=== PATIENT | female | born 1945 | race Caucasian/White ===

== ENCOUNTER 2018-05-09 23:41 | Inpatient (IN) | payer OTHER, MEDICARE ==
[~2018-05-09] VITALS: Ht 165.1 cm; Wt 98.0 kg
[2018-05-09 23:59] VITALS: BP 172/75; PULSE 100; RESP 18; TEMP 98.8; O2SAT 100
[2018-05-10] VITALS (8 sets, daily range): BP systolic 122–181; BP diastolic 68–84; PULSE 64–87; RESP 16–18; TEMP 97.3–100; O2SAT 94–99
[2018-05-10] MEDS ORDERED: SODIUM CHLOR 0.9% 1000 ML INJ 1,000 ML IV ONE (00:15)
[2018-05-10] MEDS ORDERED: VANCOMYCIN INJ 1,000 MG in SODIUM CHLOR 0.9% 250 ML INJ 250 ML IV ONE (00:15)
[2018-05-10] MEDS ORDERED: PIPERACIL-TAZO 4.5 GM PREMIX 100 ML IV ONE (00:15)
[2018-05-10] MEDS ORDERED: IOHEXOL 350 MG/ML 10 ML VIAL (for RAD DIAG) IVCONTRAST ONE (00:21)
--- NOTE | 2018-05-10 00:29 | RADRPT ---
EXAM DATE: 05/10/2018 12:25 AM EDT AGE/SEX: 72 years / Female INDICATIONS: Fever. CLINICAL DATA: This is the patient's initial encounter. Patient reports that signs and symptoms have been present for 1 day and indicates a pain score of 0/10. MEDICAL/SURGICAL HISTORY: None. Appendectomy. COMPARISON: No prior exams available for comparison. FINDINGS: A single AP view of the chest demonstrates the lungs to be symmetrically aerated without evidence of mass, infiltrate or effusion. The cardiomediastinal contours are unremarkable. Osseous structures a re intact. CONCLUSION: Negative examination. The right hemidiaphragm is moderately elevated. Electronically signed by: Berhane Alston MD 05/10/2018 12:28 AM EDT
[2018-05-10 00:45] LABS: AUTOMATED NEUTROPHIL # 13.5 TH/MM3 (1.8-7.7); BASOPHIL # 0.1 TH/MM3 (0-0.2); BASOPHIL % 0.4 % (0.0-2.0); EOSINOPHIL # 0.1 TH/MM3 (0-0.4); EOSINOPHIL % 0.6 % (0.0-4.0); HEMATOCRIT 38.5 % (35.0-46.0); HEMOGLOBIN 12.6 GM/DL (11.6-15.3); LYMPHOCYTE # 0.6 TH/MM3 (1.0-4.8); MEAN CELL VOLUME 85.1 FL (80.0-100.0); MEAN CORPUSCULAR HEMOGLOBIN 27.8 PG (27.0-34.0); MEAN CORPUSCULAR HGB CONC 32.6 % (32.0-36.0); MONO % 6.1 % (0.0-8.0); MONOCYTE # 0.9 TH/MM3 (0-0.9); NEUT % 88.9 % (16.0-70.0); PLATELET COUNT 348 TH/MM3 (150-450); RED BLOOD COUNT 4.53 MIL/MM3 (4.00-5.30); RED CELL DISTRIBUTION WIDTH 14.6 % (11.6-17.2); WHITE BLOOD COUNT 15.1 TH/MM3 (4.0-11.0)
[2018-05-10 00:53] LABS: INTERNATIONAL NORMALIZED RATIO 1.1 RATIO; PROTHROMBIN TIME - PATIENT 11.1 SEC (9.8-11.6)
[2018-05-10 01:00] LABS: ALBUMIN 2.7 GM/DL (3.4-5.0); ALT (GPT) 16 U/L (10-53); AST (GOT) 23 U/L (15-37); BICARBONATE 21.9 MEQ/L (21.0-32.0); BLOOD UREA NITROGEN 9 MG/DL (7-18); CALCIUM 8.8 MG/DL (8.5-10.1); CHLORIDE 102 MEQ/L (98-107); GLOMERULAR FILTRATION RATE 44 ML/MIN (>89); GLUCOSE,RANDOM 283 MG/DL (74-106); MAGNESIUM 2.2 MG/DL (1.5-2.5); SODIUM (NA) 138 MEQ/L (136-145)
[2018-05-10] MEDS ORDERED: TETANUS/DIPHTHERIA TOXOID ADULT 0.5 ML VIAL IM ONE (01:00)
--- NOTE | 2018-05-10 01:01 | PD ---
HPI Chief Complaint: General Weakness Time Seen by Provider: 00:06 Travel History International Travel<30 days: No Contact w/Intl Traveler<30days: No Traveled to known affect area: No History of Present Illness HPI Patient is a 72-year-old female who presents to the emergency room for evaluation. As per EMS, reports that patient's left knee buckled and she fell forward landing onto her right breast. Patient reports that she has been feeling progressively weak over the past month. Reports that she does not have any medical problems and does not take any medications.. Patient reports that about 1 month ago, she had noticed something to her right breast, reports that now it turns into a large necrotic lesion. Patient reports that she has not follow-up with the primary care doctor for this, reports that her right breast infection is just getting worse. Patient denies any fevers or chills, reports overall generalized weakness. PFSH Past Medical History Medical History: Denies Significant Hx ?: Not Past Surgical History Appendectomy: Yes Social History Alcohol Use: No Tobacco Use: No Substance Use: No Allergies-Medications (Allergen,Severity, Reaction): Coded Allergies: No Known Allergies (Unverified , 05/09/18) Reported Meds & Prescriptions Reported Meds & Active Scripts Active No Active Prescriptions or Reported Medications Review of Systems General / Constitutional: No: Fever Eyes: No: Visual changes HENT: No: Headaches Cardiovascular: No: Chest Pain or Discomfort Respiratory: No: Shortness of Breath Gastrointestinal: No: Abdominal Pain Genitourinary: No: Dysuria Musculoskeletal: No: Pain Skin: No Rash Neurologic: Positive: Weakness Psychiatric: No: Depression Endocrine: No: Polydipsia Hematologic/Lymphatic: No: Easy Bruising Physical Exam Narrative GENERAL: moderate distress SKIN: Focused skin assessment warm/dry. HEAD: Atraumatic. Normocephalic. EYES: Pupils equal and round. No scleral icterus. No injection or drainage. ENT: No nasal bleeding or discharge. Mucous membranes pink and moist. NECK: Trachea midline. No JVD. CARDIOVASCULAR: Regular rate and rhythm. No murmur appreciated. Patient with a large necrotic foul-smelling lesion to the right breast which is 10 x 10 cm in diameter, patient with also a smaller circumferential lesion to the left breast 4 x 4 centimeters in diameter RESPIRATORY: No accessory muscle use. Clear to auscultation. Breath sounds equal bilaterally. GASTROINTESTINAL: Abdomen soft, non-tender, nondistended. Hepatic and splenic margins not palpable. MUSCULOSKELETAL: No obvious deformities. No clubbing. No cyanosis. No edema. NEUROLOGICAL: Awake and alert. No obvious cranial nerve deficits. Motor grossly within normal limits. Normal speech. PSYCHIATRIC: Appropriate mood and affect; insight and judgment normal. Data Data Last Documented VS Vital Signs Date Time Temp Pulse Resp B/P (MAP) Pulse Ox O2 Delivery O2 Flow Rate FiO2 05/10/18 02:30 77 17 181/82 (115) 98 Room Air 05/09/18 23:59 98.8 Orders Orders Electrocardiogram (05/09/18 ) Sepsis Workup Initiated (05/10/18 ) Electrocardiogram (05/10/18 00:06) Complete Blood Count With Diff (05/10/18 00:06) Comprehensive Metabolic Panel (05/10/18 00:06) Prothrombin Time / Inr (Pt) (05/10/18 00:06) Act Partial Throm Time (Ptt) (05/10/18 00:06) Lactic Acid Sepsis Protocol (05/10/18 00:06) Magnesium (Mg) (05/10/18 00:06) Lipase (05/10/18 00:06) Urinalysis - C+S If Indicated (05/10/18 00:06) Blood Culture (05/10/18 00:06) Chest, Single Ap (05/10/18 00:06) Blood Glucose (05/10/18 00:06) Ecg Monitoring (05/10/18 00:06) Iv Access Insert/Monitor (05/10/18 00:06) Oximetry (05/10/18 00:06) Oxygen Administration (05/10/18 00:06) Piperacil-Tazo 4.5 Gm Premix (Zosyn 4.5 (05/10/18 00:15) Vancomycin Inj (Vancomycin Inj) (05/10/18 00:15) Ct Thorax/ Chest W Iv Contrast (05/10/18 ) Sodium Chlor 0.9% 1000 Ml Inj (Ns 1000 M (05/10/18 00:15) Wound Culture And Gram Stain (05/10/18 00:30) Tetanus/Diphtheria Tox Adult (Tetanus/Di (05/10/18 01:00) Knee, Complete (4vws) (05/10/18 ) Urine Culture (05/10/18 01:20) (Hub Use Only)Inp Phy Cons/Ref (05/10/18 ) Hemoglobin (Hgb) A1c (05/11/18 06:00) Bedside Glucose BECCA.CSUGAR (05/10/18 03:24) Blood Glucose Goal (Criteria) (05/10/18 03:24) Hypoglycemia 70 Mg/Dl Or < (05/10/18 03:24) Notify Dr: Other (05/10/18 03:24) Dextrose 50% In Rubia (Vial) Inj (D50w (Vi (05/10/18 03:30) Glucagon Inj (Glucagon Inj) (05/10/18 03:30) Low Novolog Scale (05/10/18 08:00) Consult Medical Oncology (05/10/18 ) Consult General Surgery (05/10/18 ) Vancomycin Consult Pharmacy (Vancomycin (05/10/18 03:30) Cefepime Inj (Maxipime Inj) (05/10/18 09:00) Admit To Inpatient (05/10/18 ) Vital Signs (Adult) Q4H (05/10/18 03:24) Activity Oob With Assistance (05/10/18 03:24) Snack Bar Cook / Telemetry .CONTINUOUS (05/10/18 03:24) Intake + Output BECCA.QSHIFT (05/10/18 03:24) Diet 1800 Ada Cons Carb (05/10/18 Breakfast) Sodium Chlor 0.9% 1000 Ml Inj (Ns 1000 M (05/10/18 03:24) Sodium Chloride 0.9% Flush (Ns Flush) (05/10/18 03:30) Sodium Chloride 0.9% Flush (Ns Flush) (05/10/18 09:00) Metoclopramide Inj (Reglan Inj) (05/10/18 03:30) Comprehensive Metabolic Panel (05/11/18 06:00) Complete Blood Count With Diff (05/11/18 06:00) Pt Request For Service (05/10/18 03:24) Case Management Consult (05/10/18 03:24) Scd Bilateral/Knee High BECCA.BID (05/10/18 03:24) Yogesh Bilateral/Knee High BECCA.QSHIFT (05/10/18 03:26) Acetaminophen (Tylenol) (05/10/18 03:30) Acetamin-Hydrocod 325-5 Mg (Amenia 5-325 (05/10/18 03:30) Morphine Inj (Morphine Inj) (05/10/18 03:30) Docusate Sodium-Senna (Sammie-Colace) (05/10/18 09:00) Magnesium Hydroxide Liq (Milk Of Magnesi (05/10/18 03:30) Sennosides (Senokot) (05/10/18 03:30) Bisacodyl Supp (Dulcolax Supp) (05/10/18 03:30) Lactulose Liq (Lactulose Liq) (05/10/18 03:30) Inpatient Certification (05/10/18 ) Admit Order (Ed Use Only) (05/10/18 03:26) Labs Laboratory Tests Test 05/10/18 00:21 05/10/18 01:20 05/10/18 03:11 White Blood Count 15.1 TH/MM3 Red Blood Count 4.53 MIL/MM3 Hemoglobin 12.6 GM/DL Hematocrit 38.5 % Mean Corpuscular Volume 85.1 FL Mean Corpuscular Hemoglobin 27.8 PG Mean Corpuscular Hemoglobin Concent 32.6 % Red Cell Distribution Width 14.6 % Platelet Count 348 TH/MM3 Mean Platelet Volume 6.0 FL Neutrophils (%) (Auto) 88.9 % Lymphocytes (%) (Auto) 4.0 % Monocytes (%) (Auto) 6.1 % Eosinophils (%) (Auto) 0.6 % Basophils (%) (Auto) 0.4 % Neutrophils # (Auto) 13.5 TH/MM3 Lymphocytes # (Auto) 0.6 TH/MM3 Monocytes # (Auto) 0.9 TH/MM3 Eosinophils # (Auto) 0.1 TH/MM3 Basophils # (Auto) 0.1 TH/MM3 CBC Comment DIFF FINAL Differential Comment Prothrombin Time 11.1 SEC Prothromb Time International Ratio 1.1 RATIO Activated Partial Thromboplast Time 22.2 SEC Blood Urea Nitrogen 9 MG/DL Creatinine 1.20 MG/DL Random Glucose 283 MG/DL Total Protein 7.3 GM/DL Albumin 2.7 GM/DL Calcium Level 8.8 MG/DL Magnesium Level 2.2 MG/DL Alkaline Phosphatase 111 U/L Aspartate Amino Transf (AST/SGOT) 23 U/L Alanine Aminotransferase (ALT/SGPT) 16 U/L Total Bilirubin 1.3 MG/DL Sodium Level 138 MEQ/L Potassium Level 3.8 MEQ/L Chloride Level 102 MEQ/L Carbon Dioxide Level 21.9 MEQ/L Anion Gap 14 MEQ/L Estimat Glomerular Filtration Rate 44 ML/MIN Lactic Acid Level 3.2 mmol/L Lipase 182 U/L Urine Color YELLOW Urine Turbidity HAZY Urine pH 6.5 Urine Specific [place] 1.016 Urine Protein 30 mg/dL Urine Glucose (UA) TRACE mg/dL Urine Ketones NEG mg/dL Urine Occult Blood TRACE Urine Nitrite NEG Urine Bilirubin NEG Urine Urobilinogen 4.0 MG/DL Urine Leukocyte Esterase NEG Urine RBC 4 /hpf Urine WBC 4 /hpf Urine Squamous Epithelial Cells 30 /hpf Urine Amorphous Sediment OCC Urine Bacteria MOD /hpf Urine Hyaline Casts 8 /lpf Urine Mucus FEW /lpf Microscopic Urinalysis Comment CATH-CULTURE IND MDM Medical Decision Making Medical Screen Exam Complete: Yes Emergency Medical Condition: Yes Medical Record Reviewed: Yes Interpretation(s) EKG at 2314: Normal sinus rhythm at 98 bpm, QT/QTc 338/3 and 3, no acute ST or T -wave changes Vital Signs Date Time Temp Pulse Resp B/P (MAP) Pulse Ox O2 Delivery O2 Flow Rate FiO2 05/09/18 23:59 98.8 100 18 172/75 (107) 100 Differential Diagnosis Breast cancer, necrotic lesions to breast, sepsis, electrolyte abnormality Narrative Course During the course of the patients emergency department visit, the patients history, examination, and differential diagnosis were reviewed with the patient. The patient was placed on a gambling monitor with oximetry and frequent blood pressure monitoring. The patient had an IV access obtained and blood work sent for analysis. The patient was initially provided IV vancomycin as well as IV Zosyn as she does have necrotic lesions to bilateral breasts. The patients laboratory studies were reviewed and remarkable for Laboratory Tests Test 05/10/18 00:21 05/10/18 01:20 White Blood Count 15.1 TH/MM3 (4.0-11.0) Red Blood Count 4.53 MIL/MM3 (4.00-5.30) Hemoglobin 12.6 GM/DL (11.6-15.3) Hematocrit 38.5 % (35.0-46.0) Mean Corpuscular Volume 85.1 FL (80.0-100.0) Mean Corpuscular Hemoglobin 27.8 PG (27.0-34.0) Mean Corpuscular Hemoglobin Concent 32.6 % (32.0-36.0) Red Cell Distribution Width 14.6 % (11.6-17.2) Platelet Count 348 TH/MM3 (150-450) Mean Platelet Volume 6.0 FL (7.0-11.0) Neutrophils (%) (Auto) 88.9 % (16.0-70.0) Lymphocytes (%) (Auto) 4.0 % (9.0-44.0) Monocytes (%) (Auto) 6.1 % (0.0-8.0) Eosinophils (%) (Auto) 0.6 % (0.0-4.0) Basophils (%) (Auto) 0.4 % (0.0-2.0) Neutrophils # (Auto) 13.5 TH/MM3 (1.8-7.7) Lymphocytes # (Auto) 0.6 TH/MM3 (1.0-4.8) Monocytes # (Auto) 0.9 TH/MM3 (0-0.9) Eosinophils # (Auto) 0.1 TH/MM3 (0-0.4) Basophils # (Auto) 0.1 TH/MM3 (0-0.2) CBC Comment DIFF FINAL Differential Comment Prothrombin Time 11.1 SEC (9.8-11.6) Prothromb Time International Ratio 1.1 RATIO Activated Partial Thromboplast Time 22.2 SEC (24.3-30.1) Blood Urea Nitrogen 9 MG/DL (7-18) Creatinine 1.20 MG/DL (0.50-1.00) Random Glucose 283 MG/DL (74-106) Total Protein 7.3 GM/DL (6.4-8.2) Albumin 2.7 GM/DL (3.4-5.0) Calcium Level 8.8 MG/DL (8.5-10.1) Magnesium Level 2.2 MG/DL (1.5-2.5) Alkaline Phosphatase 111 U/L (45-117) Aspartate Amino Transf (AST/SGOT) 23 U/L (15-37) Alanine Aminotransferase (ALT/SGPT) 16 U/L (10-53) Total Bilirubin 1.3 MG/DL (0.2-1.0) Sodium Level 138 MEQ/L (136-145) Potassium Level 3.8 MEQ/L (3.5-5.1) Chloride Level 102 MEQ/L (98-107) Carbon Dioxide Level 21.9 MEQ/L (21.0-32.0) Anion Gap 14 MEQ/L (5-15) Estimat Glomerular Filtration Rate 44 ML/MIN (>89) Lactic Acid Level 3.2 mmol/L (0.4-2.0) Lipase 182 U/L (73-393) Urine Color YELLOW (YELLW/STRAW) Urine Turbidity HAZY (CLEAR) Urine pH 6.5 (5.0-8.5) Urine Specific [place] 1.016 (1.002-1.035) Urine Protein 30 mg/dL (NEG-TRACE) Urine Glucose (UA) TRACE mg/dL (NEG) Urine Ketones NEG mg/dL (NEG) Urine Occult Blood TRACE (NEG) Urine Nitrite NEG (NEG) Urine Bilirubin NEG (NEG) Urine Urobilinogen 4.0 MG/DL (LESS THAN Urine Leukocyte Esterase NEG (NEG) Urine RBC 4 /hpf (0-3) Urine WBC 4 /hpf (0-5) Urine Squamous Epithelial Cells 30 /hpf (0-5) Urine Amorphous Sediment OCC Urine Bacteria MOD /hpf (NONE) Urine Hyaline Casts 8 /lpf (RARE) Urine Mucus FEW /lpf (OCC) Microscopic Urinalysis Comment CATH-CULTURE IND Radiology studies were reviewed and remarkable for Last Impressions Chest X-Ray 05/10/186 Signed Impressions: CONCLUSION: Negative examination. The right hemidiaphragm is moderately elevated. Knee X-Ray 05/10/18 Signed Impressions: CONCLUSION: Large tricompartmental osteophytes. No acute fracture Chest CT 05/10/18 Signed Impressions: CONCLUSION: 1. Bilateral breast masses with skin thickening and ulceration. Bilateral axil amanda adenopathy. WBC 15.1, lactic acid 3.2, patient has been pancultured, she does have bilateral breast masses with thickening and ulceration and infection. Patient has been given a dose of Zosyn as well as vancomycin, she will require admission to the hospital this time. I did discuss with patient concerning findings from the CT scan as she appears to have large breast masses. She has adnexal axillary mass likely metastatic. Patient's daughter at bedside, patient did give me permission to speak to her daughter and review the results. Discussed all concerning findings from the CT including likely metastatic disease and breast cancer with necrotic breast lesions. Patient is agreeable to admission to the hospital Case reviewed with Dr. Lind who accepts patient to service. Critical Care Narrative Aggregate critical care time was 30 minutes. Time to perform other separately billable procedures was not included in the critical care time. My time did not include minutes spent treating any other patients simultaneously or on activities that did not directly contribute to the patient's treatment. The services I provided to this patient were to treat and/or prevent clinically significant deterioration that could result in: , decompensation, deterioration I provided critical care services requiring my management, as noted below: Chart data review, documentation time, medication orders and management, vital sign assessments/reviewing monitor data, ordering and reviewing lab tests, ordering and interpreting/reviewing x-rays and diagnostic studies, care of the patient and discussion of the patient with the admitting physicians. Sepsis Criteria SIRS Criteria (2 or more): Heart rate over 90, WBC > 42809, < 4000 or > 10% bands Severe Sepsis (+one): Lactate >2 Criteria Outcome: Meets sepsis criteria Diagnosis Primary Impression: Breast mass in female Additional Impression: Sepsis affecting skin Admitting Information Admitting Physician Requests: Admit Scripts No Active Prescriptions or Reported Meds Lucie Andrews DO May 10, 2018 01:01
[2018-05-10 01:02] LABS: LACTIC ACID SEPSIS PROTOCOL 3.2 mmol/L (0.4-2.0)
[2018-05-10 01:03] LABS: ALKALINE PHOSPHATASE 111 U/L (45-117); TOTAL BILIRUBIN ADULT 1.3 MG/DL (0.2-1.0); TOTAL PROTEIN 7.3 GM/DL (6.4-8.2)
--- NOTE | 2018-05-10 01:25 | RADRPT ---
EXAM DATE: 05/10/2018 1:21 AM EDT AGE/SEX: 72 years / Female INDICATIONS: Fracture. Patient states her knee gives out. CLINICAL DATA: This is the patient's initial encounter. Patient reports that signs and symptoms have been present for 1 month and indicates a pain score of 0/10. MEDICAL/SURGICAL HISTORY: None. Appendectomy. COMPARISON: No prior exams available for comparison. FINDINGS: There is marked osteoarthritis involving the medial compartment. Large osteophytes. No acute fracture . No significant joint effusion. Severe osteoarthritis of the patellofemoral joint. CONCLUSION: Large tricompartmental osteophytes. No acute fracture Electronically signed by: Berhane Alston MD 05/10/2018 1:24 AM EDT
[2018-05-10 01:52] LABS: AMORPHOUS SEDIMENT, URINE OCC; BACTERIA, URINE MOD /hpf; BILIRUBIN, URINE NEG (NEG); BLOOD, URINE TRACE (NEG); GLUCOSE,URINE TRACE mg/dL (NEG); HYALINE CAST, URINE 8 /lpf (RARE); KETONE, URINE NEG (NEG); MUCUS URINE FEW /lpf (OCC); NITRITE,URINE NEG (NEG); PH, URINE 6.5 (5.0-8.5); SQUAMOUS EPITHELIAL CELL URINE 30 /hpf (0-5); URINE COLOR YELLOW (YELLW/STRAW); URINE LEUKOCYTE ESTERASE NEG (NEG)
--- NOTE | 2018-05-10 03:02 | RADRPT ---
EXAM DATE: 05/10/2018 2:16 AM EDT AGE/SEX: 72 years / Female INDICATIONS: Trauma; fall. Patient's breast bleeding. CLINICAL DATA: This is the patient's initial encounter. Patient reports that signs and symptoms have been present for 1 day and indicates a pain score of 7/10. MEDICAL/SURGICAL HISTORY: None. Appendectomy. RADIATION DOSE: 14.55 CTDI (mGy) COMPARISON: No prior exams available for comparison. TECHNIQUE: Multiple contiguous axial images were obtained through the chest during bolus infusion of 71 ml Omnipaque 350 (iohexol) nonionic water-soluble contrast as a single exam dose. Images were obtained in suspended respiration using multiple row detector helical technique. Using automated exp osure control and adjustment of the mA and/or kV according to patient size, radiation dose was kept a s low as reasonably achievable to obtain optimal diagnostic quality images. FINDINGS: The patient has a large left breast mass 5.5 cm across. It extends to the skin surface whic h is thickened and ulcerated. There is a mass in the right breast also with a large area of ulceratio n and skin thickening. Lungs: The lungs are symmetrically aerated. No infiltrates or nodular densities are seen. Mediastinum: There is good visualization of the great vessels of the middle mediastinum. No evidenc e of mediastinal or hilar adenopathy/mass. Pleurae: No evidence of focal thickening or pleural effusion. Axillae: 4.6 cm right adnexal axillary mass likely metastatic adenopathy. 2.4 cm lymph node left axi lla Bony Structures: Unremarkable. Miscellaneous: The examination was extended to include the upper abdomen, and both adrenal glands ar e normal in size and configuration. CONCLUSION: 1. Bilateral breast masses with skin thickening and ulceration. Bilateral axillary adenopathy. Electronically signed by: Berhane Alston MD 05/10/2018 3:01 AM EDT
[2018-05-10] MEDS ORDERED: DEXTROSE 50% IN WATER 50 ML VIAL(D50) IV PUSH PRN (03:30)
[2018-05-10] MEDS ORDERED: ACETAMINOPHEN 325 MG TAB PO PRN (03:30)
[2018-05-10] MEDS ORDERED: GLUCAGON 1 MG/ML VIAL OTHER PRN (03:30)
[2018-05-10] MEDS ORDERED: METOCLOPRAMIDE HCL 10 MG/2 ML VIAL IV PUSH PRN (03:30)
[2018-05-10] MEDS ORDERED: Vancomycin Consult Pharmacy 1 EA OTHER SCH (03:30)
[2018-05-10] MEDS ORDERED: LACTULOSE SYRUP 20 GM/30 ML CUP PO PRN (03:30)
[2018-05-10] MEDS ORDERED: BISACODYL 10 MG SUPP RECTAL PRN (03:30)
[2018-05-10] MEDS ORDERED: SENNOSIDES 8.6 MG TAB PO PRN (03:30)
[2018-05-10] MEDS ORDERED: MAGNESIUM HYDROXIDE SUSP 30 ML CUP PO PRN (03:30)
--- NOTE | 2018-05-10 03:55 | HHI.HP ---
HPI Service [facility] Primary Care Physician No Primary Care Physician Admission Diagnosis Sepsis, necrotic breast mass Diagnoses: (1) Fall Diagnosis: Principal (2) Masses of both breasts Diagnosis: Principal (3) SIRS (systemic inflammatory response syndrome) Diagnosis: Principal (4) UTI (urinary tract infection) Diagnosis: Principal (5) Renal insufficiency Diagnosis: Principal (6) DM (diabetes mellitus) Diagnosis: Principal Travel History International Travel<30 Days: No Contact w/Intl Traveler <30 Da: No Traveled to Known Affected Are: No History of Present Illness This is a 72-year-old female with no significant PMH and she is not seen a doctor in 40 years who was brought to the ER by EMS with complaints of left knee and right breast pain after a fall. Patient states her leg "buckled" and she fell forward onto her walker hitting her right breast. On exam, pt noted to have large, necrotic right breast lesion.. upon further questioning, pt states she noticed it 2 months ago but never sought medical attention because " I was stupid". Also notes similar, but smaller lesion to left breast which appeared approx 1wk ago. Denies fever, chills. No h/o Breast CA that she is aware of. On arrival, BP 172/75, HR 100, O2 sat 100% on RA, Afebrile. WBC 15.1. Creatinine 1.2 no previous labs for comparison. BS 283. Lactic Acid 3.2. INR 1.1. UA positive for UTI. Knee X-ray with no acute fracture. CXR negative. CT Chest bilateral breast masses with skin thickening and ulceration , bilateral axillary adenopathy. S/p Blood Cultures, Vanc/Zosyn in ER. Review of Systems Except as stated in HPI: all other systems reviewed are Neg ROS: 14 point review of systems otherwise negative. Past Family Social History Past Medical History PMH: None reported Past Surgical History PAST SURGICAL HISTORY: Appendectomy Allergies: Coded Allergies: No Known Allergies (Unverified , 05/09/18) Family History PAST FAMILY HISTORY: Reviewed. No h/o DM or CAD Social History PAST SOCIAL HISTORY: Negative for alcohol, tobacco or drugs. Physical Exam Vital Signs Vital Signs Date Time Temp Pulse Resp B/P (MAP) Pulse Ox O2 Delivery O2 Flow Rate FiO2 05/10/18 02:30 77 17 181/82 (115) 98 Room Air 05/09/18 23:59 98.8 100 18 172/75 (107) 100 Physical Exam PE: GENERAL: Middle-aged white female in no acute distress. Daughter at bedside. HEENT: PERRLA, EOMI. No scleral icterus or conjunctival pallor. No lid lag or facial droop. CARDIOVASCULAR: Regular rate and rhythm. No obvious murmurs to auscultation. No chest tenderness to palpation. Very large necrotic right breast mass w/ foul- smelling drainage approx [id number], similar appearing lesion to left breast approx 5x5cm. RESPIRATORY: No obvious rhonchi or wheezing. Clear to auscultation. Breath sounds equal bilaterally. GASTROINTESTINAL: Abdomen soft, non-tender, nondistended. BS normal. MUSCULOSKELETAL: Extremities without clubbing, cyanosis, or edema. No obvious deformities. NEUROLOGICAL: Awake, alert and oriented x4. Flat affect. No focal neurologic deficits. Moving both upper and lower extremities spontaneously. Laboratory Laboratory Tests Test 05/10/18 00:21 05/10/18 01:20 05/10/18 03:11 White Blood Count 15.1 Red Blood Count 4.53 Hemoglobin 12.6 Hematocrit 38.5 Mean Corpuscular Volume 85.1 Mean Corpuscular Hemoglobin 27.8 Mean Corpuscular Hemoglobin Concent 32.6 Red Cell Distribution Width 14.6 Platelet Count 348 Mean Platelet Volume 6.0 Neutrophils (%) (Auto) 88.9 Lymphocytes (%) (Auto) 4.0 Monocytes (%) (Auto) 6.1 Eosinophils (%) (Auto) 0.6 Basophils (%) (Auto) 0.4 Neutrophils # (Auto) 13.5 Lymphocytes # (Auto) 0.6 Monocytes # (Auto) 0.9 Eosinophils # (Auto) 0.1 Basophils # (Auto) 0.1 CBC Comment DIFF FINAL Differential Comment Prothrombin Time 11.1 Prothromb Time International Ratio 1.1 Activated Partial Thromboplast Time 22.2 Blood Urea Nitrogen 9 Creatinine 1.20 Random Glucose 283 Total Protein 7.3 Albumin 2.7 Calcium Level 8.8 Magnesium Level 2.2 Alkaline Phosphatase 111 Aspartate Amino Transf (AST/SGOT) 23 Alanine Aminotransferase (ALT/SGPT) 16 Total Bilirubin 1.3 Sodium Level 138 Potassium Level 3.8 Chloride Level 102 Carbon Dioxide Level 21.9 Anion Gap 14 Estimat Glomerular Filtration Rate 44 Lactic Acid Level 3.2 Lipase 182 Urine Color YELLOW Urine Turbidity HAZY Urine pH 6.5 Urine Specific [place] 1.016 Urine Protein 30 Urine Glucose (UA) TRACE Urine Ketones NEG Urine Occult Blood TRACE Urine Nitrite NEG Urine Bilirubin NEG Urine Urobilinogen 4.0 Urine Leukocyte Esterase NEG Urine RBC 4 Urine WBC 4 Urine Squamous Epithelial Cells 30 Urine Amorphous Sediment OCC Urine Bacteria MOD Urine Hyaline Casts 8 Urine Mucus FEW Microscopic Urinalysis Comment CATH-CULTURE IND Date/Time Source Procedure Growth Status 05/10/18 00:21 Blood Peripheral Aerobic Blood Culture Pending Received 05/10/18 00:21 Blood Peripheral Anaerobic Blood Culture Pending Received 05/10/18 01:20 Urine Catheterized Urine Urine Culture Pending Received 05/10/18 00:32 Wound Breast Gram Stain Pending Received 05/10/18 00:32 Wound Breast Wound Culture Pending Received Result Diagram: 05/10/18 0021 05/10/18 0021 Caprini VTE Risk Assessment Caprini VTE Risk Assessment: No/Low Risk (score <= 1) Caprini Risk Assessment Model Point Value = 1 Point Value = 2 Point Value = 3 Point Value = 5 Age 41-60 Minor surgery BMI > 25 kg/m2 Swollen legs Varicose veins or History of unexplained or recurrent spontaneous Oral contraceptives or hormone replacement Sepsis (< 1 month) Serious lung disease, including pneumonia (< 1 month) Abnormal pulmonary function Acute myocardial infarction Congestive heart failure (< 1 month) History of inflammatory bowel disease Medical patient at bed rest Age 61-74 Arthroscopic surgery Major open surgery (> 45 min) Laparoscopic surgery (> 45 min) Malignancy Confined to bed (> 72 hours) Immobilizing plaster cast Central venous access Age >= 75 History of VTE Family history of VTE Factor V Leiden Prothrombin [id number] Lupus anticoagulant Anticardiolipin antibodies Elevated serum homocysteine Heparin-induced thrombocytopenia Other congenital or acquired thrombophilia Stroke (< 1 month) Elective arthroplasty Hip, pelvis, or leg fracture Acute spinal cord injury (< 1 month) Prophylaxis Regimen Total Risk Factor Score Risk Level Prophylaxis Regimen 0-1 Low Early ambulation 2 Moderate Order ONE of the following: *Sequential Compression Device (SCD) *Heparin 5000 units SQ BID 3-4 Higher Order ONE of the following medications: *Heparin 5000 units SQ TID *Enoxaparin/Lovenox 40 mg SQ daily (WT < 150 kg, CrCl > 30 mL/min) *Enoxaparin/Lovenox 30 mg SQ daily (WT < 150 kg, CrCl > 10-29 mL/min) *Enoxaparin/Lovenox 30 mg SQ BID (WT < 150 kg, CrCl > 30 mL/min) AND/OR *Sequential Compression Device (SCD) 5 or more Highest Order ONE of the following medications: *Heparin 5000 units SQ TID (Preferred with Epidurals) *Enoxaparin/Lovenox 40 mg SQ daily (WT < 150 kg, CrCl > 30 mL/min) *Enoxaparin/Lovenox 30 mg SQ daily (WT < 150 kg, CrCl > 10-29 mL/min) *Enoxaparin/Lovenox 30 mg SQ BID (WT < 150 kg, CrCl > 30 mL/min) AND *Sequential Compression Device (SCD) Assessment and Plan Problem List: (1) Fall ICD Code: W19.XXXA - Unspecified fall, initial encounter (2) Masses of both breasts ICD Code: N63.10 - Unspecified lump in the right breast, unspecified quadrant; N63.20 - Unspecified lump in the left breast, unspecified quadrant (3) UTI (urinary tract infection) ICD Code: N39.0 - Urinary tract infection, site not specified (4) Renal insufficiency ICD Code: N28.9 - Disorder of kidney and ureter, unspecified (5) SIRS (systemic inflammatory response syndrome) ICD Code: R65.10 - Systemic inflammatory response syndrome (SIRS) of non- infectious origin without acute organ dysfunction (6) DM (diabetes mellitus) ICD Code: E11.9 - Type 2 diabetes mellitus without complications Assessment and Plan A/P: 1. Fall: s/p mechanical fall with walker, c/o knee pain, Knee X-ray w/ no acute fracture, images reviewed by me. PT for eval/tx. Analgesics/antiemetics as needed. 2. Bilateral Breast Masses: Necrotic bilateral breast masses, highly suspicious for underlying malignancy. CT Chest w/ bilateral breast masses, skin thickening and ulceration in addition to bilateral axillary adenopathy, images reviewed by me. Right lesion present x2 months, left breast lesion present for approx 1wk, did not seek medical attention until now. Consult Gen Sx for eval/intervention, Consult Oncology for further eval/recommendations. Continue w/ IV Abx. 3. SIRS: WBC 15, HR 100, Source-Necrotic Breast Masses/UTI. IVF for hydration , Lactic Acid 3.2, repeat Lactic Acid, continue w/ IV Abx. 4. DM: No previous diagnosis as hasn't seen doctor in 40yrs, BS 283. Check Hgb A1c, start sliding scale w/ Accu-Cheks. 5. UTI: U/a w/ UTI, continue w/ IV Abx, follow up cultures, IVF for hydration. 6. Renal Insufficiency: Creatinine 1.20, no previous labs for comparison, presumably new, secondary to above. IVF, monitor I/O, repeat labs in am. 7. DVT Prophylaxis: SCD/Teds 8. Social work for d/c planning as needed. 9. Case discussed w/ ER physician at length, labs/records/imaging reviewed by wv Physician Certification 2 Midnight Certification Type: Admission for Inpatient Services Order for Inpatient Services The services are ordered in accordance with Medicare regulations or non- Medicare payer requirements, as applicable. In the case of services not specified as inpatient-only, they are appropriately provided as inpatient services in accordance with the 2-midnight benchmark. Estimated LOS (days): 2 days is the estimated time the patient will need to remain in the hospital, assuming treatment plan goals are met and no additional complications. Post-Hospital Plan: Not yet determined Renee Lind MD May 10, 2018 03:55
[2018-05-10] MEDS ORDERED: VANCOMYCIN INJ 800 MG in SODIUM CHLOR 0.9% 250 ML INJ 250 ML IV SCH (04:00)
[2018-05-10] MEDS: SODIUM CHLOR 0.9% 1000 ML INJ 1,000 ML IV SCH ×3 (04:08→23:24)
[2018-05-10] MEDS: ACETAMINOPHEN/HYDROcodone 325 MG/5 MG TAB PO PRN ×3 (05:04→20:50)
[2018-05-10] MEDS: INSULIN ASPART SUPPLEMENTAL SCALE SQ SCH ×4 (08:00→20:50)
[2018-05-10] MEDS: SODIUM CHLORIDE 0.9% FLUSH 10 ML FLUSH IV FLUSH SCH ×2 (09:00→20:51)
[2018-05-10] MEDS: DOCUSATE SODIUM 50 MG/SENNA 8.6 MG TAB PO SCH ×2 (09:14→20:51)
[2018-05-10] MEDS: CEFEPIME INJ 1,000 MG in SODIUM CHLORIDE 0.9% INJ 100 ML IV SCH ×2 (09:14→22:27)
[2018-05-10] MEDS: MORPHINE SULFATE 4 MG/ML INJ IV PUSH PRN (11:38)
[2018-05-10] MEDS ORDERED: MORPHINE SULFATE 4 MG/ML INJ IV PUSH ONE (12:15)
[2018-05-10] MEDS ORDERED: LIDOCAINE HCL 1% PF 10 ML VIAL INFIL ONE (12:15)
[2018-05-10] MEDS ORDERED: LORazepam 2 MG/ML VIAL IVP ONE (12:15)
[2018-05-10] MEDS ORDERED: SILVER NITR/POTASSIUM NITRATE APPLICATORS TOPICAL PRN (13:00)
[2018-05-10] MEDS ORDERED: LIDOCAINE HCL 1% OTHER ONE (13:00)
--- NOTE | 2018-05-10 13:00 | MB ---
cc: Britany Johnson MD, Camille MD DATE: 05/10/2018 REFERRING PHYSICIAN: Renee Lind MD CHIEF COMPLAINT: Dr. Lind requests a consultation for Ms. Matias regarding suspected bilateral breast cancer. HISTORY OF PRESENT ILLNESS: Ms. Matias is a 72-year-old woman with no significant past history. She apparently has not seen a doctor for 40 years. She found mammograms too pain. She has a noted right breast mass for about 2 months. She had progressive weakness of the lower extremity for about 2 weeks when she fell and hit her right breast. She was witnessed by a friend to have bled through her clothing. She then revealed the fact that she has had a necrotic large mass in the breast. She was brought in by EMS because of the left knee buckling. On further questioning, she has had weakness of her legs for the last 3 years, using a walker. However, over the last 2 months, she has been able to do less and last until the above fall. She reports some pain in the upper thigh. She has some low back issues. She is still able to urinate and move her bowels without event. She has been reluctant to seek medical attention. She is accompanied by her daughter and her best friend who knew nothing about the events. They were not aware of her breast cancer and she is reluctant to let them see her lesions. She denies any fevers, chills or night sweats. She denies any changes in bowel habits. She has had weakness of the lower extremity, which has worsened. She had imaging study during her evaluation here that shows bilateral breast masses with skin thickening and ulceration. There is bilateral axillary adenopathy with the right more prominent than the left. There is noted no evidence of adenopathy in the chest or lung masses. There is a 4.6 cm palpable right supraclavicular lymph node present. Bones appear to be clear. X-ray of the right knee shows osteophytes, but no fracture. Laboratory evaluation shows a leukocytosis. Creatinine increased to 1.2, glucose was 283, albumin is decreased and bilirubin is 1.3. Hematology/Oncology was consulted to evaluate the breast masses suspicious for metastatic versus locally advanced breast cancer. PAST MEDICAL HISTORY: Bilateral breast mass. PAST SURGICAL HISTORY: Appendectomy. FAMILY HISTORY: Significant for mother who of metastatic breast cancer in her 90s. SOCIAL HISTORY: She lives alone. Denies any tobacco, alcohol or illicit drug use. She has 1 daughter who lives in [place]. ALLERGIES: NO KNOWN DRUG ALLERGIES. CURRENT MEDICATIONS: Vancomycin, cefepime, [place], morphine. PHYSICAL EXAMINATION: VITAL SIGNS: Temperature 97.8, heart rate 71, respiratory rate 16, blood pressure 142/84, saturation 97%. GENERAL: Ms. Matias is a well-developed, heavyset, elderly woman with some pale complexion. HEENT: Her pupils are round, reactive to light and accommodation. Conjunctivae is pink. Oropharynx is clear. NECK: Supple. LYMPHATICS: Right supraclavicular adenopathy noted. Bilateral axillary adenopathy palpable, right side larger than the left. BREASTS: There is an odorous, large, ulcerative, fungating mass in the right breast. There is evidence of peau d'orange and superficial skin nodules. Left breast mass also noted, smaller in size with induration. There are no skin changes on the left. There is maceration of the skin under both breasts. There is maceration of the skin on the right lower quadrant. ABDOMEN: There is erythema and some skin breakdown over her appendectomy scar. Abdomen is large. EXTREMITIES: Lower extremity, no edema. Good pulses. She has got pain in the right knee. RADIOGRAPHIC EVALUATION: Described above. ASSESSMENT AND PLAN: Ms. Matias is a 72-year-old woman with no significant past history. She has not seen a doctor. She has evidence of hypertension, hyperglycemia and diabetes. She presents after a fall and trauma to the right breast leading to bleeding and discovery of a right breast mass. From history, she reports that the breast mass has been present for 2 months. Suspect that this is probably longer and underestimation. She has evidence of bilateral ulcerative masses in the breasts, the right side larger with intermittent bleeding. Lengthy discussion with Ms. Matias, her daughter and her best friend regarding the above findings. 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 There is right axillary and supraclavicular adenopathy. Prognosis will be carried by the worst breast cancer. The left side is unclear to be a metastatic lesion versus a second primary. The case was discussed with Dr. Brito. Biopsy of both breasts will be performed at bedside. We may be able to get diagnostic information from a skin biopsy as the right breast has a superficial skin lesion and the left is superficial. We discussed staging evaluation. She has elevated bilirubin. CT scan of the abdomen to include the liver will be performed. Liver metastatic disease is considered. A bone scan will be needed to rule out bony metastatic disease. If performed on outpatient, a CT PET scan can be performed. We discussed lower extremity weakness. She had some back pain and pain in the right upper thigh. A lumbar lesion will be excluded. MRI of the lumbar spine will be coordinated as well as neurology consultation to help discern and localize lesion causing the weakness of her lower extremity. Her questions were answered to her satisfaction. MD DANUTA Celestin/ALEX , 12:19 PM , 12:59 PM
--- NOTE | 2018-05-10 14:11 | MB ---
cc: Federico Franco MD, PhD DATE: 05/10/2018 REASON FOR CONSULTATION: Right lower extremity weakness. HISTORY OF PRESENT ILLNESS: Ms. Matias is a 72-year-old female with no significant past medical history, who is being evaluated for a breast mass present for about 2 months. She now complains of increasing weakness of the right leg. She has been using a walker for about 2 years, but for the past month has had more weakness of the right leg. This has been progressive. She denies back pain. PAST MEDICAL HISTORY: Otherwise unremarkable. MEDICATIONS AT HOME: None. ALLERGIES: NONE. PHYSICAL EXAMINATION. VITAL SIGNS: Blood pressure of 126/68, pulse 74, respirations 18, temperature 97.3 degrees. NEUROLOGIC: Higher cortical function: She is alert and oriented. Speech is normal. Cranial nerves intact. Motor exam: She has normal strength and tone of all groups in both upper extremities, as well as the left leg. She is weak in the right leg. The right iliopsoas is 4-/5, right quad 4/5, right hamstring 4/5, right tibia anterior 5/5, right gastrocnemius 5/5. She has normal strength in the left leg. Sensory exam is diminished in both lower extremities distally. Reflexes are 1+ and symmetric, except for ankle reflexes, which are absent. IMPRESSION: Right lower extremity weakness. This may be a lumbosacral plexopathy. Rule out myelopathy, rule out stroke. RECOMMENDATION: Recommend an MRI of the brain, as well as the entire spine to be sure there is no evidence of any metastases or stroke. Also, check labs including a fasting glucose, rule out diabetes, rule out diabetic amyotrophy. Federico Franco MD, PhD KACEY/TL , 01:59 PM , 02:10 PM
--- NOTE | 2018-05-10 14:34 | EKG ---
Date Performed: 05/09/2018 Time Performed: 23:14:51 PTAGE: 72 years EKG: Sinus rhythm NORMAL ECG NO PREVIOUS TRACING DOCTOR: Oneil Pretty Interpretating Date/Time 05/10/2018 14:32:18
--- NOTE | 2018-05-10 15:01 | RADRPT ---
EXAM DATE: 05/10/2018 2:52 PM EDT AGE/SEX: 72 years / Female INDICATIONS: . Lower extremity weakness. Evaluate for metastatic disease. CLINICAL DATA: This is the patient's initial encounter. Patient reports that signs and symptoms have been present for 2 days and indicates a pain score of 3/10. MEDICAL/SURGICAL HISTORY: . Right necrotic breast mass. Appendectomy. Tubal ligation. COMPARISON: No prior exams available for comparison. TECHNIQUE: Multiplanar, multisequence examination of the brain was performed without contrast. FINDINGS: No intracranial mass or midline shift. No hydrocephalus. No abnormal extra-axial fluid collections. N o recent infarct identified. Minimal white matter ischemic changes commonly seen at this age. No sell ar mass. No evidence for hemorrhage. CONCLUSION: 1. No acute findings. No recent infarct. Minimal white matter ischemic changes. Electronically signed by: Matthew Dunlap MD 05/10/2018 3:00 PM EDT
[2018-05-10] MEDS ORDERED: GADODIAMIDE PF 287 MG/ML 20 ML VIAL (for RAD MRI) IVCONTRAST ONE (15:21)
--- NOTE | 2018-05-10 15:28 | MB ---
cc: Bulmaro Brito MD DATE: 05/10/2018 REASON FOR CONSULTATION: Bilateral fungating breast masses with necrosis. HISTORY OF PRESENT ILLNESS: The patient is a 72-year-old female with no previous medical care, who was brought to the ER by EMS after falling. The patient reports being weak in the lower extremities. The patient had a large necrotic right breast lesion and also has a smaller lesion in the left breast. She reports this occurred only a few weeks ago. CT of the chest demonstrates bilateral breast masses with skin thickening and ulceration and bilateral axillary adenopathy, right greater than left. REVIEW OF SYSTEMS: A 14-point review of systems is otherwise negative, although she has significant right knee pain. PAST MEDICAL HISTORY: None reported. PAST SURGICAL HISTORY: Include appendectomy. ALLERGIES: SHE HAS NO KNOWN ALLERGIES. MEDICATIONS: She is taking no medications. SOCIAL HISTORY: Negative for alcohol, tobacco, or drugs. PHYSICAL EXAMINATION: GENERAL: Reveals a morbidly obese female in no acute distress. VITAL SIGNS: BP 142/84, pulse 71, respirations 16, temperature 97.8, 97% saturation on room air. HEENT: Sclerae are anicteric. Pupils are reactive. NECK: Supple. Throat is clear. CHEST: Clear to auscultation. CARDIOVASCULAR: Reveals regular rate and rhythm. There is bilateral adenopathy with fixed nodes in the right axilla. There is a large, approximately 8 x 15 cm fungating mass on the right lateral breast in approximately the 9-10 o'clock position. There is a smaller lesion on the left at approximately the 2 o'clock position laterally. ABDOMEN: Soft. Pulses are nonpalpable, although legs are warm. NEUROLOGIC: Nonfocal, although the patient has some weakness in the lower extremities. LABORATORY DATA: Demonstrate WBCs of 15.1, hemoglobin 12.6, platelets 348,000. Chemistries demonstrate a random glucose of 283. Lactate level is 2.7 from early this morning. Liver function tests demonstrate total bilirubin elevated at 1.3. AST, ALT and alkaline phosphatase are all within normal limits. GFR is low at 44. CT is as indicated above. ASSESSMENT AND PLAN: 1. Bilateral breast masses likely advanced breast cancer with metastatic disease to the lymph nodes. I have spoken with Dr. Johnson, as well as the patient and her daughter. There is some concern due to her weakness for potential for metastatic disease to the spine. Dr. Franco is seeing the patient at the time of this dictation. The patient may need further imaging based on her lower extremity weakness. Further testing would be based on findings. We will obtain punch biopsies of these lesions tomorrow. Gathering equipment and supplies this afternoon, so that this may be performed first thing in the morning. Performing this today would not add anything to the patient's care, and thus we will accumulate all supplies needed for successful biopsy. I have discussed risks of the procedure with the patient and her daughter, including, but not limited to, bleeding and infection. The patient will likely require palliative care first and some sort of oral or IV chemotherapy. Following this, possible toilet mastectomies could be performed. This would not be a small feat, given the patient's size. Medical workup should be accomplished while the patient is in the hospital; I have discussed with Dr. Johnson that an Infusaport could be placed if she is going to require IV chemotherapy. I thank you for asking us to see this individual. MD CINDY Fontaine/TL , 02:36 PM , 03:27 PM
[2018-05-10] MEDS ORDERED: DIATRIZOATE MEGLUM/DIATRIZOATE SOD 9 ML CUP PO ONE (15:30)
--- NOTE | 2018-05-10 15:43 | RADRPT ---
EXAM DATE: 05/10/2018 3:30 PM EDT AGE/SEX: 72 years / Female INDICATIONS: . Lower extremity weakness. Evaluate for metastatic disease. CLINICAL DATA: This is the patient's initial encounter. Patient reports that signs and symptoms have been present for 2 days and indicates a pain score of 3/10. MEDICAL/SURGICAL HISTORY: . Right necrotic breast mass. Appendectomy. Tubal ligation. COMPARISON: No prior exams available for comparison. TECHNIQUE: Multiplanar, multisequence MRI examination of the cervical spine was performed without an d with 18cc ml Omniscan (gadodiamide) contrast as a single exam dose. FINDINGS: Moderate degenerative disc disease is present. At C2-3 there is no significant abnormality. At C3-4-5-6-7 there is a posterior disc osteophyte complex without significant canal or foraminal cat nosis. No cord signal abnormalities. No abnormal enhancing lesions post contrast. CONCLUSION: 1. Negative for metastatic disease. Moderate degenerative disc disease as above. No cord impingement . Electronically signed by: Matthew Dunlap MD 05/10/2018 3:42 PM EDT
--- NOTE | 2018-05-10 15:51 | RADRPT ---
EXAM DATE: 05/10/2018 3:32 PM EDT AGE/SEX: 72 years / Female INDICATIONS: . Lower extremity weakness. Evaluate for metastatic disease. CLINICAL DATA: This is the patient's initial encounter. Patient reports that signs and symptoms have been present for 2 days and indicates a pain score of 3/10. MEDICAL/SURGICAL HISTORY: . Right necrotic breast mass. Appendectomy. Tubal ligation. COMPARISON: No prior exams available for comparison. TECHNIQUE: Multiplanar, multisequence MRI of the thoracic spine was performed without and with 18cc ml Omniscan (gadodiamide) contrast as a single exam dose. FINDINGS: Postcontrast images reveal enhancing lesions at T9 and T12 measuring about 1.4 cm in diameter suspici ous for metastatic disease. There is also questionable early enhancing lesion at T8 and T10. There is no significant canal stenosis. No cord impingement or cord signal abnormality. Moderate degenerative disc disease noted. CONCLUSION: 1. 1.4 cm enhancing lesions at T9 and T12 suspicious for metastatic disease. No pathologic fracture. No significant canal stenosis. Electronically signed by: Matthew Dunlap MD 05/10/2018 3:49 PM EDT
--- NOTE | 2018-05-10 16:02 | RADRPT ---
EXAM DATE: 05/10/2018 3:49 PM EDT AGE/SEX: 72 years / Female INDICATIONS: . Lower extremity weakness. Evaluate for metastatic disease. CLINICAL DATA: This is the patient's initial encounter. Patient reports that signs and symptoms have been present for 2 days and indicates a pain score of 3/10. MEDICAL/SURGICAL HISTORY: . Right necrotic breast mass. Appendectomy. Tubal ligation. COMPARISON: No prior exams available for comparison. TECHNIQUE: Multiplanar, multisequence MRI examination of the lumbar spine was performed without and with 18cc ml Omniscan (gadodiamide) contrast as a single exam dose. FINDINGS: There are enhancing lesions at T12 and also subtle enhancing lesion in anterior aspect of L1 and in t he S3 segment most characteristic of early bony metastatic disease. There is moderate degenerative disc disease. No significant canal stenosis at [id number]. At L3-4 there is a mild disc bulge without stenosis. At L4-5 there is a minimal retrolisthesis and right paracentral disc protrusion with right lateral re cess and foraminal encroachment. At L5-S1 there is a posterior disc osteophyte complex with mild right-sided foraminal stenosis. Conus intact. No acute fracture. CONCLUSION: 1. Enhancing lesions at T12, L1 and S3 most characteristic of metastatic disease. 2. At L4-5 there is a small right paracentral disc protrusion with mild stenosis of the right latera l recess. 3. Conus medullaris intact. Electronically signed by: Matthew Dunlap MD 05/10/2018 4:01 PM EDT
--- NOTE | 2018-05-10 16:03 | HHI.PR ---
Addendum to Inpatient Note Addendum Reason: Additional Documentation Additional Information Patient was seen with nurse, breast wounds were evaluated. Saline soaked gauze recommended for removal of central pus and scabs on edge of wound. Spoke with patient's family and answered questions about care plan. Maverick Russ MD May 10, 2018 16:03
--- NOTE | 2018-05-10 19:02 | RADRPT ---
EXAM DATE: 05/10/2018 6:48 PM EDT AGE/SEX: 72 years / Female INDICATIONS: Abnormal prior CT. Evaluate for metastasis. CLINICAL DATA: This is the patient's subsequent encounter. Patient reports that signs and symptoms h ave been present for 1 day and indicates a pain score of 3/10. MEDICAL/SURGICAL HISTORY: Gastroesophageal reflux disease. Hypertension. Appendectomy. RADIATION DOSE: 21.54 CTDI (mGy) ; Patient body habitus COMPARISON: No prior exams available for comparison. TECHNIQUE: Multiple contiguous axial images were obtained through the abdomen. Images were obtained using multiple row detector helical technique. Using dose reduction techniques, radiation dose was ke pt as low as reasonably achievable to obtain optimal diagnostic quality images. FINDINGS: On the initial images through the lower chest there is an obvious mass in the left breast better seen on recent thoracic spine CT. No acute findings identified in the liver, spleen, adrenals, kidneys or pancreas. There is a large ga llstone in the gallbladder measuring up to 3.9 cm in diameter. No free fluid. No bowel obstruction. No adenopathy. Calcifications in the uterus may represent small fibroids. There is lytic bone destruction of the right iliac bone extending into the anterior acetabulum measur ing up to 5 cm in diameter most characteristic of metastatic bone disease. There is also lytic bone d estruction of anterior left iliac bone measuring about 2 cm in diameter also characteristic of metast atic disease. There is some faint sclerosis noted at L1 near the enhancing lesion seen on recent MRI. No lytic bone destruction seen in the lumbar spine or sacral spine. CONCLUSION: 1. Left breast mass with lytic bone destruction noted in the right hemipelvis around the acetabulum measuring around 5 cm in diameter and also in the left anterior iliac bone measuring around 2 cm in d iameter characteristic of metastatic bone disease. 2. Large gallstone measuring up to 3.9 cm. 3. Small hiatal hernia. No pathologically enlarged lymph nodes identified within the abdomen and pel vis. 4. Colonic diverticula. Probable small calcified fibroids. Electronically signed by: Matthew Dunlap MD 05/10/2018 7:01 PM EDT
[2018-05-10] MEDS: NYSTATIN 100,000 UNIT/GM CREAM 15 GM TOPICAL SCH (20:50)
[2018-05-10] MEDS: VANCOMYCIN INJ 2,000 MG in SODIUM CHLORID 0.9% 500 ML INJ 500 ML IV SCH (22:00)
[2018-05-11] VITALS (9 sets, daily range): BP systolic 121–154; BP diastolic 52–68; PULSE 59–85; RESP 16–18; TEMP 97.8–101.5; O2SAT 93–97
[2018-05-11] MEDS: ACETAMINOPHEN/HYDROcodone 325 MG/5 MG TAB PO PRN ×2 (03:31→10:19)
[2018-05-11 05:51] LABS: BASOPHIL # 0.1 TH/MM3 (0-0.2); BASOPHIL % 0.7 % (0.0-2.0); EOSINOPHIL # 0.4 TH/MM3 (0-0.4); EOSINOPHIL % 3.4 % (0.0-4.0); HEMOGLOBIN 11.2 GM/DL (11.6-15.3); LYMPH % 12.8 % (9.0-44.0); LYMPHOCYTE # 1.3 TH/MM3 (1.0-4.8); MEAN CELL VOLUME 83.9 FL (80.0-100.0); MEAN CORPUSCULAR HEMOGLOBIN 27.7 PG (27.0-34.0); MEAN PLATELET VOLUME 6.1 FL (7.0-11.0); MONO % 6.9 % (0.0-8.0); MONOCYTE # 0.7 TH/MM3 (0-0.9); NEUT % 76.2 % (16.0-70.0); PLATELET COUNT 303 TH/MM3 (150-450); RED BLOOD COUNT 4.06 MIL/MM3 (4.00-5.30); RED CELL DISTRIBUTION WIDTH 14.5 % (11.6-17.2); WHITE BLOOD COUNT 10.5 TH/MM3 (4.0-11.0)
[2018-05-11 06:18] LABS: ALKALINE PHOSPHATASE 89 U/L (45-117); ALT (GPT) 13 U/L (10-53); AST (GOT) 19 U/L (15-37); BICARBONATE 23.2 MEQ/L (21.0-32.0); BLOOD UREA NITROGEN 5 MG/DL (7-18); CALCIUM 7.8 MG/DL (8.5-10.1); CHLORIDE 111 MEQ/L (98-107); CREATININE 0.77 MG/DL (0.50-1.00); GLOMERULAR FILTRATION RATE 74 ML/MIN (>89); GLUCOSE,RANDOM 94 MG/DL (74-106); SODIUM (NA) 143 MEQ/L (136-145); TOTAL BILIRUBIN ADULT 0.4 MG/DL (0.2-1.0)
[2018-05-11] MEDS: INSULIN ASPART SUPPLEMENTAL SCALE SQ SCH ×4 (08:00→20:38)
[2018-05-11] MEDS: DOCUSATE SODIUM 50 MG/SENNA 8.6 MG TAB PO SCH ×2 (09:00→20:31)
[2018-05-11] MEDS: NYSTATIN 100,000 UNIT/GM CREAM 15 GM TOPICAL SCH ×2 (09:00→21:00)
[2018-05-11] MEDS ORDERED: LIDOCAINE 1%/EPINEPHrine 1:100,000 SOLN 30 ML VIAL INFIL ONE (09:30)
[2018-05-11] MEDS: CEFEPIME INJ 1,000 MG in SODIUM CHLORIDE 0.9% INJ 100 ML IV SCH ×2 (10:10→20:30)
[2018-05-11] MEDS: SODIUM CHLORIDE 0.9% FLUSH 10 ML FLUSH IV FLUSH SCH ×2 (10:11→20:31)
[2018-05-11] MEDS: SODIUM CHLOR 0.9% 1000 ML INJ 1,000 ML IV SCH ×2 (12:30→20:31)
--- NOTE | 2018-05-11 12:49 | PD.ONC.PN ---
Subjective Subjective Remarks Dr. Russ told me. Noted MRI spine and brain. Objective Data Date Time Temp Pulse Resp B/P (MAP) Pulse Ox O2 Delivery O2 Flow Rate FiO2 05/11/18 08:00 97.8 66 16 154/67 (96) 96 05/11/18 04:33 18 05/11/18 04:00 97.8 67 16 121/52 (75) 97 05/11/18 04:00 Room Air 05/11/18 04:00 59 05/11/18 00:08 75 05/11/18 00:00 98.1 77 16 144/63 (90) 93 05/11/18 00:00 Room Air 05/10/18 20:57 72 05/10/18 20:30 Room Air 05/10/18 20:00 98.2 76 18 149/68 (95) 94 05/10/18 16:00 87 05/10/18 16:00 98.1 74 18 122/68 (86) 98 05/11/18 05/11/18 05/11/18 07:00 15:00 23:00 Intake Total 620 ml Output Total 700 ml Balance -80 ml Result Diagram: 05/11/18 0420 05/11/18 0420 Laboratory Results Laboratory Tests Test 05/11/18 04:20 White Blood Count 10.5 TH/MM3 Red Blood Count 4.06 MIL/MM3 Hemoglobin 11.2 GM/DL Hematocrit 34.0 % Mean Corpuscular Volume 83.9 FL Mean Corpuscular Hemoglobin 27.7 PG Mean Corpuscular Hemoglobin Concent 33.0 % Red Cell Distribution Width 14.5 % Platelet Count 303 TH/MM3 Mean Platelet Volume 6.1 FL Neutrophils (%) (Auto) 76.2 % Lymphocytes (%) (Auto) 12.8 % Monocytes (%) (Auto) 6.9 % Eosinophils (%) (Auto) 3.4 % Basophils (%) (Auto) 0.7 % Neutrophils # (Auto) 8.0 TH/MM3 Lymphocytes # (Auto) 1.3 TH/MM3 Monocytes # (Auto) 0.7 TH/MM3 Eosinophils # (Auto) 0.4 TH/MM3 Basophils # (Auto) 0.1 TH/MM3 CBC Comment DIFF FINAL Differential Comment Blood Urea Nitrogen 5 MG/DL Creatinine 0.77 MG/DL Random Glucose 94 MG/DL Total Protein 6.0 GM/DL Albumin 2.0 GM/DL Calcium Level 7.8 MG/DL Alkaline Phosphatase 89 U/L Aspartate Amino Transf (AST/SGOT) 19 U/L Alanine Aminotransferase (ALT/SGPT) 13 U/L Total Bilirubin 0.4 MG/DL Sodium Level 143 MEQ/L Potassium Level 3.4 MEQ/L Chloride Level 111 MEQ/L Carbon Dioxide Level 23.2 MEQ/L Anion Gap 9 MEQ/L Estimat Glomerular Filtration Rate 74 ML/MIN Culture Results Microbiology Date/Time Source Procedure Growth Status 05/10/18 00:21 Blood Peripheral Aerobic Blood Culture - Preliminary NO GROWTH IN 1 DAY Resulted 05/10/18 00:21 Blood Peripheral Anaerobic Blood Culture - Preliminary NO GROWTH IN 1 DAY Resulted 05/10/18 00:10 Blood Peripheral Aerobic Blood Culture - Preliminary NO GROWTH IN 1 DAY Resulted 05/10/18 00:10 Blood Peripheral Anaerobic Blood Culture - Preliminary NO GROWTH IN 1 DAY Resulted 05/10/18 01:20 Urine Catheterized Urine Urine Culture - Preliminary IMMATURE GROWTH - REINCUBATE Resulted 05/10/18 00:32 Wound Breast Gram Stain - Final Resulted 05/10/18 00:32 Wound Breast Wound Culture Pending Resulted Administered Medications Medications (Trade) Dose Ordered Sig/Soo Route PRN Reason Start Time Stop Time Status Last Admin Dose Admin Cefepime HCl 1000 mg/Sodium Chloride 100 ml @ 200 mls/hr Q12H IV 05/10/18 09:00 05/11/18 10:10 Sodium Chloride 1,000 ml @ 100 mls/hr Q10H IV 05/10/18 03:24 05/11/18 12:30 Sodium Chloride (NS Flush) 2 ml BID IV FLUSH 05/10/18 09:00 05/11/18 10:11 Acetaminophen/ Hydrocodone Bitart ([place] 5-325 Mg) 1 tab Q4H PRN PO PAIN SCALE 3 TO 5 05/10/18 03:30 05/11/18 10:19 Morphine Sulfate (Morphine Inj) 2 mg Q3H PRN IV PUSH Pain 05-1005/10/18 03:30 05/10/18 11:38 Senna/Docusate Sodium (Sammie-Colace) 1 tab BID PO 05/10/18 09:00 05/10/18 09:14 Vancomycin HCl 2000 mg/Sodium Chloride 520 ml @ 250 mls/hr Q24H IV 05/10/18 22:00 05/10/18 22:00 Nystatin (Mycostatin Cream) 1 applic Q12HR TOPICAL 05/10/18 21:00 05/11/18 09:00 Objective Remarks GENERAL: Obese, Well-nourished, well-developed patient. SKIN: Warm and dry. HEAD: Normocephalic. EYES: No scleral icterus. No injection or drainage. NECK: Supple, trachea midline. No JVD or lymphadenopathy. LYMPHATIC: BL axillary adenopathy and R supraclavicular BREAST exam deferred. Dressing in place. CARDIOVASCULAR: Regular rate and rhythm without murmurs. RESPIRATORY: Breath sounds equal bilaterally. No accessory muscle use. GASTROINTESTINAL: Abdomen soft, non-tender, nondistended. EXTREMITIES: No cyanosis, or edema. Pain and weakness R knee. MUSCULOSKELETAL: Adequate muscle tone. NEUROLOGICAL: No obvious focal deficit. Awake, alert, and oriented x3. PSYCHIATRIC: Appropriate mood and affect; insight and judgment normal. Assessment/Plan Problem List: (1) Metastatic breast cancer ICD Codes: C50.919 - Malignant neoplasm of unspecified site of unspecified female breast Plan: Presentation with large ulcerative mass R breast larger than L breast mass. BL axillary adenopathy and R supraclavicular adenopathy. Staging evaluation confirm bony metastatic disease to T9, T12, S1, S3, R acetabulum, L anterior iliac crest. Pending biopsy to confirm dx and ER/AL/Her 2 status. Anticipate pt will need BL mastectomy for palliation of large ulcerative masses. (2) Radicular leg pain ICD Codes: M54.10 - Radiculopathy, site unspecified Plan: Pain R leg. NOted L4-5 disc protrusion. R knee christina. Ambulate w/ walker. Assessment 72 y/o woman with HTN, DM, dx with neglected breast cancer, evidence for metastatic disease on imaging. Plan 1. Breast biopsy pending ER/AL/Her 2 2. Palliation of symptoms. Britany Johnson MD May 11, 2018 12:49
[2018-05-11] MEDS ORDERED: LORazepam 2 MG/ML VIAL IVP ONE (14:15)
--- NOTE | 2018-05-11 14:52 | PD.OP ---
cc: Bulmaro Brito MD Operative Report Date of Surgery: May 11, 2018 Preoperative Diagnosis: (1) Breast mass in female Postoperative Diagnosis: (1) Breast mass in female Procedure: Bilateral breast punch biopsy Anesthesia: Local Surgeon: Bernadette SCOTT supervised by Dr. Brito Chief Passenger Ship Steward/Stewardess(s): None Operation and Findings: After proper consent and time out procedure were completed Betadine was used to cleanse the area of interest and local anesthesia was injected in wheals. A 5 mm punch was used to obtain tissue samples; first in the RIGHT breast and then the LEFT breast. Silver nitrate applicator sticks were used for hemostasis. The samples were labeled appropriately. A blue pathology form was completed. All supplies were obtained and disposed of including sharps. The area was dressing with dry dressing and secure with paper tape. I also spoke with the daughter on the phone about the procedure. The patient's bed was lowered and her bedside table was placed to her RIGHT at her request. EBL < 5cc. Wounds examined at end of procedure; hemostasis achieved. Bernadette Wong/[employer] SCOTT May 11, 2018 14:52 Bulmaro Brito MD May 11, 2018 18:49
[2018-05-11] MEDS: MORPHINE SULFATE 4 MG/ML INJ IV PUSH PRN ×2 (14:54→23:46)
--- NOTE | 2018-05-11 15:02 | HHI.PR ---
Subjective Remarks Patient appears to be in good spirits today, she is eating her breakfast and expecting that her biopsy will be done this afternoon. I informed her about the findings on the MRI scan that shows evidence of metastasis to her thoracic and lumbar spine, sparing the brain and cervical spine. Objective Vitals Vital Signs Date Time Temp Pulse Resp B/P (MAP) Pulse Ox O2 Delivery O2 Flow Rate FiO2 05/11/18 12:00 72 05/11/18 12:00 98.5 68 18 152/68 (96) 95 05/11/18 08:00 68 05/11/18 08:00 97.8 66 16 154/67 (96) 96 05/11/18 04:33 18 05/11/18 04:00 97.8 67 16 121/52 (75) 97 05/11/18 04:00 Room Air 05/11/18 04:00 59 05/11/18 00:08 75 05/11/18 00:00 98.1 77 16 144/63 (90) 93 05/11/18 00:00 Room Air 05/10/18 20:57 72 05/10/18 20:30 Room Air 05/10/18 20:00 98.2 76 18 149/68 (95) 94 05/10/18 16:00 87 05/10/18 16:00 98.1 74 18 122/68 (86) 98 I/O 05/10/18 05/10/18 05/10/18 05/11/18 05/11/18 05/11/18 07:00 15:00 23:00 07:00 15:00 23:00 Intake Total 1350 ml 500 ml 620 ml Output Total 400 ml 700 ml Balance 1350 ml 100 ml -80 ml Intake Oral 500 ml IV Total 1350 ml 620 ml Output Urine Total 400 ml 700 ml # Voids 3 # Bowel Movements 0 2 Result Diagram: 05/11/18 04205/11/18 042 Objective Remarks GENERAL: Obese, generally weak SKIN: Warm and dry. 20 x 16 cm necrotic tumor in right lateral breast, 5 cm circular necrotic lesion on left lateral breast HEAD: Normocephalic. EYES: No scleral icterus. No injection or drainage. NECK: Supple, trachea midline. No JVD or lymphadenopathy. CARDIOVASCULAR: Regular rate and rhythm without murmurs, gallops, or rubs. RESPIRATORY: Breath sounds equal bilaterally. No accessory muscle use. GASTROINTESTINAL: Abdomen soft, non-tender, nondistended. EXTREMITIES: No cyanosis, or edema. NEUROLOGICAL: Awake, alert, and oriented x 3. Non-focal. A/P Problem List: (1) Fall ICD Code: W19.XXXA - Unspecified fall, initial encounter (2) Masses of both breasts ICD Code: N63.10 - Unspecified lump in the right breast, unspecified quadrant; N63.20 - Unspecified lump in the left breast, unspecified quadrant (3) UTI (urinary tract infection) ICD Code: N39.0 - Urinary tract infection, site not specified (4) Renal insufficiency ICD Code: N28.9 - Disorder of kidney and ureter, unspecified (5) SIRS (systemic inflammatory response syndrome) ICD Code: R65.10 - Systemic inflammatory response syndrome (SIRS) of non- infectious origin without acute organ dysfunction (6) DM (diabetes mellitus) ICD Code: E11.9 - Type 2 diabetes mellitus without complications Assessment and Plan Metastatic breast cancer Punch biopsy planned of both masses later today Pathology results will assist with determining this treatment plan Patient was informed that she has evidence of metastasis to her thoracic and lumbar spine Case was also discussed with daughter at patient's request Appreciate general surgery Urinary tract infection SIRS risk on admission, normalized at this time Continue cefepime and vancomycin Follow urine and blood culture Fall at home Patient has decompensated, severe arthritis in right knee Possibly worsened weakness due to metastatic lesions in her spine aggravating her spinal arthritis and causing worsened radicular effects No steroids at this time due to risk of healing after possible surgery Type 2 diabetes Hemoglobin A1c is pending, blood glucose is normalized with a.m. labs Continue diabetic diet until clear DVT prophylaxis Lovenox added Maverick Russ MD May 11, 2018 15:02
[2018-05-11 16:52] LABS: HEMOGLOBIN A1C 6.9 % (4.3-6.0)
[2018-05-11] MEDS: VANCOMYCIN INJ 2,000 MG in SODIUM CHLORID 0.9% 500 ML INJ 500 ML IV SCH (22:25)
[2018-05-12] VITALS (10 sets, daily range): BP systolic 135–163; BP diastolic 62–79; PULSE 63–80; RESP 18; TEMP 98.4–99; O2SAT 94–96
[2018-05-12] MEDS: SODIUM CHLOR 0.9% 1000 ML INJ 1,000 ML IV SCH ×2 (05:24→13:15)
[2018-05-12 07:21] LABS: CREATININE 0.65 MG/DL (0.50-1.00)
[2018-05-12] MEDS: INSULIN ASPART SUPPLEMENTAL SCALE SQ SCH ×4 (08:00→23:57)
--- NOTE | 2018-05-12 08:10 | HHI.PR ---
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 Carcinomatous meningitis is a possibility, but less likely since there is no meningeal enhancement on MRI brain and the weakness involves one limb. Plan LP to r/o carcinomatous meningitis Diagnosis/Plan: Subjective Subjective Comments No acute events reported She feels right leg strength is better Active Medications Current Medications Medications (Trade) Dose Ordered Sig/Soo Route Start Time Stop Time Status Last Admin (D50w (Vial) Inj) 50 ml UNSCH PRN IV PUSH 05/10/18 03:30 (Glucagon Inj) 1 mg UNSCH PRN OTHER 05/10/18 03:30 (NovoLOG SUPPLEMENTAL SCALE) 1 ACHS SLIDING SCALE SQ 05/10/18 08:00 Pharmacy Profile Note 0 ml @ 0 mls/hr UNSCH OTHER 05/10/18 03:30 Cefepime HCl 1000 mg/Sodium Chloride 100 ml @ 200 mls/hr Q12H IV 05/10/18 09:00 05/11/18 20:30 Sodium Chloride 1,000 ml @ 100 mls/hr Q10H IV 05/10/18 03:24 05/11/18 20:31 (NS Flush) 2 ml UNSCH PRN IV FLUSH 05/10/18 03:30 (NS Flush) 2 ml BID IV FLUSH 05/10/18 09:00 05/11/18 10:11 (Reglan Inj) 5 mg Q6H PRN IV PUSH 05/10/18 03:30 (Tylenol) 650 mg Q6H PRN PO 05/10/18 03:30 ([place] 5-325 Mg) 1 tab Q4H PRN PO 05/10/18 03:30 05/11/18 10:19 (Morphine Inj) 2 mg Q3H PRN IV PUSH 05/10/18 03:30 05/11/18 23:46 (Sammie-Colace) 1 tab BID PO 05/10/18 09:00 05/10/18 09:14 (Milk Of Magnesia Liq) 30 ml Q12H PRN PO 05/10/18 03:30 (Senokot) 17.2 mg Q12H PRN PO 05/10/18 03:30 (Dulcolax Supp) 10 mg DAILY PRN RECTAL 05/10/18 03:30 (Lactulose Liq) 30 ml DAILY PRN PO 05/10/18 03:30 Vancomycin HCl 2000 mg/Sodium Chloride 520 ml @ 250 mls/hr Q24H IV 05/10/18 22:00 05/11/18 22:25 ([facility] Ordered Lab Info) SPECIFIC LAB TO BE DRAWN:VANCOMYCIN TROUGH DATE TO... ONCE ONCE .XX 05/12/18 21:45 05/12/18 21:46 (Mycostatin Cream) 1 applic Q12HR TOPICAL 05/10/18 21:00 05/11/18 21:00 Allergies Allergies Coded Allergies No Known Allergies (Unverified05/09/18) Exam I&O / VS Vital Signs Date Time Temp Pulse Resp B/P (MAP) Pulse Ox O2 Delivery O2 Flow Rate FiO2 05/12/18 04:00 98.4 63 18 135/62 (86) 94 05/12/18 04:00 Room Air 05/12/18 03:42 71 05/12/18 00:00 Room Air 05/12/18 00:00 98.6 72 18 152/69 (96) 96 05/11/18 23:41 72 05/11/18 20:00 Room Air 05/11/18 20:00 101.5 85 16 137/66 (89) 97 05/11/18 19:48 72 05/11/18 16:00 98.5 69 18 145/67 (93) 95 05/11/18 16:00 72 05/11/18 12:00 72 05/11/18 12:00 98.5 68 18 152/68 (96) 95 Exam Comments alert, oriented, speech normal CN intact MOTOR 5/5 BUE and LLE 4/5 right iliopsoas, quads, hamstring, tibialis anterior Objective Radiology Results MRI brain is normal MRI cervical spine shows mild spondylosis with no cord compression MRI thoracic spine shows metastatic dz at T9 and T12 without stenosis or cord involvement MRI lumbar spine shows metastatic dz at T12, L1 and L3 without significant stenosis Micro and Labs Laboratory Tests Test 05/12/18 05:00 Creatinine 0.65 Estimat Glomerular Filtration Rate 90 Date/Time Source Procedure Growth Status 05/10/18 00:21 Blood Peripheral Aerobic Blood Culture - Preliminary NO GROWTH IN 1 DAY Resulted 05/10/18 00:21 Blood Peripheral Anaerobic Blood Culture - Preliminary NO GROWTH IN 1 DAY Resulted 05/10/18 01:20 Urine Catheterized Urine Urine Culture - Preliminary IMMATURE GROWTH - REINCUBATE Resulted 05/10/18 00:32 Wound Breast Gram Stain - Final Resulted 05/10/18 00:32 Wound Breast Wound Culture - Preliminary Resulted Federico Franco MD PhD May 12, 2018 08:10
[2018-05-12] MEDS: DOCUSATE SODIUM 50 MG/SENNA 8.6 MG TAB PO SCH ×2 (08:23→21:00)
[2018-05-12] MEDS: MORPHINE SULFATE 4 MG/ML INJ IV PUSH PRN ×4 (08:25→23:58)
[2018-05-12] MEDS: CEFEPIME INJ 1,000 MG in SODIUM CHLORIDE 0.9% INJ 100 ML IV SCH ×2 (08:31→21:28)
[2018-05-12] MEDS: SODIUM CHLORIDE 0.9% FLUSH 10 ML FLUSH IV FLUSH SCH ×2 (08:35→21:00)
[2018-05-12] MEDS: NYSTATIN 100,000 UNIT/GM CREAM 15 GM TOPICAL SCH ×2 (08:36→21:00)
[2018-05-12] MEDS ORDERED: SODIUM BICARBONATE 8.4% INJ 50 ML ONE (11:44)
--- NOTE | 2018-05-12 12:12 | PD.RAD ---
Post Procedure Progress Note Pre Procedure Diagnosis: (1) Breast mass in female (2) Radicular leg pain (3) Metastatic breast cancer Post Procedure Diagnosis: (1) Metastatic breast cancer (2) Radicular leg pain (3) Breast mass in female Procedure Date: May 12, 2018 Supervising Radiologist: Yimi Keating Estimated blood loss: none Anesthesia: Local Plan of Activity Patient to Unit: Nursing Unit Patient Condition: Fair Additional Comments: LP completed without difficulty Single puncture at L3 17cc of clear CSF removed. Full dictated report to follow See PACS Report for procedural detail/treatment Yimi Keating MD May 12, 2018 12:12
[2018-05-12 13:24] LABS: TOTAL PROTEIN,CSF 34.2 MG/DL (15.0-45.0)
[2018-05-12 13:39] LABS: SUPERNATE COLOR TUBE #1 CLEAR (CLEAR); VOLUME TUBE # 1 4.1 ML
[2018-05-12 13:40] LABS: CSF LYMPHOCYTES 83 %; CSF MONOCYTES 17 %; CSF NEUTROPHILS 0 %; RBC TUBE #4 0 /MM3; WBC TUBE #4 5 /MM3 (0-10)
--- NOTE | 2018-05-12 14:38 | HHI.PR ---
cc: Bulmaro Brito MD Subjective Subjective Notes Resting in bed No issues No pain at biopsy sites Objective Vitals/I&O Vital Signs Date Time Temp Pulse Resp B/P (MAP) Pulse Ox O2 Delivery O2 Flow Rate FiO2 05/12/18 12:07 99.0 70 18 155/79 (104) 96 05/12/18 07:00 Room Air Labs Laboratory Tests Test 05/12/18 05:00 05/12/18 12:02 Creatinine 0.65 Estimat Glomerular Filtration Rate 90 CSF Volume (Tube 1) 4.1 CSF Supernatant Color (tube 1) CLEAR CSF Gross Blood (Tube 1) 0 CSF Volume (Tube 2) 5.0 CSF Supernatant Color (tube 2) CLEAR CSF Gross Blood (Tube 2) 0 CSF Volume (Tube 3) 5.4 CSF Supernatant Color (tube 3) CLEAR CSF Gross Blood (Tube 3) 0 CSF Volume (Tube 4) 3.1 CSF Supernatant Color (tube 4) CLEAR CSF Gross Blood (Tube 4) 0 CSF WBC (Tube 4) 5 CSF RBC (Tube 4) 0 CSF Neutrophils 0 CSF Lymphocytes 83 CSF Monocytes 17 CSF Glucose 43 CSF Total Protein 34.2 Date/Time Source Procedure Growth Status 05/10/18 00:21 Blood Peripheral Aerobic Blood Culture - Preliminary NO GROWTH IN 2 DAYS Resulted 05/10/18 00:21 Blood Peripheral Anaerobic Blood Culture - Preliminary NO GROWTH IN 2 DAYS Resulted 05/12/18 12:02 Cerebral Spinal Fluid Lumbar Puncture Fungal Smear Pending Received 05/12/18 12:02 Cerebral Spinal Fluid Lumbar Puncture Fungal Culture Pending Received 05/10/18 01:20 Urine Catheterized Urine Urine Culture - Final 10-50,000 CFU/ML MIXED GRAM POSITIVE ... Complete 05/10/18 00:32 Wound Breast Gram Stain - Final Complete 05/10/18 00:32 Wound Breast Wound Culture - Final Complete Cardiovascular: Regular Lungs: Clear Abdomen: Non-distended Narrative Exam bilateral fungating breast tumors; s/p punch biopsy; no bleeding A/P Assessment and Plan 72 year old female with bilateral fungating breast mass; BLE weakness -Await biopsy results -Oncology following -Plan for lumbar puncture today -Spoke with Damion PT--- patient with pain in RIGHT femur-- concerned to bear weight---will XR to eval for pathological fracture -Continue dressing changes Attending Note - Dr. Brito As above; workup in progress; await pathology reports. The exam, history, and the medical decision-making described in the above note were completed with the assistance of the mid-level provider. I reviewed and agree with the findings presented. I attest that I had a [id number] encounter with the patient on the same day, and personally performed and documented my assessment and findings in the medical record. Bernadette Terrell/[employer] [place] SCOTT May 12, 2018 14:38 Bulmaro Brito MD May 20, 2018 20:53
[2018-05-12 15:27] LABS: AUTOMATED NEUTROPHIL # 8.3 TH/MM3 (1.8-7.7); BASOPHIL # 0.1 TH/MM3 (0-0.2); BASOPHIL % 0.9 % (0.0-2.0); EOSINOPHIL # 0.3 TH/MM3 (0-0.4); HEMATOCRIT 36.8 % (35.0-46.0); LYMPH % 7.5 % (9.0-44.0); LYMPHOCYTE # 0.7 TH/MM3 (1.0-4.8); MEAN CELL VOLUME 83.8 FL (80.0-100.0); MEAN CORPUSCULAR HEMOGLOBIN 27.4 PG (27.0-34.0); MEAN CORPUSCULAR HGB CONC 32.7 % (32.0-36.0); MEAN PLATELET VOLUME 5.9 FL (7.0-11.0); MONO % 5.4 % (0.0-8.0); MONOCYTE # 0.5 TH/MM3 (0-0.9); NEUT % 83.2 % (16.0-70.0); PLATELET COUNT 313 TH/MM3 (150-450); RED BLOOD COUNT 4.39 MIL/MM3 (4.00-5.30); RED CELL DISTRIBUTION WIDTH 14.6 % (11.6-17.2)
--- NOTE | 2018-05-12 15:48 | HHI.PR ---
Subjective Remarks 9-year-old female admitted for necrotic breast tumors bilaterally. She underwent biopsy, pathology is pending. She underwent lumbar puncture today, CSF pending Objective Vitals Vital Signs Date Time Temp Pulse Resp B/P (MAP) Pulse Ox O2 Delivery O2 Flow Rate FiO2 05/12/18 12:07 99.0 70 18 155/79 (104) 96 05/12/18 08:07 99.0 76 18 143/67 (92) 95 05/12/18 08:00 65 05/12/18 07:00 Room Air 05/12/18 04:00 98.4 63 18 135/62 (86) 94 05/12/18 04:00 Room Air 05/12/18 03:42 71 05/12/18 00:00 Room Air 05/12/18 00:00 98.6 72 18 152/69 (96) 96 05/11/18 23:41 72 05/11/18 20:00 Room Air 05/11/18 20:00 101.5 85 16 137/66 (89) 97 05/11/18 19:48 72 05/11/18 16:00 98.5 69 18 145/67 (93) 95 05/11/18 16:00 72 I/O 05/11/18 05/11/18 05/11/18 05/12/18 05/12/18 05/12/18 06:59 14:59 22:59 06:59 14:59 22:59 Intake Total 620 ml 340 ml 1828 ml Output Total 700 ml Balance -80 ml 340 ml 1828 ml Intake Oral 240 ml 410 ml IV Total 620 ml 100 ml 1418 ml Output Urine Total 700 ml # Voids 5 3 # Bowel Movements 2 0 Result Diagram: 05/12/18 1455 05/12/18 0500 Objective Remarks GENERAL: Obese, generally weak SKIN: Warm and dry. 20 x 16 cm necrotic tumor in right lateral breast, 5 cm circular necrotic lesion on left lateral breast HEAD: Normocephalic. EYES: No scleral icterus. No injection or drainage. NECK: Supple, trachea midline. No JVD or lymphadenopathy. CARDIOVASCULAR: Regular rate and rhythm without murmurs, gallops, or rubs. RESPIRATORY: Breath sounds equal bilaterally. No accessory muscle use. GASTROINTESTINAL: Abdomen soft, non-tender, nondistended. EXTREMITIES: No cyanosis, or edema. NEUROLOGICAL: Awake, alert, and oriented x 3. Non-focal. A/P Problem List: (1) Fall ICD Code: W19.XXXA - Unspecified fall, initial encounter (2) Masses of both breasts ICD Code: N63.10 - Unspecified lump in the right breast, unspecified quadrant; N63.20 - Unspecified lump in the left breast, unspecified quadrant (3) UTI (urinary tract infection) ICD Code: N39.0 - Urinary tract infection, site not specified (4) Renal insufficiency ICD Code: N28.9 - Disorder of kidney and ureter, unspecified (5) SIRS (systemic inflammatory response syndrome) ICD Code: R65.10 - Systemic inflammatory response syndrome (SIRS) of non- infectious origin without acute organ dysfunction (6) DM (diabetes mellitus) ICD Code: E11.9 - Type 2 diabetes mellitus without complications Assessment and Plan Metastatic breast cancer Tissue sample sent for pathology from punch biopsy yesterday Pathology results will assist with determining this treatment plan 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 Lumbar puncture performed today, CSF cytology is pending Appreciate general surgery Appreciate neurology consult Urinary tract infection SIRS risk on admission, normalized at this time Continue cefepime and vancomycin Follow urine and blood culture Fall at home Patient has decompensated, severe arthritis in right knee Possibly worsened weakness due to metastatic lesions in her spine aggravating her spinal arthritis and causing worsened radicular effects No steroids at this time due to risk of healing after possible surgery Type 2 diabetes Hemoglobin A1c is pending, blood glucose is normalized with a.m. labs Continue diabetic diet until clear DVT prophylaxis Lovenox added Maverick Russ MD May 12, 2018 15:48
--- NOTE | 2018-05-12 16:06 | RADRPT ---
EXAM DATE: 05/12/2018 12:24 PM EDT AGE/SEX: 72 years / Female INDICATIONS: Patient in need of lumbar puncture to rule out carcinomatous meningitis. CLINICAL DATA: This is the patient's initial encounter. Patient reports that signs and symptoms have been present for 2 days and indicates a pain score of 4/10. MEDICAL/SURGICAL HISTORY: None. Appendectomy. COMPARISON: No prior exams available for comparison. FLUORO TIME (min): 4.27 IMAGE SERIES: 1 ACCESS SITE: L2-3 LUMBAR PUNCTURE TIME: 1202 hours FLUID: Total volume of 17 cc of clear csf fluid was removed. Fluid was sent to lab for ordered studie s. PROCEDURE: 1. Fluoroscopic guided lumbar puncture. The risks, benefits and alternatives to the procedure were explained and verbal and written consent w as obtained. The site was prepped in sterile fashion. Full sterile technique was used, including ca p, mask, sterile gloves and gown and a large sterile sheet. Hand hygiene and 2% chlorhexidine and/or betadine/alcohol prep was utilized per protocol for cutaneous antisepsis. The skin and subcutaneous tissues were infiltrated with local anesthetic solution. With fluoroscopic guidance the lumbar thecal sac was punctured at the level above. The fluid describ ed above was removed without difficulty. The patient tolerated the procedure well and there were no complications. CONCLUSION: 1. Uncomplicated fluoroscopically guided lumbar puncture. Electronically signed by: Yimi Keating MD 05/12/2018 4:05 PM EDT
[2018-05-12 16:44] LABS: BANDS 4 % (0-6); BASOPHILS 1 % (0-2); LYMPHOCYTES 7 % (9-44); METAMYELOCYTES 1 % (0-1); MONOCYTES 4 % (0-8); NEUTROPHIL # MANUAL DIFF 8.7 TH/MM3 (1.8-7.7); POLYS (SEG NEUTROPHILS) 82 % (16-70)
[2018-05-12 16:45] LABS: TOXIC GRANULATION 2+ (NORMAL)
--- NOTE | 2018-05-12 17:06 | RADRPT ---
EXAM DATE: 05/12/2018 3:50 PM EDT AGE/SEX: 72 years / Female INDICATIONS: Fell 3 days ago. CLINICAL DATA: This is the patient's initial encounter. Patient reports that signs and symptoms have been present for 3 days and indicates a pain score of 10/10. MEDICAL/SURGICAL HISTORY: . necrotic breast mass . none known COMPARISON: No prior exams available for comparison. FINDINGS: The right femur is intact without evidence of acute fracture. The right hip joint is unremarkable. Mo derate to severe arthropathy is identified of the right knee joint. CONCLUSION: Intact right femur. Electronically signed by: Aren Tapia MD 05/12/2018 5:05 PM EDT
[2018-05-12] MEDS ORDERED: PHARMACY ORDERED LAB ONE (21:45)
[2018-05-12] MEDS: VANCOMYCIN INJ 2,000 MG in SODIUM CHLORID 0.9% 500 ML INJ 500 ML IV SCH (23:25)
[2018-05-13] VITALS (12 sets, daily range): BP systolic 139–169; BP diastolic 63–85; PULSE 53–80; RESP 18; TEMP 98–98.7; O2SAT 95–98
[2018-05-13 00:03] LABS: ALBUMIN 1.9 GM/DL (3.4-5.0); ALKALINE PHOSPHATASE 112 U/L (45-117); ALT (GPT) 11 U/L (10-53); AST (GOT) 18 U/L (15-37); BLOOD UREA NITROGEN 7 MG/DL (7-18); CALCIUM 7.7 MG/DL (8.5-10.1); CHLORIDE 107 MEQ/L (98-107); CREATININE 0.77 MG/DL (0.50-1.00); GLOMERULAR FILTRATION RATE 74 ML/MIN (>89); GLUCOSE,RANDOM 197 MG/DL (74-106); SODIUM (NA) 138 MEQ/L (136-145); TOTAL BILIRUBIN ADULT 0.3 MG/DL (0.2-1.0); TOTAL PROTEIN 6.1 GM/DL (6.4-8.2); VANCOMYCIN TROUGH 12.5 MCG/ML (5.0-10.0)
[2018-05-13] MEDS: SODIUM CHLOR 0.9% 1000 ML INJ 1,000 ML IV SCH ×3 (01:24→22:34)
[2018-05-13] MEDS: INSULIN ASPART SUPPLEMENTAL SCALE SQ SCH ×4 (08:00→20:34)
[2018-05-13] MEDS: CEFEPIME INJ 1,000 MG in SODIUM CHLORIDE 0.9% INJ 100 ML IV SCH ×2 (08:55→22:31)
[2018-05-13] MEDS: NYSTATIN 100,000 UNIT/GM CREAM 15 GM TOPICAL SCH ×2 (08:55→22:35)
[2018-05-13] MEDS: DOCUSATE SODIUM 50 MG/SENNA 8.6 MG TAB PO SCH ×2 (08:55→22:34)
[2018-05-13] MEDS: SODIUM CHLORIDE 0.9% FLUSH 10 ML FLUSH IV FLUSH SCH ×2 (08:55→21:00)
[2018-05-13] MEDS: MORPHINE SULFATE 4 MG/ML INJ IV PUSH PRN ×2 (12:50→23:35)
--- NOTE | 2018-05-13 16:59 | HHI.PR ---
Subjective Remarks 73-year-old female with highly suspect breast cancer who presented with necrotic breast tumors bilaterally. Biopsy results are still pending. She is scheduled for tumor board review tomorrow. Objective Vitals Vital Signs Date Time Temp Pulse Resp B/P (MAP) Pulse Ox O2 Delivery O2 Flow Rate FiO2 05/13/18 12:06 98.7 78 18 148/70 (96) 95 05/13/18 12:00 62 05/13/18 08:06 98.2 73 18 147/65 (92) 98 05/13/18 08:00 Room Air 05/13/18 04:08 53 05/13/18 04:00 Room Air 05/13/18 04:00 98.2 68 18 139/63 (88) 97 05/13/18 00:00 Room Air 05/13/18 00:00 98.6 80 18 145/68 (93) 97 05/12/18 23:39 71 05/12/18 21:16 64 05/12/18 20:00 Room Air 05/12/18 20:00 98.7 69 18 156/71 (99) 95 I/O 05/12/18 05/12/18 05/12/18 05/13/18 05/13/18 05/13/18 07:00 15:00 23:00 07:00 15:00 23:00 Intake Total 1828 ml 700 ml 1817 ml Output Total 400 ml 800 ml Balance 1828 ml 300 ml 1017 ml Intake Oral 410 ml 600 ml 600 ml IV Total 1418 ml 100 ml 1217 ml Output Urine Total 400 ml 800 ml # Voids 3 2 # Bowel Movements 0 0 0 Result Diagram: 05/12/18 1455 05/12/18 2315 Objective Remarks GENERAL: Obese, generally weak SKIN: Warm and dry. 20 x 16 cm necrotic tumor in right lateral breast, 5 cm circular necrotic lesion on left lateral breast HEAD: Normocephalic. EYES: No scleral icterus. No injection or drainage. NECK: Supple, trachea midline. No JVD or lymphadenopathy. CARDIOVASCULAR: Regular rate and rhythm without murmurs, gallops, or rubs. RESPIRATORY: Breath sounds equal bilaterally. No accessory muscle use. GASTROINTESTINAL: Abdomen soft, non-tender, nondistended. EXTREMITIES: No cyanosis, or edema. NEUROLOGICAL: Awake, alert, and oriented x 3. Non-focal. A/P Problem List: (1) Fall ICD Code: W19.XXXA - Unspecified fall, initial encounter (2) Masses of both breasts ICD Code: N63.10 - Unspecified lump in the right breast, unspecified quadrant; N63.20 - Unspecified lump in the left breast, unspecified quadrant (3) UTI (urinary tract infection) ICD Code: N39.0 - Urinary tract infection, site not specified (4) Renal insufficiency ICD Code: N28.9 - Disorder of kidney and ureter, unspecified (5) SIRS (systemic inflammatory response syndrome) ICD Code: R65.10 - Systemic inflammatory response syndrome (SIRS) of non- infectious origin without acute organ dysfunction (6) DM (diabetes mellitus) ICD Code: E11.9 - Type 2 diabetes mellitus without complications Assessment and Plan Metastatic breast cancer Punch biopsy tissue sample is pending pathology report Pathology results will assist with determining this treatment plan 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 Appreciate general surgery Appreciate neurology consult Urinary tract infection SIRS risk on admission, normalized at this time Continue cefepime and vancomycin Follow urine and blood culture Fall at home Patient has decompensated, severe arthritis in right knee Possibly worsened weakness due to metastatic lesions in her spine aggravating her spinal arthritis and causing worsened radicular effects No steroids at this time due to risk of healing after possible surgery If patient is not going to have surgery consider steroid treatment to assist with leg strength and reduce inflammation of lumbar and right knee arthritis Type 2 diabetes Hemoglobin A1c is pending, blood glucose is normalized with a.m. labs Continue diabetic diet until clear DVT prophylaxis Lovenox added Discharge planning Case will be presented at tumor board tomorrow afternoon, treatment plans to follow Maverick Russ MD May 13, 2018 16:59
[2018-05-13] MEDS: VANCOMYCIN INJ 2,000 MG in SODIUM CHLORID 0.9% 500 ML INJ 500 ML IV SCH (22:30)
[2018-05-13] MEDS: SODIUM CHLORIDE 0.9% FLUSH 10 ML FLUSH IV FLUSH PRN (23:36)
[2018-05-14] VITALS (9 sets, daily range): BP systolic 149–162; BP diastolic 65–77; PULSE 62–79; RESP 16–18; TEMP 98–98.6; O2SAT 94–96
[2018-05-14] MEDS: MORPHINE SULFATE 4 MG/ML INJ IV PUSH PRN ×4 (04:10→21:26)
[2018-05-14] MEDS: SODIUM CHLORIDE 0.9% FLUSH 10 ML FLUSH IV FLUSH PRN (04:12)
[2018-05-14] MEDS: SODIUM CHLOR 0.9% 1000 ML INJ 1,000 ML IV SCH ×2 (07:24→21:49)
[2018-05-14] MEDS: INSULIN ASPART SUPPLEMENTAL SCALE SQ SCH ×4 (08:00→21:21)
[2018-05-14] MEDS: DOCUSATE SODIUM 50 MG/SENNA 8.6 MG TAB PO SCH ×2 (08:20→21:20)
[2018-05-14] MEDS: NYSTATIN 100,000 UNIT/GM CREAM 15 GM TOPICAL SCH ×2 (08:20→21:00)
[2018-05-14] MEDS: SODIUM CHLORIDE 0.9% FLUSH 10 ML FLUSH IV FLUSH SCH ×2 (08:21→21:20)
[2018-05-14] MEDS: CEFEPIME INJ 1,000 MG in SODIUM CHLORIDE 0.9% INJ 100 ML IV SCH ×2 (08:21→21:20)
--- NOTE | 2018-05-14 09:49 | HHI.PR ---
Subjective Remarks awake and alert, very interactive good po no pain complains Objective Vitals Vital Signs Date Time Temp Pulse Resp B/P (MAP) Pulse Ox O2 Delivery O2 Flow Rate FiO2 05/14/18 08:07 98.0 70 18 153/71 (98) 96 05/14/18 04:13 98.0 67 18 149/65 (93) 94 05/14/18 03:54 62 05/13/18 23:56 68 05/13/18 23:28 98.0 71 18 165/74 (104) 95 05/13/18 20:30 98.1 74 18 169/85 (113) 95 05/13/18 20:15 Room Air 05/13/18 19:58 74 05/13/18 16:06 98.3 76 18 146/68 (94) 97 05/13/18 16:00 77 05/13/18 12:06 98.7 78 18 148/70 (96) 95 05/13/18 12:00 62 I/O 05/13/18 05/13/18 05/13/18 05/14/18 05/14/18 05/14/18 07:00 15:00 23:00 07:00 15:00 23:00 Intake Total 1817 ml 420 ml 1080 ml Output Total 800 ml 2200 ml 600 ml Balance 1017 ml -1780 ml 480 ml Intake Oral 600 ml 420 ml 480 ml IV Total 1217 ml 600 ml Output Urine Total 800 ml 2200 ml 600 ml # Bowel Movements 0 0 0 Result Diagram: 05/12/18 1455 05/12/18 2315 Imaging Last Impressions Lumbar Puncture Fluoroscopy 05/12/18 0000 Signed Impressions: CONCLUSION: 1. Uncomplicated fluoroscopically guided lumbar puncture. Femur X-Ray 05/12/18 0000 Signed Impressions: CONCLUSION: Intact right femur. Chest X-Ray 05/10/18 0006 Signed Impressions: CONCLUSION: Negative examination. The right hemidiaphragm is moderately elevated. Thoracic Spine MRI 05/10/18 0000 Signed Impressions: CONCLUSION: 1. 1.4 cm enhancing lesions at T9 and T12 suspicious for metastatic disease. N o pathologic fracture. No significant canal stenosis. Lumbar Spine MRI 05/10/18 0000 Signed Impressions: CONCLUSION: 1. Enhancing lesions at T12, L1 and S3 most characteristic of metastatic disea se. 2. At L4-5 there is a small right paracentral disc protrusion with mild stenos is of the right lateral recess. 3. Conus medullaris intact. Knee X-Ray 05/10/18 Signed Impressions: CONCLUSION: Large tricompartmental osteophytes. No acute fracture Chest CT 05/10/18 Signed Impressions: CONCLUSION: 1. Bilateral breast masses with skin thickening and ulceration. Bilateral axil amanda adenopathy. Cervical Spine MRI 05/10/18 Signed Impressions: CONCLUSION: 1. Negative for metastatic disease. Moderate degenerative disc disease as abov e. No cord impingement. Brain MRI 05/10/18 Signed Impressions: CONCLUSION: 1. No acute findings. No recent infarct. Minimal white matter ischemic changes . Abdomen/Pelvis CT 05/10/18 Signed Impressions: CONCLUSION: 1. Left breast mass with lytic bone destruction noted in the right hemipelvis around the acetabulum measuring around 5 cm in diameter and also in the left an terior iliac bone measuring around 2 cm in diameter characteristic of metastati c bone disease. 2. Large gallstone measuring up to 3.9 cm. 3. Small hiatal hernia. No pathologically enlarged lymph nodes identified with in the abdomen and pelvis. 4. Colonic diverticula. Probable small calcified fibroids. Objective Remarks awake andalert, interactive and feisty anciteric lungs- no rales regular rhyhtm breast - wide open ulcerating breast mass some minimal bleeding on gauze site abdomen soft, good bowel sounds extremities noedema, no calf tenderness, equal strength A/P Problem List: (1) Fall ICD Code: W19.XXXA - Unspecified fall, initial encounter (2) Masses of both breasts ICD Code: N63.10 - Unspecified lump in the right breast, unspecified quadrant; N63.20 - Unspecified lump in the left breast, unspecified quadrant (3) UTI (urinary tract infection) ICD Code: N39.0 - Urinary tract infection, site not specified (4) Renal insufficiency ICD Code: N28.9 - Disorder of kidney and ureter, unspecified (5) SIRS (systemic inflammatory response syndrome) ICD Code: R65.10 - Systemic inflammatory response syndrome (SIRS) of non- infectious origin without acute organ dysfunction (6) DM (diabetes mellitus) ICD Code: E11.9 - Type 2 diabetes mellitus without complications Assessment and Plan 72 years old female Metastatic breast cancer Punch biopsy tissue sample/cytoology- negative for malignant cells 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 Appreciate general surgery Appreciate neurology consult Urinary tract infection SIRS risk on admission, normalized at this time Continue cefepime and vancomycin Follow urine and blood culture if final blood and urine culture negative- DC antibiotics Fall at home Patient has decompensated, severe arthritis in right knee Possibly worsened weakness due to metastatic lesions in her spine aggravating her spinal arthritis and causing worsened radicular effects No steroids at this time due to risk of healing after possible surgery PT daily Type 2 diabetes- newly diagnosed Hemoglobin A1c 6.9 blood glucose is normalized with a.m. labs Continue diabetic diet diabetes teaching Hypokalemia- recheck BMP in am DVT prophylaxis - Teds Discharge planning Case will be presented at tumor board tomorrow afternoon, treatment plans to follow Melina Tee MD May 14, 2018 09:49
--- NOTE | 2018-05-14 11:07 | PD.ONC.PN ---
Subjective Subjective Remarks Afebrile overnight. Patient resting in room in nad. No complaints. states she needed a shot of morphine for some pain in her right breast wound yesterday. she is eager to know her biopsy results, but wants her daughter to be here before reviewing them. Objective Data Date Time Temp Pulse Resp B/P (MAP) Pulse Ox O2 Delivery O2 Flow Rate FiO2 05/14/18 08:07 98.0 70 18 153/71 (98) 96 05/14/18 08:00 Room Air 05/14/18 04:13 98.0 67 18 149/65 (93) 94 05/14/18 03:54 62 05/13/18 23:56 68 05/13/18 23:28 98.0 71 18 165/74 (104) 95 05/13/18 20:30 98.1 74 18 169/85 (113) 95 05/13/18 20:15 Room Air 05/13/18 19:58 74 05/13/18 16:06 98.3 76 18 146/68 (94) 97 05/13/18 16:00 77 05/13/18 12:06 98.7 78 18 148/70 (96) 95 05/13/18 12:00 62 05/14/18 05/14/18 05/14/18 07:00 15:00 23:00 Intake Total 1080 ml Output Total 600 ml Balance 480 ml Result Diagram: 05/12/18 1455 05/12/18 2675 Laboratory Results Laboratory Tests Test 05/13/18 20:24 CA 15-3 Antigen 11.8 U/ML Culture Results Microbiology Date/Time Source Procedure Growth Status 05/12/18 12:02 Cerebral Spinal Fluid Lumbar Puncture Fungal Smear - Final NO FUNGAL ELEMENTS SEEN. Resulted 05/12/18 12:02 Cerebral Spinal Fluid Lumbar Puncture Fungal Culture Pending Resulted 05/12/18 12:02 Cerebral Spinal Fluid Lumbar Puncture Gram Stain - Final Resulted 05/12/18 12:02 Cerebral Spinal Fluid Lumbar Puncture CSF Culture - Preliminary NO GROWTH IN 48 HOURS. Resulted Administered Medications Medications (Trade) Dose Ordered Sig/Soo Route PRN Reason Start Time Stop Time Status Last Admin Dose Admin Insulin Aspart (NovoLOG SUPPLEMENTAL SCALE) 1 ACHS SLIDING SCALE SQ 05/10/18 08:00 05/12/18 23:57 Cefepime HCl 1000 mg/Sodium Chloride 100 ml @ 200 mls/hr Q12H IV 05/10/18 09:00 05/14/18 08:21 Sodium Chloride 1,000 ml @ 100 mls/hr Q10H IV 05/10/18 03:24 05/14/18 07:24 Sodium Chloride (NS Flush) 2 ml UNSCH PRN IV FLUSH FLUSH AFTER USING IV ACCESS 05/10/18 03:30 05/14/18 04:12 Sodium Chloride (NS Flush) 2 ml BID IV FLUSH 05/10/18 09:00 05/13/18 08:55 Acetaminophen/ Hydrocodone Bitart ([place] 5-325 Mg) 1 tab Q4H PRN PO PAIN SCALE 3 TO 5 05/10/18 03:30 05/11/18 10:19 Morphine Sulfate (Morphine Inj) 2 mg Q3H PRN IV PUSH Pain 05-1005/10/18 03:30 05/14/18 04:10 Senna/Docusate Sodium ([place]-Colace) 1 tab BID PO 05/10/18 09:00 05/14/18 08:20 Vancomycin HCl 2000 mg/Sodium Chloride 520 ml @ 250 mls/hr Q24H IV 05/10/18 22:00 05/13/18 22:30 Nystatin (Mycostatin Cream) 1 applic Q12HR TOPICAL 05/10/18 21:00 05/14/18 08:20 Objective Remarks GENERAL: Pleasant elderly female, sitting up in bed in nad. SKIN: Warm and dry. HEAD: Normocephalic. EYES: No injection or drainage. NECK: Supple, trachea midline. LYMPH: + supraclavicular LN palpated on right, bilateral axillary LN palpable. CARDIOVASCULAR: Regular rate and rhythm RESPIRATORY: Breath sounds equal bilaterally. No accessory muscle use. Breasts: bilateral breasts with necrotic wounds, covered with clean bandages. GASTROINTESTINAL: Abdomen soft, non-tender, nondistended. EXTREMITIES: No cyanosis NEUROLOGICAL: awake and alert. normal speech. moving all extremities. Assessment/Plan Problem List: (1) Metastatic breast cancer ICD Codes: C50.919 - Malignant neoplasm of unspecified site of unspecified female breast Plan: 05/14: hormone status pending from biopsy; --biopsy results shows infiltrating ductal carcinoma, poorly differentiated. --LP cytology is negative for malignant cells --s/p punch biopsies of fungating breast masses. --we anticipate the patient will require bilateral mastectomies for palliation. will need to dw surgery once we determine hormone status can discuss plan of care. --BL axillary adenopathy and R supraclavicular adenopathy. ++bony metastatic disease to T9, T12, S1, S3, R acetabulum, L anterior iliac crest. --CT chest--no mets --Anticipate pt will need BL mastectomy for palliation of large ulcerative masses. (2) Radicular leg pain ICD Codes: M54.10 - Radiculopathy, site unspecified Plan: Pain R leg. --has extensive metastatic disease to spine and pelvis xr shows no fx of femur Assessment 72 y/o woman with HTN, DM, dx with neglected breast cancer, evidence for metastatic disease on imaging. Plan 1. discussed with patient that biopsy results have returned. she wants to wait until her daughter is here this afternoon to review the results. 2. hormone status is still pending though pathology 3. continue symptomatic management Attending Statement The exam, history, and the medical decision-making described in the above note were completed with the assistance of the mid-level provider. I reviewed and agree with the findings presented. I attest that I had a [id number] encounter with the patient on the same day, and personally performed and documented my assessment and findings in the medical record. Lengthy discussion with daughter and patient regarding breast biopsy results consistent with breast primary. Pt w/ known metastatic disease to bone, at multiple sites. Discussed waiting for ER/NC/Her 2 studies. Recommendations depend on above. If her2 positive, plan would be port placement for neoadjuvant chemotherapy. If ER positive, need antiestrogen therapy, ultimately will require mastectomy for R breast. Pt was preferring mastectomy for R breast mass/ulceration. Sejal Penn May 14, 2018 11:07 Britany Johnson MD May 14, 2018 17:17
--- NOTE | 2018-05-14 21:01 | HHI.PR ---
cc: Bulmaro Brito MD Subjective Subjective Notes Resting in bed No complaints Objective Vitals/I&O Vital Signs Date Time Temp Pulse Resp B/P (MAP) Pulse Ox O2 Delivery O2 Flow Rate FiO2 05/14/18 16:07 98.3 79 17 162/77 (105) 96 05/14/18 08:00 Room Air Labs Date/Time Source Procedure Growth Status 05/10/18 00:21 Blood Peripheral Aerobic Blood Culture - Preliminary NO GROWTH IN 4 DAYS Resulted 05/10/18 00:21 Blood Peripheral Anaerobic Blood Culture - Preliminary NO GROWTH IN 4 DAYS Resulted 05/12/18 12:02 Cerebral Spinal Fluid Lumbar Puncture Fungal Smear - Final NO FUNGAL ELEMENTS SEEN. Resulted 05/12/18 12:02 Cerebral Spinal Fluid Lumbar Puncture Fungal Culture Pending Resulted 05/10/18 01:20 Urine Catheterized Urine Urine Culture - Final 10-50,000 CFU/ML MIXED GRAM POSITIVE ... Complete 05/10/18 00:32 Wound Breast Gram Stain - Final Complete 05/10/18 00:32 Wound Breast Wound Culture - Final Complete Cardiovascular: Regular Lungs: Clear Abdomen: Non-distended, Non-tender Narrative Exam bilateral fungating breast tumors; s/p punch biopsy; no bleeding A/P Assessment and Plan 72 year old female with bilateral fungating breast mass; BLE weakness -Await biopsy results -Oncology following -s/p lumbar puncture today -Continue dressing changes Bernadette Terrell/Pbx Operator [employer] OPERATOR May 14, 2018 21:01 Bulmaro Brito MD May 20, 2018 20:45
[2018-05-14] MEDS: VANCOMYCIN INJ 2,000 MG in SODIUM CHLORID 0.9% 500 ML INJ 500 ML IV SCH (22:46)
[2018-05-15] VITALS (10 sets, daily range): BP systolic 140–185; BP diastolic 64–86; PULSE 60–90; RESP 16–20; TEMP 97.5–98.7; O2SAT 93–96
[2018-05-15] MEDS: MORPHINE SULFATE 4 MG/ML INJ IV PUSH PRN ×5 (04:30→21:37)
[2018-05-15 06:54] LABS: AUTOMATED NEUTROPHIL # 6.8 TH/MM3 (1.8-7.7); BASOPHIL # 0.1 TH/MM3 (0-0.2); BASOPHIL % 0.8 % (0.0-2.0); EOSINOPHIL # 0.4 TH/MM3 (0-0.4); EOSINOPHIL % 4.6 % (0.0-4.0); HEMATOCRIT 34.9 % (35.0-46.0); HEMOGLOBIN 11.9 GM/DL (11.6-15.3); LYMPH % 13.4 % (9.0-44.0); LYMPHOCYTE # 1.2 TH/MM3 (1.0-4.8); MEAN CORPUSCULAR HEMOGLOBIN 28.6 PG (27.0-34.0); MEAN PLATELET VOLUME 6.1 FL (7.0-11.0); MONO % 7.9 % (0.0-8.0); MONOCYTE # 0.7 TH/MM3 (0-0.9); NEUT % 73.3 % (16.0-70.0); PLATELET COUNT 273 TH/MM3 (150-450); RED BLOOD COUNT 4.16 MIL/MM3 (4.00-5.30); RED CELL DISTRIBUTION WIDTH 14.6 % (11.6-17.2); WHITE BLOOD COUNT 9.3 TH/MM3 (4.0-11.0)
[2018-05-15 07:27] LABS: ALBUMIN 2.1 GM/DL (3.4-5.0); ALKALINE PHOSPHATASE 104 U/L (45-117); ALT (GPT) 13 U/L (10-53); AST (GOT) 20 U/L (15-37); BICARBONATE 23.2 MEQ/L (21.0-32.0); BLOOD UREA NITROGEN 8 MG/DL (7-18); CALCIUM 8.6 MG/DL (8.5-10.1); CHLORIDE 108 MEQ/L (98-107); CREATININE 0.58 MG/DL (0.50-1.00); GLOMERULAR FILTRATION RATE 103 ML/MIN (>89); GLUCOSE,RANDOM 95 MG/DL (74-106); SODIUM (NA) 143 MEQ/L (136-145); TOTAL BILIRUBIN ADULT 0.4 MG/DL (0.2-1.0); TOTAL PROTEIN 6.1 GM/DL (6.4-8.2)
[2018-05-15] MEDS: INSULIN ASPART SUPPLEMENTAL SCALE SQ SCH ×4 (08:00→21:38)
[2018-05-15] MEDS: SODIUM CHLORIDE 0.9% FLUSH 10 ML FLUSH IV FLUSH SCH ×2 (09:00→21:37)
[2018-05-15] MEDS: DOCUSATE SODIUM 50 MG/SENNA 8.6 MG TAB PO SCH ×2 (09:06→21:38)
[2018-05-15] MEDS: CEFEPIME INJ 1,000 MG in SODIUM CHLORIDE 0.9% INJ 100 ML IV SCH ×2 (09:08→21:37)
[2018-05-15] MEDS: NYSTATIN 100,000 UNIT/GM CREAM 15 GM TOPICAL SCH ×2 (09:09→21:44)
[2018-05-15 12:40] LABS: CSF CRYPTOCOCCUS AG CONF ND (NOT DETECTD)
--- NOTE | 2018-05-15 13:18 | HHI.PR ---
Subjective Remarks minimal pain breast pain Objective Vitals Vital Signs Date Time Temp Pulse Resp B/P (MAP) Pulse Ox O2 Delivery O2 Flow Rate FiO2 05/15/18 12:00 98.0 80 20 165/75 (105) 93 05/15/18 08:00 97.5 76 20 159/70 (99) 93 05/15/18 07:37 61 05/15/18 04:34 20 05/15/18 04:00 62 05/15/18 04:00 97.9 60 18 140/64 (89) 95 05/15/18 00:00 98.3 82 18 161/72 (101) 95 05/14/18 23:34 71 05/14/18 20:12 98.0 77 16 157/67 (97) 96 05/14/18 20:00 Room Air 05/14/18 19:44 70 05/14/18 16:07 98.3 79 17 162/77 (105) 96 05/14/18 16:00 76 I/O 05/14/18 05/14/18 05/14/18 05/15/18 05/15/18 05/15/18 07:00 15:00 23:00 07:00 15:00 23:00 Intake Total 1080 ml 600 ml 480 ml Output Total 600 ml 1000 ml 400 ml Balance 480 ml -400 ml 80 ml Intake Oral 480 ml 600 ml 480 ml IV Total 600 ml Output Urine Total 600 ml 1000 ml 400 ml # Voids 3 # Bowel Movements 0 0 0 Result Diagram: 05/15/18 0517 05/15/18 0517 Imaging Last Impressions Lumbar Puncture Fluoroscopy 05/12/18 0000 Signed Impressions: CONCLUSION: 1. Uncomplicated fluoroscopically guided lumbar puncture. Femur X-Ray 05/12/18 0000 Signed Impressions: CONCLUSION: Intact right femur. Chest X-Ray 05/10/18 0006 Signed Impressions: CONCLUSION: Negative examination. The right hemidiaphragm is moderately elevated. Thoracic Spine MRI 05/10/18 0000 Signed Impressions: CONCLUSION: 1. 1.4 cm enhancing lesions at T9 and T12 suspicious for metastatic disease. N o pathologic fracture. No significant canal stenosis. Lumbar Spine MRI 05/10/18 0000 Signed Impressions: CONCLUSION: 1. Enhancing lesions at T12, L1 and S3 most characteristic of metastatic disea se. 2. At L4-5 there is a small right paracentral disc protrusion with mild stenos is of the right lateral recess. 3. Conus medullaris intact. Knee X-Ray 05/10/18 Signed Impressions: CONCLUSION: Large tricompartmental osteophytes. No acute fracture Chest CT 05/10/18 Signed Impressions: CONCLUSION: 1. Bilateral breast masses with skin thickening and ulceration. Bilateral axil amanda adenopathy. Cervical Spine MRI 05/10/18 Signed Impressions: CONCLUSION: 1. Negative for metastatic disease. Moderate degenerative disc disease as abov e. No cord impingement. Brain MRI 05/10/18 Signed Impressions: CONCLUSION: 1. No acute findings. No recent infarct. Minimal white matter ischemic changes . Abdomen/Pelvis CT 05/10/18 Signed Impressions: CONCLUSION: 1. Left breast mass with lytic bone destruction noted in the right hemipelvis around the acetabulum measuring around 5 cm in diameter and also in the left an terior iliac bone measuring around 2 cm in diameter characteristic of metastati c bone disease. 2. Large gallstone measuring up to 3.9 cm. 3. Small hiatal hernia. No pathologically enlarged lymph nodes identified with in the abdomen and pelvis. 4. Colonic diverticula. Probable small calcified fibroids. Objective Remarks awake and alert, interactive anicteric lungs- no rales regular rhyhthm breast - wide open ulcerating - some minimal necrotic tissue edges , some minimal bleeding on gauze site abdomen soft, good bowel sounds extremities no edema, no calf tenderness, equal strength A/P Problem List: (1) Fall ICD Code: W19.XXXA - Unspecified fall, initial encounter (2) Masses of both breasts ICD Code: N63.10 - Unspecified lump in the right breast, unspecified quadrant; N63.20 - Unspecified lump in the left breast, unspecified quadrant (3) UTI (urinary tract infection) ICD Code: N39.0 - Urinary tract infection, site not specified (4) Renal insufficiency ICD Code: N28.9 - Disorder of kidney and ureter, unspecified (5) SIRS (systemic inflammatory response syndrome) ICD Code: R65.10 - Systemic inflammatory response syndrome (SIRS) of non- infectious origin without acute organ dysfunction (6) DM (diabetes mellitus) ICD Code: E11.9 - Type 2 diabetes mellitus without complications Assessment and Plan 72 years old female Metastatic breast cancer- pathology poorly differentiated ductal carcinoma Punch biopsy tissue sample/cytoology- negative for malignant cells 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 Appreciate general surgery + Oncology ff will defer to above - - re- plan/options for surgery- timing, chemotherapy and will inform family Urinary tract infection SIRS risk on admission, normalized at this time Continue cefepime and vancomycin Follow urine and blood culture if final blood and urine culture negative- consider DC antibiotics Fall at home Patient has decompensated, severe arthritis in right knee Possibly worsened weakness due to metastatic lesions in her spine aggravating her spinal arthritis and causing worsened radicular effects No steroids at this time due to risk of healing after possible surgery PT daily Type 2 diabetes- newly diagnosed Hemoglobin A1c 6.9 blood glucose is normalized with a.m. labs Continue diabetic diet diabetes teaching Hypokalemia- improved DVT prophylaxis - Teds Discharge planning Case will be presented at tumor board Melina Tee MD May 15, 2018 13:18
[2018-05-15 19:51] LABS: CSF CRYPTOCOCCUS ANTIGEN NOT DETECTED (()); VDRL CSF NON-REACTIVE (())
[2018-05-15] MEDS: SODIUM CHLOR 0.9% 1000 ML INJ 1,000 ML IV SCH (21:38)
[2018-05-15] MEDS: VANCOMYCIN INJ 2,000 MG in SODIUM CHLORID 0.9% 500 ML INJ 500 ML IV SCH (21:44)
[2018-05-16] VITALS: BP 163/79; PULSE 66; PULSE 72; PULSE 80; RESP 20; TEMP 97.7; O2SAT 98
[2018-05-16] MEDS: SODIUM CHLOR 0.9% 1000 ML INJ 1,000 ML IV SCH (00:19)
[2018-05-16] MEDS: MORPHINE SULFATE 4 MG/ML INJ IV PUSH PRN ×2 (00:20→20:56)
[2018-05-16 04:00] VITALS: BP 149/66; PULSE 64; PULSE 75; RESP 18; TEMP 96.6; O2SAT 95
[2018-05-16 08:00] VITALS: BP 142/70; PULSE 62; PULSE 67; PULSE 74; RESP 20; TEMP 97.9; O2SAT 96
[2018-05-16] MEDS: INSULIN ASPART SUPPLEMENTAL SCALE SQ SCH ×4 (08:00→20:57)
[2018-05-16] MEDS: SODIUM CHLORIDE 0.9% FLUSH 10 ML FLUSH IV FLUSH SCH ×2 (08:37→20:57)
[2018-05-16] MEDS: DOCUSATE SODIUM 50 MG/SENNA 8.6 MG TAB PO SCH ×2 (08:38→20:57)
[2018-05-16] MEDS: CEFEPIME INJ 1,000 MG in SODIUM CHLORIDE 0.9% INJ 100 ML IV SCH ×2 (08:46→20:57)
[2018-05-16] MEDS: NYSTATIN 100,000 UNIT/GM CREAM 15 GM TOPICAL SCH ×2 (08:46→20:58)
--- NOTE | 2018-05-16 09:42 | HHI.PR ---
Subjective Remarks awake and alert very motivated denies any pain- controlled have good bowel movements has been up on the chair Objective Vitals Vital Signs Date Time Temp Pulse Resp B/P (MAP) Pulse Ox O2 Delivery O2 Flow Rate FiO2 05/16/18 08:00 97.9 67 20 142/70 (94) 96 05/16/18 04:00 96.6 75 18 149/66 (93) 95 05/16/18 04:00 64 05/16/18 00:25 20 05/16/18 00:00 80 05/16/18 00:00 97.7 66 20 163/79 (107) 98 05/15/18 20:30 98.6 76 16 167/76 (106) 96 05/15/18 20:00 Room Air 05/15/18 20:00 74 05/15/18 16:00 98.7 67 20 185/86 (119) 95 05/15/18 15:26 73 05/15/18 12:00 98.0 80 20 165/75 (105) 93 05/15/18 11:35 90 I/O 05/15/18 05/15/18 05/15/18 05/16/18 05/16/18 05/16/18 07:00 15:00 23:00 07:00 15:00 23:00 Intake Total 480 ml 100 ml 580 ml 1000 ml Output Total 400 ml 1000 ml 700 ml Balance 80 ml 100 ml -420 ml 300 ml Intake Oral 480 ml 480 ml IV Total 100 ml 100 ml 1000 ml Output Urine Total 400 ml 1000 ml 700 ml # Voids 3 2 # Bowel Movements 0 2 Result Diagram: 05/15/1851605/15/18516 Imaging Last Impressions Lumbar Puncture Fluoroscopy 05/12/18 0000 Signed Impressions: CONCLUSION: 1. Uncomplicated fluoroscopically guided lumbar puncture. Femur X-Ray 05/12/18 0000 Signed Impressions: CONCLUSION: Intact right femur. Chest X-Ray 05/10/18 0006 Signed Impressions: CONCLUSION: Negative examination. The right hemidiaphragm is moderately elevated. Thoracic Spine MRI 05/10/18 0000 Signed Impressions: CONCLUSION: 1. 1.4 cm enhancing lesions at T9 and T12 suspicious for metastatic disease. N o pathologic fracture. No significant canal stenosis. Lumbar Spine MRI 05/10/18 0000 Signed Impressions: CONCLUSION: 1. Enhancing lesions at T12, L1 and S3 most characteristic of metastatic disea se. 2. At L4-5 there is a small right paracentral disc protrusion with mild stenos is of the right lateral recess. 3. Conus medullaris intact. Knee X-Ray 05/10/18 Signed Impressions: CONCLUSION: Large tricompartmental osteophytes. No acute fracture Chest CT 05/10/18 Signed Impressions: CONCLUSION: 1. Bilateral breast masses with skin thickening and ulceration. Bilateral axil amanda adenopathy. Cervical Spine MRI 05/10/18 Signed Impressions: CONCLUSION: 1. Negative for metastatic disease. Moderate degenerative disc disease as abov e. No cord impingement. Brain MRI 05/10/18 Signed Impressions: CONCLUSION: 1. No acute findings. No recent infarct. Minimal white matter ischemic changes . Abdomen/Pelvis CT 05/10/18 Signed Impressions: CONCLUSION: 1. Left breast mass with lytic bone destruction noted in the right hemipelvis around the acetabulum measuring around 5 cm in diameter and also in the left an terior iliac bone measuring around 2 cm in diameter characteristic of metastati c bone disease. 2. Large gallstone measuring up to 3.9 cm. 3. Small hiatal hernia. No pathologically enlarged lymph nodes identified with in the abdomen and pelvis. 4. Colonic diverticula. Probable small calcified fibroids. Objective Remarks awake and alert, interactive and feisty anciteric lungs- no rales regular rhyhtm breast - wide open ulcerating breast mass abdomen soft, good bowel sounds extremities no edema, no calf tenderness, equal strength Procedures LP A/P Problem List: (1) Fall ICD Code: W19.XXXA - Unspecified fall, initial encounter (2) Masses of both breasts ICD Code: N63.10 - Unspecified lump in the right breast, unspecified quadrant; N63.20 - Unspecified lump in the left breast, unspecified quadrant (3) UTI (urinary tract infection) ICD Code: N39.0 - Urinary tract infection, site not specified (4) Renal insufficiency ICD Code: N28.9 - Disorder of kidney and ureter, unspecified (5) SIRS (systemic inflammatory response syndrome) ICD Code: R65.10 - Systemic inflammatory response syndrome (SIRS) of non- infectious origin without acute organ dysfunction (6) DM (diabetes mellitus) ICD Code: E11.9 - Type 2 diabetes mellitus without complications Assessment and Plan 72 years old female Metastatic breast cancer- pathology poorly differentiated ductal carcinoma 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 Appreciate general surgery + Oncology ff will defer to above - - re- plan/options for surgery- timing, chemotherapy Urinary tract infection- cultures negative SIRS risk on admission, normalized at this time Continue cefepime and vancomycin Follow urine and blood culture if final blood and urine culture negative- consider DC antibiotics today Fall at home Patient has decompensated, severe arthritis in right knee Possibly worsened weakness due to metastatic lesions in her spine aggravating her spinal arthritis and causing worsened radicular effects No steroids at this time due to risk of healing after possible surgery PT daily- out of bed to chair daily Type 2 diabetes- newly diagnosed Hemoglobin A1c 6.9 blood glucose is normalized with a.m. labs Continue diabetic diet diabetes teaching Hypokalemia- improved DVT prophylaxis - Teds/start Lovenox Discharge planning Case will be presented at tumor board Melina Tee MD May 16, 2018 09:42
[2018-05-16] MEDS: ENOXAPARIN SODIUM 30 MG/0.3 ML SYRINGE SQ SCH (10:26)
[2018-05-16 12:00] VITALS: BP 159/77; PULSE 70; PULSE 77; RESP 20; TEMP 97.6; O2SAT 94
[2018-05-16 16:00] VITALS: BP 163/83; PULSE 62; PULSE 75; RESP 20; TEMP 97.9; O2SAT 95
[2018-05-16 20:00] VITALS: BP 181/87; PULSE 67; PULSE 72; RESP 18; TEMP 96.7; O2SAT 96
[2018-05-16] MEDS: VANCOMYCIN INJ 2,000 MG in SODIUM CHLORID 0.9% 500 ML INJ 500 ML IV SCH (22:00)
[2018-05-17] VITALS (9 sets, daily range): BP systolic 141–179; BP diastolic 70–86; PULSE 57–74; RESP 18–20; TEMP 96.6–98.4; O2SAT 96–97
[2018-05-17] MEDS: MORPHINE SULFATE 4 MG/ML INJ IV PUSH PRN ×5 (00:27→23:42)
[2018-05-17] MEDS: SODIUM CHLOR 0.9% 1000 ML INJ 1,000 ML IV SCH (05:50)
[2018-05-17] MEDS: INSULIN ASPART SUPPLEMENTAL SCALE SQ SCH ×4 (07:47→20:38)
[2018-05-17] MEDS: SODIUM CHLORIDE 0.9% FLUSH 10 ML FLUSH IV FLUSH SCH ×2 (08:25→20:38)
[2018-05-17] MEDS: DOCUSATE SODIUM 50 MG/SENNA 8.6 MG TAB PO SCH ×2 (08:25→20:38)
[2018-05-17] MEDS: NYSTATIN 100,000 UNIT/GM CREAM 15 GM TOPICAL SCH ×2 (08:26→20:38)
[2018-05-17 10:33] LABS: CREATININE 0.51 MG/DL (0.50-1.00)
--- NOTE | 2018-05-17 10:39 | HHI.PR ---
Subjective Remarks no complains afebrile good po Objective Vitals Vital Signs Date Time Temp Pulse Resp B/P (MAP) Pulse Ox O2 Delivery O2 Flow Rate FiO2 05/17/18 08:00 98.0 65 20 170/77 (108) 96 05/17/18 04:00 62 05/17/18 04:00 Room Air 05/17/18 04:00 98.1 58 18 141/71 (94) 96 05/17/18 00:07 96.6 70 18 162/70 (100) 96 05/17/18 00:00 Room Air 05/17/18 00:00 64 05/16/18 20:00 72 05/16/18 20:00 96.7 67 18 181/87 (118) 96 05/16/18 20:00 Room Air 05/16/18 16:00 62 05/16/18 16:00 97.9 75 20 163/83 (109) 95 05/16/18 12:00 97.6 77 20 159/77 (104) 94 05/16/18 12:00 70 I/O 05/16/18 05/16/18 05/16/18 05/17/18 05/17/18 05/17/18 07:00 15:00 23:00 07:00 15:00 23:00 Intake Total 1000 ml 100 ml 580 ml 1520 ml Output Total 700 ml 1500 ml 700 ml Balance 300 ml 100 ml -920 ml 820 ml Intake Oral 480 ml IV Total 1000 ml 100 ml 100 ml 1520 ml Output Urine Total 700 ml 1500 ml 700 ml # Voids 1 1 # Bowel Movements 3 1 Result Diagram: 05/15/1851605/15/18516 Imaging Last Impressions Lumbar Puncture Fluoroscopy 05/12/18 Signed Impressions: CONCLUSION: 1. Uncomplicated fluoroscopically guided lumbar puncture. Femur X-Ray 05/12/18 Signed Impressions: CONCLUSION: Intact right femur. Chest X-Ray 05/10/18 0006 Signed Impressions: CONCLUSION: Negative examination. The right hemidiaphragm is moderately elevated. Thoracic Spine MRI 05/10/18 Signed Impressions: CONCLUSION: 1. 1.4 cm enhancing lesions at T9 and T12 suspicious for metastatic disease. N o pathologic fracture. No significant canal stenosis. Lumbar Spine MRI 05/10/18 Signed Impressions: CONCLUSION: 1. Enhancing lesions at T12, L1 and S3 most characteristic of metastatic disea se. 2. At L4-5 there is a small right paracentral disc protrusion with mild stenos is of the right lateral recess. 3. Conus medullaris intact. Knee X-Ray 05/10/18 Signed Impressions: CONCLUSION: Large tricompartmental osteophytes. No acute fracture Chest CT 05/10/18 Signed Impressions: CONCLUSION: 1. Bilateral breast masses with skin thickening and ulceration. Bilateral axil amanda adenopathy. Cervical Spine MRI 05/10/18 Signed Impressions: CONCLUSION: 1. Negative for metastatic disease. Moderate degenerative disc disease as abov e. No cord impingement. Brain MRI 05/10/18 Signed Impressions: CONCLUSION: 1. No acute findings. No recent infarct. Minimal white matter ischemic changes . Abdomen/Pelvis CT 05/10/18 Signed Impressions: CONCLUSION: 1. Left breast mass with lytic bone destruction noted in the right hemipelvis around the acetabulum measuring around 5 cm in diameter and also in the left an terior iliac bone measuring around 2 cm in diameter characteristic of metastati c bone disease. 2. Large gallstone measuring up to 3.9 cm. 3. Small hiatal hernia. No pathologically enlarged lymph nodes identified with in the abdomen and pelvis. 4. Colonic diverticula. Probable small calcified fibroids. Objective Remarks awake and alert, interactive anciteric lungs- no rales regular rhyhtm left breast - wide open ulcerating breast mass abdomen soft, good bowel sounds extremities no edema, no calf tenderness, equal strength Procedures LP A/P Problem List: (1) Fall ICD Code: W19.XXXA - Unspecified fall, initial encounter (2) Masses of both breasts ICD Code: N63.10 - Unspecified lump in the right breast, unspecified quadrant; N63.20 - Unspecified lump in the left breast, unspecified quadrant (3) UTI (urinary tract infection) ICD Code: N39.0 - Urinary tract infection, site not specified (4) Renal insufficiency ICD Code: N28.9 - Disorder of kidney and ureter, unspecified (5) SIRS (systemic inflammatory response syndrome) ICD Code: R65.10 - Systemic inflammatory response syndrome (SIRS) of non- infectious origin without acute organ dysfunction (6) DM (diabetes mellitus) ICD Code: E11.9 - Type 2 diabetes mellitus without complications Assessment and Plan 72 years old female Metastatic breast cancer- pathology poorly differentiated ductal carcinoma 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 Appreciate general surgery + Oncology ff will defer to above - - re- plan/options for surgery- timing, chemotherapy S/P Vancomycin course 05/16 Urinary tract infection- cultures negative SIRS risk on admission, normalized at this time S/P Cefepime course 05/16 F Fall at home Patient has decompensated, severe arthritis in right knee Possibly worsened weakness due to metastatic lesions in her spine aggravating her spinal arthritis and causing worsened radicular effects No steroids at this time due to risk of healing after possible surgery PT daily- out of bed to chair daily Type 2 diabetes- newly diagnosed Hemoglobin A1c 6.9 b Continue diabetic diet diabetes teaching Hypokalemia- improved DVT prophylaxis - Teds/ Lovenox Discharge planning Case will be presented at tumor board Melina Tee MD May 17, 2018 10:39
[2018-05-17] MEDS: ENOXAPARIN SODIUM 30 MG/0.3 ML SYRINGE SQ SCH (10:54)
[2018-05-18] VITALS (8 sets, daily range): BP systolic 143–163; BP diastolic 67–76; PULSE 59–86; RESP 16–18; TEMP 97.8–98.4; O2SAT 95–96
[2018-05-18] MEDS: SODIUM CHLOR 0.9% 1000 ML INJ 1,000 ML IV SCH (05:18)
[2018-05-18] MEDS: INSULIN ASPART SUPPLEMENTAL SCALE SQ SCH ×4 (07:41→20:41)
[2018-05-18] MEDS: NYSTATIN 100,000 UNIT/GM CREAM 15 GM TOPICAL SCH ×2 (08:12→20:42)
[2018-05-18] MEDS: SODIUM CHLORIDE 0.9% FLUSH 10 ML FLUSH IV FLUSH SCH ×2 (08:12→20:42)
[2018-05-18] MEDS: DOCUSATE SODIUM 50 MG/SENNA 8.6 MG TAB PO SCH ×2 (08:13→20:41)
[2018-05-18] MEDS: ENOXAPARIN SODIUM 30 MG/0.3 ML SYRINGE SQ SCH (12:06)
--- NOTE | 2018-05-18 12:11 | HHI.PR ---
Subjective Remarks no complains, po 100% Objective Vitals Vital Signs Date Time Temp Pulse Resp B/P (MAP) Pulse Ox O2 Delivery O2 Flow Rate FiO2 05/18/18 08:00 97.8 62 16 149/68 (95) 96 05/18/18 08:00 Room Air 05/18/18 08:00 59 05/18/18 04:00 97.9 65 18 143/67 (92) 95 05/18/18 03:43 66 05/18/18 00:00 98.3 73 18 161/76 (104) 96 05/17/18 23:43 74 05/17/18 20:00 98.4 70 18 179/81 (113) 96 05/17/18 20:00 Room Air 05/17/18 19:45 70 05/17/18 16:00 63 05/17/18 16:00 97.9 68 20 166/78 (107) 96 I/O 05/17/18 05/17/18 05/17/18 05/18/18 05/18/18 05/18/18 07:00 15:00 23:00 07:00 15:00 23:00 Intake Total 1520 ml 480 ml 1480 ml Output Total 700 ml 1000 ml 800 ml Balance 820 ml -520 ml 680 ml Intake Oral 480 ml 480 ml IV Total 1520 ml 1000 ml Output Urine Total 700 ml 1000 ml 800 ml # Voids 1 # Bowel Movements 1 0 Result Diagram: 05/15/18 0517 05/17/18 0830 Imaging Last Impressions Lumbar Puncture Fluoroscopy 05/12/18 0000 Signed Impressions: CONCLUSION: 1. Uncomplicated fluoroscopically guided lumbar puncture. Femur X-Ray 05/12/18 0000 Signed Impressions: CONCLUSION: Intact right femur. Chest X-Ray 05/10/18 0006 Signed Impressions: CONCLUSION: Negative examination. The right hemidiaphragm is moderately elevated. Thoracic Spine MRI 05/10/18 0000 Signed Impressions: CONCLUSION: 1. 1.4 cm enhancing lesions at T9 and T12 suspicious for metastatic disease. N o pathologic fracture. No significant canal stenosis. Lumbar Spine MRI 05/10/18 0000 Signed Impressions: CONCLUSION: 1. Enhancing lesions at T12, L1 and S3 most characteristic of metastatic disea se. 2. At L4-5 there is a small right paracentral disc protrusion with mild stenos is of the right lateral recess. 3. Conus medullaris intact. Knee X-Ray 05/10/18 Signed Impressions: CONCLUSION: Large tricompartmental osteophytes. No acute fracture Chest CT 05/10/18 Signed Impressions: CONCLUSION: 1. Bilateral breast masses with skin thickening and ulceration. Bilateral axil amanda adenopathy. Cervical Spine MRI 05/10/18 Signed Impressions: CONCLUSION: 1. Negative for metastatic disease. Moderate degenerative disc disease as abov e. No cord impingement. Brain MRI 05/10/18 Signed Impressions: CONCLUSION: 1. No acute findings. No recent infarct. Minimal white matter ischemic changes . Abdomen/Pelvis CT 05/10/18 Signed Impressions: CONCLUSION: 1. Left breast mass with lytic bone destruction noted in the right hemipelvis around the acetabulum measuring around 5 cm in diameter and also in the left an terior iliac bone measuring around 2 cm in diameter characteristic of metastati c bone disease. 2. Large gallstone measuring up to 3.9 cm. 3. Small hiatal hernia. No pathologically enlarged lymph nodes identified with in the abdomen and pelvis. 4. Colonic diverticula. Probable small calcified fibroids. Objective Remarks awake and alert, interactive anicteric lungs- no rales regular rhyhtm left breast - wide open ulcerating breast mass abdomen soft, good bowel sounds extremities no edema, no calf tenderness, equal strength Procedures LP A/P Problem List: (1) Fall ICD Code: W19.XXXA - Unspecified fall, initial encounter (2) Masses of both breasts ICD Code: N63.10 - Unspecified lump in the right breast, unspecified quadrant; N63.20 - Unspecified lump in the left breast, unspecified quadrant (3) UTI (urinary tract infection) ICD Code: N39.0 - Urinary tract infection, site not specified (4) Renal insufficiency ICD Code: N28.9 - Disorder of kidney and ureter, unspecified (5) SIRS (systemic inflammatory response syndrome) ICD Code: R65.10 - Systemic inflammatory response syndrome (SIRS) of non- infectious origin without acute organ dysfunction (6) DM (diabetes mellitus) ICD Code: E11.9 - Type 2 diabetes mellitus without complications Assessment and Plan 72 years old female Metastatic breast cancer- pathology poorly differentiated ductal carcinoma 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 Appreciate general surgery + Oncology ff will defer to above - - re- plan/options for surgery- timing, chemotherapy S/P Vancomycin course 05/16 Urinary tract infection- cultures negative SIRS risk on admission, normalized at this time S/P Cefepime course 05/16 Fall at home Patient has decompensated, severe arthritis in right knee Possibly worsened weakness due to metastatic lesions in her spine aggravating her spinal arthritis and causing worsened radicular effects No steroids at this time due to risk of healing after possible surgery PT daily- out of bed to chair daily Type 2 diabetes- newly diagnosed Hemoglobin A1c 6.9 , good blood sugar readings Continue diabetic diet diabetes teaching done Hypokalemia- improved DVT prophylaxis - Teds/ Lovenox Discharge planning Case will be presented at tumor board Melina Tee MD May 18, 2018 12:11
[2018-05-18] MEDS: MORPHINE SULFATE 4 MG/ML INJ IV PUSH PRN ×3 (16:28→23:40)
[2018-05-19] VITALS (9 sets, daily range): BP systolic 137–178; BP diastolic 64–79; PULSE 59–79; RESP 14–18; TEMP 98.2–99.1; O2SAT 94–97
[2018-05-19] MEDS: MORPHINE SULFATE 4 MG/ML INJ IV PUSH PRN ×2 (05:24→16:51)
[2018-05-19] MEDS: SODIUM CHLOR 0.9% 1000 ML INJ 1,000 ML IV SCH (05:24)
[2018-05-19] MEDS: INSULIN ASPART SUPPLEMENTAL SCALE SQ SCH ×4 (08:00→20:27)
[2018-05-19] MEDS: DOCUSATE SODIUM 50 MG/SENNA 8.6 MG TAB PO SCH ×2 (08:44→20:27)
[2018-05-19] MEDS: NYSTATIN 100,000 UNIT/GM CREAM 15 GM TOPICAL SCH ×2 (08:44→20:29)
[2018-05-19] MEDS: SODIUM CHLORIDE 0.9% FLUSH 10 ML FLUSH IV FLUSH SCH ×2 (08:44→20:26)
[2018-05-19] MEDS: ENOXAPARIN SODIUM 30 MG/0.3 ML SYRINGE SQ SCH (11:48)
--- NOTE | 2018-05-19 13:54 | HHI.PR ---
Subjective Remarks pathology results back Estrogen and progesterone positive with invasive ductal carcinoma of the breast Await input from surgery and oncology Objective Vitals Vital Signs Date Time Temp Pulse Resp B/P (MAP) Pulse Ox O2 Delivery O2 Flow Rate FiO2 05/19/18 12:09 98.4 67 18 156/72 (100) 95 05/19/18 08:07 98.2 64 18 152/67 (95) 94 05/19/18 08:00 64 05/19/18 08:00 Room Air 05/19/18 04:00 59 05/19/18 04:00 98.4 67 14 137/64 (88) 97 05/19/18 00:00 Room Air 05/19/18 00:00 98.4 72 14 146/65 (92) 95 05/19/18 00:00 67 05/18/18 20:00 98.4 72 16 163/72 (102) 95 05/18/18 20:00 68 05/18/18 20:00 Room Air 05/18/18 16:00 98.4 71 18 157/74 (101) 95 05/18/18 15:43 71 I/O 05/18/18 05/18/18 05/18/18 05/19/18 05/19/18 05/19/18 07:00 15:00 23:00 07:00 15:00 23:00 Intake Total 1480 ml 960 ml 480 ml Output Total 800 ml 200 ml Balance 680 ml 960 ml 280 ml Intake Oral 480 ml 960 ml 480 ml IV Total 1000 ml Output Urine Total 800 ml 200 ml # Bowel Movements 0 Result Diagram: 05/15/18 0517 05/17/18 0830 Other Results Laboratory Tests Test 05/17/18 08:30 Creatinine 0.51 MG/DL Estimat Glomerular Filtration Rate 119 ML/MIN Imaging Last Impressions Lumbar Puncture Fluoroscopy 05/12/18 0000 Signed Impressions: CONCLUSION: 1. Uncomplicated fluoroscopically guided lumbar puncture. Femur X-Ray 05/12/18 0000 Signed Impressions: CONCLUSION: Intact right femur. Chest X-Ray 05/10/18 0006 Signed Impressions: CONCLUSION: Negative examination. The right hemidiaphragm is moderately elevated. Thoracic Spine MRI 05/10/18 0000 Signed Impressions: CONCLUSION: 1. 1.4 cm enhancing lesions at T9 and T12 suspicious for metastatic disease. N o pathologic fracture. No significant canal stenosis. Lumbar Spine MRI 05/10/18 Signed Impressions: CONCLUSION: 1. Enhancing lesions at T12, L1 and S3 most characteristic of metastatic disea se. 2. At L4-5 there is a small right paracentral disc protrusion with mild stenos is of the right lateral recess. 3. Conus medullaris intact. Knee X-Ray 05/10/18 Signed Impressions: CONCLUSION: Large tricompartmental osteophytes. No acute fracture Chest CT 05/10/18 Signed Impressions: CONCLUSION: 1. Bilateral breast masses with skin thickening and ulceration. Bilateral axil amanda adenopathy. Cervical Spine MRI 05/10/18 Signed Impressions: CONCLUSION: 1. Negative for metastatic disease. Moderate degenerative disc disease as abov e. No cord impingement. Brain MRI 05/10/18 Signed Impressions: CONCLUSION: 1. No acute findings. No recent infarct. Minimal white matter ischemic changes . Abdomen/Pelvis CT 05/10/18 Signed Impressions: CONCLUSION: 1. Left breast mass with lytic bone destruction noted in the right hemipelvis around the acetabulum measuring around 5 cm in diameter and also in the left an terior iliac bone measuring around 2 cm in diameter characteristic of metastati c bone disease. 2. Large gallstone measuring up to 3.9 cm. 3. Small hiatal hernia. No pathologically enlarged lymph nodes identified with in the abdomen and pelvis. 4. Colonic diverticula. Probable small calcified fibroids. Objective Remarks GENERAL: Awake alert and oriented talkative and cooperative 3 SKIN: Warm and dry. Right breast is dressed HEAD: Atraumatic. Normocephalic. EYES: Pupils equal and round. No scleral icterus. No injection or drainage. Extraocular muscles intact ENT: No nasal bleeding or discharge. Mucous membranes pink and moist. Tongue is midline NECK: Trachea midline. No JVD. Supple CARDIOVASCULAR: Regular rate and rhythm. S1-S2 no S3 or S4 RESPIRATORY: No accessory muscle use. Clear to auscultation. Breath sounds equal bilaterally. GASTROINTESTINAL: Abdomen soft, non-tender, nondistended. Hepatic and splenic margins not palpable. MUSCULOSKELETAL: Extremities without clubbing, cyanosis, or edema. No obvious deformities. NEUROLOGICAL: Awake and alert. No obvious cranial nerve deficits. Motor grossly within normal limits. Five out of 5 muscle strength in the arms and legs. Normal speech. PSYCHIATRIC: Appropriate mood and affect; insight and judgment normal. Procedures LP Date of Surgery: May 11, 2018 Preoperative Diagnosis: (1) Breast mass in female Postoperative Diagnosis: (1) Breast mass in female Procedure: Bilateral breast punch biopsy Anesthesia: Local Surgeon: Bernadette SCOTT supervised by Dr. Brito [employer] Worker(s): None Operation and Findings: After proper consent and time out procedure were completed Betadine was used to cleanse the area of interest and local anesthesia was injected in wheals. A 5 mm punch was used to obtain tissue samples; first in the RIGHT breast and then the LEFT breast. Silver nitrate applicator sticks were used for hemostasis. The samples were labeled appropriately. A blue pathology form was completed. All supplies were obtained and disposed of including sharps. The area was dressing with dry dressing and secure with paper tape. I also spoke with the daughter on the phone about the procedure. The patient's bed was lowered and her bedside table was placed to her RIGHT at her request. EBL < 5cc. Wounds examined at end of procedure; hemostasis achieved. Dr. Brito Breast biopsy Medications and IVs Current Medications Piperacillin Sod/ Tazobactam Sod 100 ml @ 200 mls/hr ONCE ONCE IV Last administered on 05/10/18at 00:36; Start 05/10/18 at 00:15; Stop 05/10/18 at 00:44 ; Status DC Vancomycin HCl 1000 mg/Sodium Chloride 250 ml @ 250 mls/hr ONCE ONCE IV Last administered on 05/10/18at 01:32; Start 05/10/18 at 00:15; Stop 05/10/18 at 01:14 ; Status DC Sodium Chloride 1,000 ml @ 999 mls/hr BOLUS ONCE IV Last administered on 05/10at 00:36; Start 05/10/18 at 00:15; Stop 05/10/18 at 01:15; Status DC Tetanus/ Diphtheria Toxoids (Tetanus/ Diphtheria Tox Adult) 0.5 ml ONCE ONCE IM Last administered on 05/10/18at 02:40; Start 05/10/18 at 01:00; Stop 05/10/18 at 01:01; Status DC Dextrose (D50w (Vial) Inj) 50 ml UNSCH PRN IV PUSH HYPOGLYCEMIA-SEE COMMENTS; Start 05/10/18 at 03:30 Glucagon (Glucagon Inj) 1 mg UNSCH PRN OTHER HYPOGLYCEMIA-SEE COMMENTS; Start 05/10/18 at 03:30 Insulin Aspart (NovoLOG SUPPLEMENTAL SCALE) 1 ACHS SLIDING SCALE SQ Last administered on 05/18/18at 20:41; Start 05/10/18 at 08:00 Pharmacy Profile Note 0 ml @ 0 mls/hr UNSCH OTHER ; Start 05/10/18 at 03:30; Stop 05/17/18 at 10:40; Status DC Cefepime HCl 1000 mg/Sodium Chloride 100 ml @ 200 mls/hr Q12H IV Last administered on 05/16/18at 20:57; Start 05/10/18 at 09:00; Stop 05/16/18 at 22:00 ; Status DC Sodium Chloride 1,000 ml @ 42 mls/hr [id number] IV Last administered on at 05:24; Start 05/10/18 at 03:24 Sodium Chloride (NS Flush) 2 ml UNSCH PRN IV FLUSH FLUSH AFTER USING IV ACCESS Last administered on 05/14/18at 04:12; Start 05/10/18 at 03:30 Sodium Chloride (NS Flush) 2 ml BID IV FLUSH Last administered on 05/18/18at 20: 42; Start 05/10/18 at 09:00 Metoclopramide HCl (Reglan Inj) 5 mg Q6H PRN IV PUSH NAUSEA OR VOMITING; Start 05/10/18 at 03:30 Acetaminophen (Tylenol) 650 mg Q6H PRN PO FEVER/PAIN SCALE 1 TO 2; Start at 03:30 Acetaminophen/ Hydrocodone Bitart (Ogden 5-325 Mg) 1 tab Q4H PRN PO PAIN SCALE 3 TO 5 Last administered on 05/11/18at 10:19; Start 05/10/18 at 03:30 Morphine Sulfate (Morphine Inj) 2 mg Q3H PRN IV PUSH Pain 6-10 Last administered on 05/19/18at 05:24; Start 05/10/18 at 03:30 Senna/Docusate Sodium (Sammie-Colace) 1 tab BID PO Last administered on at 08:44; Start 05/10/18 at 09:00 Magnesium Hydroxide (Milk Of Magnesia Liq) 30 ml Q12H PRN PO Mild constipation ; Start 05/10/18 at 03:30 Sennosides (Senokot) 17.2 mg Q12H PRN PO Moderate constipation; Start 05/10/18 at 03:30 Bisacodyl (Dulcolax Supp) 10 mg DAILY PRN RECTAL SEVERE CONSITIPATION/ IF NPO ; Start 05/10/18 at 03:30 Lactulose (Lactulose Liq) 30 ml DAILY PRN PO SEVERE CONSITIPATION/ IF PO; Start 05/10/18 at 03:30 Vancomycin HCl 800 mg/Sodium Chloride 258 ml @ 250 mls/hr DAILY@0400 IV Last administered on 05/10/18at 04:09; Start 05/10/18 at 04:00; Stop 05/10/18 at 08:00 ; Status DC Vancomycin HCl 2000 mg/Sodium Chloride 520 ml @ 250 mls/hr Q24H IV Last administered on 05/16/18at 22:00; Start 05/10/18 at 22:00; Stop 05/16/18 at 22:00 ; Status DC Miscellaneous Information ([facility] Ordered Lab Info) SPECIFIC LAB TO BE DRAWN:VANCOMYCIN TROUGH DATE TO... ONCE ONCE .XX Last administered on at 23:15; Start 05/12/18 at 21:45; Stop 05/12/18 at 21:46; Status DC Lorazepam (Ativan Inj) 0.5 mg ONCE ONCE IVP ; Start 05/10/18 at 12:15; Stop 09/17 at 12:29; Status DC Morphine Sulfate (Morphine Inj) 1 mg ONCE ONCE IV PUSH ; Start 05/10/18 at 12: 15; Stop 05/10/18 at 12:29; Status DC Lidocaine HCl (Xylocaine-Mpf 1% Inj) 1 ml ONCE ONCE INFIL ; Start 05/10/18 at 12:15; Stop 05/10/18 at 12:29; Status DC Silver Nitrate/ Potassium Nitrate (Silver Nitrate Applicators) 1 appl ONCE PRN TOPICAL bleeding; Start 05/10/18 at 13:00; Stop 05/10/18 at 23:00; Status DC Non-Formulary Medication 1ML ONCE ONCE OTHER ; Start 05/10/18 at 13:00; Stop at 13:01; Status DC Gadodiamide (Omniscan Pf Inj) 18 ml STK-MED ONCE IVCONTRAST Last administered on 05/10/18at 15:21; Start 05/10/18 at 15:21; Stop 05/10/18 at 15:24; Status DC Diatrizoate Meglum/ Diatrizoate Sod ( Gastrogage Liq) 18 ml ONCE ONCE PO Last administered on 05/10/18at 16:25; Start 05/10/18 at 15:30; Stop 05/10/18 at 15:31; Status DC Nystatin (Mycostatin Cream) 1 applic Q12HR TOPICAL Last administered on at 08:44; Start 05/10/18 at 21:00 Lidocaine/ Epinephrine (Xylocaine-Epi 1%-1:100,000 Inj) 20 ml ONCE ONCE INFIL ; Start 05/11/18 at 09:30; Stop 05/11/18 at 09:31; Status DC Lorazepam (Ativan Inj) 0.5 mg ONCE ONCE IVP ; Start 05/11/18 at 14:15; Stop 10/18 at 14:16; Status DC Sodium Bicarbonate 50 ml @ As Directed STK-MED ONCE .ROUTE Last administered on 05/12/18at 11:55; Start 05/12/18 at 11:44; Stop 05/12/18 at 11:45; Status DC Iohexol (Omnipaque 350 Inj) 71 ml STK-MED ONCE IVCONTRAST Last administered on 05/10/18at 00:21; Start 05/10/18 at 00:21; Stop 05/13/18 at 09:52; Status DC Enoxaparin Sodium (Lovenox Inj) 30 mg Q24H SQ Last administered on 05/19/18at 11 :48; Start 05/16/18 at 11:00 A/P Problem List: (1) Fall ICD Code: W19.XXXA - Unspecified fall, initial encounter (2) Masses of both breasts ICD Code: N63.10 - Unspecified lump in the right breast, unspecified quadrant; N63.20 - Unspecified lump in the left breast, unspecified quadrant (3) UTI (urinary tract infection) ICD Code: N39.0 - Urinary tract infection, site not specified (4) Renal insufficiency ICD Code: N28.9 - Disorder of kidney and ureter, unspecified (5) SIRS (systemic inflammatory response syndrome) ICD Code: R65.10 - Systemic inflammatory response syndrome (SIRS) of non- infectious origin without acute organ dysfunction (6) DM (diabetes mellitus) ICD Code: E11.9 - Type 2 diabetes mellitus without complications Assessment and Plan 72 years old female Metastatic breast cancer- pathology poorly differentiated ductal carcinoma with positive estrogen and progesterone receptors 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 Appreciate general surgery + Oncology ff will defer to above - - re- plan/options for surgery- timing, chemotherapy S/P Vancomycin course 05/16 Urinary tract infection- cultures negative SIRS risk on admission, normalized at this time S/P Cefepime course 05/16 Fall at home Patient has decompensated, severe arthritis in right knee Possibly worsened weakness due to metastatic lesions in her spine aggravating her spinal arthritis and causing worsened radicular effects No steroids at this time due to risk of healing after possible surgery PT daily- out of bed to chair daily Type 2 diabetes- newly diagnosed Hemoglobin A1c 6.9 , good blood sugar readings Continue diabetic diet diabetes teaching done Hypokalemia- improved DVT prophylaxis - Teds/ Lovenox Discharge planning Case will be presented at tumor board Discharge Planning Pain control await clearance by oncology and surgery Erik Alba DO May 19, 2018 13:54
[2018-05-19] MEDS ORDERED: SENNOSIDES 8.6 MG TAB PO PRN (14:00)
[2018-05-19] MEDS ORDERED: LACTULOSE SYRUP 20 GM/30 ML CUP PO PRN (14:00)
[2018-05-19] MEDS ORDERED: oxyCODONE/ACETAMINOPHEN 5 MG/325 MG TAB PO PRN (14:00)
[2018-05-19] MEDS ORDERED: MAGNESIUM HYDROXIDE SUSP 30 ML CUP PO PRN (14:00)
[2018-05-19] MEDS ORDERED: BISACODYL 10 MG SUPP RECTAL PRN (14:00)
[2018-05-19] MEDS ORDERED: NALOXONE HCL 0.4 MG/ML AMP IV PUSH PRN (14:00)
[2018-05-19] MEDS ORDERED: ACETAMINOPHEN 325 MG TAB PO PRN (14:00)
--- NOTE | 2018-05-19 17:07 | HHI.PR ---
cc: Bulmaro Brito MD Subjective Subjective Notes Resting in bed No issues RN at bedside Objective Vitals/I&O Vital Signs Date Time Temp Pulse Resp B/P (MAP) Pulse Ox O2 Delivery O2 Flow Rate FiO2 05/19/18 16:16 98.4 79 17 178/79 (112) 96 05/19/18 08:00 Room Air Labs Date/Time Source Procedure Growth Status 05/10/18 00:21 Blood Peripheral Aerobic Blood Culture - Final NO GROWTH IN 5 DAYS Complete 05/10/18 00:21 Blood Peripheral Anaerobic Blood Culture - Final NO GROWTH IN 5 DAYS Complete 05/12/18 12:02 Cerebral Spinal Fluid Lumbar Puncture Fungal Smear - Final NO FUNGAL ELEMENTS SEEN. Resulted 05/12/18 12:02 Cerebral Spinal Fluid Lumbar Puncture Fungal Culture - Preliminary NO GROWTH IN 1 WEEK Resulted 05/10/18 01:20 Urine Catheterized Urine Urine Culture - Final 10-50,000 CFU/ML MIXED GRAM POSITIVE ... Complete 05/10/18 00:32 Wound Breast Gram Stain - Final Complete 05/10/18 00:32 Wound Breast Wound Culture - Final Complete Cardiovascular: Regular Lungs: Clear Abdomen: Non-distended, Non-tender Extremities: No edema Narrative Exam bilateral fungating breast tumors; s/p punch biopsy; no bleeding A/P Assessment and Plan 72 year old female with bilateral fungating breast mass; BLE weakness -Dr. Brito discussed with Dr. Martines---- will plan for bilateral lumpectomies and infusaport placement tomorrow in OR -Hold Lovenox -NPO after MN -Consents -I have updated daughter Leticia as well---I will call her later with a definite OR tomorrow -Oncology following -All questions answered and procedure explained Attending Note - Dr. Brito Discussed with patient; she vocalizes understanding and agrees to proceed. The exam, history, and the medical decision-making described in the above note were completed with the assistance of the mid-level provider. I reviewed and agree with the findings presented. I attest that I had a [id number] encounter with the patient on the same day, and personally performed and documented my assessment and findings in the medical record. Bernadette Terrell/First [place]ina SCOTT May 19, 2018 17:07 Bulmaro Brito MD May 20, 2018 20:43
[2018-05-19] MEDS: oxyCODONE/ACETAMINOPHEN 10 MG/325 MG TAB PO PRN (20:28)
[2018-05-19] MEDS ORDERED: DOCUSATE SODIUM 50 MG/SENNA 8.6 MG TAB PO SCH (21:00)
--- NOTE | 2018-05-19 21:21 | PD.ONC.PN ---
Subjective Subjective Remarks I am scheduled for surgery tomorrow. Discussed findings of BL breast cancer, two different primary. Attempt to call daughter Lori [phone]. Objective Data Date Time Temp Pulse Resp B/P (MAP) Pulse Ox O2 Delivery O2 Flow Rate FiO2 05/19/18 16:16 98.4 79 17 178/79 (112) 96 05/19/18 16:00 69 05/19/18 12:09 98.4 67 18 156/72 (100) 95 05/19/18 12:00 68 05/19/18 08:07 98.2 64 18 152/67 (95) 94 05/19/18 08:00 64 05/19/18 08:00 Room Air 05/19/18 04:00 59 05/19/18 04:00 98.4 67 14 137/64 (88) 97 05/19/18 00:00 Room Air 05/19/18 00:00 98.4 72 14 146/65 (92) 95 05/19/18 00:00 67 05/19/18 05/19/18 05/19/18 07:00 15:00 23:00 Intake Total 480 ml 240 ml Output Total 200 ml Balance 280 ml 240 ml Result Diagram: 05/15/18 0517 05/17/18 0830 Administered Medications Medications (Trade) Dose Ordered Sig/Soo Route PRN Reason Start Time Stop Time Status Last Admin Dose Admin Insulin Aspart (NovoLOG SUPPLEMENTAL SCALE) 1 ACHS SLIDING SCALE SQ 05/10/18 08:00 05/18/18 20:41 Sodium Chloride 1,000 ml @ 42 mls/hr [id number] IV 05/10/18 03:24 05/19/18 05:24 Sodium Chloride (NS Flush) 2 ml UNSCH PRN IV FLUSH FLUSH AFTER USING IV ACCESS 05/10/18 03:30 05/14/18 04:12 Sodium Chloride (NS Flush) 2 ml BID IV FLUSH 05/10/18 09:00 05/18/18 20:42 Senna/Docusate Sodium (Sammie-Colace) 1 tab BID PO 05/10/18 09:00 05/19/18 08:44 Nystatin (Mycostatin Cream) 1 applic Q12HR TOPICAL 05/10/18 21:00 05/19/18 20:29 Enoxaparin Sodium (Lovenox Inj) 30 mg Q24H SQ 05/16/18 11:00 Future Hold 05/19/18 11:48 Oxycodone/ Acetaminophen (Percocet 10-325 Mg) 1 tab Q6H PRN PO PAIN SCALE 6 TO 10 05/19/18 14:00 05/19/18 20:28 Morphine Sulfate (Morphine Inj) 4 mg Q3H PRN IV PUSH BREAKTHROUGH PAIN 05/19/18 14:00 05/19/18 16:51 Objective Remarks GENERAL: Well-nourished, elderly woman, well-developed patient. SKIN: Warm and dry. HEAD: Normocephalic. EYES: No scleral icterus. No injection or drainage. NECK: Supple, trachea midline. No JVD or lymphadenopathy. LYMPHATIC: BL axillary adenopathy. CARDIOVASCULAR: Regular rate and rhythm without murmurs. RESPIRATORY: Breath sounds equal bilaterally. No accessory muscle use. GASTROINTESTINAL: Abdomen soft, non-tender, nondistended. EXTREMITIES: No cyanosis, or edema. MUSCULOSKELETAL: Adequate muscle tone. NEUROLOGICAL: No obvious focal deficit. Awake, alert, and oriented x3. PSYCHIATRIC: Appropriate mood and affect; insight and judgment normal. Assessment/Plan Problem List: (1) Metastatic breast cancer ICD Codes: C50.919 - Malignant neoplasm of unspecified site of unspecified female breast Plan: 05/14: hormone status pending from biopsy; --biopsy results shows infiltrating ductal carcinoma, poorly differentiated. --LP cytology is negative for malignant cells --s/p punch biopsies of fungating breast masses. --we anticipate the patient will require bilateral mastectomies for palliation. will need to dw surgery once we determine hormone status can discuss plan of care. --BL axillary adenopathy and R supraclavicular adenopathy. ++bony metastatic disease to T9, T12, S1, S3, R acetabulum, L anterior iliac crest. --CT chest--no mets --Anticipate pt will need BL mastectomy for palliation of large ulcerative masses. 05/19/18. R breast cancer ER positive, [place] positive, Her 2 neg- likely the source of bone metastatic disease. Pt noticed the right breast mass longer duration. L breast triple negative breast cancer. Acute problem related to ulcerative mass R breast >L. Discussed option to palliate breast masses which are difficult to manage. Ultimately patient with need systemic chemotherapy for tx of triple negative breast cancer. Start Arimidex, hormonal therapy for ER positive breast cancer. Discussed with surgery local control for disease with bilateral lumpectomy. (2) Radicular leg pain ICD Codes: M54.10 - Radiculopathy, site unspecified Plan: Pain R leg. --has extensive metastatic disease to spine and pelvis xr shows no fx of femur 05/19/18. R leg pain better. Walking with PT. Assessment 72 y/o woman with HTN, DM, dx with neglected breast cancer, evidence for metastatic disease on imaging. Plan 1. Surgery as discussed. 2. Start Arimidex tonight. Britany Johnson MD May 19, 2018 21:21
[2018-05-19] MEDS: ANASTROZOLE 1 MG TAB PO SCH (22:26)
[2018-05-20] VITALS (9 sets, daily range): BP systolic 131–158; BP diastolic 59–71; PULSE 56–74; RESP 16–18; TEMP 97.8–98.1; O2SAT 93–95
[2018-05-20] MEDS: oxyCODONE/ACETAMINOPHEN 10 MG/325 MG TAB PO PRN ×3 (02:46→21:54)
[2018-05-20] MEDS: SODIUM CHLOR 0.9% 1000 ML INJ 1,000 ML IV SCH ×2 (05:07→20:30)
[2018-05-20 07:25] LABS: BASOPHIL # 0.1 TH/MM3 (0-0.2); BASOPHIL % 0.8 % (0.0-2.0); EOSINOPHIL # 0.4 TH/MM3 (0-0.4); EOSINOPHIL % 4.4 % (0.0-4.0); HEMATOCRIT 35.7 % (35.0-46.0); HEMOGLOBIN 11.7 GM/DL (11.6-15.3); LYMPH % 14.4 % (9.0-44.0); LYMPHOCYTE # 1.4 TH/MM3 (1.0-4.8); MEAN CELL VOLUME 85.1 FL (80.0-100.0); MEAN CORPUSCULAR HEMOGLOBIN 27.9 PG (27.0-34.0); MEAN CORPUSCULAR HGB CONC 32.7 % (32.0-36.0); MEAN PLATELET VOLUME 6.4 FL (7.0-11.0); MONOCYTE # 0.8 TH/MM3 (0-0.9); NEUT % 72.4 % (16.0-70.0); PLATELET COUNT 259 TH/MM3 (150-450); RED BLOOD COUNT 4.19 MIL/MM3 (4.00-5.30); RED CELL DISTRIBUTION WIDTH 15.1 % (11.6-17.2); WHITE BLOOD COUNT 9.6 TH/MM3 (4.0-11.0)
[2018-05-20] MEDS: SODIUM CHLORIDE 0.9% FLUSH 10 ML FLUSH IV FLUSH SCH ×2 (07:31→21:00)
[2018-05-20] MEDS: NYSTATIN 100,000 UNIT/GM CREAM 15 GM TOPICAL SCH (07:32)
[2018-05-20] MEDS: ANASTROZOLE 1 MG TAB PO SCH (07:32)
[2018-05-20] MEDS: DOCUSATE SODIUM 50 MG/SENNA 8.6 MG TAB PO SCH ×2 (07:32→21:50)
[2018-05-20 07:43] LABS: BICARBONATE 25.9 MEQ/L (21.0-32.0); CALCIUM 8.4 MG/DL (8.5-10.1); CREATININE 0.68 MG/DL (0.50-1.00)
[2018-05-20] MEDS: INSULIN ASPART SUPPLEMENTAL SCALE SQ SCH ×4 (07:46→20:33)
[2018-05-20 09:05] LABS: BANDS 7 % (0-6); LYMPHOCYTES 13 % (9-44); MONOCYTES 4 % (0-8); MYELOCYTES 1 % (0-0); NEUTROPHIL # MANUAL DIFF 7.6 TH/MM3 (1.8-7.7); POLYS (SEG NEUTROPHILS) 71 % (16-70)
[2018-05-20 09:06] LABS: KERATOCYTES OCC (NORMAL)
[2018-05-20] MEDS ORDERED: ONDANSETRON HCL 4 MG/2 ML VIAL IV PUSH ONE (12:00)
[2018-05-20] MEDS ORDERED: LACTATED RINGER'S 1000 ML INJ 1,000 ML IV ONE (12:00)
[2018-05-20] MEDS ORDERED: PHENYLEPH/NS 1000 MCG/10 ML SYR IV ONE (12:00)
[2018-05-20] MEDS ORDERED: ePHEDrine/NS 25 MG/5 ML SYRINGE IV ONE (12:00)
[2018-05-20] MEDS ORDERED: LIDOCAINE HCL 1% PF 5 ML SYRINGE OTHER ONE (12:00)
[2018-05-20] MEDS ORDERED: PROPOFOL 200 MG/20 ML AMP IV ONE (12:00)
[2018-05-20] MEDS ORDERED: DEXAMETHASONE SOD PHOS 4 MG/ML VIAL IV ONE (12:00)
--- NOTE | 2018-05-20 14:39 | HHI.PR ---
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 left breast is triple negative Await input from surgery and oncology 05-20 to have surgery today on BILATERAL BREATS DW RN AND PT AND SURGERY AND ONCOLOGY HAS METS PROBABLY FROM RIGHT BREAST Objective Vitals Vital Signs Date Time Temp Pulse Resp B/P (MAP) Pulse Ox O2 Delivery O2 Flow Rate FiO2 05/20/18 12:00 98.1 61 17 158/71 (100) 95 05/20/18 08:06 97.9 62 17 136/63 (87) 95 05/20/18 08:00 Room Air 05/20/18 04:00 98.1 59 16 131/59 (83) 95 05/20/18 04:00 61 05/20/18 04:00 Room Air 05/20/18 00:00 Room Air 05/20/18 00:00 97.9 67 16 135/60 (85) 95 05/20/18 00:00 66 05/19/18 20:00 Room Air 05/19/18 20:00 73 05/19/18 20:00 99.1 70 16 157/70 (99) 94 05/19/18 16:16 98.4 79 17 178/79 (112) 96 05/19/18 16:00 69 I/O 05/19/18 05/19/18 05/19/18 05/20/18 05/20/18 05/20/18 07:00 15:00 23:00 07:00 15:00 23:00 Intake Total 480 ml 240 ml 240 ml Output Total 200 ml 650 ml Balance 280 ml 240 ml -410 ml Intake Oral 480 ml 240 ml 240 ml Output Urine Total 200 ml 650 ml # Voids 2 # Bowel Movements 1 Result Diagram: 05/20/18 0542 05/20/18 0542 Other Results Laboratory Tests Test 05/20/18 05:42 White Blood Count 9.6 TH/MM3 Red Blood Count 4.19 MIL/MM3 Hemoglobin 11.7 GM/DL Hematocrit 35.7 % Mean Corpuscular Volume 85.1 FL Mean Corpuscular Hemoglobin 27.9 PG Mean Corpuscular Hemoglobin Concent 32.7 % Red Cell Distribution Width 15.1 % Platelet Count 259 TH/MM3 Mean Platelet Volume 6.4 FL Neutrophils (%) (Auto) 72.4 % Lymphocytes (%) (Auto) 14.4 % Monocytes (%) (Auto) 8.0 % Eosinophils (%) (Auto) 4.4 % Basophils (%) (Auto) 0.8 % Neutrophils # (Auto) 7.0 TH/MM3 Lymphocytes # (Auto) 1.4 TH/MM3 Monocytes # (Auto) 0.8 TH/MM3 Eosinophils # (Auto) 0.4 TH/MM3 Basophils # (Auto) 0.1 TH/MM3 CBC Comment AUTO DIFF Differential Total Cells Counted 100 Neutrophils % (Manual) 71 % Band Neutrophils % 7 % Lymphocytes % 13 % Monocytes % 4 % Eosinophils % 4 % Neutrophils # (Manual) 7.6 TH/MM3 Myelocytes 1 % Differential Comment FINAL DIFF MANUAL Platelet Estimate NORMAL Platelet Morphology Comment NORMAL Keratocytes OCC Blood Urea Nitrogen 14 MG/DL Creatinine 0.68 MG/DL Random Glucose 99 MG/DL Calcium Level 8.4 MG/DL Sodium Level 142 MEQ/L Potassium Level 3.5 MEQ/L Chloride Level 108 MEQ/L Carbon Dioxide Level 25.9 MEQ/L Anion Gap 8 MEQ/L Estimat Glomerular Filtration Rate 86 ML/MIN Imaging Last Impressions Lumbar Puncture Fluoroscopy 05/12/18 Signed Impressions: CONCLUSION: 1. Uncomplicated fluoroscopically guided lumbar puncture. Femur X-Ray 05/12/18 Signed Impressions: CONCLUSION: Intact right femur. Chest X-Ray 05/10/185 Signed Impressions: CONCLUSION: Negative examination. The right hemidiaphragm is moderately elevated. Thoracic Spine MRI 05/10/18 Signed Impressions: CONCLUSION: 1. 1.4 cm enhancing lesions at T9 and T12 suspicious for metastatic disease. N o pathologic fracture. No significant canal stenosis. Lumbar Spine MRI 05/10/18 Signed Impressions: CONCLUSION: 1. Enhancing lesions at T12, L1 and S3 most characteristic of metastatic disea se. 2. At L4-5 there is a small right paracentral disc protrusion with mild stenos is of the right lateral recess. 3. Conus medullaris intact. Knee X-Ray 05/10/18 Signed Impressions: CONCLUSION: Large tricompartmental osteophytes. No acute fracture Chest CT 05/10/18 Signed Impressions: CONCLUSION: 1. Bilateral breast masses with skin thickening and ulceration. Bilateral axil amanda adenopathy. Cervical Spine MRI 05/10/18 Signed Impressions: CONCLUSION: 1. Negative for metastatic disease. Moderate degenerative disc disease as abov e. No cord impingement. Brain MRI 05/10/18 Signed Impressions: CONCLUSION: 1. No acute findings. No recent infarct. Minimal white matter ischemic changes . Abdomen/Pelvis CT 05/10/18 Signed Impressions: CONCLUSION: 1. Left breast mass with lytic bone destruction noted in the right hemipelvis around the acetabulum measuring around 5 cm in diameter and also in the left an terior iliac bone measuring around 2 cm in diameter characteristic of metastati c bone disease. 2. Large gallstone measuring up to 3.9 cm. 3. Small hiatal hernia. No pathologically enlarged lymph nodes identified with in the abdomen and pelvis. 4. Colonic diverticula. Probable small calcified fibroids. Objective Remarks GENERAL: Awake alert and oriented talkative and cooperative 3 SKIN: Warm and dry. Right breast is dressed HEAD: Atraumatic. Normocephalic. EYES: Pupils equal and round. No scleral icterus. No injection or drainage. Extraocular muscles intact ENT: No nasal bleeding or discharge. Mucous membranes pink and moist. Tongue is midline NECK: Trachea midline. No JVD. Supple CARDIOVASCULAR: Regular rate and rhythm. S1-S2 no S3 or S4 RESPIRATORY: No accessory muscle use. Clear to auscultation. Breath sounds equal bilaterally. GASTROINTESTINAL: Abdomen soft, non-tender, nondistended. Hepatic and splenic margins not palpable. MUSCULOSKELETAL: Extremities without clubbing, cyanosis, or edema. No obvious deformities. NEUROLOGICAL: Awake and alert. No obvious cranial nerve deficits. Motor grossly within normal limits. Five out of 5 muscle strength in the arms and legs. Normal speech. PSYCHIATRIC: Appropriate mood and affect; insight and judgment normal. Procedures LP Date of Surgery: May 11, 2018 Preoperative Diagnosis: (1) Breast mass in female Postoperative Diagnosis: (1) Breast mass in female Procedure: Bilateral breast punch biopsy Anesthesia: Local Surgeon: Bernadette SCOTT supervised by Dr. Brito Mobile Home Mechanic(s): None Operation and Findings: After proper consent and time out procedure were completed Betadine was used to cleanse the area of interest and local anesthesia was injected in wheals. A 5 mm punch was used to obtain tissue samples; first in the RIGHT breast and then the LEFT breast. Silver nitrate applicator sticks were used for hemostasis. The samples were labeled appropriately. A blue pathology form was completed. All supplies were obtained and disposed of including sharps. The area was dressing with dry dressing and secure with paper tape. I also spoke with the daughter on the phone about the procedure. The patient's bed was lowered and her bedside table was placed to her RIGHT at her request. EBL < 5cc. Wounds examined at end of procedure; hemostasis achieved. Dr. Brito Breast biopsy Medications and IVs Current Medications Piperacillin Sod/ Tazobactam Sod 100 ml @ 200 mls/hr ONCE ONCE IV Last administered on 05/10/18at 00:36; Start 05/10/18 at 00:15; Stop 05/10/18 at 00:44 ; Status DC Vancomycin HCl 1000 mg/Sodium Chloride 250 ml @ 250 mls/hr ONCE ONCE IV Last administered on 05/10/18at 01:32; Start 05/10/18 at 00:15; Stop 05/10/18 at 01:14 ; Status DC Sodium Chloride 1,000 ml @ 999 mls/hr BOLUS ONCE IV Last administered on 05/10at 00:36; Start 05/10/18 at 00:15; Stop 05/10/18 at 01:15; Status DC Tetanus/ Diphtheria Toxoids (Tetanus/ Diphtheria Tox Adult) 0.5 ml ONCE ONCE IM Last administered on 05/10/18at 02:40; Start 05/10/18 at 01:00; Stop 05/10/18 at 01:01; Status DC Dextrose (D50w (Vial) Inj) 50 ml UNSCH PRN IV PUSH HYPOGLYCEMIA-SEE COMMENTS; Start 05/10/18 at 03:30 Glucagon (Glucagon Inj) 1 mg UNSCH PRN OTHER HYPOGLYCEMIA-SEE COMMENTS; Start 05/10/18 at 03:30 Insulin Aspart (NovoLOG SUPPLEMENTAL SCALE) 1 ACHS SLIDING SCALE SQ Last administered on 05/18/18at 20:41; Start 05/10/18 at 08:00 Pharmacy Profile Note 0 ml @ 0 mls/hr UNSCH OTHER ; Start 05/10/18 at 03:30; Stop 05/17/18 at 10:40; Status DC Cefepime HCl 1000 mg/Sodium Chloride 100 ml @ 200 mls/hr Q12H IV Last administered on 05/16/18at 20:57; Start 05/10/18 at 09:00; Stop 05/16/18 at 22:00 ; Status DC Sodium Chloride 1,000 ml @ 42 mls/hr [id number] IV Last administered on at 05:07; Start 05/10/18 at 03:24 Sodium Chloride (NS Flush) 2 ml UNSCH PRN IV FLUSH FLUSH AFTER USING IV ACCESS Last administered on 05/14/18at 04:12; Start 05/10/18 at 03:30 Sodium Chloride (NS Flush) 2 ml BID IV FLUSH Last administered on 05/18/18at 20: 42; Start 05/10/18 at 09:00 Metoclopramide HCl (Reglan Inj) 5 mg Q6H PRN IV PUSH NAUSEA OR VOMITING; Start 05/10/18 at 03:30 Acetaminophen (Tylenol) 650 mg Q6H PRN PO FEVER/PAIN SCALE 1 TO 2; Start at 03:30 Acetaminophen/ Hydrocodone Bitart ([place] 5-325 Mg) 1 tab Q4H PRN PO PAIN SCALE 3 TO 5 Last administered on 05/11/18at 10:19; Start 05/10/18 at 03:30; Stop 05/19/18 at 13:56; Status DC Morphine Sulfate (Morphine Inj) 2 mg Q3H PRN IV PUSH Pain 6-10 Last administered on 05/19/18at 05:24; Start 05/10/18 at 03:30; Stop 05/19/18 at 14:11 ; Status DC Senna/Docusate Sodium (Sammie-Colace) 1 tab BID PO Last administered on at 08:44; Start 05/10/18 at 09:00 Magnesium Hydroxide (Milk Of Magnesia Liq) 30 ml Q12H PRN PO Mild constipation ; Start 05/10/18 at 03:30 Sennosides (Senokot) 17.2 mg Q12H PRN PO Moderate constipation; Start 05/10/18 at 03:30 Bisacodyl (Dulcolax Supp) 10 mg DAILY PRN RECTAL SEVERE CONSITIPATION/ IF NPO ; Start 05/10/18 at 03:30 Lactulose (Lactulose Liq) 30 ml DAILY PRN PO SEVERE CONSITIPATION/ IF PO; Start 05/10/18 at 03:30 Vancomycin HCl 800 mg/Sodium Chloride 258 ml @ 250 mls/hr DAILY@0400 IV Last administered on 05/10/18at 04:09; Start 05/10/18 at 04:00; Stop 05/10/18 at 08:00 ; Status DC Vancomycin HCl 2000 mg/Sodium Chloride 520 ml @ 250 mls/hr Q24H IV Last administered on 05/16/18at 22:00; Start 05/10/18 at 22:00; Stop 05/16/18 at 22:00 ; Status DC Miscellaneous Information ([facility] Ordered Lab Info) SPECIFIC LAB TO BE DRAWN:VANCOMYCIN TROUGH DATE TO... ONCE ONCE .XX Last administered on at 23:15; Start 05/12/18 at 21:45; Stop 05/12/18 at 21:46; Status DC Lorazepam (Ativan Inj) 0.5 mg ONCE ONCE IVP ; Start 05/10/18 at 12:15; Stop 09/17 at 12:29; Status DC Morphine Sulfate (Morphine Inj) 1 mg ONCE ONCE IV PUSH ; Start 05/10/18 at 12: 15; Stop 05/10/18 at 12:29; Status DC Lidocaine HCl (Xylocaine-Mpf 1% Inj) 1 ml ONCE ONCE INFIL ; Start 05/10/18 at 12:15; Stop 05/10/18 at 12:29; Status DC Silver Nitrate/ Potassium Nitrate (Silver Nitrate Applicators) 1 appl ONCE PRN TOPICAL bleeding; Start 05/10/18 at 13:00; Stop 05/10/18 at 23:00; Status DC Non-Formulary Medication 1ML ONCE ONCE OTHER ; Start 05/10/18 at 13:00; Stop at 13:01; Status DC Gadodiamide (Omniscan Pf Inj) 18 ml STK-MED ONCE IVCONTRAST Last administered on 05/10/18at 15:21; Start 05/10/18 at 15:21; Stop 05/10/18 at 15:24; Status DC Diatrizoate Meglum/ Diatrizoate Sod ( Gastroview Liq) 18 ml ONCE ONCE PO Last administered on 05/10/18at 16:25; Start 05/10/18 at 15:30; Stop 05/10/18 at 15:31; Status DC Nystatin (Mycostatin Cream) 1 applic Q12HR TOPICAL Last administered on at 20:29; Start 05/10/18 at 21:00 Lidocaine/ Epinephrine (Xylocaine-Epi 1%-1:100,000 Inj) 20 ml ONCE ONCE INFIL ; Start 05/11/18 at 09:30; Stop 05/11/18 at 09:31; Status DC Lorazepam (Ativan Inj) 0.5 mg ONCE ONCE IVP ; Start 05/11/18 at 14:15; Stop 10/18 at 14:16; Status DC Sodium Bicarbonate 50 ml @ As Directed STK-MED ONCE .ROUTE Last administered on 05/12/18at 11:55; Start 05/12/18 at 11:44; Stop 05/12/18 at 11:45; Status DC Iohexol (Omnipaque 350 Inj) 71 ml STK-MED ONCE IVCONTRAST Last administered on 05/10/18at 00:21; Start 05/10/18 at 00:21; Stop 05/13/18 at 09:52; Status DC Enoxaparin Sodium (Lovenox Inj) 30 mg Q24H SQ Last administered on 05/19/18at 11 :48; Start 05/16/18 at 11:00; Status Future Hold Acetaminophen (Tylenol) 650 mg Q4H PRN PO TEMP > 100.4; Start 05/19/18 at 14:00 Oxycodone/ Acetaminophen (Percocet 5-325 Mg) 1 tab Q6H PRN PO PAIN SCALE 3 TO 5; Start 05/19/18 at 14:00 Oxycodone/ Acetaminophen (Percocet 10-325 Mg) 1 tab Q6H PRN PO PAIN SCALE 6 TO 10 Last administered on 05/20/18at 13:14; Start 05/19/18 at 14:00 Morphine Sulfate (Morphine Inj) 4 mg Q3H PRN IV PUSH BREAKTHROUGH PAIN Last administered on 05/19/18at 16:51; Start 05/19/18 at 14:00 Naloxone HCl (Narcan Inj) 0.4 mg UNSCH PRN IV PUSH SEE LABEL COMMENTS; Start at 14:00 Senna/Docusate Sodium (Sammie-Colace) 1 tab BID PO ; Start 05/19/18 at 21:00; Stop 05/19/18 at 21:00; Status DC Magnesium Hydroxide (Milk Of Magnesia Liq) 30 ml Q12H PRN PO Mild constipation ; Start 05/19/18 at 14:00; Stop 05/19/18 at 14:11; Status DC Sennosides (Senokot) 17.2 mg Q12H PRN PO Moderate constipation; Start 05/19/18 at 14:00; Stop 05/19/18 at 14:11; Status DC Bisacodyl (Dulcolax Supp) 10 mg DAILY PRN RECTAL SEVERE CONSITIPATION; Start at 14:00; Stop 05/19/18 at 14:11; Status DC Lactulose (Lactulose Liq) 30 ml DAILY PRN PO SEVERE CONSITIPATION; Start at 14:00; Stop 05/19/18 at 14:11; Status DC Anastrozole (Arimidex) 1 mg DAILY PO Last administered on 05/19/18at 22:26; Start 05/19/18 at 21:15 A/P Problem List: (1) Fall ICD Code: W19.XXXA - Unspecified fall, initial encounter (2) Masses of both breasts ICD Code: N63.10 - Unspecified lump in the right breast, unspecified quadrant; N63.20 - Unspecified lump in the left breast, unspecified quadrant (3) UTI (urinary tract infection) ICD Code: N39.0 - Urinary tract infection, site not specified (4) Renal insufficiency ICD Code: N28.9 - Disorder of kidney and ureter, unspecified (5) SIRS (systemic inflammatory response syndrome) ICD Code: R65.10 - Systemic inflammatory response syndrome (SIRS) of non- infectious origin without acute organ dysfunction (6) DM (diabetes mellitus) ICD Code: E11.9 - Type 2 diabetes mellitus without complications Assessment and Plan 72 years old female Metastatic breast cancer- pathology poorly differentiated ductal carcinoma with positive estrogen and progesterone receptors ON THE RIGHT TRIPLE NEGATIVE ON LEFT BREAST 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 Appreciate general surgery + Oncology ff will defer to above - - re- plan/options for surgery- timing, chemotherapy S/P Vancomycin course 05/16 Urinary tract infection- cultures negative SIRS risk on admission, normalized at this time S/P Cefepime course 05/16 Fall at home Patient has decompensated, severe arthritis in right knee Possibly worsened weakness due to metastatic lesions in her spine aggravating her spinal arthritis and causing worsened radicular effects No steroids at this time due to risk of healing after possible surgery PT daily- out of bed to chair daily Type 2 diabetes- newly diagnosed Hemoglobin A1c 6.9 , good blood sugar readings Continue diabetic diet diabetes teaching done Hypokalemia- improved DVT prophylaxis - Teds/ Lovenox FOR SURGERY ON BL BREASTS TODAY RYDER RN AND PT AND CM Discharge planning Case will be presented at tumor board Discharge Planning Pain control BL BREAST LUMPECTOMY TODAY Erik Alba DO May 20, 2018 14:39
[2018-05-20] MEDS ORDERED: LIDOCAINE 1%/EPINEPHrine 1:100,000 SOLN 30 ML VIAL ONE (17:42)
[2018-05-20] MEDS ORDERED: BUPIVACAINE HCL PF 0.25% 30 ML VIAL ONE (17:42)
[2018-05-20] MEDS ORDERED: BUPIVACAINE/EPINEPHRINE 0.5% PF 30 ML VIAL ONE (17:42)
[2018-05-20] MEDS ORDERED: HEPARIN SODIUM - IV 10,000 UNITS/10 ML VIAL ONE (17:43)
[2018-05-20] MEDS ORDERED: SODIUM CHLORIDE 0.9% INJ 50 ML ONE (17:46)
[2018-05-20] MEDS ORDERED: ceFAZolin INJ 1,000 MG VIAL ONE ×2 (17:46→19:06)
[2018-05-20] MEDS ORDERED: SODIUM BICARBONATE 8.4% INJ 50 MEQ/50 ML SYR ONE (17:46)
[2018-05-20] MEDS ORDERED: DEXMEDETOMIDINE HCL 200 MCG/2 ML VIAL ONE (18:04)
[2018-05-20] MEDS ORDERED: LIDOCAINE HCL 1% PF 10 ML VIAL ONE (19:06)
[2018-05-20] MEDS ORDERED: SODIUM BICARBONATE 8.4% INJ 0 ML ONE (19:06)
[2018-05-20] MEDS ORDERED: MIDAZOLAM HCL 2 MG/2 ML VIAL ONE (20:27)
[2018-05-20] MEDS ORDERED: *morphine SULFATE 10 MG/ML PERIprocedure ONLY ONE (20:43)
--- NOTE | 2018-05-20 20:48 | RADRPT ---
EXAM DATE: 05/20/2018 8:45 PM EDT AGE/SEX: 72 years / Female INDICATIONS: Post infusaport placement. CLINICAL DATA: This is the patient's initial encounter. Patient reports that signs and symptoms have been present for 1 day and indicates a pain score of 0/10. MEDICAL/SURGICAL HISTORY: Carcinoma, breast. None. COMPARISON: [facility] [place], CHEST SINGLE AP, 05/10/2018. . FINDINGS: A single AP view of the chest demonstrates diminished lung volumes with minimal interstitial prominen ce. Right-sided port with tip in the SVC. The cardiomediastinal contours are unremarkable. Osseous s tructures are intact. CONCLUSION: 1. Diminished lung volumes with minimal interstitial prominence. 2. Right-sided port with tip in the SVC. No pneumothorax Electronically signed by: Blake Briceño MD 05/20/2018 8:47 PM EDT
--- NOTE | 2018-05-20 20:57 | HHI.PR ---
cc: Bulmaro Brito MD Immediate Post Op Note Procedure Date: May 20, 2018 Pre Op Diagnosis: Locally advanced bilateral infiltrating carcinoma of the breasts Post Op Diagnosis: Same Surgeon: Bulmaro Brito Electronic Design Engineer(s): None Procedure: [id number] placement with intraoperative use of fluoroscopy Complications: See operative note Segmental mastectomies canceled due to anticoagulation Specimen(s) removed: None Estimated blood loss: 5 ml Anesthesia: General Drains: None IVF (800 ml) Patient to: PACU Patient Condition: Good Date/Time of Procedure: SEE SURGICAL CARE RECORD Bulmaro Brito MD May 20, 2018 20:57
[2018-05-20] MEDS ORDERED: DO NOT ADM ANY ANTICOAGULANT DRUGS PRN (21:45)
[2018-05-21] VITALS (7 sets, daily range): BP systolic 146–178; BP diastolic 67–86; PULSE 53–93; RESP 16–20; TEMP 98–98.4; O2SAT 93–97
--- NOTE | 2018-05-21 | MP ---
cc: Bulmaro Brito MD DATE OF OPERATION: 05/20/2018 DATE OF PROCEDURE: 05/20/2018 PROCEDURE: Smaakz-X-Uvxo placement with intraoperative use of fluoroscopy. PREOPERATIVE DIAGNOSIS: Locally advanced breast cancer. POSTOPERATIVE DIAGNOSIS: Locally advanced breast cancer. ANESTHESIA: General endotracheal. SURGEON: Bulmaro Brito MD ESTIMATED BLOOD LOSS: 5 mL. FLUIDS: 800 mL crystalloid. COMPLICATIONS: Breast surgery canceled due to heparinization. SPECIMEN: None. PROCEDURE IN DETAIL: The patient was taken to the operating room and placed on the operating table in the supine position. After an adequate level of general endotracheal anesthesia was achieved, the chest and neck were prepped and draped bilaterally with the arms tucked. A timeout was taken, confirming the correct patient, site, and procedures to be performed. Skin and subcutaneous tissue was infiltrated with local anesthetic in the left subclavian region and the patient placed in Trendelenburg position. An 18-gauge needle was passed into the subclavian vein on the first pass, but the wire could not be threaded. Multiple other attempts were not able to access the vein or thread it properly. The left side was abandoned and attention turned to the right side. The needle was placed into the internal jugular vein on the first attempt and good blood return was achieved. A guidewire was passed down the needle and the needle was withdrawn. The guidewire was seen to be in the superior vena cava by fluoroscopy. A port pocket was then created in the right subclavian region after incising the skin and creating the pocket with electrocautery. A tunneling device was used to bring the catheter from the neck to the port pocket. The introducer and sheath were then passed over the guidewire, and the guidewire and introducer were removed. The catheter was passed down the sheath and the sheath peeled away. Fluoroscopy was used to withdraw the catheter so that the tip was in the superior vena cava. Excess catheter was trimmed and the port placed onto the catheter. The hub was slid over the connection and the port was placed into the pocket. The percutaneous puncture site at the neck and in the chest was closed with interrupted 3-0 Vicryl suture. The skin was closed with 5-0 PDS in a running subcuticular fashion. The port was accessed with a Amado needle and good blood return achieved. The port was reflushed with heparinized saline. At the termination of the procedure, it was determined that approximately 5000 units of heparin had been given, and thus further surgical procedures were terminated. The surgical wounds were dressed with Steri-Strips and the patient was extubated and taken back to the recovery room in stable condition. Sponge, needle and instrument counts were reported to be correct. The patient tolerated the procedure well. It was felt that it was safest to not proceed with any further surgical procedures, as the patient may have been fully heparinized and would be at substantial risk for hematoma, bleeding, and other complications. The patient's daughter was informed of this, as was Dr. Britany Johnson. Plans were made to have the patient undergo chemotherapy first and then undergo formal mastectomies at a later date. MD CINDY Fontaine/MISHEL , 11:17 PM , 11:59 PM
[2018-05-21] MEDS: NYSTATIN 100,000 U/GM OINT 15 GM TUBE TOPICAL SCH ×3 (00:06→21:00)
[2018-05-21 06:48] LABS: AUTOMATED NEUTROPHIL # 7.9 TH/MM3 (1.8-7.7); BASOPHIL % 0.4 % (0.0-2.0); EOSINOPHIL % 0.1 % (0.0-4.0); HEMATOCRIT 40.3 % (35.0-46.0); HEMOGLOBIN 13.3 GM/DL (11.6-15.3); LYMPH % 5.3 % (9.0-44.0); LYMPHOCYTE # 0.5 TH/MM3 (1.0-4.8); MEAN CELL VOLUME 85.6 FL (80.0-100.0); MEAN CORPUSCULAR HEMOGLOBIN 28.2 PG (27.0-34.0); MEAN CORPUSCULAR HGB CONC 32.9 % (32.0-36.0); MEAN PLATELET VOLUME 6.3 FL (7.0-11.0); MONO % 3.3 % (0.0-8.0); MONOCYTE # 0.3 TH/MM3 (0-0.9); NEUT % 90.9 % (16.0-70.0); PLATELET COUNT 269 TH/MM3 (150-450); RED BLOOD COUNT 4.71 MIL/MM3 (4.00-5.30); RED CELL DISTRIBUTION WIDTH 15.4 % (11.6-17.2); WHITE BLOOD COUNT 8.7 TH/MM3 (4.0-11.0)
[2018-05-21 07:13] LABS: ALBUMIN 2.5 GM/DL (3.4-5.0); ALT (GPT) 15 U/L (10-53); AST (GOT) 23 U/L (15-37); BICARBONATE 24.7 MEQ/L (21.0-32.0); BLOOD UREA NITROGEN 11 MG/DL (7-18); CHLORIDE 104 MEQ/L (98-107); CREATININE 0.67 MG/DL (0.50-1.00); GLOMERULAR FILTRATION RATE 87 ML/MIN (>89); GLUCOSE,RANDOM 166 MG/DL (74-106); MAGNESIUM 2.2 MG/DL (1.5-2.5); PHOSPHORUS 4.1 MG/DL (2.5-4.9); SODIUM (NA) 140 MEQ/L (136-145)
[2018-05-21 07:15] LABS: ALKALINE PHOSPHATASE 129 U/L (45-117); TOTAL BILIRUBIN ADULT 0.4 MG/DL (0.2-1.0); TOTAL PROTEIN 7.2 GM/DL (6.4-8.2)
[2018-05-21] MEDS: INSULIN ASPART SUPPLEMENTAL SCALE SQ SCH ×5 (09:28→22:47)
--- NOTE | 2018-05-21 10:45 | HHI.PR ---
Subjective Subjective Notes Resting in bed getting echo Objective Vitals/I&O Vital Signs Date Time Temp Pulse Resp B/P (MAP) Pulse Ox O2 Delivery O2 Flow Rate FiO2 05/21/18 08:00 78 05/21/18 08:00 98.3 20 159/69 (99) 97 Manual Cuff/Palpation 05/20/18 22:00 Nasal Cannula 2.00 Labs Laboratory Tests Test 05/21/18 06:00 White Blood Count 8.7 Red Blood Count 4.71 Hemoglobin 13.3 Hematocrit 40.3 Mean Corpuscular Volume 85.6 Mean Corpuscular Hemoglobin 28.2 Mean Corpuscular Hemoglobin Concent 32.9 Red Cell Distribution Width 15.4 Platelet Count 269 Mean Platelet Volume 6.3 Neutrophils (%) (Auto) 90.9 Lymphocytes (%) (Auto) 5.3 Monocytes (%) (Auto) 3.3 Eosinophils (%) (Auto) 0.1 Basophils (%) (Auto) 0.4 Neutrophils # (Auto) 7.9 Lymphocytes # (Auto) 0.5 Monocytes # (Auto) 0.3 Eosinophils # (Auto) 0.0 Basophils # (Auto) 0.0 CBC Comment DIFF FINAL Differential Comment Blood Urea Nitrogen 11 Creatinine 0.67 Random Glucose 166 Total Protein 7.2 Albumin 2.5 Calcium Level 9.0 Phosphorus Level 4.1 Magnesium Level 2.2 Alkaline Phosphatase 129 Aspartate Amino Transf (AST/SGOT) 23 Alanine Aminotransferase (ALT/SGPT) 15 Total Bilirubin 0.4 Sodium Level 140 Potassium Level 4.2 Chloride Level 104 Carbon Dioxide Level 24.7 Anion Gap 11 Estimat Glomerular Filtration Rate 87 Date/Time Source Procedure Growth Status 05/10/18 00:21 Blood Peripheral Aerobic Blood Culture - Final NO GROWTH IN 5 DAYS Complete 05/10/18 00:21 Blood Peripheral Anaerobic Blood Culture - Final NO GROWTH IN 5 DAYS Complete 05/12/18 12:02 Cerebral Spinal Fluid Lumbar Puncture Fungal Smear - Final NO FUNGAL ELEMENTS SEEN. Resulted 05/12/18 12:02 Cerebral Spinal Fluid Lumbar Puncture Fungal Culture - Preliminary NO GROWTH IN 1 WEEK Resulted 05/10/18 01:20 Urine Catheterized Urine Urine Culture - Final 10-50,000 CFU/ML MIXED GRAM POSITIVE ... Complete 05/10/18 00:32 Wound Breast Gram Stain - Final Complete 05/10/18 00:32 Wound Breast Wound Culture - Final Complete Cardiovascular: Regular Lungs: Clear Abdomen: Non-distended, Non-tender Narrative Exam bilateral fungating breast tumors; s/p punch biopsy; no bleeding chest port in place A/P Assessment and Plan 72 year old female with bilateral fungating breast mass; BLE weakness -Dr. Brito discussed with Dr. Martines---- port was placed last night and she will start chemotherapy today -Oncology following -Radiation Oncology following Attending Note - Dr. Brito No complaints Port site without hematoma; dry with steri strips in place Will sign off; will see patient after she receives a few cycles of chemotherapy to reassess for surgery. The exam, history, and the medical decision-making described in the above note were completed with the assistance of the mid-level provider. I reviewed and agree with the findings presented. I attest that I had a [id number] encounter with the patient on the same day, and personally performed and documented my assessment and findings in the medical record. Bernadette Terrell/First Catalina SCOTT May 21, 2018 10:45 Bulmaro Brito MD May 22, 2018 14:17
--- NOTE | 2018-05-21 11:46 | PD.ONC.PN ---
Subjective Subjective Remarks Afebrile overnight. Patient resting in bed in nad. No complaints. ready to start chemotherapy today. Objective Data Date Time Temp Pulse Resp B/P (MAP) Pulse Ox O2 Delivery O2 Flow Rate FiO2 05/21/18 08:00 78 05/21/18 08:00 98.3 66 20 159/69 (99) 97 Manual Cuff/Palpation 05/21/18 04:00 98.0 64 16 153/83 (106) 96 05/21/18 04:00 93 05/21/18 00:00 98.0 77 18 154/80 (104) 97 05/21/18 00:00 53 05/20/18 22:12 64 05/20/18 22:00 95 Nasal Cannula 2.00 05/20/18 21:20 97.9 74 18 157/71 (99) 95 05/20/18 21:00 97.6 64 12 123/60 (81) 96 Nasal Cannula 2 05/20/18 20:45 67 12 140/67 (91) 96 Nasal Cannula 2 05/20/18 20:30 79 12 137/63 (87) 97 Nasal Cannula 2 05/20/18 20:13 97.3 76 12 120/55 (76) 92 Nasal Cannula 2 05/20/18 15:00 68 05/20/18 14:14 18 05/20/18 14:01 97.8 66 17 157/71 (99) 93 05/20/18 12:00 56 05/20/18 12:00 98.1 61 17 158/71 (100) 95 05/21/18 05/21/18 05/21/18 07:00 15:00 23:00 Intake Total 260 ml Balance 260 ml Result Diagram: 05/21/18 0600 05/21/18 0600 Laboratory Results Laboratory Tests Test 05/21/18 06:00 White Blood Count 8.7 TH/MM3 Red Blood Count 4.71 MIL/MM3 Hemoglobin 13.3 GM/DL Hematocrit 40.3 % Mean Corpuscular Volume 85.6 FL Mean Corpuscular Hemoglobin 28.2 PG Mean Corpuscular Hemoglobin Concent 32.9 % Red Cell Distribution Width 15.4 % Platelet Count 269 TH/MM3 Mean Platelet Volume 6.3 FL Neutrophils (%) (Auto) 90.9 % Lymphocytes (%) (Auto) 5.3 % Monocytes (%) (Auto) 3.3 % Eosinophils (%) (Auto) 0.1 % Basophils (%) (Auto) 0.4 % Neutrophils # (Auto) 7.9 TH/MM3 Lymphocytes # (Auto) 0.5 TH/MM3 Monocytes # (Auto) 0.3 TH/MM3 Eosinophils # (Auto) 0.0 TH/MM3 Basophils # (Auto) 0.0 TH/MM3 CBC Comment DIFF FINAL Differential Comment Blood Urea Nitrogen 11 MG/DL Creatinine 0.67 MG/DL Random Glucose 166 MG/DL Total Protein 7.2 GM/DL Albumin 2.5 GM/DL Calcium Level 9.0 MG/DL Phosphorus Level 4.1 MG/DL Magnesium Level 2.2 MG/DL Alkaline Phosphatase 129 U/L Aspartate Amino Transf (AST/SGOT) 23 U/L Alanine Aminotransferase (ALT/SGPT) 15 U/L Total Bilirubin 0.4 MG/DL Sodium Level 140 MEQ/L Potassium Level 4.2 MEQ/L Chloride Level 104 MEQ/L Carbon Dioxide Level 24.7 MEQ/L Anion Gap 11 MEQ/L Estimat Glomerular Filtration Rate 87 ML/MIN Administered Medications Medications (Trade) Dose Ordered Sig/Soo Route PRN Reason Start Time Stop Time Status Last Admin Dose Admin Insulin Aspart (NovoLOG SUPPLEMENTAL SCALE) 1 ACHS SLIDING SCALE SQ 05/10/18 08:00 05/21/18 09:38 Sodium Chloride 1,000 ml @ 42 mls/hr [id number] IV 05/10/18 03:24 05/20/18 20:30 Sodium Chloride (NS Flush) 2 ml UNSCH PRN IV FLUSH FLUSH AFTER USING IV ACCESS 05/10/18 03:30 05/14/18 04:12 Sodium Chloride (NS Flush) 2 ml BID IV FLUSH 05/10/18 09:00 05/18/18 20:42 Senna/Docusate Sodium (Sammie-Colace) 1 tab BID PO 05/10/18 09:00 05/20/18 21:50 Enoxaparin Sodium (Lovenox Inj) 30 mg Q24H SQ 05/16/18 11:00 Future Hold 05/19/18 11:48 Oxycodone/ Acetaminophen (Percocet 10-325 Mg) 1 tab Q6H PRN PO PAIN SCALE 6 TO 10 05/19/18 14:00 6/20/18 21:54 Morphine Sulfate (Morphine Inj) 4 mg Q3H PRN IV PUSH BREAKTHROUGH PAIN 05/19/18 14:00 05/19/18 16:51 Anastrozole (Arimidex) 1 mg DAILY PO 05/19/18 21:15 05/19/18 22:26 Nystatin (Mycostatin Oint) 1 applic Q12HR TOPICAL 05/20/18 23:00 05/21/18 00:06 Objective Remarks GENERAL: Pleasant female, upright in bed in nad. SKIN: Warm and dry. port site clean. HEAD: Normocephalic. EYES: No injection or drainage. NECK: Supple, trachea midline. CARDIOVASCULAR: Regular rate and rhythm RESPIRATORY: Breath sounds equal bilaterally. No accessory muscle use. Breasts: wounds on bilateral breasts are covered with clean bandages. GASTROINTESTINAL: Abdomen soft, non-tender, nondistended. EXTREMITIES: No cyanosis NEUROLOGICAL: awake. no obvious focal deficit Assessment/Plan Problem List: (1) Metastatic breast cancer ICD Codes: C50.919 - Malignant neoplasm of unspecified site of unspecified female breast Plan: 05/21: plan to start weekly carbo/taxol today +/- radiation to both breasts; will discuss with Dr. Rodgers. 05/19/18. R breast cancer ER positive, [place] positive, Her 2 neg- likely the source of bone metastatic disease. Pt noticed the right breast mass longer duration. L breast triple negative breast cancer. Acute problem related to ulcerative mass R breast >L. Discussed option to palliate breast masses which are difficult to manage. Ultimately patient with need systemic chemotherapy for tx of triple negative breast cancer. Start Arimidex, hormonal therapy for ER positive breast cancer. Discussed with surgery local control for disease with bilateral lumpectomy. (2) Radicular leg pain ICD Codes: M54.10 - Radiculopathy, site unspecified Plan: Pain R leg. --has extensive metastatic disease to spine and pelvis xr shows no fx of femur 05/19/18. R leg pain better. Walking with PT. Assessment 72 y/o woman with HTN, DM, dx with neglected breast cancer, evidence for metastatic disease on imaging. Plan 1. give weekly dose carbo/taxol today 2. monitor CBC, electrolytes 3. continue wound care 4. discuss possible XRT to both breasts at tumor boards. Attending Statement The exam, history, and the medical decision-making described in the above note were completed with the assistance of the mid-level provider. I reviewed and agree with the findings presented. I attest that I had a [id number] encounter with the patient on the same day, and personally performed and documented my assessment and findings in the medical record. Discussed risk and benefits of chemo therapy, neoadjuvant. Discussed with rad onc best way to manage. Cont AI, pt has two different breast cancer. Sejal Penn May 21, 2018 11:45 Britany Johnson MD May 21, 2018 16:39
[2018-05-21] MEDS: ANASTROZOLE 1 MG TAB PO SCH (11:48)
[2018-05-21] MEDS: SODIUM CHLORIDE 0.9% FLUSH 10 ML FLUSH IV FLUSH SCH ×2 (11:49→22:46)
[2018-05-21] MEDS: DOCUSATE SODIUM 50 MG/SENNA 8.6 MG TAB PO SCH ×2 (11:54→22:46)
[2018-05-21] MEDS: oxyCODONE/ACETAMINOPHEN 10 MG/325 MG TAB PO PRN ×2 (12:12→19:27)
[2018-05-21] MEDS ORDERED: GRANISETRON HCL 1 MG/ML VIAL IV PUSH ONE (12:30)
[2018-05-21] MEDS ORDERED: FAMOTIDINE IV ONE (12:30)
[2018-05-21] MEDS ORDERED: diphenhydrAMINE HCL 25 MG CAP PO ONE (12:30)
[2018-05-21] MEDS ORDERED: DEXAMETHASONE INJ 20 MG in SODIUM CHLORIDE 0.9% INJ 50 ML IV ONE (12:30)
[2018-05-21] MEDS ORDERED: SODIUM CHLOR 0.45% IV ONE (12:30)
--- NOTE | 2018-05-21 13:03 | ECHRPT ---
Indication: SHORTNESS OF BREATH CONCLUSIONS The left ventricular systolic function is hyperdynamic with an estimated ejection fraction in the ra nge of 65- 70%. Normal left ventricular size. Wall thickness is normal. No regional wall motion abnormalities are present. Mild aortic valve regurgitation. The pulmonary valve is not well visualized. BP: / HR: Rhythm: Sinus MEASUREMENTS (Male / Female) Normal Values Technical Quality:Good 2D ECHO LV Diastolic Diameter PLAX 4.0 cm 4.2 - 5.9 / 3.9 - 5.3 cm LV Systolic Diameter PLAX 2.7 cm IVS Diastolic Thickness 1.1 cm 0.6 - 1.0 / 0.6 - 0.9 cm LVPW Diastolic Thickness 1.1 cm 0.6 - 1.0 / 0.6 - 0.9 cm LV Relative Wall Thickness 0.6 LVOT Diameter 1.9 cm LV Ejection Fraction MOD 4C 79.4 % LV Ejection Fraction 4C AL 80.5 % M-MODE Aortic Root Diameter MM 1.9 cm AV Cusp Separation MM 1.9 cm DOPPLER AV Peak Velocity 144.5 cm/s AV Peak Gradient 8.4 mmHg AI Peak Velocity 168.0 cm/s AI Peak Gradient 11.3 mmHg AI Pressure Half Time 636.5 ms LVOT Peak Velocity 151.0 cm/s LVOT Peak Gradient 9.1 mmHg AV Area Cont Eq pk 3.0 cm MV Area PHT 3.3 cm Mitral E Point Velocity 85.4 cm/s Mitral A Point Velocity 85.4 cm/s Mitral E to A Ratio 1.0 LV E' Lateral Velocity 11.7 cm/s Mitral E to LV E' Lateral Ratio 7.3 LV E' Septal Velocity 6.1 cm/s Mitral E to LV E' Septal Ratio 13.9 PV Peak Velocity 107.0 cm/s PV Peak Gradient 4.6 mmHg FINDINGS LEFT VENTRICLE The left ventricular systolic function is hyperdynamic with an estimated ejection fraction in the ra nge of 65- 70%. Normal left ventricular size. Wall thickness is normal. No regional wall motion abnormalities are present. RIGHT VENTRICLE Normal right ventricular size and systolic function. LEFT ATRIUM The left atrial size is normal. RIGHT ATRIUM The right atrial size is normal. ATRIAL SEPTUM Normal atrial septal thickness without atrial level shunting by limited color doppler interrogation. AORTA The aortic root and proximal ascending aorta are normal in size on limited imaging. MITRAL VALVE Structurally normal mitral valve. No mitral valve stenosis or regurgitation. AORTIC VALVE Trileaflet aortic valve. Mild aortic valve regurgitation. TRICUSPID VALVE Structurally normal tricuspid valve. No tricuspid valve stenosis or regurgitation. PULMONARY VALVE The pulmonary valve is not well visualized. VESSELS The inferior vena cava is normal in size. PERICARDIUM No pericardial effusion. Taiwo De La Rosa MD, FACC, [facility] [place] (Electronically Signed) Final Date:21 May 2018 13:02
[2018-05-21] MEDS ORDERED: CARBOPLATIN IV ONE (13:30)
[2018-05-21] MEDS ORDERED: SODIUM CHLOR 0.9% IV ONE ×2 (13:30→14:00)
[2018-05-21] MEDS ORDERED: PACLITAXEL IV ONE (14:00)
--- NOTE | 2018-05-21 14:10 | HHI.PR ---
Subjective Remarks Patient is resting in bed. She states she feels well. She is starting chemotherapy today. Objective Vitals Vital Signs Date Time Temp Pulse Resp B/P (MAP) Pulse Ox O2 Delivery O2 Flow Rate FiO2 05/21/18 08:00 78 05/21/18 08:00 98.3 66 20 159/69 (99) 97 Manual Cuff/Palpation 05/21/18 04:00 98.0 64 16 153/83 (106) 96 05/21/18 04:00 93 05/21/18 00:00 98.0 77 18 154/80 (104) 97 05/21/18 00:00 53 05/20/18 22:12 64 05/20/18 22:00 95 Nasal Cannula 2.00 05/20/18 21:20 97.9 74 18 157/71 (99) 95 05/20/18 21:00 97.6 64 12 123/60 (81) 96 Nasal Cannula 2 05/20/18 20:45 67 12 140/67 (91) 96 Nasal Cannula 2 05/20/18 20:30 79 12 137/63 (87) 97 Nasal Cannula 2 05/20/18 20:13 97.3 76 12 120/55 (76) 92 Nasal Cannula 2 05/20/18 15:00 68 05/20/18 14:14 18 05/20/18 14:01 97.8 66 17 157/71 (99) 93 I/O 05/20/18 05/20/18 05/20/18 05/21/18 05/21/18 05/21/18 07:00 15:00 23:00 07:00 15:00 23:00 Intake Total 240 ml 800 ml 260 ml Output Total 650 ml 805 ml Balance -410 ml -5 ml 260 ml Intake Oral 240 ml IV Total 260 ml Other 800 ml Output Urine Total 650 ml 800 ml Estimated Blood Loss 5 ml # Voids 2 Result Diagram: 05/21/18 0600 05/21/18 0600 Objective Remarks GENERAL: This is a well-nourished, well-developed patient, in no apparent distress. CARDIOVASCULAR: Normal rate and regular rhythm without murmurs, gallops, or rubs. RESPIRATORY: Good respiratory efforts. Breath sounds equal and clear to auscultation bilaterally. GASTROINTESTINAL: Abdomen soft, non-tender, non-distended. Normal active bowel sounds MUSCULOSKELETAL: Extremities without cyanosis, or edema. NEURO: Alert & Oriented x4 to person, place, time, situation. Moves all ext x4 PSYCH: Appropriate mood and affect. A/P Problem List: (1) Fall ICD Code: W19.XXXA - Unspecified fall, initial encounter (2) Masses of both breasts ICD Code: N63.10 - Unspecified lump in the right breast, unspecified quadrant; N63.20 - Unspecified lump in the left breast, unspecified quadrant (3) UTI (urinary tract infection) ICD Code: N39.0 - Urinary tract infection, site not specified (4) Renal insufficiency ICD Code: N28.9 - Disorder of kidney and ureter, unspecified (5) SIRS (systemic inflammatory response syndrome) ICD Code: R65.10 - Systemic inflammatory response syndrome (SIRS) of non- infectious origin without acute organ dysfunction (6) DM (diabetes mellitus) ICD Code: E11.9 - Type 2 diabetes mellitus without complications Assessment and Plan 72 years old female with: Metastatic breast cancer- pathology poorly differentiated ductal carcinoma with positive estrogen and progesterone receptors on the right. Triple negative on the left breast. 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 Appreciate general surgery and oncology following. Status post port placement. Patient starting chemotherapy today. Possibly will need radiation therapy. Patient to be presented to the tumor board. Abnormal urinalysis cultures negative SIRS risk on admission, normalized at this time S/P Cefepime course 05/16 Fall at home Patient has decompensated, severe arthritis in right knee Possibly worsened weakness due to metastatic lesions in her spine aggravating her spinal arthritis and causing worsened radicular effects No steroids at this time due to risk of healing after possible surgery PT daily- out of bed to chair daily Type 2 diabetes- newly diagnosed Hemoglobin A1c 6.9 , good blood sugar readings Continue diabetic diet diabetes teaching done Hypokalemia- improved DVT prophylaxis - Teds/ Lovenox Discharge Planning Patient started on chemotherapy. Jenaro Cruz MD May 21, 2018 14:10
[2018-05-21] MEDS: SODIUM CHLOR 0.9% 1000 ML INJ 1,000 ML IV SCH (20:32)
[2018-05-21] MEDS: MORPHINE SULFATE 4 MG/ML INJ IV PUSH PRN (22:47)
[2018-05-22] VITALS (9 sets, daily range): BP systolic 138–155; BP diastolic 71–102; PULSE 46–98; RESP 16–20; TEMP 97–98.3; O2SAT 94–97
[2018-05-22] MEDS: oxyCODONE/ACETAMINOPHEN 10 MG/325 MG TAB PO PRN ×2 (01:31→17:12)
[2018-05-22] MEDS: MORPHINE SULFATE 4 MG/ML INJ IV PUSH PRN (06:35)
[2018-05-22] MEDS: SODIUM CHLORIDE 0.9% FLUSH 10 ML FLUSH IV FLUSH PRN (06:35)
[2018-05-22] MEDS: INSULIN ASPART SUPPLEMENTAL SCALE SQ SCH ×4 (08:00→22:30)
[2018-05-22] MEDS: SODIUM CHLORIDE 0.9% FLUSH 10 ML FLUSH IV FLUSH SCH ×2 (11:13→22:28)
[2018-05-22] MEDS: ANASTROZOLE 1 MG TAB PO SCH (11:13)
[2018-05-22] MEDS: DOCUSATE SODIUM 50 MG/SENNA 8.6 MG TAB PO SCH ×2 (11:13→22:26)
[2018-05-22] MEDS: NYSTATIN 100,000 U/GM OINT 15 GM TUBE TOPICAL SCH ×2 (11:14→22:27)
--- NOTE | 2018-05-22 12:02 | PD.ONC.PN ---
Subjective Subjective Remarks Pt is awake, sitting upright in bed. In nad. She has no complaints. Reports the chemo went well yesterday and she had no adverse side effects. Objective Data Date Time Temp Pulse Resp B/P (MAP) Pulse Ox O2 Delivery O2 Flow Rate FiO2 05/22/18 08:30 97.4 46 18 154/76 (102) 97 05/22/18 04:00 98.3 57 18 146/88 (107) 96 05/22/18 02:31 20 05/22/18 00:00 66 05/22/18 00:00 97.7 62 20 140/80 (100) 94 05/21/18 23:47 20 05/21/18 20:00 53 05/21/18 20:00 93 Room Air 05/21/18 20:00 98.4 76 20 178/86 (116) 93 05/21/18 19:28 94 Room Air 05/21/18 19:28 98.2 74 20 153/77 (102) 05/21/18 17:52 94 Room Air 05/21/18 16:00 98.4 73 18 153/71 (98) 05/21/18 13:00 96 Room Air 05/21/18 13:00 98.4 59 20 146/67 (93) 96 Result Diagram: 05/21/18 0600 05/21/18 0600 Laboratory Results Last 72 hours Impressions Chest X-Ray 05/20/18 0000 Signed Impressions: CONCLUSION: 1. Diminished lung volumes with minimal interstitial prominence. 2. Right-sided port with tip in the SVC. No pneumothorax Culture Results Last 72 hours Impressions Chest X-Ray 05/20/18 0000 Signed Impressions: CONCLUSION: 1. Diminished lung volumes with minimal interstitial prominence. 2. Right-sided port with tip in the SVC. No pneumothorax Imaging Studies Last 72 hours Impressions Chest X-Ray 05/20/18 0000 Signed Impressions: CONCLUSION: 1. Diminished lung volumes with minimal interstitial prominence. 2. Right-sided port with tip in the SVC. No pneumothorax Administered Medications Medications (Trade) Dose Ordered Sig/Soo Route PRN Reason Start Time Stop Time Status Last Admin Dose Admin Insulin Aspart (NovoLOG SUPPLEMENTAL SCALE) 1 ACHS SLIDING SCALE SQ 05/10/18 08:00 05/21/18 22:47 Sodium Chloride 1,000 ml @ 42 mls/hr [id number] IV 05/10/18 03:24 05/20/18 20:30 Sodium Chloride (NS Flush) 2 ml UNSCH PRN IV FLUSH FLUSH AFTER USING IV ACCESS 05/10/18 03:30 05/22/18 06:35 Sodium Chloride (NS Flush) 2 ml BID IV FLUSH 05/10/18 09:00 05/22/18 11:13 Senna/Docusate Sodium (Sammie-Colace) 1 tab BID PO 05/10/18 09:00 05/22/18 11:13 Enoxaparin Sodium (Lovenox Inj) 30 mg Q24H SQ 05/16/18 11:00 Future Hold 05/19/18 11:48 Oxycodone/ Acetaminophen (Percocet 10-325 Mg) 1 tab Q6H PRN PO PAIN SCALE 6 TO 10 05/19/18 14:00 05/22/18 01:31 Morphine Sulfate (Morphine Inj) 4 mg Q3H PRN IV PUSH BREAKTHROUGH PAIN 05/19/18 14:00 05/22/18 06:35 Anastrozole (Arimidex) 1 mg DAILY PO 05/19/18 21:15 05/22/18 11:13 Nystatin (Mycostatin Oint) 1 applic Q12HR TOPICAL 05/20/18 23:00 05/22/18 11:14 Objective Remarks GENERAL: Obese, elderly female, in no acute distress. SKIN: Pale, warm and dry. See breast exam. HEAD: Normocephalic. EYES: No scleral icterus. No injection or drainage. NECK: Supple, trachea midline. Right supraclavicular adenopathy with intact steri-strip in place. LYMPHATIC: Bilateral axillary adenopathy. Right supraclavicular adenopathy. Breasts: Right breast large open wound, minimal serous drainage on bandage. Left breast moderate open wound, bandage dry and intact, minimal drainage. CARDIOVASCULAR: Regular rate and rhythm without murmurs. RESPIRATORY: Breath sounds clear, equal bilaterally. No accessory muscle use. GASTROINTESTINAL: Abdomen large, soft, non-tender, nondistended. EXTREMITIES: No cyanosis, or edema. Sequntials in place. NEUROLOGICAL: No obvious focal deficit. Awake, alert, and oriented x3. PSYCHIATRIC: Appropriate mood and affect; insight and judgment normal. Assessment/Plan Problem List: (1) Metastatic breast cancer ICD Codes: C50.919 - Malignant neoplasm of unspecified site of unspecified female breast Plan: 05/22: Dr. Rodgers consulted, RAD sim scheduled for Friday at 0930. 05/21: plan to start weekly carbo/taxol today +/- radiation to both breasts; will discuss with Dr. Rodgers. 05/19/18. R breast cancer ER positive, [place] positive, Her 2 neg- likely the source of bone metastatic disease. Pt noticed the right breast mass longer duration. L breast triple negative breast cancer. Acute problem related to ulcerative mass R breast >L. Discussed option to palliate breast masses which are difficult to manage. Ultimately patient with need systemic chemotherapy for tx of triple negative breast cancer. Start Arimidex, hormonal therapy for ER positive breast cancer. Discussed with surgery local control for disease with bilateral lumpectomy. (2) Radicular leg pain ICD Codes: M54.10 - Radiculopathy, site unspecified Plan: Pain R leg. --has extensive metastatic disease to spine and pelvis xr shows no fx of femur 05/19/18. R leg pain better. Walking with PT. 05/22/18. --PT working with patient. Assessment 72 y/o woman with HTN, DM, dx with neglected breast cancer, evidence for metastatic disease on imaging. Plan 1. Status post weekly dose carbo/taxol yesterday, first dose. 2. Continue to monitor CBC, electrolytes 3. Continue wound care to bilateral breasts. 4. RAD sim scheduled for Friday. Dr. Rodgers managing. Attending Statement The exam, history, and the medical decision-making described in the above note were completed with the assistance of the mid-level provider. I reviewed and agree with the findings presented. I attest that I had a [id number] encounter with the patient on the same day, and personally performed and documented my assessment and findings in the medical record. Tolerated chemo well. Discussed treatment plan with XRT simulation on Friday. Cont AI for ER positive breast cancer. Carbo / Taxol tolerated well. Monitor for toxicity. Ok for DC to rehab, anticipate continue tx as out patient. Bushra Garay May 22, 2018 12:02 Britany Johnson MD May 22, 2018 22:24
--- NOTE | 2018-05-22 17:35 | HHI.PR ---
Subjective Remarks The patient was talking on the phone. She had no acute complaints. She wanted her diet changed to a diabetic diet. She denies any nausea or vomiting. She has been working with therapy. Discussed with nursing. Objective Vitals Vital Signs Date Time Temp Pulse Resp B/P (MAP) Pulse Ox O2 Delivery O2 Flow Rate FiO2 05/22/18 17:09 98.0 55 18 138/82 (100) 97 05/22/18 14:43 98.0 98 18 154/102 (119) 94 05/22/18 08:30 97.4 46 18 154/76 (102) 97 05/22/18 04:00 98.3 57 18 146/88 (107) 96 05/22/18 02:31 20 05/22/18 00:00 66 05/22/18 00:00 97.7 62 20 140/80 (100) 94 05/21/18 23:47 20 05/21/18 20:00 53 05/21/18 20:00 93 Room Air 05/21/18 20:00 98.4 76 20 178/86 (116) 93 05/21/18 19:28 94 Room Air 05/21/18 19:28 98.2 74 20 153/77 (102) 05/21/18 17:52 94 Room Air I/O 05/21/18 05/21/18 05/21/18 05/22/18 05/22/18 05/22/18 07:00 15:00 23:00 07:00 15:00 23:00 Intake Total 260 ml 107 ml 1475 ml Output Total 650 ml Balance 260 ml 107 ml 825 ml Intake Oral 960 ml IV Total 260 ml 107 ml 515 ml Output Urine Total 650 ml # Voids 2 Result Diagram: 05/21/18 0600 05/21/18 0600 Imaging Last Impressions Chest X-Ray 05/20/18 0000 Signed Impressions: CONCLUSION: 1. Diminished lung volumes with minimal interstitial prominence. 2. Right-sided port with tip in the SVC. No pneumothorax Lumbar Puncture Fluoroscopy 05/12/18 0000 Signed Impressions: CONCLUSION: 1. Uncomplicated fluoroscopically guided lumbar puncture. Femur X-Ray 05/12/18 0000 Signed Impressions: CONCLUSION: Intact right femur. Thoracic Spine MRI 05/10/18 0000 Signed Impressions: CONCLUSION: 1. 1.4 cm enhancing lesions at T9 and T12 suspicious for metastatic disease. N o pathologic fracture. No significant canal stenosis. Lumbar Spine MRI 05/10/18 Signed Impressions: CONCLUSION: 1. Enhancing lesions at T12, L1 and S3 most characteristic of metastatic disea se. 2. At L4-5 there is a small right paracentral disc protrusion with mild stenos is of the right lateral recess. 3. Conus medullaris intact. Knee X-Ray 05/10/18 Signed Impressions: CONCLUSION: Large tricompartmental osteophytes. No acute fracture Chest CT 05/10/18 Signed Impressions: CONCLUSION: 1. Bilateral breast masses with skin thickening and ulceration. Bilateral axil amanda adenopathy. Cervical Spine MRI 05/10/18 Signed Impressions: CONCLUSION: 1. Negative for metastatic disease. Moderate degenerative disc disease as abov e. No cord impingement. Brain MRI 05/10/18 Signed Impressions: CONCLUSION: 1. No acute findings. No recent infarct. Minimal white matter ischemic changes . Abdomen/Pelvis CT 05/10/18 Signed Impressions: CONCLUSION: 1. Left breast mass with lytic bone destruction noted in the right hemipelvis around the acetabulum measuring around 5 cm in diameter and also in the left an terior iliac bone measuring around 2 cm in diameter characteristic of metastati c bone disease. 2. Large gallstone measuring up to 3.9 cm. 3. Small hiatal hernia. No pathologically enlarged lymph nodes identified with in the abdomen and pelvis. 4. Colonic diverticula. Probable small calcified fibroids. Objective Remarks GENERAL: This is a well-nourished, well-developed patient, in no apparent distress. CARDIOVASCULAR: Normal rate and regular rhythm without murmurs, gallops, or rubs. RESPIRATORY: Good respiratory efforts. Breath sounds equal and clear to auscultation bilaterally. GASTROINTESTINAL: Abdomen soft, non-tender, non-distended. Normal active bowel sounds MUSCULOSKELETAL: Extremities without cyanosis, or edema. NEURO: Alert & Oriented x4 to person, place, time, situation. Moves all ext x4 PSYCH: Appropriate mood and affect. A/P Problem List: (1) Fall ICD Code: W19.XXXA - Unspecified fall, initial encounter (2) Masses of both breasts ICD Code: N63.10 - Unspecified lump in the right breast, unspecified quadrant; N63.20 - Unspecified lump in the left breast, unspecified quadrant (3) UTI (urinary tract infection) ICD Code: N39.0 - Urinary tract infection, site not specified (4) Renal insufficiency ICD Code: N28.9 - Disorder of kidney and ureter, unspecified (5) SIRS (systemic inflammatory response syndrome) ICD Code: R65.10 - Systemic inflammatory response syndrome (SIRS) of non- infectious origin without acute organ dysfunction (6) DM (diabetes mellitus) ICD Code: E11.9 - Type 2 diabetes mellitus without complications Assessment and Plan 72 years old female with: Metastatic breast cancer- pathology poorly differentiated ductal carcinoma with positive estrogen and progesterone receptors on the right. Triple negative on the left breast. 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 Appreciate general surgery and oncology following. Status post port placement. Patient starting chemotherapy. Possibly will need radiation therapy. Patient to be presented to the tumor board. Abnormal urinalysis cultures negative SIRS risk on admission, normalized at this time S/P Cefepime course 05/16 Fall at home Patient has decompensated, severe arthritis in right knee Possibly worsened weakness due to metastatic lesions in her spine aggravating her spinal arthritis and causing worsened radicular effects No steroids at this time due to risk of healing after possible surgery PT daily- out of bed to chair daily Type 2 diabetes- newly diagnosed Hemoglobin A1c 6.9%, good blood sugar readings Resume diabetic diet diabetes teaching done Hypokalemia- improved - ADAT. DVT prophylaxis - Teds/ Lovenox Bulmaro Sharma DO May 22, 2018 17:35
[2018-05-22] MEDS: SODIUM CHLOR 0.9% 1000 ML INJ 1,000 ML IV SCH (20:21)
[2018-05-23] VITALS (7 sets, daily range): BP systolic 133–159; BP diastolic 70–77; PULSE 67–75; RESP 16–18; TEMP 97.5–98.4; O2SAT 94–97
[2018-05-23] MEDS: oxyCODONE/ACETAMINOPHEN 10 MG/325 MG TAB PO PRN ×3 (00:11→18:33)
[2018-05-23 05:23] LABS: AUTOMATED NEUTROPHIL # 6.5 TH/MM3 (1.8-7.7); BASOPHIL # 0.1 TH/MM3 (0-0.2); BASOPHIL % 0.9 % (0.0-2.0); EOSINOPHIL # 0.1 TH/MM3 (0-0.4); EOSINOPHIL % 1.1 % (0.0-4.0); HEMATOCRIT 33.9 % (35.0-46.0); HEMOGLOBIN 11.1 GM/DL (11.6-15.3); LYMPH % 14.6 % (9.0-44.0); LYMPHOCYTE # 1.2 TH/MM3 (1.0-4.8); MEAN CORPUSCULAR HEMOGLOBIN 28.1 PG (27.0-34.0); MEAN CORPUSCULAR HGB CONC 32.6 % (32.0-36.0); MEAN PLATELET VOLUME 6.4 FL (7.0-11.0); MONO % 4.4 % (0.0-8.0); MONOCYTE # 0.4 TH/MM3 (0-0.9); PLATELET COUNT 229 TH/MM3 (150-450); RED BLOOD COUNT 3.95 MIL/MM3 (4.00-5.30); RED CELL DISTRIBUTION WIDTH 15.7 % (11.6-17.2); WHITE BLOOD COUNT 8.3 TH/MM3 (4.0-11.0)
[2018-05-23 05:54] LABS: BICARBONATE 27.5 MEQ/L (21.0-32.0); CALCIUM 8.2 MG/DL (8.5-10.1); CREATININE 0.65 MG/DL (0.50-1.00)
[2018-05-23] MEDS: INSULIN ASPART SUPPLEMENTAL SCALE SQ SCH ×4 (08:00→20:59)
[2018-05-23] MEDS: ANASTROZOLE 1 MG TAB PO SCH (09:54)
[2018-05-23] MEDS: DOCUSATE SODIUM 50 MG/SENNA 8.6 MG TAB PO SCH ×2 (09:54→21:13)
[2018-05-23] MEDS: SODIUM CHLORIDE 0.9% FLUSH 10 ML FLUSH IV FLUSH SCH ×2 (09:55→21:13)
[2018-05-23] MEDS: SODIUM CHLORIDE 0.9% FLUSH 10 ML FLUSH IV FLUSH PRN (09:55)
[2018-05-23] MEDS: NYSTATIN 100,000 U/GM OINT 15 GM TUBE TOPICAL SCH ×2 (09:55→21:14)
--- NOTE | 2018-05-23 10:10 | PD.ONC.PN ---
Subjective Subjective Remarks Afebrile overnight. Pt sleeping upon entering room. Awakens easily, in no acute distress. She has no concerns this a.m. Objective Data Date Time Temp Pulse Resp B/P (MAP) Pulse Ox O2 Delivery O2 Flow Rate FiO2 05/23/18 08:13 97.5 74 18 135/72 (93) 97 05/23/18 03:35 71 16 133/73 (93) 94 05/23/18 03:00 75 05/22/18 23:30 58 16 155/71 (99) 94 05/22/18 23:00 70 05/22/18 21:00 97 Room Air 05/22/18 21:00 97.0 75 16 152/75 (100) 97 05/22/18 19:00 63 05/22/18 17:09 98.0 55 18 138/82 (100) 97 05/22/18 14:43 98.0 98 18 154/102 (119) 94 05/23/18 05/23/18 05/23/18 07:00 15:00 23:00 Intake Total 240 ml Output Total 550 ml Balance -310 ml Result Diagram: 05/23/18 0450 05/23/18 0450 Laboratory Results Laboratory Tests Test 05/23/18 04:50 White Blood Count 8.3 TH/MM3 Red Blood Count 3.95 MIL/MM3 Hemoglobin 11.1 GM/DL Hematocrit 33.9 % Mean Corpuscular Volume 86.0 FL Mean Corpuscular Hemoglobin 28.1 PG Mean Corpuscular Hemoglobin Concent 32.6 % Red Cell Distribution Width 15.7 % Platelet Count 229 TH/MM3 Mean Platelet Volume 6.4 FL Neutrophils (%) (Auto) 79.0 % Lymphocytes (%) (Auto) 14.6 % Monocytes (%) (Auto) 4.4 % Eosinophils (%) (Auto) 1.1 % Basophils (%) (Auto) 0.9 % Neutrophils # (Auto) 6.5 TH/MM3 Lymphocytes # (Auto) 1.2 TH/MM3 Monocytes # (Auto) 0.4 TH/MM3 Eosinophils # (Auto) 0.1 TH/MM3 Basophils # (Auto) 0.1 TH/MM3 CBC Comment DIFF FINAL Differential Comment Blood Urea Nitrogen 17 MG/DL Creatinine 0.65 MG/DL Random Glucose 120 MG/DL Calcium Level 8.2 MG/DL Sodium Level 144 MEQ/L Potassium Level 3.5 MEQ/L Chloride Level 108 MEQ/L Carbon Dioxide Level 27.5 MEQ/L Anion Gap 9 MEQ/L Estimat Glomerular Filtration Rate 90 ML/MIN Administered Medications Medications (Trade) Dose Ordered Sig/Soo Route PRN Reason Start Time Stop Time Status Last Admin Dose Admin Insulin Aspart (NovoLOG SUPPLEMENTAL SCALE) 1 ACHS SLIDING SCALE SQ 05/10/18 08:00 05/22/18 22:30 Sodium Chloride 1,000 ml @ 42 mls/hr [id number] IV 05/10/18 03:24 05/20/18 20:30 Sodium Chloride (NS Flush) 2 ml UNSCH PRN IV FLUSH FLUSH AFTER USING IV ACCESS 05/10/18 03:30 05/23/18 09:55 Sodium Chloride (NS Flush) 2 ml BID IV FLUSH 05/10/18 09:00 05/23/18 09:55 Senna/Docusate Sodium (Sammie-Colace) 1 tab BID PO 05/10/18 09:00 05/23/18 09:54 Enoxaparin Sodium (Lovenox Inj) 30 mg Q24H SQ 05/16/18 11:00 Future Hold 05/19/18 11:48 Oxycodone/ Acetaminophen (Percocet 10-325 Mg) 1 tab Q6H PRN PO PAIN SCALE 6 TO 10 05/19/18 14:00 05/23/18 00:11 Morphine Sulfate (Morphine Inj) 4 mg Q3H PRN IV PUSH BREAKTHROUGH PAIN 05/19/18 14:00 05/22/18 06:35 Anastrozole (Arimidex) 1 mg DAILY PO 05/19/18 21:15 05/23/18 09:54 Nystatin (Mycostatin Oint) 1 applic Q12HR TOPICAL 05/20/18 23:00 05/23/18 09:55 Objective Remarks GENERAL: Obese, elderly female, in no acute distress. SKIN: Pale, warm and dry. Dressing to bilateral breasts. HEAD: Normocephalic. EYES: No scleral icterus. No injection or drainage. NECK: Supple, trachea midline. Right supraclavicular adenopathy with intact steri-strip in place. LYMPHATIC: Bilateral axillary adenopathy. Right supraclavicular adenopathy. Breasts: Exam deferred. Bilateral breast bandages dry and intact. CARDIOVASCULAR: Regular rate and rhythm without murmurs. RESPIRATORY: Breath sounds clear, equal bilaterally. No accessory muscle use. GASTROINTESTINAL: Abdomen large, soft, non-tender, nondistended. EXTREMITIES: No cyanosis, or edema. Lower extremity sequentials in place. NEUROLOGICAL: No obvious focal deficit. Awake, alert, and oriented x3. PSYCHIATRIC: Appropriate mood and affect; insight and judgment normal. Assessment/Plan Problem List: (1) Metastatic breast cancer ICD Codes: C50.919 - Malignant neoplasm of unspecified site of unspecified female breast Plan: 05/23: Awaiting RAD Sim on Friday. Bilateral dressings changed yesterday. Dry and intact today. 05/22: Dr. Rodgers consulted, RAD sim scheduled for Friday at 0930. 05/21: plan to start weekly carbo/taxol today +/- radiation to both breasts; will discuss with Dr. Rodgers. 05/19/18. R breast cancer ER positive, [place] positive, Her 2 neg- likely the source of bone metastatic disease. Pt noticed the right breast mass longer duration. L breast triple negative breast cancer. Acute problem related to ulcerative mass R breast >L. Discussed option to palliate breast masses which are difficult to manage. Ultimately patient with need systemic chemotherapy for tx of triple negative breast cancer. Start Arimidex, hormonal therapy for ER positive breast cancer. Discussed with surgery local control for disease with bilateral lumpectomy. (2) Radicular leg pain ICD Codes: M54.10 - Radiculopathy, site unspecified Plan: Pain R leg. --has extensive metastatic disease to spine and pelvis xr shows no fx of femur 05/23/18. --Continue PT to increase strength. --Ambulates with walker. 05/22/18. --PT working with patient. 05/19/18. R leg pain better. Walking with PT. Assessment 72 y/o woman with HTN, DM, dx with neglected breast cancer, evidence for metastatic disease on imaging. Plan 1. Status post 1st dose of weekly dose carbo/taxol on 05/21/18. 2. Radiation simulation scheduled for 05/25/18. Management per Dr. Rodgers. 3. Bilateral breast wounds-continue to monitor. Dressing changes as needed/ scheduled. 4. Continue to monitor labs. Attending Statement The exam, history, and the medical decision-making described in the above note were completed with the assistance of the mid-level provider. I reviewed and agree with the findings presented. I attest that I had a [id number] encounter with the patient on the same day, and personally performed and documented my assessment and findings in the medical record. Patient seen, chart reviewed, discussed with nurse practitioner. Patient denies any new complaint. She has tolerated the first course of chemotherapy extremely well. Patient will start palliative radiation therapy soon. She has stage IV metastatic breast cancer. This is not curable but it is treatable. Patient is stable today. Bushra Garay May 23, 2018 10:10 Rustam Cronin MD May 23, 2018 20:29
[2018-05-23] MEDS ORDERED: POTASSIUM CHLORIDE 20 MEQ CONTROLLED RELEASE TAB PO ONE (14:00)
--- NOTE | 2018-05-23 14:00 | HHI.PR ---
Subjective Remarks The pt says that her diet is better. She was anticipating radiation soon. No acute complaints. Objective Vitals Vital Signs Date Time Temp Pulse Resp B/P (MAP) Pulse Ox O2 Delivery O2 Flow Rate FiO2 05/23/18 12:15 98.2 70 16 159/77 (104) 97 05/23/18 09:48 Room Air 05/23/18 08:13 97.5 74 18 135/72 (93) 97 05/23/18 03:35 71 16 133/73 (93) 94 05/23/18 03:00 75 05/22/18 23:30 58 16 155/71 (99) 94 05/22/18 23:00 70 05/22/18 21:00 97 Room Air 05/22/18 21:00 97.0 75 16 152/75 (100) 97 05/22/18 19:00 63 05/22/18 17:09 98.0 55 18 138/82 (100) 97 05/22/18 14:43 98.0 98 18 154/102 (119) 94 I/O 05/22/18 05/22/18 05/22/18 05/23/18 05/23/18 05/23/18 07:00 15:00 23:00 07:00 15:00 23:00 Intake Total 240 ml Output Total 550 ml Balance -310 ml Intake Oral 240 ml Output Urine Total 550 ml # Bowel Movements 0 Result Diagram: 05/23/18 0450 05/23/18 0450 Imaging Last Impressions Chest X-Ray 05/20/18 0000 Signed Impressions: CONCLUSION: 1. Diminished lung volumes with minimal interstitial prominence. 2. Right-sided port with tip in the SVC. No pneumothorax Lumbar Puncture Fluoroscopy 05/12/18 0000 Signed Impressions: CONCLUSION: 1. Uncomplicated fluoroscopically guided lumbar puncture. Femur X-Ray 05/12/18 0000 Signed Impressions: CONCLUSION: Intact right femur. Thoracic Spine MRI 05/10/18 0000 Signed Impressions: CONCLUSION: 1. 1.4 cm enhancing lesions at T9 and T12 suspicious for metastatic disease. N o pathologic fracture. No significant canal stenosis. Lumbar Spine MRI 05/10/18 0000 Signed Impressions: CONCLUSION: 1. Enhancing lesions at T12, L1 and S3 most characteristic of metastatic disea se. 2. At L4-5 there is a small right paracentral disc protrusion with mild stenos is of the right lateral recess. 3. Conus medullaris intact. Knee X-Ray 05/10/18 Signed Impressions: CONCLUSION: Large tricompartmental osteophytes. No acute fracture Chest CT 05/10/18 Signed Impressions: CONCLUSION: 1. Bilateral breast masses with skin thickening and ulceration. Bilateral axil amanda adenopathy. Cervical Spine MRI 05/10/18 Signed Impressions: CONCLUSION: 1. Negative for metastatic disease. Moderate degenerative disc disease as abov e. No cord impingement. Brain MRI 05/10/18 Signed Impressions: CONCLUSION: 1. No acute findings. No recent infarct. Minimal white matter ischemic changes . Abdomen/Pelvis CT 05/10/18 Signed Impressions: CONCLUSION: 1. Left breast mass with lytic bone destruction noted in the right hemipelvis around the acetabulum measuring around 5 cm in diameter and also in the left an terior iliac bone measuring around 2 cm in diameter characteristic of metastati c bone disease. 2. Large gallstone measuring up to 3.9 cm. 3. Small hiatal hernia. No pathologically enlarged lymph nodes identified with in the abdomen and pelvis. 4. Colonic diverticula. Probable small calcified fibroids. Objective Remarks GENERAL: This is a well-nourished, well-developed patient, in no apparent distress. CARDIOVASCULAR: Normal rate and regular rhythm without murmurs, gallops, or rubs. RESPIRATORY: Good respiratory efforts. Breath sounds equal and clear to auscultation bilaterally. GASTROINTESTINAL: Abdomen soft, non-tender, non-distended. Normal active bowel sounds MUSCULOSKELETAL: Extremities without cyanosis, or edema. NEURO: Alert & Oriented x4 to person, place, time, situation. Moves all ext x4 PSYCH: Appropriate mood and affect. A/P Problem List: (1) Fall ICD Code: W19.XXXA - Unspecified fall, initial encounter (2) Masses of both breasts ICD Code: N63.10 - Unspecified lump in the right breast, unspecified quadrant; N63.20 - Unspecified lump in the left breast, unspecified quadrant (3) UTI (urinary tract infection) ICD Code: N39.0 - Urinary tract infection, site not specified (4) Renal insufficiency ICD Code: N28.9 - Disorder of kidney and ureter, unspecified (5) SIRS (systemic inflammatory response syndrome) ICD Code: R65.10 - Systemic inflammatory response syndrome (SIRS) of non- infectious origin without acute organ dysfunction (6) DM (diabetes mellitus) ICD Code: E11.9 - Type 2 diabetes mellitus without complications Assessment and Plan 72 years old female with: Metastatic breast cancer- pathology poorly differentiated ductal carcinoma with positive estrogen and progesterone receptors on the right. Triple negative on the left breast. 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 Appreciate general surgery and oncology following. Status post port placement. - Patient started chemotherapy. - radiation therapy planned. - continue hormonal treatment. Abnormal urinalysis cultures negative SIRS risk on admission, normalized at this time - S/P Cefepime course 05/16 Fall at home Patient has decompensated, severe arthritis in right knee Possibly worsened weakness due to metastatic lesions in her spine aggravating her spinal arthritis and causing worsened radicular effects - No steroids at this time due to risk of healing after possible surgery - PT daily- out of bed to chair daily Type 2 diabetes- newly diagnosed Hemoglobin A1c 6.9%, good blood sugar readings - Resume diabetic diet - diabetes teaching done. Hypokalemia- improved - ADAT. DVT prophylaxis - Tedrobi/ Bulmaro Hilton DO May 23, 2018 14:00
[2018-05-24] VITALS (14 sets, daily range): BP systolic 109–150; BP diastolic 52–76; PULSE 67–96; RESP 18–20; TEMP 97.4–99.2; O2SAT 94–99
[2018-05-24] MEDS: oxyCODONE/ACETAMINOPHEN 10 MG/325 MG TAB PO PRN ×3 (00:38→18:38)
[2018-05-24] MEDS: INSULIN ASPART SUPPLEMENTAL SCALE SQ SCH ×4 (08:00→21:52)
[2018-05-24] MEDS: DOCUSATE SODIUM 50 MG/SENNA 8.6 MG TAB PO SCH (09:00)
[2018-05-24] MEDS: SODIUM CHLORIDE 0.9% FLUSH 10 ML FLUSH IV FLUSH SCH ×2 (09:31→21:45)
[2018-05-24] MEDS: ANASTROZOLE 1 MG TAB PO SCH (09:31)
[2018-05-24] MEDS: NYSTATIN 100,000 U/GM OINT 15 GM TUBE TOPICAL SCH ×2 (09:31→21:00)
--- NOTE | 2018-05-24 10:45 | PD.ONC.PN ---
Subjective Subjective Remarks Pt sitting up in bed, eating breakfast. No complaints at this time. Objective Data Date Time Temp Pulse Resp B/P (MAP) Pulse Ox O2 Delivery O2 Flow Rate FiO2 05/24/18 10:04 Room Air 05/24/18 08:38 97.7 73 18 136/67 (90) 96 05/24/18 07:30 67 05/24/18 04:45 98.7 77 18 141/74 (96) 95 05/24/18 04:00 82 05/24/18 00:40 98.3 78 18 150/73 (98) 97 05/24/18 00:30 71 05/23/18 21:13 96 Room Air 05/23/18 20:41 69 05/23/18 20:00 98.4 67 18 147/70 (95) 96 05/23/18 16:00 98 Room Air 05/23/18 16:00 67 05/23/18 13:24 18 05/23/18 12:15 98.2 70 16 159/77 (104) 97 05/24/18 05/24/18 05/24/18 07:00 15:00 23:00 Intake Total 240 ml Output Total 200 ml Balance 40 ml Result Diagram: 05/23/18 0450 05/23/18 0450 Administered Medications Medications (Trade) Dose Ordered Sig/Soo Route PRN Reason Start Time Stop Time Status Last Admin Dose Admin Insulin Aspart (NovoLOG SUPPLEMENTAL SCALE) 1 ACHS SLIDING SCALE SQ 05/10/18 08:00 05/23/18 12:25 Sodium Chloride 1,000 ml @ 42 mls/hr [id number] IV 05/10/18 03:24 05/20/18 20:30 Sodium Chloride (NS Flush) 2 ml UNSCH PRN IV FLUSH FLUSH AFTER USING IV ACCESS 05/10/18 03:30 05/23/18 09:55 Sodium Chloride (NS Flush) 2 ml BID IV FLUSH 05/10/18 09:00 05/24/18 09:31 Senna/Docusate Sodium (Sammie-Colace) 1 tab BID PO 05/10/18 09:00 05/23/18 21:13 Sennosides (Senokot) 17.2 mg Q12H PRN PO Moderate constipation 05/10/18 03:30 05/23/18 18:33 Enoxaparin Sodium (Lovenox Inj) 30 mg Q24H SQ 05/16/18 11:00 Future Hold 05/19/18 11:48 Oxycodone/ Acetaminophen (Percocet 10-325 Mg) 1 tab Q6H PRN PO PAIN SCALE 6 TO 10 05/19/18 14:00 05/24/18 00:38 Morphine Sulfate (Morphine Inj) 4 mg Q3H PRN IV PUSH BREAKTHROUGH PAIN 05/19/18 14:00 05/22/18 06:35 Anastrozole (Arimidex) 1 mg DAILY PO 05/19/18 21:15 05/24/18 09:31 Nystatin (Mycostatin Oint) 1 applic Q12HR TOPICAL 05/20/18 23:00 05/24/18 09:31 Objective Remarks GENERAL: Obese, elderly female, in no acute distress. SKIN: Pale, warm and dry. HEAD: Normocephalic. EYES: No scleral icterus. No injection or drainage. NECK: Supple, trachea midline. Right supraclavicular adenopathy with intact steri-strip in place. Breasts: Bilateral breast bandages dry and intact. CARDIOVASCULAR: Regular rate and rhythm without murmurs. RESPIRATORY: Breath sounds clear, equal bilaterally. No accessory muscle use. GASTROINTESTINAL: Abdomen large, soft, non-tender, nondistended. EXTREMITIES: No cyanosis, or edema. Lower extremity sequentials in place. NEUROLOGICAL: No obvious focal deficit. Awake, alert, and oriented x3. PSYCHIATRIC: Appropriate mood and affect; insight and judgment normal. Assessment/Plan Problem List: (1) Metastatic breast cancer ICD Codes: C50.919 - Malignant neoplasm of unspecified site of unspecified female breast Plan: 05/24: Bilateral dressings dry and intact. Scheduled for RAD simulation tomorrow. 05/23: Awaiting RAD Sim on Friday. Bilateral dressings changed yesterday. Dry and intact today. 05/22: Dr. Rodgers consulted, RAD sim scheduled for Friday at 0930. 05/21: plan to start weekly carbo/taxol today +/- radiation to both breasts; will discuss with Dr. Rodgers. 05/19/18. R breast cancer ER positive, [place] positive, Her 2 neg- likely the source of bone metastatic disease. Pt noticed the right breast mass longer duration. L breast triple negative breast cancer. Acute problem related to ulcerative mass R breast >L. Discussed option to palliate breast masses which are difficult to manage. Ultimately patient with need systemic chemotherapy for tx of triple negative breast cancer. Start Arimidex, hormonal therapy for ER positive breast cancer. Discussed with surgery local control for disease with bilateral lumpectomy. (2) Radicular leg pain ICD Codes: M54.10 - Radiculopathy, site unspecified Plan: Pain R leg. --has extensive metastatic disease to spine and pelvis xr shows no fx of femur 05/24. --Reports apprehension with ambulation. --Walker for assistance. --Continue walking with PT to regain strength. 05/23/18. --Continue PT to increase strength. --Ambulates with walker. 05/22/18. --PT working with patient. 05/19/18. R leg pain better. Walking with PT. Assessment 72 y/o woman with HTN, DM, dx with neglected breast cancer, evidence for metastatic disease on imaging. Plan 1. 1st dose of weekly dose carbo/taxol on 05/21/18. --Continue to monitor CBC, CMP. 2. Radiation simulation scheduled for 05/25/18. Management per Dr. Rodgers. 3. Wound care to bilateral breasts. 4. Rehab planning per case management. Pt will need transportation arrangements for chemotherapy and radiation. Attending Statement The exam, history, and the medical decision-making described in the above note were completed with the assistance of the mid-level provider. I reviewed and agree with the findings presented. I attest that I had a [id number] encounter with the patient on the same day, and personally performed and documented my assessment and findings in the medical record. Patient denies any new complaints. Patient will start palliative radiation soon Patient has breast cancer status post 1 cycle of chemotherapy. Case discussed with nurse practitioner. Dr. Johnson to follow in the morning Bushra Garay May 24, 2018 10:45 Rustam Cronin MD May 24, 2018 19:27
--- NOTE | 2018-05-24 16:06 | HHI.PR ---
Subjective Remarks The patient had questions about the radiation simulation. She said she had trouble swallowing the Senokot pills. Otherwise she had no acute complaints. Discussed with nursing. Objective Vitals Vital Signs Date Time Temp Pulse Resp B/P (MAP) Pulse Ox O2 Delivery O2 Flow Rate FiO2 05/24/18 15:54 80 05/24/18 12:32 99.2 96 18 114/59 (77) 99 05/24/18 12:00 80 05/24/18 11:14 97.9 74 18 149/76 (100) 96 05/24/18 10:04 Room Air 05/24/18 08:38 97.7 73 18 136/67 (90) 96 05/24/18 07:30 67 05/24/18 04:45 98.7 77 18 141/74 (96) 95 05/24/18 04:00 82 05/24/18 00:40 98.3 78 18 150/73 (98) 97 05/24/18 00:30 71 05/23/18 21:13 96 Room Air 05/23/18 20:41 69 05/23/18 20:00 98.4 67 18 147/70 (95) 96 I/O 05/23/18 05/23/18 05/23/18 05/24/18 05/24/18 05/24/18 07:00 15:00 23:00 07:00 15:00 23:00 Intake Total 240 ml 720 ml 240 ml Output Total 550 ml 650 ml 200 ml Balance -310 ml 70 ml 40 ml Intake Oral 240 ml 720 ml 240 ml Output Urine Total 550 ml 650 ml 200 ml # Bowel Movements 0 1 1 Result Diagram: 05/23/18 0450 05/23/18 0450 Imaging Last Impressions Chest X-Ray 05/20/18 0000 Signed Impressions: CONCLUSION: 1. Diminished lung volumes with minimal interstitial prominence. 2. Right-sided port with tip in the SVC. No pneumothorax Lumbar Puncture Fluoroscopy 05/12/18 0000 Signed Impressions: CONCLUSION: 1. Uncomplicated fluoroscopically guided lumbar puncture. Femur X-Ray 05/12/18 0000 Signed Impressions: CONCLUSION: Intact right femur. Thoracic Spine MRI 05/10/18 0000 Signed Impressions: CONCLUSION: 1. 1.4 cm enhancing lesions at T9 and T12 suspicious for metastatic disease. N o pathologic fracture. No significant canal stenosis. Lumbar Spine MRI 05/10/18 Signed Impressions: CONCLUSION: 1. Enhancing lesions at T12, L1 and S3 most characteristic of metastatic disea se. 2. At L4-5 there is a small right paracentral disc protrusion with mild stenos is of the right lateral recess. 3. Conus medullaris intact. Knee X-Ray 05/10/18 Signed Impressions: CONCLUSION: Large tricompartmental osteophytes. No acute fracture Chest CT 05/10/18 Signed Impressions: CONCLUSION: 1. Bilateral breast masses with skin thickening and ulceration. Bilateral axil amanda adenopathy. Cervical Spine MRI 05/10/18 Signed Impressions: CONCLUSION: 1. Negative for metastatic disease. Moderate degenerative disc disease as abov e. No cord impingement. Brain MRI 05/10/18 Signed Impressions: CONCLUSION: 1. No acute findings. No recent infarct. Minimal white matter ischemic changes . Abdomen/Pelvis CT 05/10/18 Signed Impressions: CONCLUSION: 1. Left breast mass with lytic bone destruction noted in the right hemipelvis around the acetabulum measuring around 5 cm in diameter and also in the left an terior iliac bone measuring around 2 cm in diameter characteristic of metastati c bone disease. 2. Large gallstone measuring up to 3.9 cm. 3. Small hiatal hernia. No pathologically enlarged lymph nodes identified with in the abdomen and pelvis. 4. Colonic diverticula. Probable small calcified fibroids. Objective Remarks GENERAL: This is a well-nourished, well-developed patient, in no apparent distress. CARDIOVASCULAR: Normal rate and regular rhythm without murmurs, gallops, or rubs. RESPIRATORY: Good respiratory efforts. Breath sounds equal and clear to auscultation bilaterally. GASTROINTESTINAL: Abdomen soft, non-tender, non-distended. Normal active bowel sounds MUSCULOSKELETAL: Extremities without cyanosis, or edema. NEURO: Alert & Oriented x4 to person, place, time, situation. Moves all ext x4 PSYCH: Appropriate mood and affect. A/P Problem List: (1) Fall ICD Code: W19.XXXA - Unspecified fall, initial encounter (2) Masses of both breasts ICD Code: N63.10 - Unspecified lump in the right breast, unspecified quadrant; N63.20 - Unspecified lump in the left breast, unspecified quadrant (3) UTI (urinary tract infection) ICD Code: N39.0 - Urinary tract infection, site not specified (4) Renal insufficiency ICD Code: N28.9 - Disorder of kidney and ureter, unspecified (5) SIRS (systemic inflammatory response syndrome) ICD Code: R65.10 - Systemic inflammatory response syndrome (SIRS) of non- infectious origin without acute organ dysfunction (6) DM (diabetes mellitus) ICD Code: E11.9 - Type 2 diabetes mellitus without complications Assessment and Plan 72 years old female with: Metastatic breast cancer Pathology: poorly differentiated ductal carcinoma with positive estrogen and progesterone receptors on the right; Triple negative on the left breast. 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. Appreciate general surgery and oncology following. Status post port placement. - Patient started chemotherapy. - radiation therapy planned. - continue hormonal treatment. - wound care nurse consult requested. Abnormal urinalysis cultures negative SIRS risk on admission, normalized at this time - S/P Cefepime course 05/16. Fall at home Patient has decompensated, severe arthritis in right knee Possibly worsened weakness due to metastatic lesions in her spine aggravating her spinal arthritis and causing worsened radicular effects - No steroids at this time due to risk of healing after possible surgery. - PT daily- out of bed to chair daily. Type 2 diabetes- newly diagnosed Hemoglobin A1c 6.9%, good blood sugar readings - Resume diabetic diet - diabetes teaching done. Hypokalemia K+ level 3.5. - ADAT. - monitor as needed. DVT prophylaxis - Tedrobi/ Bulmaro Hilton DO May 24, 2018 16:06
[2018-05-24] MEDS: DOCUSATE SODIUM 100 MG CAP PO SCH (21:00)
[2018-05-25] VITALS (12 sets, daily range): BP systolic 117–149; BP diastolic 66–76; PULSE 67–85; RESP 16–20; TEMP 98.2–99.3; O2SAT 95–97
[2018-05-25] MEDS: oxyCODONE/ACETAMINOPHEN 10 MG/325 MG TAB PO PRN ×4 (00:44→21:52)
[2018-05-25] MEDS: INSULIN ASPART SUPPLEMENTAL SCALE SQ SCH ×4 (08:00→21:52)
[2018-05-25] MEDS: DOCUSATE SODIUM 100 MG CAP PO SCH ×2 (08:23→21:00)
[2018-05-25] MEDS: ANASTROZOLE 1 MG TAB PO SCH (08:34)
[2018-05-25] MEDS: SODIUM CHLORIDE 0.9% FLUSH 10 ML FLUSH IV FLUSH SCH ×2 (08:35→21:53)
[2018-05-25] MEDS: ENOXAPARIN SODIUM 30 MG/0.3 ML SYRINGE SQ SCH (12:19)
[2018-05-25] MEDS: NYSTATIN 100,000 U/GM OINT 15 GM TUBE TOPICAL SCH ×2 (12:19→21:54)
--- NOTE | 2018-05-25 15:28 | PD.WCN.NOT ---
Wound Consult Description: Consult for WOUND MANAGEMENT of breasts per Dr Sharma Communicated with: Patient ERIN Choi Dr Recommendation: Every other day and PRN for saturation or dislodgement: - Gently cleanse bilateral breast wounds with NS and gauze. - Gently pat dry - Apply Optifoam AG over wound bed - Prep periwound with skin barrier film (allow to dry) - Secure with paper tape Additional Information: Patient seen on [facility] for wound evaluation of breasts. Left breast wound was visualized after removing abd pad. Wound measures 4.7cm x 3.6cm x ~0.5cm. There is scant active sanguinous drainage noted with dressing removal. Periwound is indurated. Wound was gently cleansed with NS and gauze. Moist to dry dressing placed until orders could be obtained for Optifoam AG every other day. Right breast wound was visualized after removing outer dressing of abd pad and rolled gauze. Wound measures 10cm x 12cm x 2.1cm encompassing areola. There is scant sanguinous drainage noted when dressing was removed. Periwound is indurated with pustules. Wound was cleansed with NS and gauze. A dressing of moist to dry was secured with a bordered gauze dressing and paper tape until orders are obtained for Optifoam AG every other day and PRN for saturation or dislodgement. Helga Pompa [facility] May 25, 2018 15:28
--- NOTE | 2018-05-25 15:38 | HHI.PR ---
Subjective Remarks The patient went down to radiation but the procedure had to be rescheduled for tomorrow. She said the wound care nurse changed her dressings and she was happy with that. No acute concerns at this time. She had a friend at the bedside. Discussed with nursing. Objective Vitals Vital Signs Date Time Temp Pulse Resp B/P (MAP) Pulse Ox O2 Delivery O2 Flow Rate FiO2 05/25/18 12:25 98.3 76 18 132/74 (93) 95 05/25/18 12:00 70 05/25/18 10:10 Room Air 05/25/18 08:58 Room Air 05/25/18 08:33 99.3 77 20 130/73 (92) 95 05/25/18 08:26 70 05/25/18 04:00 99.0 68 16 117/66 (83) 95 05/25/18 04:00 67 05/25/18 00:40 98.4 78 20 149/76 (100) 97 05/25/18 00:25 70 05/24/18 21:44 16 05/24/18 21:30 96 Room Air 05/24/18 20:07 78 05/24/18 20:00 98.9 83 20 131/68 (89) 95 05/24/18 16:00 98.2 86 20 124/65 (84) 94 05/24/18 15:54 80 I/O 05/24/18 05/24/18 05/24/18 05/25/18 05/25/18 05/25/18 07:00 15:00 23:00 07:00 15:00 23:00 Intake Total 240 ml 600 ml 240 ml Output Total 200 ml 600 ml 400 ml Balance 40 ml 0 ml -160 ml Intake Oral 240 ml 600 ml 240 ml Output Urine Total 200 ml 600 ml 400 ml # Voids 2 # Bowel Movements 1 5 Result Diagram: 05/23/18 0450 05/23/18 0450 Imaging Last Impressions Chest X-Ray 05/20/18 0000 Signed Impressions: CONCLUSION: 1. Diminished lung volumes with minimal interstitial prominence. 2. Right-sided port with tip in the SVC. No pneumothorax Lumbar Puncture Fluoroscopy 05/12/18 0000 Signed Impressions: CONCLUSION: 1. Uncomplicated fluoroscopically guided lumbar puncture. Femur X-Ray 05/12/18 0000 Signed Impressions: CONCLUSION: Intact right femur. Thoracic Spine MRI 05/10/18 Signed Impressions: CONCLUSION: 1. 1.4 cm enhancing lesions at T9 and T12 suspicious for metastatic disease. N o pathologic fracture. No significant canal stenosis. Lumbar Spine MRI 05/10/18 Signed Impressions: CONCLUSION: 1. Enhancing lesions at T12, L1 and S3 most characteristic of metastatic disea se. 2. At L4-5 there is a small right paracentral disc protrusion with mild stenos is of the right lateral recess. 3. Conus medullaris intact. Knee X-Ray 05/10/18 Signed Impressions: CONCLUSION: Large tricompartmental osteophytes. No acute fracture Chest CT 05/10/18 Signed Impressions: CONCLUSION: 1. Bilateral breast masses with skin thickening and ulceration. Bilateral axil amanda adenopathy. Cervical Spine MRI 05/10/18 Signed Impressions: CONCLUSION: 1. Negative for metastatic disease. Moderate degenerative disc disease as abov e. No cord impingement. Brain MRI 05/10/18 Signed Impressions: CONCLUSION: 1. No acute findings. No recent infarct. Minimal white matter ischemic changes . Abdomen/Pelvis CT 05/10/18 Signed Impressions: CONCLUSION: 1. Left breast mass with lytic bone destruction noted in the right hemipelvis around the acetabulum measuring around 5 cm in diameter and also in the left an terior iliac bone measuring around 2 cm in diameter characteristic of metastati c bone disease. 2. Large gallstone measuring up to 3.9 cm. 3. Small hiatal hernia. No pathologically enlarged lymph nodes identified with in the abdomen and pelvis. 4. Colonic diverticula. Probable small calcified fibroids. Objective Remarks GENERAL: This is a well-nourished, well-developed patient, in no apparent distress. CARDIOVASCULAR: Normal rate and regular rhythm without murmurs, gallops, or rubs. RESPIRATORY: Good respiratory efforts. Breath sounds equal and clear to auscultation bilaterally. GASTROINTESTINAL: Abdomen soft, non-tender, non-distended. Normal active bowel sounds MUSCULOSKELETAL: Extremities without cyanosis, or edema. NEURO: Alert & Oriented x4 to person, place, time, situation. Moves all ext x4 PSYCH: Appropriate mood and affect. A/P Problem List: (1) Fall ICD Code: W19.XXXA - Unspecified fall, initial encounter (2) Masses of both breasts ICD Code: N63.10 - Unspecified lump in the right breast, unspecified quadrant; N63.20 - Unspecified lump in the left breast, unspecified quadrant (3) UTI (urinary tract infection) ICD Code: N39.0 - Urinary tract infection, site not specified (4) Renal insufficiency ICD Code: N28.9 - Disorder of kidney and ureter, unspecified (5) SIRS (systemic inflammatory response syndrome) ICD Code: R65.10 - Systemic inflammatory response syndrome (SIRS) of non- infectious origin without acute organ dysfunction (6) DM (diabetes mellitus) ICD Code: E11.9 - Type 2 diabetes mellitus without complications Assessment and Plan 72 years old female with: Metastatic breast cancer Pathology: poorly differentiated ductal carcinoma with positive estrogen and progesterone receptors on the right; Triple negative on the left breast. 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. Appreciate general surgery and oncology following. Status post port placement. - Patient started chemotherapy. - radiation therapy planned to start 05/26. - continue hormonal treatment. - wound care nurse consult appreciated. Continue dressings as recommended. Abnormal urinalysis cultures negative SIRS risk on admission, normalized at this time - S/P Cefepime course 05/16. Fall at home Patient has decompensated, severe arthritis in right knee Possibly worsened weakness due to metastatic lesions in her spine aggravating her spinal arthritis and causing worsened radicular effects - No steroids at this time due to risk of healing after possible surgery. - PT daily- out of bed to chair daily. Type 2 diabetes- newly diagnosed Hemoglobin A1c 6.9%, good blood sugar readings - Resume diabetic diet - diabetes teaching done. Hypokalemia K+ level 3.5. - ADAT. - monitor as needed. DVT prophylaxis - Teds/ Lovenox Bulmaro Sharma DO May 25, 2018 15:38
--- NOTE | 2018-05-25 16:15 | PD.ONC.PN ---
Subjective Subjective Remarks Feels well Afebrile Had dressing change earlier today Unable to finish simulation this morning due to logistical issues Objective Data Date Time Temp Pulse Resp B/P (MAP) Pulse Ox O2 Delivery O2 Flow Rate FiO2 05/25/18 12:25 98.3 76 18 132/74 (93) 95 05/25/18 12:00 70 05/25/18 10:10 Room Air 05/25/18 08:58 Room Air 05/25/18 08:33 99.3 77 20 130/73 (92) 95 05/25/18 08:26 70 05/25/18 04:00 99.0 68 16 117/66 (83) 95 05/25/18 04:00 67 05/25/18 00:40 98.4 78 20 149/76 (100) 97 05/25/18 00:25 70 05/24/18 21:44 16 05/24/18 21:30 96 Room Air 05/24/18 20:07 78 05/24/18 20:00 98.9 83 20 131/68 (89) 95 05/25/18 05/25/18 05/25/18 07:00 15:00 23:00 Intake Total 240 ml Output Total 400 ml Balance -160 ml Result Diagram: 05/23/18 04505/23/18 0450 Administered Medications Medications (Trade) Dose Ordered Sig/Soo Route PRN Reason Start Time Stop Time Status Last Admin Dose Admin Insulin Aspart (NovoLOG SUPPLEMENTAL SCALE) 1 ACHS SLIDING SCALE SQ 05/10/18 08:00 05/24/18 21:52 Sodium Chloride (NS Flush) 2 ml UNSCH PRN IV FLUSH FLUSH AFTER USING IV ACCESS 05/10/18 03:30 05/23/18 09:55 Sodium Chloride (NS Flush) 2 ml BID IV FLUSH 05/10/18 09:00 05/25/18 08:35 Sennosides (Senokot) 17.2 mg Q12H PRN PO Moderate constipation 05/10/18 03:30 05/23/18 18:33 Enoxaparin Sodium (Lovenox Inj) 30 mg Q24H SQ 05/16/18 11:00 Future hold 05/25/18 12:19 Oxycodone/ Acetaminophen (Percocet 10-325 Mg) 1 tab Q6H PRN PO PAIN SCALE 6 TO 10 05/19/18 14:00 05/25/18 08:35 Morphine Sulfate (Morphine Inj) 4 mg Q3H PRN IV PUSH BREAKTHROUGH PAIN 05/19/18 14:00 05/22/18 06:35 Anastrozole (Arimidex) 1 mg DAILY PO 05/19/18 21:15 05/25/18 08:34 Nystatin (Mycostatin Oint) 1 applic Q12HR TOPICAL 05/20/18 23:00 05/25/18 12:19 Objective Remarks GENERAL: Older female resting in bed asleep in no distress. She awakens easily to verbal stimuli. SKIN: Pale, warm and dry. HEAD: Normocephalic. EYES: No scleral icterus. No injection or drainage. NECK: Supple, trachea midline. Right supraclavicular adenopathy with intact steri-strip in place. Breasts: Bilateral breast bandages dry and intact. CARDIOVASCULAR: Regular rate and rhythm without murmurs. RESPIRATORY: Breath sounds clear, equal bilaterally. No accessory muscle use. GASTROINTESTINAL: Abdomen large, soft, non-tender, nondistended. EXTREMITIES: No cyanosis, or edema. Lower extremity sequentials in place. NEUROLOGICAL: No obvious focal deficit. Awake, alert, and oriented x3. Assessment/Plan Problem List: (1) Metastatic breast cancer ICD Codes: C50.919 - Malignant neoplasm of unspecified site of unspecified female breast Plan: 05/25: Patient was unable to complete radiation simulation today. She reports they will fit her in tomorrow for a different machine that can accommodate her breast size. 05/24: Bilateral dressings dry and intact. Scheduled for RAD simulation tomorrow. 05/23: Awaiting RAD Sim on Friday. Bilateral dressings changed yesterday. Dry and intact today. 05/22: Dr. Rodgers consulted, RAD sim scheduled for Friday at 0930. 05/21: plan to start weekly carbo/taxol today +/- radiation to both breasts; will discuss with Dr. Rodgers. 05/19/18. R breast cancer ER positive, [place] positive, Her 2 neg- likely the source of bone metastatic disease. Pt noticed the right breast mass longer duration. L breast triple negative breast cancer. Acute problem related to ulcerative mass R breast >L. Discussed option to palliate breast masses which are difficult to manage. Ultimately patient with need systemic chemotherapy for tx of triple negative breast cancer. Start Arimidex, hormonal therapy for ER positive breast cancer. Discussed with surgery local control for disease with bilateral lumpectomy. (2) Radicular leg pain ICD Codes: M54.10 - Radiculopathy, site unspecified Plan: Pain R leg. --has extensive metastatic disease to spine and pelvis xr shows no fx of femur 05/25: Patient reports ambulation is improved today with less pain. 05/24. --Reports apprehension with ambulation. --Walker for assistance. --Continue walking with PT to regain strength. 05/23/18. --Continue PT to increase strength. --Ambulates with walker. 05/22/18. --PT working with patient. 05/19/18. R leg pain better. Walking with PT. Assessment 72 y/o woman with HTN, DM, dx with neglected breast cancer, evidence for metastatic disease on imaging. Plan 1. Reattempt radiation simulation tomorrow on different machine 2. Monitor CBC 3. Continue dressing changes to breasts Attending Statement The exam, history, and the medical decision-making described in the above note were completed with the assistance of the mid-level provider. I reviewed and agree with the findings presented. I attest that I had a [id number] encounter with the patient on the same day, and personally performed and documented my assessment and findings in the medical record. R axillary mass unchanged. Notable response on the L breast, smaller L axillary adenopathy. L breast mass has decreased in size. Cont AI, appreciate wound care. Working to continue care as out pt, barrier is that pt have never been seen by [facility] pcp, all prior authorization including out pt chemo needs to go through PCP. Consult case management to coordinate appt w/ PCP as soon as possible. Coordinate this along with transfer to SNF so that there is no interruption of treatment. Alia Rossi May 25, 2018 16:15 Britany Johnson MD May 25, 2018 19:55
[2018-05-26] VITALS (11 sets, daily range): BP systolic 111–140; BP diastolic 60–84; PULSE 58–85; RESP 16–20; TEMP 98.1–98.7; O2SAT 94–96
[2018-05-26] MEDS: SODIUM CHLORIDE 0.9% FLUSH 10 ML FLUSH IV FLUSH PRN (05:17)
[2018-05-26 05:56] LABS: HEMOGLOBIN 11.1 GM/DL (11.6-15.3); MEAN CORPUSCULAR HEMOGLOBIN 28.2 PG (27.0-34.0); MEAN CORPUSCULAR HGB CONC 32.8 % (32.0-36.0); MEAN PLATELET VOLUME 6.6 FL (7.0-11.0); PLATELET COUNT 223 TH/MM3 (150-450); RED BLOOD COUNT 3.95 MIL/MM3 (4.00-5.30); RED CELL DISTRIBUTION WIDTH 15.7 % (11.6-17.2); WHITE BLOOD COUNT 7.5 TH/MM3 (4.0-11.0)
[2018-05-26 06:19] LABS: BICARBONATE 25.4 MEQ/L (21.0-32.0); CALCIUM 8.9 MG/DL (8.5-10.1); CREATININE 0.59 MG/DL (0.50-1.00); MAGNESIUM 2.2 MG/DL (1.5-2.5)
[2018-05-26] MEDS: oxyCODONE/ACETAMINOPHEN 10 MG/325 MG TAB PO PRN ×3 (06:43→19:35)
[2018-05-26] MEDS: INSULIN ASPART SUPPLEMENTAL SCALE SQ SCH ×4 (07:47→21:00)
[2018-05-26] MEDS: ANASTROZOLE 1 MG TAB PO SCH (08:17)
[2018-05-26] MEDS: DOCUSATE SODIUM 100 MG CAP PO SCH ×2 (08:17→21:00)
[2018-05-26] MEDS: SODIUM CHLORIDE 0.9% FLUSH 10 ML FLUSH IV FLUSH SCH ×2 (08:18→22:02)
[2018-05-26] MEDS: NYSTATIN 100,000 U/GM OINT 15 GM TUBE TOPICAL SCH ×2 (08:18→22:01)
[2018-05-26] MEDS ORDERED: SODIUM CHLORIDE 0.9% FLUSH 10 ML FLUSH IV FLUSH PRN (08:30)
[2018-05-26] MEDS: ENOXAPARIN SODIUM 30 MG/0.3 ML SYRINGE SQ SCH (09:31)
--- NOTE | 2018-05-26 11:07 | HHI.PR ---
Subjective Subjective Notes Resting in bed Going for radiation today Objective Vitals/I&O Vital Signs Date Time Temp Pulse Resp B/P (MAP) Pulse Ox O2 Delivery O2 Flow Rate FiO2 05/26/18 08:21 Room Air 05/26/18 08:13 98.5 62 18 111/60 (77) 95 Labs Laboratory Tests Test 05/26/18 05:20 White Blood Count 7.5 Red Blood Count 3.95 Hemoglobin 11.1 Hematocrit 34.0 Mean Corpuscular Volume 86.0 Mean Corpuscular Hemoglobin 28.2 Mean Corpuscular Hemoglobin Concent 32.8 Red Cell Distribution Width 15.7 Platelet Count 223 Mean Platelet Volume 6.6 Blood Urea Nitrogen 12 Creatinine 0.59 Random Glucose 89 Calcium Level 8.9 Magnesium Level 2.2 Sodium Level 139 Potassium Level 3.9 Chloride Level 104 Carbon Dioxide Level 25.4 Anion Gap 10 Estimat Glomerular Filtration Rate 101 Date/Time Source Procedure Growth Status 05/10/18 00:21 Blood Peripheral Aerobic Blood Culture - Final NO GROWTH IN 5 DAYS Complete 05/10/18 00:21 Blood Peripheral Anaerobic Blood Culture - Final NO GROWTH IN 5 DAYS Complete 05/12/18 12:02 Cerebral Spinal Fluid Lumbar Puncture Fungal Smear - Final NO FUNGAL ELEMENTS SEEN. Resulted 05/12/18 12:02 Cerebral Spinal Fluid Lumbar Puncture Fungal Culture - Preliminary NO GROWTH IN 1 WEEK Resulted 05/10/18 01:20 Urine Catheterized Urine Urine Culture - Final 10-50,000 CFU/ML MIXED GRAM POSITIVE ... Complete 05/10/18 00:32 Wound Breast Gram Stain - Final Complete 05/10/18 00:32 Wound Breast Wound Culture - Final Complete Cardiovascular: Regular Lungs: Clear Abdomen: Non-distended, Non-tender Extremities: No edema Narrative Exam bilateral fungating breast tumors; s/p punch biopsy; no bleeding chest port in place A/P Assessment and Plan 72 year old female with bilateral fungating breast mass; BLE weakness -S/p port placement -Radiation today -Oncology following---tolerating chemotherapy - consult for rehab placement Bernadette Terrell/[facility]OTT May 26, 2018 11:07
--- NOTE | 2018-05-26 13:50 | PD.ONC.PN ---
Subjective Subjective Remarks Pt resting comfortably in bed. Reports that she did walk with P.T. today, she feels that her right knee is improving, however she has not gained her confidence back. Rad simulation was not completed yesterday, given her large breast habitus, they are planning to attempt again today. Objective Data Date Time Temp Pulse Resp B/P (MAP) Pulse Ox O2 Delivery O2 Flow Rate FiO2 05/26/18 12:08 98.5 74 20 137/77 (97) 96 05/26/18 12:00 66 05/26/18 08:21 Room Air 05/26/18 08:13 98.5 62 18 111/60 (77) 95 05/26/18 07:11 63 05/26/18 05:14 98.1 58 16 135/68 (90) 95 05/26/18 04:07 70 05/26/18 00:07 85 05/25/18 23:03 98.4 69 18 135/71 (92) 95 05/25/18 20:25 Room Air 05/25/18 20:22 98.2 85 20 130/71 (90) 96 05/25/18 20:21 71 05/25/18 16:14 98.5 70 20 96 05/25/18 16:00 74 05/26/18 05/26/18 05/26/18 07:00 15:00 23:00 Output Total 800 ml Balance -800 ml Result Diagram: 05/26/18 0520 05/26/18 0520 Laboratory Results Laboratory Tests Test 05/26/18 05:20 White Blood Count 7.5 TH/MM3 Red Blood Count 3.95 MIL/MM3 Hemoglobin 11.1 GM/DL Hematocrit 34.0 % Mean Corpuscular Volume 86.0 FL Mean Corpuscular Hemoglobin 28.2 PG Mean Corpuscular Hemoglobin Concent 32.8 % Red Cell Distribution Width 15.7 % Platelet Count 223 TH/MM3 Mean Platelet Volume 6.6 FL Blood Urea Nitrogen 12 MG/DL Creatinine 0.59 MG/DL Random Glucose 89 MG/DL Calcium Level 8.9 MG/DL Magnesium Level 2.2 MG/DL Sodium Level 139 MEQ/L Potassium Level 3.9 MEQ/L Chloride Level 104 MEQ/L Carbon Dioxide Level 25.4 MEQ/L Anion Gap 10 MEQ/L Estimat Glomerular Filtration Rate 101 ML/MIN Administered Medications Medications (Trade) Dose Ordered Sig/Soo Route PRN Reason Start Time Stop Time Status Last Admin Dose Admin Insulin Aspart (NovoLOG SUPPLEMENTAL SCALE) 1 ACHS SLIDING SCALE SQ 05/10/18 08:00 05/25/18 21:52 Sodium Chloride (NS Flush) 2 ml UNSCH PRN IV FLUSH FLUSH AFTER USING IV ACCESS 05/10/18 03:30 05/26/18 05:17 Sodium Chloride (NS Flush) 2 ml BID IV FLUSH 05/10/18 09:00 05/26/18 08:18 Sennosides (Senokot) 17.2 mg Q12H PRN PO Moderate constipation 05/10/18 03:30 05/23/18 18:33 Enoxaparin Sodium (Lovenox Inj) 30 mg Q24H SQ 05/16/18 11:00 Future hold 05/26/18 09:31 Oxycodone/ Acetaminophen (Percocet 10-325 Mg) 1 tab Q6H PRN PO PAIN SCALE 6 TO 10 05/19/18 14:00 05/26/18 12:52 Morphine Sulfate (Morphine Inj) 4 mg Q3H PRN IV PUSH BREAKTHROUGH PAIN 05/19/18 14:00 05/22/18 06:35 Anastrozole (Arimidex) 1 mg DAILY PO 05/19/18 21:15 05/26/18 08:17 Nystatin (Mycostatin Oint) 1 applic Q12HR TOPICAL 05/20/18 23:00 05/26/18 08:18 Objective Remarks GENERAL: Obese, elderly female, in no acute distress. SKIN: Pale, warm and dry. HEAD: Normocephalic. EYES: No scleral icterus. No injection or drainage. NECK: Supple, trachea midline. Right supraclavicular adenopathy with intact steri-strip in place. Breasts: Bilateral breast bandages dry and intact. CARDIOVASCULAR: +S1/S2. Regular rate and rhythm without murmurs. RESPIRATORY: Posterior breath sounds clear, equal bilaterally. No accessory muscle use. GASTROINTESTINAL: Abdomen large, soft, non-tender, nondistended. EXTREMITIES: No cyanosis, or edema. NEUROLOGICAL: No obvious focal deficit. Awake, alert, and oriented x3. PSYCHIATRIC: Appropriate mood and affect; insight and judgment normal. Assessment/Plan Problem List: (1) Metastatic breast cancer ICD Codes: C50.919 - Malignant neoplasm of unspecified site of unspecified female breast Plan: 05/26: Awaiting RAD simulation today. Delayed d/t large breast habitus. Bilateral dressings dry & intact. 05/25: Patient was unable to complete radiation simulation today. She reports they will fit her in tomorrow for a different machine that can accommodate her breast size. 05/24: Bilateral dressings dry and intact. Scheduled for RAD simulation tomorrow. 05/23: Awaiting RAD Sim on Friday. Bilateral dressings changed yesterday. Dry and intact today. 05/22: Dr. Rodgers consulted, RAD sim scheduled for Friday at 0930. 05/21: plan to start weekly carbo/taxol today +/- radiation to both breasts; will discuss with Dr. Rodgers. 05/19/18. R breast cancer ER positive, [place] positive, Her 2 neg- likely the source of bone metastatic disease. Pt noticed the right breast mass longer duration. L breast triple negative breast cancer. Acute problem related to ulcerative mass R breast >L. Discussed option to palliate breast masses which are difficult to manage. Ultimately patient with need systemic chemotherapy for tx of triple negative breast cancer. Start Arimidex, hormonal therapy for ER positive breast cancer. Discussed with surgery local control for disease with bilateral lumpectomy. (2) Radicular leg pain ICD Codes: M54.10 - Radiculopathy, site unspecified Plan: Pain R leg. --has extensive metastatic disease to spine and pelvis --xr shows no fx of femur 05/26: Walked with P.T. reports knee less painful, now working on regaining confidence with ambulation. Denies any back pain. P.T. gave her bed exercises to perform, she seems excited to do these. 05/25: Patient reports ambulation is improved today with less pain. 05/24. --Reports apprehension with ambulation. --Walker for assistance. --Continue walking with PT to regain strength. 05/23/18. --Continue PT to increase strength. --Ambulates with walker. 05/22/18. --PT working with patient. 05/19/18. R leg pain better. Walking with PT. Assessment 72 y/o woman with HTN, DM, dx with neglected breast cancer, evidence for metastatic disease on imaging. Plan 1. Reattempt radiation simulation today on different machine 2. Monitor CBC 3. Continue to monitor bilateral breast wounds. Dressing changes to breasts daily and as needed. 4. Case management to assist with [facility] outpatient referral from pcp. Attending Statement The exam, history, and the medical decision-making described in the above note were completed with the assistance of the mid-level provider. I reviewed and agree with the findings presented. I attest that I had a [id number] encounter with the patient on the same day, and personally performed and documented my assessment and findings in the medical record. With many phone calls, discussion, approval for out pt obtained through PCP. Anticipate DC to SNF tomorrow, follow at [facility] following day to continue tx. Cont AI as planned. R breast mass slow to respond. Bushra Garay May 26, 2018 13:50 Britany Johnson MD May 26, 2018 15:56
--- NOTE | 2018-05-26 16:50 | HHI.PR ---
Subjective Remarks The patient said she did really well with physical therapy. She learned a few new maneuvers for getting herself around. She said she was waiting to get her radiation done. Discussed with nursing. Objective Vitals Vital Signs Date Time Temp Pulse Resp B/P (MAP) Pulse Ox O2 Delivery O2 Flow Rate FiO2 05/26/18 16:31 98.7 74 18 140/84 (102) 96 05/26/18 12:08 98.5 74 20 137/77 (97) 96 05/26/18 12:00 66 05/26/18 08:21 Room Air 05/26/18 08:13 98.5 62 18 111/60 (77) 95 05/26/18 07:11 63 05/26/18 05:14 98.1 58 16 135/68 (90) 95 05/26/18 04:07 70 05/26/18 00:07 85 05/25/18 23:03 98.4 69 18 135/71 (92) 95 05/25/18 20:25 Room Air 05/25/18 20:22 98.2 85 20 130/71 (90) 96 05/25/18 20:21 71 I/O 05/25/18 05/25/18 05/25/18 05/26/18 05/26/18 05/26/18 07:00 15:00 23:00 07:00 15:00 23:00 Intake Total 240 ml 690 ml Output Total 400 ml 500 ml 800 ml Balance -160 ml 190 ml -800 ml Intake Oral 240 ml 690 ml Output Urine Total 400 ml 500 ml 800 ml # Voids 1 Result Diagram: 05/26/18 0505/26/18 0520 Imaging Last Impressions Chest X-Ray 05/20/18 0000 Signed Impressions: CONCLUSION: 1. Diminished lung volumes with minimal interstitial prominence. 2. Right-sided port with tip in the SVC. No pneumothorax Lumbar Puncture Fluoroscopy 05/12/18 0000 Signed Impressions: CONCLUSION: 1. Uncomplicated fluoroscopically guided lumbar puncture. Femur X-Ray 05/12/18 0000 Signed Impressions: CONCLUSION: Intact right femur. Thoracic Spine MRI 05/10/18 0000 Signed Impressions: CONCLUSION: 1. 1.4 cm enhancing lesions at T9 and T12 suspicious for metastatic disease. N o pathologic fracture. No significant canal stenosis. Lumbar Spine MRI 6/10/18 0000 Signed Impressions: CONCLUSION: 1. Enhancing lesions at T12, L1 and S3 most characteristic of metastatic disea se. 2. At L4-5 there is a small right paracentral disc protrusion with mild stenos is of the right lateral recess. 3. Conus medullaris intact. Knee X-Ray 05/10/18 Signed Impressions: CONCLUSION: Large tricompartmental osteophytes. No acute fracture Chest CT 05/10/18 Signed Impressions: CONCLUSION: 1. Bilateral breast masses with skin thickening and ulceration. Bilateral axil amanda adenopathy. Cervical Spine MRI 05/10/18 Signed Impressions: CONCLUSION: 1. Negative for metastatic disease. Moderate degenerative disc disease as abov e. No cord impingement. Brain MRI 05/10/18 Signed Impressions: CONCLUSION: 1. No acute findings. No recent infarct. Minimal white matter ischemic changes . Abdomen/Pelvis CT 05/10/18 Signed Impressions: CONCLUSION: 1. Left breast mass with lytic bone destruction noted in the right hemipelvis around the acetabulum measuring around 5 cm in diameter and also in the left an terior iliac bone measuring around 2 cm in diameter characteristic of metastati c bone disease. 2. Large gallstone measuring up to 3.9 cm. 3. Small hiatal hernia. No pathologically enlarged lymph nodes identified with in the abdomen and pelvis. 4. Colonic diverticula. Probable small calcified fibroids. Objective Remarks GENERAL: This is a well-nourished, well-developed patient, in no apparent distress. CARDIOVASCULAR: Normal rate and regular rhythm without murmurs, gallops, or rubs. RESPIRATORY: Good respiratory efforts. Breath sounds equal and clear to auscultation bilaterally. GASTROINTESTINAL: Abdomen soft, non-tender, non-distended. Normal active bowel sounds MUSCULOSKELETAL: Extremities without cyanosis, or edema. NEURO: Alert & Oriented x4 to person, place, time, situation. Moves all ext x4 PSYCH: Appropriate mood and affect. A/P Problem List: (1) Fall ICD Code: W19.XXXA - Unspecified fall, initial encounter (2) Masses of both breasts ICD Code: N63.10 - Unspecified lump in the right breast, unspecified quadrant; N63.20 - Unspecified lump in the left breast, unspecified quadrant (3) UTI (urinary tract infection) ICD Code: N39.0 - Urinary tract infection, site not specified (4) Renal insufficiency ICD Code: N28.9 - Disorder of kidney and ureter, unspecified (5) SIRS (systemic inflammatory response syndrome) ICD Code: R65.10 - Systemic inflammatory response syndrome (SIRS) of non- infectious origin without acute organ dysfunction (6) DM (diabetes mellitus) ICD Code: E11.9 - Type 2 diabetes mellitus without complications Assessment and Plan 72 years old female with: Metastatic breast cancer Pathology: poorly differentiated ductal carcinoma with positive estrogen and progesterone receptors on the right; Triple negative on the left breast. 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. Appreciate general surgery and oncology following. Status post port placement. - Patient started chemotherapy. - radiation therapy planned to start 05/26. - continue hormonal treatment. - wound care nurse consult appreciated. Continue dressings as recommended. SIRS risk on admission Normalized at this time. - S/P Cefepime course 05/16. Fall at home Patient has decompensated, severe arthritis in right knee Possibly worsened weakness due to metastatic lesions in her spine aggravating her spinal arthritis and causing worsened radicular effects - No steroids at this time due to risk of healing after possible surgery. - PT daily- out of bed to chair daily. Type 2 diabetes- newly diagnosed Hemoglobin A1c 6.9%, good blood sugar readings - Resume diabetic diet - diabetes teaching done. Hypokalemia Resolved. - ADAT. - monitor as needed. DVT prophylaxis - Teds/ Lovenox Bulmaro Sharma DO May 26, 2018 16:50
[2018-05-27] VITALS (7 sets, daily range): BP systolic 120–158; BP diastolic 68–79; PULSE 63–84; RESP 16–18; TEMP 98–98.6; O2SAT 94–96
[2018-05-27] MEDS: oxyCODONE/ACETAMINOPHEN 10 MG/325 MG TAB PO PRN ×3 (04:38→18:05)
[2018-05-27] MEDS: INSULIN ASPART SUPPLEMENTAL SCALE SQ SCH ×3 (08:00→17:00)
[2018-05-27] MEDS: ANASTROZOLE 1 MG TAB PO SCH (08:43)
[2018-05-27] MEDS: SODIUM CHLORIDE 0.9% FLUSH 10 ML FLUSH IV FLUSH SCH (08:43)
[2018-05-27] MEDS: NYSTATIN 100,000 U/GM OINT 15 GM TUBE TOPICAL SCH (08:46)
[2018-05-27] MEDS: DOCUSATE SODIUM 100 MG CAP PO SCH (08:49)
[2018-05-27] MEDS: ENOXAPARIN SODIUM 30 MG/0.3 ML SYRINGE SQ SCH (10:43)
--- NOTE | 2018-05-27 10:56 | HHI.DS ---
Discharge Summary Admission Date May 10, 2018 at 03:28 Discharge Date: May 27, 2018 Admitting Diagnosis Sepsis, necrotic breast mass (1) Fall ICD Code: W19.XXXA - Unspecified fall, initial encounter (2) Masses of both breasts ICD Code: N63.10 - Unspecified lump in the right breast, unspecified quadrant; N63.20 - Unspecified lump in the left breast, unspecified quadrant Diagnosis: Principal (3) UTI (urinary tract infection) ICD Code: N39.0 - Urinary tract infection, site not specified (4) Renal insufficiency ICD Code: N28.9 - Disorder of kidney and ureter, unspecified (5) SIRS (systemic inflammatory response syndrome) ICD Code: R65.10 - Systemic inflammatory response syndrome (SIRS) of non- infectious origin without acute organ dysfunction (6) DM (diabetes mellitus) ICD Code: E11.9 - Type 2 diabetes mellitus without complications Procedures Punch biopsy Port placement Brief History - From Admission This is a 72-year-old female with no significant PMH and she is not seen a doctor in 40 years who was brought to the ER by EMS with complaints of left knee and right breast pain after a fall. Patient states her leg "buckled" and she fell forward onto her walker hitting her right breast. On exam, pt noted to have large, necrotic right breast lesion.. upon further questioning, pt states she noticed it 2 months ago but never sought medical attention because " I was stupid". Also notes similar, but smaller lesion to left breast which appeared approx 1wk ago. Denies fever, chills. No h/o Breast CA that she is aware of. On arrival, BP 172/75, HR 100, O2 sat 100% on RA, Afebrile. WBC 15.1. Creatinine 1.2 no previous labs for comparison. BS 283. Lactic Acid 3.2. INR 1.1. UA positive for UTI. Knee X-ray with no acute fracture. CXR negative. CT Chest bilateral breast masses with skin thickening and ulceration , bilateral axillary adenopathy. S/p Blood Cultures, Vanc/Zosyn in ER. CBC/BMP: 05/26/18 0520 05/26/18 0520 Significant Findings Laboratory Tests Test 05/26/18 05:20 Red Blood Count 3.95 MIL/MM3 (4.00-5.30) Hemoglobin 11.1 GM/DL (11.6-15.3) Hematocrit 34.0 % (35.0-46.0) Mean Platelet Volume 6.6 FL (7.0-11.0) Imaging Last Impressions Chest X-Ray 05/20/18 Signed Impressions: CONCLUSION: 1. Diminished lung volumes with minimal interstitial prominence. 2. Right-sided port with tip in the SVC. No pneumothorax Lumbar Puncture Fluoroscopy 05/12/18 Signed Impressions: CONCLUSION: 1. Uncomplicated fluoroscopically guided lumbar puncture. Femur X-Ray 05/12/18 Signed Impressions: CONCLUSION: Intact right femur. Thoracic Spine MRI 05/10/18 Signed Impressions: CONCLUSION: 1. 1.4 cm enhancing lesions at T9 and T12 suspicious for metastatic disease. N o pathologic fracture. No significant canal stenosis. Lumbar Spine MRI 05/10/18 Signed Impressions: CONCLUSION: 1. Enhancing lesions at T12, L1 and S3 most characteristic of metastatic disea se. 2. At L4-5 there is a small right paracentral disc protrusion with mild stenos is of the right lateral recess. 3. Conus medullaris intact. Knee X-Ray 05/10/18 Signed Impressions: CONCLUSION: Large tricompartmental osteophytes. No acute fracture Chest CT 05/10/18 Signed Impressions: CONCLUSION: 1. Bilateral breast masses with skin thickening and ulceration. Bilateral axil amanad adenopathy. Cervical Spine MRI 05/10/18 Signed Impressions: CONCLUSION: 1. Negative for metastatic disease. Moderate degenerative disc disease as abov e. No cord impingement. Brain MRI 05/10/18 Signed Impressions: CONCLUSION: 1. No acute findings. No recent infarct. Minimal white matter ischemic changes . Abdomen/Pelvis CT 05/10/18 Signed Impressions: CONCLUSION: 1. Left breast mass with lytic bone destruction noted in the right hemipelvis around the acetabulum measuring around 5 cm in diameter and also in the left an terior iliac bone measuring around 2 cm in diameter characteristic of metastati c bone disease. 2. Large gallstone measuring up to 3.9 cm. 3. Small hiatal hernia. No pathologically enlarged lymph nodes identified with in the abdomen and pelvis. 4. Colonic diverticula. Probable small calcified fibroids. PE at Discharge GENERAL: This is a well-nourished, well-developed patient, in no apparent distress. CARDIOVASCULAR: Normal rate and regular rhythm without murmurs, gallops, or rubs. RESPIRATORY: Good respiratory efforts. Breath sounds equal and clear to auscultation bilaterally. GASTROINTESTINAL: Abdomen soft, non-tender, non-distended. Normal active bowel sounds MUSCULOSKELETAL: Extremities without cyanosis, or edema. NEURO: Alert & Oriented x4 to person, place, time, situation. Moves all ext x4 PSYCH: Appropriate mood and affect. Pt update on day of discharge The patient was excited about being discharged. She said that she was going for radiation simulation today. She had no acute complaints. She had questions pertaining to her diet. Hospital Course Metastatic breast cancer Pathology: poorly differentiated ductal carcinoma with positive estrogen and progesterone receptors on the right; Triple negative on the left breast. 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 on imaging. General surgery and oncology were consulted. Status post punch biopsy and port placement. Radiation simulation was scheduled for 05/27. The pt will follow up with oncology for chemotherapy on 05/28. She will continue hormonal treatment with anastrazole. Wound care nurse recommended: Every other day and PRN for saturation or dislodgement: Gently cleanse bilateral breast wounds with NS and gauze; Gently pat dry; Apply Optifoam AG over wound bed (may be cut to fit); Prep periwound with skin barrier film (Cavilon or Bards etc) and allow to dry. SIRS The pt had a UA indicative of infection but urine culture was negative. Blood cultures were negative. The pt had a lumbar puncture which was also negative for infection. S/p a course of cefepime. 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 LP was performed as above. The pt also has severe arthritis in her right knee. She worked with physical therapy daily. Case management was consulted. She [facility] be [facility] to a [facility] facility. Type 2 diabetes- newly diagnosed Hemoglobin A1c 6.9%, good blood sugar readings here with the sliding scale. She was continued on a diabetic diet and received diabetes teaching. Pt Condition on Discharge: Stable Discharge Disposition: Discharge to SNF Discharge Time: > 30 minutes Discharge Instructions DIET: Follow Instructions for: Diabetic Diet Activities you can perform: Weight Bearing as John Follow up Referrals: Oncology/Hematology - 05/28/18 @ [facility] with Britany Johnson MD PCP Follow-up - 1 Week New Medications: Anastrozole (Arimidex) 1 Mg Tab 1 MG PO DAILY for Cancer, #30 TAB Oxycodone HCl/Acetaminophen (Oxycodone-Acetaminophen 10-325) 10 Mg-325 Mg Tablet 1 TAB PO Q6H PRN for PAIN SCALE 1 TO 10 for 3 Days, #12 TAB Bulmaro Sharma DO May 27, 2018 10:55
--- NOTE | 2018-05-27 11:28 | PD.ONC.PN ---
Subjective Subjective Remarks Pt lying in bed, in no acute distress. She is still awaiting radiation simulation today. She is excited to be discharged to rehab today. Objective Data Date Time Temp Pulse Resp B/P (MAP) Pulse Ox O2 Delivery O2 Flow Rate FiO2 05/27/18 08:36 Room Air 05/27/18 08:36 98.0 63 16 134/72 (92) 96 05/27/18 04:33 98.6 71 16 133/70 (91) 94 05/27/18 04:02 74 05/27/18 00:07 84 05/27/18 00:01 98.4 72 18 121/68 (85) 94 05/26/18 20:09 72 05/26/18 20:00 Room Air 05/26/18 19:24 98.2 77 18 126/66 (86) 94 05/26/18 16:31 98.7 74 18 140/84 (102) 96 05/26/18 16:00 70 05/26/18 12:08 98.5 74 20 137/77 (97) 96 05/26/18 12:00 66 05/27/18 05/27/18 05/27/18 07:00 15:00 23:00 Intake Total 240 ml Output Total 500 ml Balance -260 ml Result Diagram: 05/26/1851905/26/18 05 Laboratory Results Laboratory Tests Test 05/10/18 00:21 05/10/18 01:20 05/10/18 03:11 05/11/18 04:20 Prothrombin Time 11.1 SEC Prothromb Time International Ratio 1.1 RATIO Activated Partial Thromboplast Time 22.2 SEC Lipase 182 U/L Urine Color YELLOW Urine Turbidity HAZY Urine pH 6.5 Urine Specific [place] 1.016 Urine Protein 30 mg/dL Urine Glucose (UA) TRACE mg/dL Urine Ketones NEG mg/dL Urine Occult Blood TRACE Urine Nitrite NEG Urine Bilirubin NEG Urine Urobilinogen 4.0 MG/DL Urine Leukocyte Esterase NEG Urine RBC 4 /hpf Urine WBC 4 /hpf Urine Squamous Epithelial Cells 30 /hpf Urine Amorphous Sediment OCC Urine Bacteria MOD /hpf Urine Hyaline Casts 8 /lpf Urine Mucus FEW /lpf Microscopic Urinalysis Comment CATH-CULTURE IND Lactic Acid Level 2.7 mmol/L Hemoglobin A1c 6.9 % Test 05/12/18 12:02 05/12/18 14:55 05/12/18 23:15 05/13/18 20:24 CSF Volume (Tube 1) 4.1 ML CSF Supernatant Color (tube 1) CLEAR CSF Gross Blood (Tube 1) 0 CSF Volume (Tube 2) 5.0 ML CSF Supernatant Color (tube 2) CLEAR CSF Gross Blood (Tube 2) 0 CSF Volume (Tube 3) 5.4 ML CSF Supernatant Color (tube 3) CLEAR CSF Gross Blood (Tube 3) 0 CSF Volume (Tube 4) 3.1 ML CSF Supernatant Color (tube 4) CLEAR CSF Gross Blood (Tube 4) 0 CSF WBC (Tube 4) 5 /MM3 CSF RBC (Tube 4) 0 /MM3 CSF Neutrophils 0 % CSF Lymphocytes 83 % CSF Monocytes 17 % CSF Glucose 43 MG/DL CSF Total Protein 34.2 MG/DL CSF VDRL NON-REACTIVE CSF Cryptococcus Antigen NOT DETECTED CSF Cryptococcus Antigen Confirm Basophils % 1 % Metamyelocytes 1 % Toxic Granulation 2+ Vancomycin Level Trough 12.5 MCG/ML CA 15-3 Antigen 11.8 U/ML Test 05/20/18 05:42 05/21/18 06:00 05/23/18 04:50 05/26/18 05:20 Differential Total Cells Counted 100 Neutrophils % (Manual) 71 % Band Neutrophils % 7 % Lymphocytes % 13 % Monocytes % 4 % Eosinophils % 4 % Neutrophils # (Manual) 7.6 TH/MM3 Myelocytes 1 % Platelet Estimate NORMAL Platelet Morphology Comment NORMAL Keratocytes OCC Blood Urea Nitrogen 11 MG/DL 12 MG/DL Creatinine 0.67 MG/DL 0.59 MG/DL Random Glucose 166 MG/DL 89 MG/DL Total Protein 7.2 GM/DL Albumin 2.5 GM/DL Calcium Level 9.0 MG/DL 8.9 MG/DL Phosphorus Level 4.1 MG/DL Magnesium Level 2.2 MG/DL 2.2 MG/DL Alkaline Phosphatase 129 U/L Aspartate Amino Transf (AST/SGOT) 23 U/L Alanine Aminotransferase (ALT/SGPT) 15 U/L Total Bilirubin 0.4 MG/DL Sodium Level 140 MEQ/L 139 MEQ/L Potassium Level 4.2 MEQ/L 3.9 MEQ/L Chloride Level 104 MEQ/L 104 MEQ/L Carbon Dioxide Level 24.7 MEQ/L 25.4 MEQ/L Neutrophils (%) (Auto) 79.0 % Lymphocytes (%) (Auto) 14.6 % Monocytes (%) (Auto) 4.4 % Eosinophils (%) (Auto) 1.1 % Basophils (%) (Auto) 0.9 % Neutrophils # (Auto) 6.5 TH/MM3 Lymphocytes # (Auto) 1.2 TH/MM3 Monocytes # (Auto) 0.4 TH/MM3 Eosinophils # (Auto) 0.1 TH/MM3 Basophils # (Auto) 0.1 TH/MM3 CBC Comment DIFF FINAL Differential Comment White Blood Count 7.5 TH/MM3 Red Blood Count 3.95 MIL/MM3 Hemoglobin 11.1 GM/DL Hematocrit 34.0 % Mean Corpuscular Volume 86.0 FL Mean Corpuscular Hemoglobin 28.2 PG Mean Corpuscular Hemoglobin Concent 32.8 % Red Cell Distribution Width 15.7 % Platelet Count 223 TH/MM3 Mean Platelet Volume 6.6 FL Anion Gap 10 MEQ/L Estimat Glomerular Filtration Rate 101 ML/MIN Administered Medications Medications (Trade) Dose Ordered Sig/Soo Route PRN Reason Start Time Stop Time Status Last Admin Dose Admin Insulin Aspart (NovoLOG SUPPLEMENTAL SCALE) 1 ACHS SLIDING SCALE SQ 05/10/18 08:00 05/25/18 21:52 Sodium Chloride (NS Flush) 2 ml UNSCH PRN IV FLUSH FLUSH AFTER USING IV ACCESS 05/10/18 03:30 05/26/18 05:17 Sodium Chloride (NS Flush) 2 ml BID IV FLUSH 05/10/18 09:00 05/27/18 08:43 Sennosides (Senokot) 17.2 mg Q12H PRN PO Moderate constipation 05/10/18 03:30 05/23/18 18:33 Enoxaparin Sodium (Lovenox Inj) 30 mg Q24H SQ 05/16/18 11:00 Future hold 05/27/18 10:43 Oxycodone/ Acetaminophen (Percocet 10-325 Mg) 1 tab Q6H PRN PO PAIN SCALE 6 TO 10 05/19/18 14:00 05/27/18 10:42 Morphine Sulfate (Morphine Inj) 4 mg Q3H PRN IV PUSH BREAKTHROUGH PAIN 05/19/18 14:00 05/22/18 06:35 Anastrozole (Arimidex) 1 mg DAILY PO 05/19/18 21:15 05/27/18 08:43 Nystatin (Mycostatin Oint) 1 applic Q12HR TOPICAL 05/20/18 23:00 05/27/18 08:46 Objective Remarks GENERAL: Obese, elderly female, in no acute distress. SKIN: Pale, warm and dry. HEAD: Normocephalic. EYES: No scleral icterus. No injection or drainage. NECK: Supple, trachea midline. Right supraclavicular adenopathy with intact steri-strip in place. Breasts: Bilateral breast bandages dry and intact. CARDIOVASCULAR: +S1/S2. Regular rate and rhythm without murmurs. RESPIRATORY: Posterior breath sounds clear, equal bilaterally. No accessory muscle use. GASTROINTESTINAL: Abdomen large, soft, non-tender, nondistended. EXTREMITIES: No cyanosis, or edema. NEUROLOGICAL: No obvious focal deficit. Awake, alert, and oriented x3. PSYCHIATRIC: Appropriate mood and affect; insight and judgment normal. Assessment/Plan Problem List: (1) Metastatic breast cancer ICD Codes: C50.919 - Malignant neoplasm of unspecified site of unspecified female breast Plan: 05/27: Awaiting RAD sim today. Bilateral breast wound dressings intact. 05/26: Awaiting RAD simulation today. Delayed d/t large breast habitus. Bilateral dressings dry & intact. 05/25: Patient was unable to complete radiation simulation today. She reports they will fit her in tomorrow for a different machine that can accommodate her breast size. 05/24: Bilateral dressings dry and intact. Scheduled for RAD simulation tomorrow. 05/23: Awaiting RAD Sim on Friday. Bilateral dressings changed yesterday. Dry and intact today. 05/22: Dr. Rodgers consulted, RAD sim scheduled for Friday at 0930. 05/21: plan to start weekly carbo/taxol today +/- radiation to both breasts; will discuss with Dr. Rodgers. 05/19/18. R breast cancer ER positive, MT positive, Her 2 neg- likely the source of bone metastatic disease. Pt noticed the right breast mass longer duration. L breast triple negative breast cancer. Acute problem related to ulcerative mass R breast >L. Discussed option to palliate breast masses which are difficult to manage. Ultimately patient with need systemic chemotherapy for tx of triple negative breast cancer. Start Arimidex, hormonal therapy for ER positive breast cancer. Discussed with surgery local control for disease with bilateral lumpectomy. (2) Radicular leg pain ICD Codes: M54.10 - Radiculopathy, site unspecified Plan: Pain R leg. --has extensive metastatic disease to spine and pelvis --xr shows no fx of femur 05/27: Continue out patient rehab to regain strength. 05/26: Walked with P.T. reports knee less painful, now working on regaining confidence with ambulation. Denies any back pain. P.T. gave her bed exercises to perform, she seems excited to do these. 05/25: Patient reports ambulation is improved today with less pain. 05/24. --Reports apprehension with ambulation. --Walker for assistance. --Continue walking with PT to regain strength. 05/23/18. --Continue PT to increase strength. --Ambulates with walker. 05/22/18. --PT working with patient. 05/19/18. R leg pain better. Walking with PT. Assessment 72 y/o woman with HTN, DM, dx with neglected breast cancer, evidence for metastatic disease on imaging. Plan 1. Reattempt radiation simulation today. 2. Continue to monitor bilateral breast wounds. Dressing changes to breasts daily and as needed. Continue wound care at rehab. 3. Pt cleared for discharge to SNF today after radiation simulation. Outpatient apt tomorrow for chemo. Attending Statement The exam, history, and the medical decision-making described in the above note were completed with the assistance of the mid-level provider. I reviewed and agree with the findings presented. I attest that I had a [id number] encounter with the patient on the same day, and personally performed and documented my assessment and findings in the medical record. R breast oozy bleeding ulcer ~13x9cm, some areas of necrotic tissue. L breast mass 8x9cm, ulcer smaller 5x2cm, some bleeding also. s/p XRT simulation, pending DC home, plan for out pt chemotherapy approved. Discussed risks and benefit of AI for R breast cancer and response to chemo by L breast cancer. Dressing change. Pt plan to come in tomorrow for chemotherapy as planned at [facility]. Bushra Garay May 27, 2018 11:28 Britany Johnson MD May 27, 2018 17:30
[2018-05-27] MEDS ORDERED: OXYC1TAB36 PO (12:51)
[2018-05-27] MEDS ORDERED: ANAS1 PO (12:51)
--- NOTE | 2018-05-27 12:55 | HHI.DCPOC ---
Discharge Care Plan Diagnosis: (1) Metastatic breast cancer (2) Radicular leg pain (3) Masses of both breasts (4) DM (diabetes mellitus) Goals to Promote Your Health * To prevent worsening of your condition and complications * To maintain your health at the optimal level Directions to Meet Your Goals Take your medications as prescribed Follow your dietary instruction Follow activity as directed Keep your appointments as scheduled Take your immunizations and boosters as scheduled If your symptoms worsen call your PCP, if no PCP go to Urgent Care Center or Emergency Room Smoking is Dangerous to Your Health. Avoid second hand smoke Call the 24-hour hour crisis hotline for domestic abuse at Bulmaro Sharma DO May 27, 2018 12:55
== END 2018-05-27 20:20 | DRG 580 ==
LOC: NEPE 23:41 → NEDA 05-10 03:28 → N04B 05-10 04:24 → HCIN 05-20 20:58
PROVIDERS: ADMIT Hospitalist; ATTEND Hospitalist
PROC: [UNRECOGNIZED PROCEDURE] (2018-05-11)
PROC: 009U3ZX Drainage of Spinal Canal, Percutaneous Approach, Diagnostic (ICD-10-PCS; 2018-05-12)
PROC: 05H533Z Insertion of Infusion Device into Right Subclavian Vein, Percutaneous Approach (ICD-10-PCS; 2018-05-20)
PROC: 3E03305 Introduction of Other Antineoplastic into Peripheral Vein, Percutaneous Approach (ICD-10-PCS; 2018-05-20)
PROC: 0JH60WZ Insertion of Totally Implantable Vascular Access Device into Chest Subcutaneous Tissue and Fascia, Open Approach (ICD-10-PCS; principal; 2018-05-20 18:49)
DX: C50.911 Malignant neoplasm of unspecified site of right female breast (principal); C79.51 Secondary malignant neoplasm of bone; C77.9 Secondary and unspecified malignant neoplasm of lymph node, unspecified; E11.44 Type 2 diabetes mellitus with diabetic amyotrophy; E66.01 Morbid (severe) obesity due to excess calories; E11.65 Type 2 diabetes mellitus with hyperglycemia; C50.912 Malignant neoplasm of unspecified site of left female breast; N28.9 Disorder of kidney and ureter, unspecified; R59.0 Localized enlarged lymph nodes; R23.4 Changes in skin texture; W19.XXXA Unspecified fall, initial encounter; W18.30XA Fall on same level, unspecified, initial encounter; Z80.3 Family history of malignant neoplasm of breast; R22.9 Localized swelling, mass and lump, unspecified; Z68.36 Body mass index [BMI] 36.0-36.9, adult; Z53.8 Procedure and treatment not carried out for other reasons; M51.16 Intervertebral disc disorders with radiculopathy, lumbar region; I10 Essential (primary) hypertension; E87.6 Hypokalemia; F41.9 Anxiety disorder, unspecified; M17.11 Unilateral primary osteoarthritis, right knee; M46.90 Unspecified inflammatory spondylopathy, site unspecified; Y92.009 Unspecified place in unspecified non-institutional (private) residence as the place of occurrence of the external cause; Z17.0 Estrogen receptor positive status [ER+]; L08.9 Local infection of the skin and subcutaneous tissue, unspecified; R13.10 Dysphagia, unspecified
CPT/HCPCS: 36415; 62270; 70551; 71045; 71260; 72156; 72157; 72158; 73552; 73564; 74176; 76000; 77003; 77263; 77334; 80048; 80053; 80202; 81001; 82565; 82945; 82948; 83036; 83605; 83690; 83735; 84100; 84157; 85007; 85025; 85027; 85610; 85730; 86300; 86403; 86592; 87040; 87070; 87086; 87102; 87205; 87206; 88108; 88305; 88361; 89051; 90471; 90714; 93005; 93306; 96361; 96365; 96366; 96368; 99221; A9579; C1788; J0690; J0692; J1100; J1626; J1642; J1644; J1650; J1815; J2250; J2270; J2370; J2405; J2543; J3010; J3370; J7030; J7040; J7050; J7120; J9045; J9267; Q9963; Q9967

== ENCOUNTER 2018-08-20 11:31 | Inpatient (IN) ==
[2018-08-20] MEDS ORDERED: fentaNYL Citrate Inj 250 MCG/5 ML Ampul ONE (13:06)
[2018-08-20] MEDS ORDERED: Bupivacaine/Epinephrine Inj 0.25% 50 ML Vial ONE (13:06)
[2018-08-20] MEDS ORDERED: Chlorhexidine Gluconate 2% 1 Pack (2 Cloths) TOPICAL ONE (13:09)
[2018-08-20] MEDS ORDERED: Metoprolol Tartrate 25 MG Tablet PO ONE (13:09)
[2018-08-20 13:33] LABS: Albumin 2.3 g/dL (3.4-5.0)
[2018-08-20 13:34] LABS: Total Protein 6.9 g/dL (6.4-8.2)
[2018-08-20] MEDS ORDERED: Lidocaine PF 1% Inj 5 ML Syringe OTHER ONE (13:45)
[2018-08-20] MEDS ORDERED: Glycopyrrolate Inj 1 MG/5 ML Syringe IV.PUSH ONE (13:45)
[2018-08-20] MEDS ORDERED: Phenylephrine/NS 1000 MCG/10ML Syringe IV.PUSH ONE (13:45)
[2018-08-20] MEDS ORDERED: Neostigmine Inj 5 MG/5 ML Syringe IV.PUSH ONE (13:45)
[2018-08-20] MEDS ORDERED: Vancomycin Inj 1,000 MG in Sodium Chlor 0.9% Inj 250 ML IV.SIG SCH (14:00)
[2018-08-20] MEDS ORDERED: Sodium Chlor 0.9% Inj 500 ML IV.SIG SCH ×3 (14:00→23:00)
[2018-08-20] MEDS ORDERED: Piperacil/Tazo 3.375 GM Premix 50 ML IV.SIG ONE (14:45)
[2018-08-20 15:55] LABS: ABG Base Excess -3.7 mmol/L (-2-2); ABG PCO2 38 mmHg (38-42); ABG PO2 256 mmHG (61-120)
[2018-08-20 16:11] LABS: Baso % (Auto) 0.1 % (0.0-2.0); Eos % (Auto) 0.3 % (0.0-4.0); Lymph % (Auto) 20.1 % (9.0-44.0); Mean Corpuscular HGB Conc 33.5 % (32.0-36.0); Mean Corpuscular Hemoglobin 33.6 pg (27.0-34.0); Mean Corpuscular Volume 100.3 fL (80.0-100.0); Mean Platelet Volume 7.3 fL (7.0-11.0); Mono # (Auto) 0.7 th/mm3 (0.0-0.9); Mono % (Auto) 6.6 % (0.0-8.0); Neut # (Auto) 7.3 th/mm3 (1.8-7.7); Neut % (Auto) 72.9 % (16.0-70.0); Platelet Count 127 th/mm3 (150-450); Red Blood Count 1.94 mil/mm3 (4.00-5.30); Red Cell Distribution Width 20.8 % (11.6-17.2)
[2018-08-20 16:16] LABS: Hematocrit 19.4 % (35.0-46.0); Hemoglobin 6.5 gm/dL (11.6-15.3)
[2018-08-20 16:56] LABS: Eosinophils 1 % (0-4); Lymphocytes 25 % (9-44); Monocytes 7 % (0-8); Myelocytes 3 % (0-0)
[2018-08-20 16:58] LABS: Platelet Morphology Normal (Normal); Toxic Granulation 1+; Toxic Vacuolation Present
[2018-08-20] MEDS ORDERED: Sugammadex Inj 200 MG/2 ML Vial IV.PUSH ONE (16:59)
[2018-08-20] MEDS ORDERED: Post-op Orders (for Pharmacy) OTHER ONE (17:06)
[2018-08-20] MEDS ORDERED: Promethazine 25 MG Supp RECTAL PRN (17:06)
[2018-08-20] MEDS ORDERED: Bisacodyl 10 MG Supp RECTAL PRN (17:06)
[2018-08-20] MEDS ORDERED: Morphine Sulfate Inj 8 MG/ML Vial IV.PUSH PRN (17:06)
--- NOTE | 2018-08-20 17:06 | P.OP ---
- Preoperative Diagnosis (1) Acute cholecystitis - Postoperative Diagnosis (1) Gangrenous cholecystitis Date of procedure: 09/08/18 Procedure: Laparoscopic cholecystectomy converted to open cholecystectomy Surgeon: Bulmaro Brito MD Radio Time Salesperson: Angelica Shaikh CFA Estimated blood loss (mL): 500 IV fluids (mL): 2,500 Pathology: other (Gallbladder and contents to pathology) Operation and Findings: Patient was taken to the operating room and placed on the operating table in the supine position. After an adequate level of general endotracheal anesthesia was achieved, the abdomen was prepped and draped. Time-out was taken , confirming the correct patient, site, and procedure to be performed. Incision was made in the umbilicus and carried through the fascia sharply. The peritoneal cavity was directly visualized. A 12 mm balloon trocar was inserted and the balloon inflated. The abdomen was insufflated. The patient was placed in reverse Trendelenburg position. Three 5 mm trocars were placed in the right subcostal region. The gallbladder was seen to be plastered to the anterior abdominal wall. This was taken down with blunt dissection. Omentum was then plastered up against a very inflamed gallbladder. This was taken down with blunt dissection and use of a suction patient registration rep. When this had been completed, a very inflamed and gangrenous gallbladder was noted. The gallbladder was entered at one point and purulent material exuded. This was suctioned and cultured. Gram stain demonstrated gram-negative rods, many WBCs and gram positive rods. The gallbladder was dissected off of the liver bed with the harmonic scalpel. When this had been dissected for some distance, the neck of the gallbladder was extremely inflamed and widened. The cystic artery could not be identified. At this point, it was felt that the patient could not have any further dissection without risking injury to the common bile duct. The laparoscopic procedure was abandoned. The trocars were removed and insufflation was discontinued. The incision was connected between the uppermost 5 mm trocar site and the more medial of the two 5 mm trocars. Dissection was carried down through the anterior fascia and the rectus muscle was then divided with the cautery. The posterior fascia was opened and the peritoneal cavity entered uneventfully. A Bookwalter retractor was brought up and placed into the wound. Retraction was accomplished and at this point the gallbladder was grasped and retracted upward with a Giselle clamp. Further dissection was not able to reveal a neck of the gallbladder. It was quite thickened and at this point the gallbladder was transected and the largest pieces passed off the table. A right angle clamp was utilized to identify the base of the gallbladder where the cystic duct was located. The gallbladder was still quite thickened in this area and there was significant concern that the common duct would still be injured. Thus the infundibulum was transected as close to the cystic duct as possible and then oversewn with a 2-0 silk suture. The liver bed was reexamined and Dixon powder placed on it after irrigating. No bleeding was noted from the liver bed. Aakash drain was brought out via the lateralmost 5 mm trocar site and fixed to the skin with 3-0 nylon suture. The wound was then closed in 2 layers with running #1 PDS suture. 30 ml of 0.25% Marcaine with epinephrine was injected into the nash-fascial tissue. The wound was closed with seven. A 4 x 4 was applied around the drain and a GALDINO dressing was applied on the subcostal wound. The patient was extubated and taken back to the recovery room in stable condition. Sponge needle and instrument counts were reported to be correct.
[2018-08-20] MEDS: Sod Chloride 0.9% Inj 1,000 ML IV.CONT SCH (17:30)
[2018-08-20] MEDS ORDERED: *Ondansetron Inj 4 MG/2 ML Vial PERIprocedural Use ONLY ONE (17:33)
[2018-08-20] MEDS ORDERED: *morphine SULFATE 4 MG/ML PERIprocedure ONLY ONE ×3 (18:12→19:21)
[2018-08-20 19:48] LABS: Hematocrit 29.2 % (35.0-46.0); Hemoglobin 9.7 gm/dL (11.6-15.3); Mean Corpuscular HGB Conc 33.2 % (32.0-36.0); Mean Corpuscular Hemoglobin 31.1 pg (27.0-34.0); Mean Corpuscular Volume 93.7 fL (80.0-100.0); Mean Platelet Volume 7.1 fL (7.0-11.0); Platelet Count 68 th/mm3 (150-450); Red Blood Count 3.12 mil/mm3 (4.00-5.30); Red Cell Distribution Width 20.6 % (11.6-17.2); White Blood Count 4.5 th/mm3 (4.0-11.0)
[2018-08-20] MEDS ORDERED: HYDROmorphone PF Inj 2 MG/ML Vial ONE (20:04)
[2018-08-20] MEDS: Piperacil/Tazo 3.375 GM Premix 50 ML IV.SIG SCH (20:13)
[2018-08-20 20:14] LABS: Calcium 6.9 mg/dL (8.5-10.1); Carbon Dioxide 18.5 meq/L (21.0-32.0); Potassium 3.1 meq/L (3.5-5.1)
[2018-08-20 20:44] LABS: Total Protein 5.2 g/dL (6.4-8.2)
[2018-08-20] MEDS: Insulin NovoLIN Regular Correctional Sugar Inj SQ SCH (22:49)
[2018-08-20] MEDS: Senna/Docusate Sodium 8.6/50 MG Tablet PO SCH (22:53)
[2018-08-21] MEDS: Morphine Inj 4 MG/ML Vial IV.PUSH PRN ×3 (00:14→21:00)
[2018-08-21] MEDS: Sod Chloride 0.9% Inj 1,000 ML IV.CONT SCH ×3 (01:30→18:22)
[2018-08-21] MEDS: Piperacil/Tazo 3.375 GM Premix 50 ML IV.SIG SCH ×4 (03:03→20:23)
[2018-08-21] MEDS: Insulin NovoLIN Regular Correctional Sugar Inj SQ SCH ×4 (03:57→18:21)
[2018-08-21 06:22] LABS: Baso % (Auto) 0.2 % (0.0-2.0); Eos % (Auto) 0.1 % (0.0-4.0); Hematocrit 26.1 % (35.0-46.0); Hemoglobin 8.8 gm/dL (11.6-15.3); Lymph # (Auto) 0.5 th/mm3 (1.0-4.8); Lymph % (Auto) 7.7 % (9.0-44.0); Mean Corpuscular HGB Conc 33.7 % (32.0-36.0); Mean Corpuscular Hemoglobin 31.5 pg (27.0-34.0); Mean Corpuscular Volume 93.6 fL (80.0-100.0); Mean Platelet Volume 7.2 fL (7.0-11.0); Mono # (Auto) 0.3 th/mm3 (0.0-0.9); Mono % (Auto) 4.9 % (0.0-8.0); Neut # (Auto) 5.4 th/mm3 (1.8-7.7); Neut % (Auto) 87.1 % (16.0-70.0); Platelet Count 58 th/mm3 (150-450); Red Blood Count 2.79 mil/mm3 (4.00-5.30); Red Cell Distribution Width 21.6 % (11.6-17.2); White Blood Count 6.2 th/mm3 (4.0-11.0)
[2018-08-21 08:58] LABS: Lymphocytes 8 % (9-44); Metamyelocytes 1 % (0-1); Monocytes 4 % (0-8); Myelocytes 1 % (0-0); Platelet Morphology Normal (Normal); Promyelocyte 1 % (0-0); Toxic Granulation 1+
[2018-08-21] MEDS: Mupirocin 2% Nasal Oint Topical Syringe EACH NARE SCH ×2 (09:02→20:24)
[2018-08-21] MEDS: Senna/Docusate Sodium 8.6/50 MG Tablet PO SCH ×2 (09:03→20:24)
[2018-08-21] MEDS ORDERED: Sodium Chlor 0.9% Inj 500 ML IV.SIG SCH (09:55)
[2018-08-21 11:05] LABS: Calcium 6.4 mg/dL (8.5-10.1); Carbon Dioxide 21.4 meq/L (21.0-32.0); Potassium 3.4 meq/L (3.5-5.1)
[2018-08-21 11:30] LABS: Total Protein 4.7 g/dL (6.4-8.2)
--- NOTE | 2018-08-21 11:36 | P.PNGS ---
Addendum entered and electronically signed by SONIA Zapien 08/21/18 11: 48: Continue Malathi Original Note: Subjective Interval history: Resting in bed Weak Not hungry ERIN Moncada at bedside Physical Exam Vital signs: Vital Signs 08/20/18 12:28 08/20/18 17:14 08/20/18 17:30 Temperature 98.0 F 97.9 F Pulse Rate 78 83 78 Respiratory Rate 18 20 20 Blood Pressure 113/55 L 102/56 L 111/44 L Pulse Oximetry 98 100 100 08/20/18 17:45 08/20/18 18:00 08/20/18 18:15 Temperature 97.9 F Pulse Rate 74 75 74 Respiratory Rate 24 24 22 Blood Pressure 92/55 L 92/55 L 108/53 L Pulse Oximetry 100 100 100 08/20/18 18:30 08/20/18 18:35 08/20/18 18:45 Temperature Pulse Rate 77 73 Respiratory Rate 28 H 24 25 H Blood Pressure 101/51 L 103/51 L Pulse Oximetry 100 100 08/20/18 19:00 08/20/18 19:15 08/20/18 19:30 Temperature 97.8 F Pulse Rate 79 76 77 Respiratory Rate 23 23 24 Blood Pressure 96/50 L 114/43 L 119/45 L Pulse Oximetry 100 100 100 08/20/18 19:45 08/20/18 20:00 08/20/18 20:15 Temperature Pulse Rate 78 78 79 Respiratory Rate 24 19 18 Blood Pressure 118/44 L 128/46 L 123/45 L Pulse Oximetry 100 100 100 08/20/18 20:30 08/20/18 21:00 08/21/18 00:00 Temperature 98.6 F 98 F Pulse Rate 82 82 78 Respiratory Rate 20 17 24 Blood Pressure 119/44 L 116/48 L 114/52 L Pulse Oximetry 100 100 08/21/18 04:03 Temperature 98 F Pulse Rate 78 Respiratory Rate 19 Blood Pressure 102/48 L Pulse Oximetry 100 Intake & Output 08/20/18 08/21/18 08/21/18 18:59 06:59 18:59 Intake Total 3900 / 3900 2100 / 2100 1050 / 1050 Output Total 630 / 630 430 / 430 Balance 3270 / 3270 1670 / 1670 1050 / 1050 Weight 90 kg 91.5 kg Intake: IV 1500 / 1500 1600 / 1600 1050 / 1050 NS Inj 1,000 ML @ 125 mls/hr IV 1000 / 1000 1000 / 1000 .CONT .Q8H [facility] Rx#:[id number] Ofirmev Inj 1,000 mg In 100 ml 100 / 100 @ 400 mls/hr IV.SIG FIBER TECHNICIAN [facility] Rx#:[id number] LR 1000 mL Inj 1,000 ML @ 30 1000 / 1000 mls/hr IV.SIG .Q24H [facility] Rx#: [id number] Zosyn 3.375 GM Premix 50 ML @ 50 / 50 100 / 100 50 / 50 100 mls/hr IV.SIG Q6H [facility] Rx#: [id number] NS Inj 500 ML @ 500 mls/hr IV. 500 / 500 SIG .Q1H [facility] Rx#:[id number] Vancomycin Inj 1,000 MG In NS 250 / 250 Inj 250 ML @ 250 mls/hr IV.SIG FIBER TECHNICIAN HARDE[facility] Rx#:[id number] Ancef Inj 1,000 MG In NS Inj 100 / 100 100 ML @ 200 mls/hr IV.SIG FIBER TECHNICIAN HARDEEP Rx#:[id number] Anesthesia Amount 1500 / 1500 Other 100 / 100 500 / 500 Rbc As-3 Leukoreduced Unit 100 / 100 [id number] Intake (Blood Product) Amt 800 / 800 Rbc As-3 Leukoreduced Unit 400 / 400 [id number] Rbc As-3 Leukoreduced Unit 400 / 400 [id number] Output: Urine 15 / 15 Estimated Blood Loss 500 / 500 Urine Amount (Catheter) 130 / 130 175 / 175 Indwelling Urethral Catheter 130 / 130 175 / 175 Gastric Drainage 150 / 150 Right Nare Nasogastric Tube 150 / 150 Wound Drainage 90 / 90 # 1 Right Abdomen Aakash 90 / 90 Other: Other Intake Source Saline Solution Weight On Admission 90 kg Narrative: Alert and awake although tired Abd: RUQ GALDINO in place with good seal; SARAH with bloody drainage; abd soft; tender Vera in place with clear yellow urine - Routine Respiratory Exam Present: CTA bilaterally - Routine Cardiovascular Exam Present: RRR - Routine Abdominal Exam Present: soft, wound (GALDINO dressing dry) - Urinary Catheter Management Indwelling Urethral Catheter Cath placed during this visit: yes Reason for continuing: Hourly intake/output Insertion date: 08/20/18 Results - Labs 08/25/18 11:35 08/25/18 06:46 Laboratory Results - last 24 hr 08/20/18 08/20/18 08/20/18 12:45 15:40 15:45 WBC 10.0 RBC 1.94 L Hgb 6.5 L* Hct 19.4 L* MCV 100.3 H MCH 33.6 MCHC 33.5 RDW 20.8 H Plt Count 127 L MPV 7.3 Prelim Diff (Auto) Slide review pending Neut % (Auto) 72.9 H Lymph % (Auto) 20.1 [place] % (Auto) 6.6 Eos % (Auto) 0.3 Baso % (Auto) 0.1 Neut # (Auto) 7.3 Lymph # (Auto) 2.0 [place] # (Auto) 0.7 Eos # (Auto) 0.0 Baso # (Auto) 0.0 WBC Differential Manual diff final Seg Neuts % (Manual) 48 Band Neuts % (Manual) 16 H Lymphocytes % (Manual) 25 Monocytes % (Manual) 7 Eosinophils % (Manual) 1 Metamyelocytes % (Man) Myelocytes % (Man) 3 H Promyelocytes % (Man) Abs Neuts (Manual) 6.7 Differential Comment . Toxic Granulation 1+ H Toxic Vacuolation Present H Platelet Estimate Low L Platelet Morphology Normal Puncture Site Patient Temperature O2 Saturation ABG pH ABG pCO2 ABG pO2 ABG HCO3 ABG O2 Content ABG Base Excess ABG Methemoglobin Hemoglobin Carboxyhemoglobin O2 Delivery Device Inspired O2 Critical Value Sodium Potassium Chloride Carbon Dioxide Anion Gap BUN Creatinine Estimated GFR POC Glucose Random Glucose Calcium Prot Corrected Calcium Total Bilirubin 0.5 Direct Bilirubin 0.2 Indirect Bilirubin 0.3 AST 11 L ALT 8 L Alkaline Phosphatase 179 H Total Protein 6.9 D Albumin 2.3 L Nasal Screen MRSA (PCR) Blood Type B Positive Antibody Screen Negative MTS Gel Crossmatch 08/20/18 08/20/18 08/20/18 15:48 16:34 19:10 WBC 4.5 D RBC 3.12 L Hgb 9.7 L D Hct 29.2 L MCV 93.7 D MCH 31.1 MCHC 33.2 RDW 20.6 H Plt Count 68 L D MPV 7.1 Prelim Diff (Auto) Neut % (Auto) Lymph % (Auto) [place] % (Auto) Eos % (Auto) Baso % (Auto) Neut # (Auto) Lymph # (Auto) [place] # (Auto) Eos # (Auto) Baso # (Auto) WBC Differential Seg Neuts % (Manual) Band Neuts % (Manual) Lymphocytes % (Manual) Monocytes % (Manual) Eosinophils % (Manual) Metamyelocytes % (Man) Myelocytes % (Man) Promyelocytes % (Man) Abs Neuts (Manual) Differential Comment Toxic Granulation Toxic Vacuolation Platelet Estimate Platelet Morphology Puncture Site Art line Patient Temperature 98.6 O2 Saturation 97 ABG pH 7.36 L ABG pCO2 38 ABG pO2 256 H ABG HCO3 21 L ABG O2 Content 14.1 ABG Base Excess -3.7 L ABG Methemoglobin 1.7 Hemoglobin 9.9 L Carboxyhemoglobin 0.8 O2 Delivery Device Ventilator Inspired O2 50 Critical Value No Sodium Potassium Chloride Carbon Dioxide Anion Gap BUN Creatinine Estimated GFR POC Glucose Random Glucose Calcium Prot Corrected Calcium Total Bilirubin Direct Bilirubin Indirect Bilirubin AST ALT Alkaline Phosphatase Total Protein Albumin Nasal Screen MRSA (PCR) Blood Type Antibody Screen MTS Gel Crossmatch See Detail 08/20/18 08/20/18 08/20/18 19:10 19:47 21:00 WBC RBC Hgb Hct MCV MCH MCHC RDW Plt Count MPV Prelim Diff (Auto) Neut % (Auto) Lymph % (Auto) [place] % (Auto) Eos % (Auto) Baso % (Auto) Neut # (Auto) Lymph # (Auto) [place] # (Auto) Eos # (Auto) Baso # (Auto) WBC Differential Seg Neuts % (Manual) Band Neuts % (Manual) Lymphocytes % (Manual) Monocytes % (Manual) Eosinophils % (Manual) Metamyelocytes % (Man) Myelocytes % (Man) Promyelocytes % (Man) Abs Neuts (Manual) Differential Comment Toxic Granulation Toxic Vacuolation Platelet Estimate Platelet Morphology Puncture Site Patient Temperature O2 Saturation ABG pH ABG pCO2 ABG pO2 ABG HCO3 ABG O2 Content ABG Base Excess ABG Methemoglobin Hemoglobin Carboxyhemoglobin O2 Delivery Device Inspired O2 Critical Value Sodium 142 Potassium 3.1 L Chloride 106 Carbon Dioxide 18.5 L Anion Gap 18 H BUN 9 Creatinine 0.78 Estimated GFR 73 L POC Glucose 152 H Random Glucose 166 H Calcium 6.9 L* Prot Corrected Calcium 7.9 L Total Bilirubin Direct Bilirubin Indirect Bilirubin AST ALT Alkaline Phosphatase Total Protein 5.2 L D Albumin Nasal Screen MRSA (PCR) Mrsa detected Blood Type Antibody Screen MTS Gel Crossmatch 08/20/18 08/21/18 08/21/18 22:22 03:06 05:40 WBC 6.2 RBC 2.79 L Hgb 8.8 L Hct 26.1 L MCV 93.6 MCH 31.5 MCHC 33.7 RDW 21.6 H Plt Count 58 L MPV 7.2 Prelim Diff (Auto) Slide review pending Neut % (Auto) 87.1 H Lymph % (Auto) 7.7 L [place] % (Auto) 4.9 Eos % (Auto) 0.1 Baso % (Auto) 0.2 Neut # (Auto) 5.4 Lymph # (Auto) 0.5 L [place] # (Auto) 0.3 Eos # (Auto) 0.0 Baso # (Auto) 0.0 WBC Differential Manual diff final Seg Neuts % (Manual) 56 Band Neuts % (Manual) 29 H Lymphocytes % (Manual) 8 L Monocytes % (Manual) 4 Eosinophils % (Manual) Metamyelocytes % (Man) 1 Myelocytes % (Man) 1 H Promyelocytes % (Man) 1 H Abs Neuts (Manual) 5.5 Differential Comment . Toxic Granulation 1+ H Toxic Vacuolation Platelet Estimate Low L Platelet Morphology Normal Puncture Site Patient Temperature O2 Saturation ABG pH ABG pCO2 ABG pO2 ABG HCO3 ABG O2 Content ABG Base Excess ABG Methemoglobin Hemoglobin Carboxyhemoglobin O2 Delivery Device Inspired O2 Critical Value Sodium Potassium Chloride Carbon Dioxide Anion Gap BUN Creatinine Estimated GFR POC Glucose 152 H 140 H Random Glucose Calcium Prot Corrected Calcium Total Bilirubin Direct Bilirubin Indirect Bilirubin AST ALT Alkaline Phosphatase Total Protein Albumin Nasal Screen MRSA (PCR) Blood Type Antibody Screen MTS Gel Crossmatch 08/21/18 10:33 WBC RBC Hgb Hct MCV MCH MCHC RDW Plt Count MPV Prelim Diff (Auto) Neut % (Auto) Lymph % (Auto) [place] % (Auto) Eos % (Auto) Baso % (Auto) Neut # (Auto) Lymph # (Auto) [place] # (Auto) Eos # (Auto) Baso # (Auto) WBC Differential Seg Neuts % (Manual) Band Neuts % (Manual) Lymphocytes % (Manual) Monocytes % (Manual) Eosinophils % (Manual) Metamyelocytes % (Man) Myelocytes % (Man) Promyelocytes % (Man) Abs Neuts (Manual) Differential Comment Toxic Granulation Toxic Vacuolation Platelet Estimate Platelet Morphology Puncture Site Patient Temperature O2 Saturation ABG pH ABG pCO2 ABG pO2 ABG HCO3 ABG O2 Content ABG Base Excess ABG Methemoglobin Hemoglobin Carboxyhemoglobin O2 Delivery Device Inspired O2 Critical Value Sodium 144 Potassium 3.4 L Chloride 111 H Carbon Dioxide 21.4 Anion Gap 12 BUN 13 Creatinine 0.96 Estimated GFR 57 L POC Glucose Random Glucose 149 H Calcium 6.4 L* Prot Corrected Calcium 7.6 L Total Bilirubin Direct Bilirubin Indirect Bilirubin AST ALT Alkaline Phosphatase Total Protein 4.7 L Albumin Nasal Screen MRSA (PCR) Blood Type Antibody Screen MTS Gel Crossmatch Assessment and Plan - Assessment (1) Gangrenous cholecystitis Code(s): K81.0 - Acute cholecystitis Status: Acute Plan: 72 year old female POD1 open cholecystectomy -Clamp NGT -Continue liquids as tolerated -500 cc bolus this AM -Recheck BMP this morning -OOB as tolerated; PT consulted -Discussed plan with ERIN Moncada Abdomen benign Stable SARAH output serosanguinous Needs to stay in [facility] over weekend; very frail The exam, history, and the medical decision-making described in the above note were completed with the assistance of the mid-level provider. I reviewed and agree with the findings presented. I attest that I had a [id number] encounter with the patient on the same day, and personally performed and documented my assessment and findings in the medical record.
[2018-08-21] MEDS: Potassium Chlor 10 mEq Premix 10 MEQ/100 ML PIGGYBACK IV.SIG SCH ×4 (12:30→18:21)
[2018-08-22] MEDS: Sod Chloride 0.9% Inj 1,000 ML IV.CONT SCH ×3 (02:17→18:56)
[2018-08-22] MEDS: Piperacil/Tazo 3.375 GM Premix 50 ML IV.SIG SCH ×4 (02:31→20:15)
[2018-08-22] MEDS: Insulin NovoLIN Regular Correctional Sugar Inj SQ SCH ×5 (02:31→22:49)
[2018-08-22] MEDS ORDERED: Chlorhexidine Gluconate 2% 1 Pack (2 Cloths) TOPICAL PRN (04:00)
[2018-08-22] MEDS: Chlorhexidine Gluconate 2% 1 Pack (2 Cloths) TOPICAL SCH (04:28)
[2018-08-22] MEDS: Morphine Inj 4 MG/ML Vial IV.PUSH PRN ×2 (05:42→23:45)
[2018-08-22 05:52] LABS: Baso % (Auto) 0.1 % (0.0-2.0); Eos % (Auto) 0.2 % (0.0-4.0); Hematocrit 23.2 % (35.0-46.0); Hemoglobin 7.9 gm/dL (11.6-15.3); Lymph # (Auto) 0.5 th/mm3 (1.0-4.8); Lymph % (Auto) 6.5 % (9.0-44.0); Mean Corpuscular HGB Conc 34.2 % (32.0-36.0); Mean Corpuscular Hemoglobin 31.6 pg (27.0-34.0); Mean Corpuscular Volume 92.4 fL (80.0-100.0); Mono # (Auto) 0.3 th/mm3 (0.0-0.9); Mono % (Auto) 3.9 % (0.0-8.0); Neut # (Auto) 7.1 th/mm3 (1.8-7.7); Neut % (Auto) 89.3 % (16.0-70.0); Platelet Count 66 th/mm3 (150-450); Red Cell Distribution Width 21.4 % (11.6-17.2)
[2018-08-22 06:23] LABS: Calcium 6.9 mg/dL (8.5-10.1); Carbon Dioxide 20.8 meq/L (21.0-32.0); Potassium 3.6 meq/L (3.5-5.1)
[2018-08-22 08:00] LABS: Dohle Bodies Present; Lymphocytes 9 % (9-44); Metamyelocytes 1 % (0-1); Monocytes 7 % (0-8); Myelocytes 2 % (0-0); Toxic Granulation 2+
[2018-08-22 08:01] LABS: Acanthocytes Occ; Platelet Morphology Normal (Normal)
[2018-08-22 08:02] LABS: Tear Drop Cells 1+
[2018-08-22 08:37] LABS: Total Protein 5.1 g/dL (6.4-8.2)
[2018-08-22] MEDS: Senna/Docusate Sodium 8.6/50 MG Tablet PO SCH ×2 (09:33→20:15)
[2018-08-22] MEDS: Mupirocin 2% Nasal Oint Topical Syringe EACH NARE SCH ×2 (09:33→20:15)
--- NOTE | 2018-08-22 15:35 | P.PNGS ---
Subjective Patient reports: no new complaints, feels better Physical Exam Vital signs: Vital Signs 08/21/18 16:00 08/21/18 20:00 08/21/18 20:56 Temperature 98.3 F 98.8 F Pulse Rate 94 H 94 H Respiratory Rate 20 17 Blood Pressure 120/53 L 109/47 L Pulse Oximetry 100 96 08/22/18 00:00 08/22/18 02:18 08/22/18 04:00 Temperature 98.8 F 98.7 F Pulse Rate 93 H 91 H Respiratory Rate 24 14 23 Blood Pressure 109/51 L 116/56 L Pulse Oximetry 98 97 Intake & Output 08/21/18 08/22/18 08/22/18 18:59 06:59 18:59 Intake Total 2900 / 2900 1260 / 1260 1300 / 1300 Output Total 640 / 640 380 / 380 50 / 50 Balance 2260 / 2260 880 / 880 1250 / 1250 Weight 90.8 kg Intake: IV 2900 / 2900 1200 / 1200 1050 / 1050 NS Inj 1,000 ML @ 125 mls/hr IV 2000 / 2000 1000 / 1000 1000 / 1000 .CONT .Q8H [facility] Rx#:[id number] Zosyn 3.375 GM Premix 50 ML @ 100 / 100 100 / 100 50 / 50 100 mls/hr IV.SIG Q6H [facility] Rx#: [id number] KCl 10 mEq Premix Inj 10 meq In 300 / 300 100 / 100 100 ml @ 100 mls/hr IV.SIG Q1H HARDEEP Rx#:[id number] Oral 60 / 60 200 / 200 Water Bolus Amount 50 / 50 Output: Stool 0 / 0 Urine Amount (Catheter) 475 / 475 350 / 350 Indwelling Urethral Catheter 475 / 475 350 / 350 Gastric Drainage 135 / 135 0 / 0 50 / 50 Right Nare Nasogastric Tube 135 / 135 0 / 0 50 / 50 Wound Drainage 30 / 30 30 / 30 # 1 Right Abdomen Aakash 30 / 30 30 / 30 - Constitutional no acute distress - Routine Cardiovascular Exam Present: RRR - Routine Abdominal Exam Present: soft Comments: inc c/d/i - Urinary Catheter Management Indwelling Urethral Catheter Cath placed during this visit: yes Reason for continuing: Hourly intake/output Insertion date: 08/20/18 Results - Labs 08/22/18 05:30 09/22/18 05:30 Laboratory Results - last 24 hr 08/21/18 08/21/18 08/22/18 17:41 21:06 05:30 WBC 8.0 RBC 2.50 L Hgb 7.9 L Hct 23.2 L MCV 92.4 MCH 31.6 MCHC 34.2 RDW 21.4 H Plt Count 66 L MPV 7.0 Prelim Diff (Auto) Slide review pending Neut % (Auto) 89.3 H Lymph % (Auto) 6.5 L [place] % (Auto) 3.9 Eos % (Auto) 0.2 Baso % (Auto) 0.1 Neut # (Auto) 7.1 Lymph # (Auto) 0.5 L [place] # (Auto) 0.3 Eos # (Auto) 0.0 Baso # (Auto) 0.0 WBC Differential Manual diff final Seg Neuts % (Manual) 64 Band Neuts % (Manual) 17 H Lymphocytes % (Manual) 9 Monocytes % (Manual) 7 Metamyelocytes % (Man) 1 Myelocytes % (Man) 2 H Abs Neuts (Manual) 6.7 Differential Comment . Toxic Granulation 2+ H Dohle Bodies Present H Platelet Estimate Low L Platelet Morphology Normal Tear Drop Cells 1+ H Acanthocytes (Spur) Occ H Sodium Potassium Chloride Carbon Dioxide Anion Gap BUN Creatinine Estimated GFR POC Glucose 150 H 128 H Random Glucose Calcium Prot Corrected Calcium Total Protein 08/22/18 08/22/18 08/22/18 05:30 09:29 13:17 WBC RBC Hgb Hct MCV MCH MCHC RDW Plt Count MPV Prelim Diff (Auto) Neut % (Auto) Lymph % (Auto) [place] % (Auto) Eos % (Auto) Baso % (Auto) Neut # (Auto) Lymph # (Auto) [place] # (Auto) Eos # (Auto) Baso # (Auto) WBC Differential Seg Neuts % (Manual) Band Neuts % (Manual) Lymphocytes % (Manual) Monocytes % (Manual) Metamyelocytes % (Man) Myelocytes % (Man) Abs Neuts (Manual) Differential Comment Toxic Granulation Dohle Bodies Platelet Estimate Platelet Morphology Tear Drop Cells Acanthocytes (Spur) Sodium 146 H Potassium 3.6 Chloride 112 H Carbon Dioxide 20.8 L Anion Gap 13 BUN 14 Creatinine 0.89 Estimated GFR 63 L POC Glucose 102 87 Random Glucose 114 H Calcium 6.9 L* Prot Corrected Calcium 7.9 L Total Protein 5.1 L Assessment and Plan - Assessment (1) Gangrenous cholecystitis Code(s): K81.0 - Acute cholecystitis Status: Acute Plan: 72 year old female POD2 open cholecystectomy -D/C NGT -clear liquids -Continue liquids as tolerated -OOB as tolerated; PT consulted
[2018-08-22] MEDS ORDERED: Amiodarone Inj 150 MG in Dextrose 5% in Water Inj 97 ML IV.SIG ONE ×2 (17:13)
[2018-08-22] MEDS ORDERED: Magnesium Oxide 400 MG Tablet PO PRN (17:21)
[2018-08-22] MEDS ORDERED: Potassium Chloride 25 MEQ Effervescent Tablet PO PRN (17:21)
[2018-08-22] MEDS ORDERED: Potassium Chlor 40 mEq Premix 40 MEQ/100 ML PIGGYBACK IV.SIG PRN ×2 (17:21)
[2018-08-22] MEDS ORDERED: Magnesium Sulfate Inj 2 GM in Sodium Chlor 0.9% Inj 96 ML IV.SIG PRN (17:21)
[2018-08-22] MEDS ORDERED: Sodium Phosphate Inj 30 MMOL in Sodium Chlor 0.9% Inj 250 ML IV.SIG PRN (17:21)
[2018-08-22] MEDS ORDERED: Potassium Phosphate Inj 30 MMOL in Sodium Chlor 0.9% Inj 250 ML IV.SIG PRN (17:21)
[2018-08-22] MEDS ORDERED: Potassium Phosphate 500 MG Soluble Tablet PO PRN ×2 (17:21)
--- NOTE | 2018-08-22 17:40 | P.CONCC ---
History of Present Illness Consult date: 08/22/18 Reason for Consult: Critical care management Primary Care Provider: UNKNOWN Chief Complaint: Irregular heartbeat History of Present Illness: This 72-year-old woman underwent an emergent open cholecystectomy for a gangrenous gallbladder. Laparoscopic approach was terminated when the gallbladder was found to be markedly inflamed and densely attached to the abdominal wall. She is on appropriate antibiotic coverage and is recovering well. She has no history of cardiac arrhythmias. She spontaneously developed atrial fibrillation with poorly controlled ventricular response this afternoon and I was asked to see her in consultation. I have reviewed her record and discussed her care at length with the patient and with her daughter at the bedside. Discussed with the surgical service as well. She is normotensive and has no chest pain or shortness of breath. Aside from some mild abdominal pain with coughing she is relatively comfortable. Electrolytes are normal. Review of Systems No chest pain or shortness of breath. PMFSH - History History Provided By: Patient, Family Member - Medical History Medical History: Medical History (Last Reviewed 08/22/18 @ 11:56 by Thu Multani) Breast cancer Diabetes - Surgical History Surgical History: Surgical History (Last Reviewed 08/22/18 @ 11:56 by Thu Multani) H/O tubal ligation Hx of appendectomy Hx of tonsillectomy - Tobacco History Second Hand Smoke Exposure: No Tobacco Use In Past 30 Days: No Smoking Status: Never smoker - Alcohol History How Often Do You Have a Drink Containing Alcohol: Monthly or less - Substance Use History Substance History: No History of Abuse - Travel History Recent Travel in the [place] Within the Last 8 Weeks: No Recent Travel Out of the Country Within the Last 8 Weeks: No - Immunization History Tetanus Immunization: Unsure Hx Influenza Vaccine This Season: No Medications and Allergies Active Medications: Active Medications Hydrocodone Bitart/Acetaminophen ([place] 5/325) 1 tab PO Q4H PRN PRN Reason: PAIN SCALE 1 TO 5 Last Admin: 08/20/18 23:42 Dose: 1 tab Al Hydroxide/Mg Hydroxide (Milk Of Magnmaurice Liq) 30 ml PO Q12H PRN PRN Reason: Mild Constipation Bisacodyl (Dulcolax Supp) 10 mg RECTAL DAILY PRN PRN Reason: SEVERE CONSITIPATION Chlorhexidine Gluconate (Chlorhexidine 2% Cloth) 3 pack TOPICAL DAILY@0400 [facility] Stop: 08/27/18 03:59 Last Admin: 08/22/18 04:28 Dose: Not Given Chlorhexidine Gluconate (Chlorhexidine 2% Cloth) 3 pack TOPICAL DAILY@0400 PRN PRN Reason: Extra cloth needed Stop: 08/27/18 03:59 Dextrose (D50w Vial) 50 ml IV.PUSH UNSCH PRN PRN Reason: PER HYPOGLYCEMIA PROTOCOL Glucagon (Glucagon Inj) 1 mg OTHER PRN PRN PRN Reason: for Hypoglycemia Protocol Sodium Chloride (Ns Inj) 500 mls @ 30 mls/hr IV.SIG .Q10H [facility] Last Admin: 08/20/18 22:48 Dose: Not Given Sodium Chloride (Ns Inj) 1,000 mls @ 50 mls/hr IV.CONT .Q20H [facility] Last Admin: 08/22/18 09:32 Dose: 125 mls/hr Piperacillin/Tazobactam/Dextrose (Zosyn 3.375 Gm Premix) 50 mls @ 100 mls/hr IV.SIG Q6H [facility] Last Admin: 08/22/18 14:22 Dose: 50 mls/hr Sodium Chloride (Ns Inj) 500 mls @ 0 mls/hr IV.SIG BOLUS [facility] Amiodarone HCl 150 mg/ (Dextrose) 100 mls @ 100 mls/hr IV.SIG ONCE ONE Stop: 08/22/18 18:12 Amiodarone HCl 450 mg/ (Dextrose) 250 mls @ 33.33 mls/hr IV.CONT TITRATE PRN; Protocol PRN Reason: Per Protocol Magnesium Sulfate/Dextrose (Magnesium Sulfate 1 Gm/D5w 100 Ml Premix) 100 mls @ 100 mls/hr IV.SIG ONCE ONE Stop: 08/22/18 18:16 Magnesium Sulfate 2 gm/ Sodium (Chloride) 100 mls @ 50 mls/hr IV.SIG UNSCH PRN PRN Reason: For Magnesium 1.2 - 1.6 mg/dL Potassium Chloride (Kcl 40 Meq Premix Inj) 40 meq in 100 mls @ 25 mls/hr IV.SIG Q2H PRN PRN Reason: For Potassium 2.8 - 3.2 mEq/L Potassium Chloride (Kcl 20 Meq Premix Inj) 20 meq in 100 mls @ 50 mls/hr IV.SIG Q2H PRN PRN Reason: For Potassium 3.3 - 3.5 mEq/L Potassium Chloride (Kcl 20 Meq Premix Inj) 20 meq in 100 mls @ 50 mls/hr IV.SIG Q2H PRN PRN Reason: For Potassium 2.8 - 3.2 mEq/L Potassium Phosphate 30 mmol/ (Sodium Chloride) 260 mls @ 42 mls/hr IV.SIG UNSCH PRN PRN Reason: SEE LABEL COMMENTS Sodium Phosphate 30 mmol/ (Sodium Chloride) 260 mls @ 42 mls/hr IV.SIG UNSCH PRN PRN Reason: For Phosphorus < 2.5 mg/dL Potassium Chloride (Kcl 40 Meq Premix Inj) 40 meq in 100 mls @ 25 mls/hr IV.SIG UNSCH PRN PRN Reason: For Potassium 3.3 - 3.5 mEq/L Insulin Human Regular (Novolin R Correctional Sugar Inj) 0 units SQ ACHS AND 3AM [facility]; Protocol Last Admin: 08/22/18 09:31 Dose: Not Given Lactulose (Lactulose Liq) 30 ml PO DAILY PRN PRN Reason: SEVERE CONSITIPATION Magnesium Oxide (Mag-Ox) 800 mg PO UNSCH PRN PRN Reason: For Magnesium 1.2 - 1.6 mg/dL Morphine Sulfate (Morphine Inj) 4 mg IV.PUSH Q2H PRN PRN Reason: BREAKTHROUGH PAIN Last Admin: 08/22/18 05:42 Dose: 4 mg Mupirocin (Bactroban 2% Nasal Oint) 1 applicatio EACH NARE BID [facility] Stop: 08/25/18 21:01 Last Admin: 08/22/18 09:33 Dose: 1 applicatio Ondansetron HCl (Zofran Odt) 4 mg PO Q6H PRN PRN Reason: NAUSEA OR VOMITING Ondansetron HCl (Zofran Inj) 4 mg IV.PUSH Q6H PRN PRN Reason: NAUSEA OR VOMITING Last Admin: 08/22/18 05:43 Dose: 4 mg Potassium Bicarb/Potassium Chloride (K-Lyte Cl Eff) 50 meq PO UNSCH PRN PRN Reason: For Potassium 3.3 - 3.5 mEq/L Potassium Chloride (Kcl Inj) 20 meq IV.SIG ONCE ONE Stop: 08/22/18 18:01 Potassium Phosphate (K-Phos Original) 2,000 mg PO Q4H PRN PRN Reason: Phosphorus Less Than 2.5 mg/dL Potassium Phosphate (K-Phos Original) 2,000 mg PO UNSCH PRN PRN Reason: SEE LABEL COMMENTS Promethazine HCl (Phenergan) 25 mg PO Q6H PRN PRN Reason: NAUSEA OR VOMITING Promethazine HCl (Phenergan Supp) 25 mg RECTAL Q6H PRN PRN Reason: NAUSEA OR VOMITING Senna/Docusate Sodium (Sammie-Colace) 1 tab PO BID [facility] Last Admin: 08/22/18 09:33 Dose: 1 tab Sennosides (Senokot) 17.2 mg PO Q12H PRN PRN Reason: Moderate Constipation Allergies Allergy/AdvReac Type Severity Reaction Status Date / Time apple Allergy Severe Itching Verified 08/19/18 10:57 banana Allergy Severe Swelling Verified 08/19/18 10:57 Home Medications Medication Instructions Recorded Confirmed Type anastrozole 1 mg PO DAILY 08/19/18 08/20/18 History metformin 500 mg PO BID 08/19/18 08/20/18 History Physical Exam Vital signs: Vital Signs 08/21/18 20:00 08/21/18 20:56 08/22/18 00:00 Temperature 98.8 F 98.8 F Pulse Rate 94 H 93 H Respiratory Rate 17 24 Blood Pressure 109/47 L 109/51 L Pulse Oximetry 100 96 98 08/22/18 02:18 08/22/18 04:00 Temperature 98.7 F Pulse Rate 91 H Respiratory Rate 14 23 Blood Pressure 116/56 L Pulse Oximetry 97 Intake & Output 08/21/18 08/22/18 08/22/18 18:59 06:59 18:59 Intake Total 2900 / 2900 1260 / 1260 1300 / 1300 Output Total 640 / 640 380 / 380 50 / 50 Balance 2260 / 2260 880 / 880 1250 / 1250 Weight 90.8 kg Intake: IV 2900 / 2900 1200 / 1200 1050 / 1050 NS Inj 1,000 ML @ 125 mls/hr IV 2000 / 2000 1000 / 1000 1000 / 1000 .CONT .Q8H [facility] Rx#:[id number] Zosyn 3.375 GM Premix 50 ML @ 100 / 100 100 / 100 50 / 50 100 mls/hr IV.SIG Q6H [facility] Rx#: [id number] KCl 10 mEq Premix Inj 10 meq In 300 / 300 100 / 100 100 ml @ 100 mls/hr IV.SIG Q1H [facility] Rx#:[id number] Oral 60 / 60 200 / 200 Water Bolus Amount 50 / 50 Output: Stool 0 / 0 Urine Amount (Catheter) 475 / 475 350 / 350 Indwelling Urethral Catheter 475 / 475 350 / 350 Gastric Drainage 135 / 135 0 / 0 50 / 50 Right Nare Nasogastric Tube 135 / 135 0 / 0 50 / 50 Wound Drainage 30 / 30 30 / 30 # 1 Right Abdomen Aakash 30 / 30 30 / 30 Narrative: General: Comfortable. Head: Atraumatic, normal. Neck: Supple, airway widely patent, no obstructive noises. Lungs: Clear bilaterally without wheezes or crackles, comfortable respiratory pattern. Heart: Constant irregular irregular rhythm, rate 98-132. Neck veins are not distended. Abdomen: Postsurgical, bowel sounds active. Wound clean. Extremities: Warm, well-perfused. No edema. Neuro: Oriented 3, alert, cooperative, conversant. Moves 4 limbs to command. - Urinary Catheter Management Indwelling Urethral Catheter Cath placed during this visit: yes Reason for continuing: Hourly intake/output Insertion date: 08/20/18 Assessment and Plan - Problem List (1) Atrial fibrillation with rapid ventricular response Code(s): I48.91 - Unspecified atrial fibrillation Status: Acute (2) Acute cholecystitis Code(s): K81.0 - Acute cholecystitis Status: Acute (3) Gangrenous cholecystitis Code(s): K81.0 - Acute cholecystitis Status: Acute - Assessment and Plan Plan: Plan: 1. Keep potassium greater than 4 and magnesium greater than 2. 2. Start amiodarone drip by protocol. 3. Check electrolytes including mag and phosphorus in a.m. 4. Follow hemoglobin. 5. Continue postsurgical activities as ordered by the primary team. 6. No need for full anticoagulation at this time. Overall impression: This woman is developed new onset atrial fibrillation with a moderately irregular response. She has stable hemodynamics and there is no evidence of an adequate fluid balance. Lungs are clear, she breathes comfortably, and her neck veins are not distended. She has a mild anemia and her potassium is in the low normal range. The EKG is isoelectric. There is no need for immediate rate control. We can probably get her converted pharmacologically before she requires anticoagulation. She will be converted to long-term low-dose beta-sil therapy following conversion.
[2018-08-22] MEDS ORDERED: Potassium Chlor 20 mEq Premix 20 MEQ/100 ML PIGGYBACK IV.SIG ONE (17:45)
[2018-08-22] MEDS ORDERED: Potassium Chloride Inj 20 MEQ/10 ML Vial IV.SIG ONE (18:00)
[2018-08-22] MEDS ORDERED: Mag Sulf 1 gm/100 ml Premix 100 ML IV.SIG ONE (18:00)
[2018-08-23] MEDS: Piperacil/Tazo 3.375 GM Premix 50 ML IV.SIG SCH ×4 (01:48→20:13)
[2018-08-23] MEDS: Insulin NovoLIN Regular Correctional Sugar Inj SQ SCH ×4 (03:53→18:38)
[2018-08-23 04:07] LABS: Baso % (Auto) 0.1 % (0.0-2.0); Eos % (Auto) 0.3 % (0.0-4.0); Hematocrit 21.4 % (35.0-46.0); Hemoglobin 7.4 gm/dL (11.6-15.3); Lymph # (Auto) 0.6 th/mm3 (1.0-4.8); Lymph % (Auto) 9.3 % (9.0-44.0); Mean Corpuscular HGB Conc 34.7 % (32.0-36.0); Mean Corpuscular Hemoglobin 32.1 pg (27.0-34.0); Mean Corpuscular Volume 92.4 fL (80.0-100.0); Mean Platelet Volume 7.3 fL (7.0-11.0); Mono # (Auto) 0.3 th/mm3 (0.0-0.9); Mono % (Auto) 4.3 % (0.0-8.0); Neut # (Auto) 5.5 th/mm3 (1.8-7.7); Platelet Count 72 th/mm3 (150-450); Red Blood Count 2.32 mil/mm3 (4.00-5.30); Red Cell Distribution Width 21.1 % (11.6-17.2); White Blood Count 6.4 th/mm3 (4.0-11.0)
[2018-08-23] MEDS: Chlorhexidine Gluconate 2% 1 Pack (2 Cloths) TOPICAL SCH (04:42)
[2018-08-23 04:45] LABS: Calcium 6.9 mg/dL (8.5-10.1); Magnesium 1.2 mg/dL (1.5-2.5); Phosphorus 1.9 mg/dL (2.5-4.9); Potassium 3.1 meq/L (3.5-5.1)
[2018-08-23 04:57] LABS: Total Protein 4.9 g/dL (6.4-8.2); Troponin I 0.06 ng/mL (0.02-0.05)
[2018-08-23 06:04] LABS: Lymphocytes 5 % (9-44); Metamyelocytes 5 % (0-1); Monocytes 2 % (0-8)
[2018-08-23 06:05] LABS: Ovalocytes 1+; Tear Drop Cells 2+
[2018-08-23 06:06] LABS: Platelet Morphology Normal (Normal); Toxic Granulation 1+
[2018-08-23] MEDS: Potassium Chlor 20 mEq Premix 20 MEQ/100 ML PIGGYBACK IV.SIG PRN ×2 (08:34→11:41)
--- NOTE | 2018-08-23 08:59 | P.PNCC ---
Subjective Subjective Remarks/Hospital Course: 08/22: This 72-year-old woman underwent an emergent open cholecystectomy for a gangrenous gallbladder. Laparoscopic approach was terminated when the gallbladder was found to be markedly inflamed and densely attached to the abdominal wall. She is on appropriate antibiotic coverage and is recovering well. She has no history of cardiac arrhythmias. She spontaneously developed atrial fibrillation with poorly controlled ventricular response this afternoon and I was asked to see her in consultation. I have reviewed her record and discussed her care at length with the patient and with her daughter at the bedside. Discussed with the surgical service as well. She is normotensive and has no chest pain or shortness of breath. Aside from some mild abdominal pain with coughing she is relatively comfortable. Electrolytes are normal. 08/23: Patient converted pharmacologically to normal sinus rhythm on amiodarone infusion. Presently undergoing additional replacement of potassium, phosphate, magnesium in an attempt to reduce the likelihood of recurrence. Systolic blood pressure in the 140s and well-perfused. BNP is modestly elevated, consistent with positive fluid balance, also consistent with the level of toxicity anticipated with a gangrenous gallbladder. We will replete her electrolytes, stop her maintenance IV, and add a diuretic. Objective Vital Signs / I&O: Vital Signs 08/22/18 12:00 08/22/18 16:00 08/22/18 20:00 Temperature 99.2 F 99.1 F 99.1 F Pulse Rate 104 H 110 H 94 H Respiratory Rate 22 28 H 22 Blood Pressure 142/64 H 133/62 133/59 L Pulse Oximetry 96 96 96 08/23/18 00:00 08/23/18 04:00 Temperature 97.4 F L 98.6 F Pulse Rate 94 H 89 Respiratory Rate 25 H 20 Blood Pressure 134/64 129/63 Pulse Oximetry 97 96 Intake & Output 08/22/18 08/23/18 08/23/18 18:59 06:59 18:59 Intake Total 2590 / 2590 840 / 840 Output Total 525 / 525 430 / 430 Balance 2064 / 2064 410 / 410 Weight 92.2 kg Intake: IV 2099 / 2100 600 / 600 Cordarone Inj 450 MG In D5W Inj 250 / 250 241 ML @ 1 MG/MIN 33.33 mls/hr IV.CONT TITRATE PRN Rx#: [id number] NS Inj 1,000 ML @ 50 mls/hr IV. 1999 CONT .Q20H [facility] Rx#:[id number] Cordarone Inj 150 MG In D5W Inj 100 / 100 97 ML @ 100 mls/hr IV.SIG ONCE ONE Rx#:[id number] Magnesium Sulfate 1 gm/D5W 100 100 / 100 ml Premix 100 ML @ 100 mls/hr IV.SIG ONCE ONE Rx#:[id number] Zosyn 3.375 GM Premix 50 ML @ 100 / 100 50 / 50 100 mls/hr IV.SIG Q6H [facility] Rx#: [id number] KCl 20 mEq Premix Inj 20 meq In 100 / 100 100 ml @ 50 mls/hr IV.SIG ONCE ONE Rx#:[id number] Oral 440 / 440 240 / 240 Water Bolus Amount 50 / 50 Output: Stool 0 / 0 Urine Amount (Catheter) 425 / 425 400 / 400 Indwelling Urethral Catheter 425 / 425 400 / 400 Gastric Drainage 50 / 50 Right Nare Nasogastric Tube 50 / 50 Wound Drainage 50 / 50 30 / 30 # 1 Right Abdomen Aakash 50 / 50 30 / 30 Result Diagrams: 08/23/18 03:55 08/23/18 03:55 Objective Remarks: Narrative: General: Comfortable. Head: Atraumatic, normal. Neck: Supple, airway widely patent, no obstructive noises. Lungs: Clear bilaterally without wheezes or crackles, comfortable respiratory pattern. Heart: Regular rate and rhythm in the 80s. Normal S1, S2. Neck veins are not distended. Abdomen: Postsurgical, bowel sounds active. Nondistended. Extremities: Warm, well-perfused. No edema. Neuro: Oriented 3, alert, cooperative, conversant. Moves 4 limbs to command. Assessment and Plan - Problem List (1) Atrial fibrillation with rapid ventricular response Code(s): I48.91 - Unspecified atrial fibrillation Status: Acute (2) Acute cholecystitis Code(s): K81.0 - Acute cholecystitis Status: Acute (3) Gangrenous cholecystitis Code(s): K81.0 - Acute cholecystitis Status: Acute - Assessment and Plan Plan: Plan: 1. Keep potassium greater than 4 and magnesium greater than 2. 2. 24 hour amiodarone drip by protocol. 3. Check electrolytes including mag and phosphorus in a.m. 4. Follow hemoglobin. 5. Continue postsurgical activities as ordered by the primary team. 6. No need for full anticoagulation at this time. 7. Replace phosphate. 8. Add low-dose beta-sil. Overall impression: This woman developed new onset atrial fibrillation with a moderately elevated ventricular response. She continues with stable hemodynamics and there is no evidence of an adequate fluid balance. Lungs are clear, she breathes comfortably, and her neck veins are not distended. She has a mild anemia and her potassium, magnesium, phosphate are in the low normal range. The EKG is isoelectric. There is no need for immediate rate control. We converted her pharmacologically. She will be transitioned to long-term low- dose beta-sil therapy following conversion.
[2018-08-23] MEDS: Mupirocin 2% Nasal Oint Topical Syringe EACH NARE SCH ×2 (11:00→20:13)
[2018-08-23] MEDS: Metoprolol Tartrate 25 MG Tablet PO SCH ×2 (11:08→20:14)
--- NOTE | 2018-08-23 11:46 | ECG ---
Date Performed: 08/22/2018 Time Performed: 14:46:22 PTAGE: 72 years EKG: Atrial fibrillation with rapid ventricular response. Extensive ST-T changes are nonspecific Generalized low QRS voltages Abnormal ECG PREVIOUS TRACING : 05/09/2018 23.14 Compared to previous tracing, the patient is now in atrial fibrillation With rapid ventricular response. DOCTOR: Jo Wilcox Interpretating Date/Time 08/23/2018 11:44:01
--- NOTE | 2018-08-23 14:11 | P.PNGS ---
Subjective Patient reports: feels better, still having pain Interval history: DAILY PROGRESS NOTE FOR SURGICAL ATTENDING, DR. JEFF COLON I feel little better I will get out of bed later today Physical Exam Vital signs: Vital Signs 08/22/18 16:00 08/22/18 20:00 08/23/18 00:00 Temperature 99.1 F 99.1 F 97.4 F L Pulse Rate 110 H 94 H 94 H Respiratory Rate 28 H 22 25 H Blood Pressure 133/62 133/59 L 134/64 Pulse Oximetry 96 96 97 08/23/18 04:00 Temperature 98.6 F Pulse Rate 89 Respiratory Rate 20 Blood Pressure 129/63 Pulse Oximetry 96 Intake & Output 08/22/18 08/23/18 08/23/18 18:59 06:59 18:59 Intake Total 2590 / 2590 840 / 840 150 / 150 Output Total 525 / 525 430 / 430 Balance 2064 410 / 410 150 / 150 Weight 92.2 kg Intake: IV 2099 / 2099 600 / 600 150 / 150 Cordarone Inj 450 MG In D5W Inj 250 / 250 241 ML @ 1 MG/MIN 33.33 mls/hr IV.CONT TITRATE PRN Rx#: [id number] NS Inj 1,000 ML @ 50 mls/hr IV. 1999 CONT .Q20H [facility] Rx#:[id number] Cordarone Inj 150 MG In D5W Inj 100 / 100 97 ML @ 100 mls/hr IV.SIG ONCE ONE Rx#:[id number] Magnesium Sulfate 1 gm/D5W 100 100 / 100 ml Premix 100 ML @ 100 mls/hr IV.SIG ONCE ONE Rx#:[id number] Zosyn 3.375 GM Premix 50 ML @ 100 / 100 50 / 50 50 / 50 100 mls/hr IV.SIG Q6H [facility] Rx#: [id number] KCl 20 mEq Premix Inj 20 meq In 100 / 100 100 / 100 100 ml @ 50 mls/hr IV.SIG Q2H [facility] Rx#:[id number] Oral 440 / 440 240 / 240 Water Bolus Amount 50 / 50 Output: Stool 0 / 0 Urine Amount (Catheter) 425 / 425 400 / 400 Indwelling Urethral Catheter 425 / 425 400 / 400 Gastric Drainage 50 / 50 Right Nare Nasogastric Tube 50 / 50 Wound Drainage 50 / 50 30 / 30 # 1 Right Abdomen Aakash 50 / 50 30 / 30 Narrative: General: Comfortable. . Lungs: Clear bilaterally without wheezes or crackles, comfortable respiratory pattern. Heart: Constant irregular irregular rhythm, rate 98-132. Neck veins are not distended. Abdomen: Postsurgical, bowel sounds active. Wound clean. SARAH with minimal drainage lonny dressing Extremities: Warm, well-perfused. No edema. Neuro: Oriented 3, alert, cooperative, conversant. . - Urinary Catheter Management Indwelling Urethral Catheter Cath placed during this visit: yes Reason for continuing: Hourly intake/output Insertion date: 08/20/18 Results - Labs 08/23/18 03:55 08/23/18 03:55 Laboratory Results - last 24 hr 08/22/18 08/22/18 08/23/18 17:09 20:20 03:51 WBC RBC Hgb Hct MCV MCH MCHC RDW Plt Count MPV Prelim Diff (Auto) Neut % (Auto) Lymph % (Auto) Nolan % (Auto) Eos % (Auto) Baso % (Auto) Neut # (Auto) Lymph # (Auto) Nolan # (Auto) Eos # (Auto) Baso # (Auto) WBC Differential Seg Neuts % (Manual) Band Neuts % (Manual) Lymphocytes % (Manual) Monocytes % (Manual) Metamyelocytes % (Man) Abs Neuts (Manual) Differential Comment Toxic Granulation Platelet Estimate Platelet Morphology Tear Drop Cells Ovalocytes Sodium Potassium Chloride Carbon Dioxide Anion Gap BUN Creatinine Estimated GFR POC Glucose 95 122 H 133 H Random Glucose Calcium Prot Corrected Calcium Phosphorus Magnesium Troponin I B-Natriuretic Peptide Total Protein 08/23/18 08/23/18 08/23/18 03:55 03:55 03:55 WBC 6.4 RBC 2.32 L Hgb 7.4 L Hct 21.4 L MCV 92.4 MCH 32.1 MCHC 34.7 RDW 21.1 H Plt Count 72 L MPV 7.3 Prelim Diff (Auto) Slide review pending Neut % (Auto) 86.0 H Lymph % (Auto) 9.3 Nolan % (Auto) 4.3 Eos % (Auto) 0.3 Baso % (Auto) 0.1 Neut # (Auto) 5.5 Lymph # (Auto) 0.6 L Nolan # (Auto) 0.3 Eos # (Auto) 0.0 Baso # (Auto) 0.0 WBC Differential Manual diff final Seg Neuts % (Manual) 77 H Band Neuts % (Manual) 11 H Lymphocytes % (Manual) 5 L Monocytes % (Manual) 2 Metamyelocytes % (Man) 5 H Abs Neuts (Manual) 6.0 Differential Comment . Toxic Granulation 1+ H Platelet Estimate Low L Platelet Morphology Normal Tear Drop Cells 2+ H Ovalocytes 1+ H Sodium 143 Potassium 3.1 L Chloride 112 H Carbon Dioxide 22.0 Anion Gap 9 BUN 11 Creatinine 0.76 Estimated GFR 75 L POC Glucose Random Glucose 133 H Calcium 6.9 L* Prot Corrected Calcium 8.1 L Phosphorus 1.9 L Magnesium 1.2 L Troponin I 0.06 H B-Natriuretic Peptide 472 H Total Protein 4.9 L 08/23/18 11:11 WBC RBC Hgb Hct MCV MCH MCHC RDW Plt Count MPV Prelim Diff (Auto) Neut % (Auto) Lymph % (Auto) Nolan % (Auto) Eos % (Auto) Baso % (Auto) Neut # (Auto) Lymph # (Auto) Nolan # (Auto) Eos # (Auto) Baso # (Auto) WBC Differential Seg Neuts % (Manual) Band Neuts % (Manual) Lymphocytes % (Manual) Monocytes % (Manual) Metamyelocytes % (Man) Abs Neuts (Manual) Differential Comment Toxic Granulation Platelet Estimate Platelet Morphology Tear Drop Cells Ovalocytes Sodium Potassium Chloride Carbon Dioxide Anion Gap BUN Creatinine Estimated GFR POC Glucose 104 Random Glucose Calcium Prot Corrected Calcium Phosphorus Magnesium Troponin I B-Natriuretic Peptide Total Protein Assessment and Plan - Assessment (1) Gangrenous cholecystitis Code(s): K81.0 - Acute cholecystitis Status: Acute - Plan 72 year old female POD2 open cholecystectomy -clear liquids -Continue liquids as tolerated -OOB as tolerated; PT consulted Replace electrolytes potassium magnesium phosphorus Discussed with Dr. Gautam intensive care - Attending Attestation NOTE FOR SURGICAL ATTENDING, DR. JEFF COLON I attest that I had a [id number] encounter with the patient on the same day, and personally performed and documented my assessment and findings in the medical record. The following services were provided during this hospital visit: Chart data review, vital sign assessments/reviewing monitor data Review of consultations notes if present. Medication orders/review and/or management Ordering and/or reviewing lab tests Ordering and/or interpreting/reviewing x-rays and/or diagnostic studies Care of the patient and discussion of the patient with the care team Documentation time To help prompt me to consider important information that might be impacting today's encounter and assessment, Information from prior notes written by myself or my colleagues may have been "brought forward/copy and pasted" into today's note.
[2018-08-23] MEDS: Senna/Docusate Sodium 8.6/50 MG Tablet PO SCH ×2 (17:39→20:14)
[2018-08-23] MEDS: Morphine Inj 4 MG/ML Vial IV.PUSH PRN (20:29)
[2018-08-24] MEDS: Insulin NovoLIN Regular Correctional Sugar Inj SQ SCH ×5 (00:58→21:12)
[2018-08-24] MEDS: Piperacil/Tazo 3.375 GM Premix 50 ML IV.SIG SCH ×4 (02:08→20:49)
[2018-08-24] MEDS: Chlorhexidine Gluconate 2% 1 Pack (2 Cloths) TOPICAL SCH (06:30)
[2018-08-24 06:48] LABS: Baso % (Auto) 0.3 % (0.0-2.0); Eos % (Auto) 0.4 % (0.0-4.0); Hematocrit 24.2 % (35.0-46.0); Hemoglobin 8.3 gm/dL (11.6-15.3); Lymph # (Auto) 0.8 th/mm3 (1.0-4.8); Lymph % (Auto) 14.4 % (9.0-44.0); Mean Corpuscular HGB Conc 34.1 % (32.0-36.0); Mean Corpuscular Hemoglobin 31.9 pg (27.0-34.0); Mean Corpuscular Volume 93.6 fL (80.0-100.0); Mean Platelet Volume 7.3 fL (7.0-11.0); Mono # (Auto) 0.4 th/mm3 (0.0-0.9); Mono % (Auto) 6.6 % (0.0-8.0); Neut # (Auto) 4.5 th/mm3 (1.8-7.7); Neut % (Auto) 78.3 % (16.0-70.0); Platelet Count 88 th/mm3 (150-450); Red Blood Count 2.59 mil/mm3 (4.00-5.30); Red Cell Distribution Width 21.1 % (11.6-17.2); White Blood Count 5.8 th/mm3 (4.0-11.0)
--- NOTE | 2018-08-24 07:15 | P.PNCC ---
Subjective Subjective Remarks/Hospital Course: 08/22: This 72-year-old woman underwent an emergent open cholecystectomy for a gangrenous gallbladder. Laparoscopic approach was terminated when the gallbladder was found to be markedly inflamed and densely attached to the abdominal wall. She is on appropriate antibiotic coverage and is recovering well. She has no history of cardiac arrhythmias. She spontaneously developed atrial fibrillation with poorly controlled ventricular response this afternoon and I was asked to see her in consultation. I have reviewed her record and discussed her care at length with the patient and with her daughter at the bedside. Discussed with the surgical service as well. She is normotensive and has no chest pain or shortness of breath. Aside from some mild abdominal pain with coughing she is relatively comfortable. Electrolytes are normal. 08/23: Patient converted pharmacologically to normal sinus rhythm on amiodarone infusion. Presently undergoing additional replacement of potassium, phosphate, magnesium in an attempt to reduce the likelihood of recurrence. Systolic blood pressure in the 140s and well-perfused. BNP is modestly elevated, consistent with positive fluid balance, also consistent with the level of toxicity anticipated with a gangrenous gallbladder. We will replete her electrolytes, stop her maintenance IV, and add a diuretic. 08/24: Breathing comfortably. Remained back in sinus mechanism will treat with short-term amiodarone and long-term beta-sil. Will need diuretic this morning for positive fluid balance. Objective Vital Signs / I&O: Vital Signs 08/23/18 08:00 08/23/18 12:00 08/23/18 16:00 Temperature 98 F 98.3 F 99.3 F Pulse Rate 77 88 87 Respiratory Rate 17 17 20 Blood Pressure 128/55 L 148/74 H 134/70 Pulse Oximetry 98 98 97 08/23/18 20:00 08/24/18 00:00 08/24/18 04:00 Temperature 98.4 F 98.6 F 98.6 F Pulse Rate 84 87 85 Respiratory Rate 22 Blood Pressure 128/69 129/77 120/65 Pulse Oximetry 97 95 Intake & Output 08/23/18 08/24/18 08/24/18 18:59 06:59 18:59 Intake Total 970 / 970 200 / 200 Output Total 500 / 500 860 / 860 Balance 470 / 470 -660 / -660 Weight 94.2 kg Intake: IV 910 / 910 100 / 100 Cordarone Inj 450 MG In D5W Inj 250 / 250 241 ML @ 1 MG/MIN 33.33 mls/hr IV.CONT TITRATE PRN Rx#: [id number] Magnesium Sulfate Inj 2 GM In 100 / 100 NS Inj 96 ML @ 50 mls/hr IV.SIG UNSCH PRN Rx#:[id number] Zosyn 3.375 GM Premix 50 ML @ 100 / 100 100 / 100 100 mls/hr IV.SIG Q6H [facility] Rx#: [id number] KCl 20 mEq Premix Inj 20 meq In 200 / 200 100 ml @ 50 mls/hr IV.SIG Q2H PRN Rx#:[id number] Potassium Phosphate Inj 30 MMOL 260 / 260 In NS Inj 250 ML @ 42 mls/hr IV.SIG UNSCH PRN Rx#:[id number] Oral 60 / 60 100 / 100 Output: Stool 0 / 0 Estimated Blood Loss 500 / 500 Urine Amount (Catheter) 475 / 475 250 / 250 Indwelling Urethral Catheter 475 / 475 250 / 250 Gastric Drainage 50 / 50 Right Nare Nasogastric Tube 50 / 50 Wound Drainage 25 / 25 60 / 60 # 1 Right Abdomen Aakash 25 / 25 60 / 60 Other: # Bowel Movements 0 0 Result Diagrams: 08/24/18 06:00 08/23/18 03:55 Objective Remarks: Narrative: General: Comfortable. Sleeping. Head: Atraumatic, normal. Neck: Supple, airway widely patent, no obstructive noises. Lungs: Clear bilaterally, no wheezes or crackles. Comfortable respiratory pattern. Heart: Regular rate and rhythm in the 80s. Normal S1, S2. Neck veins are not distended. Abdomen: Postsurgical, bowel sounds active. Nondistended. Extremities: Warm, well-perfused. No edema. Neuro: Oriented 3, alert, cooperative, conversant. Moves 4 limbs to command. Assessment and Plan - Problem List (1) Atrial fibrillation with rapid ventricular response Code(s): I48.91 - Unspecified atrial fibrillation Status: Acute (2) Acute cholecystitis Code(s): K81.0 - Acute cholecystitis Status: Acute (3) Gangrenous cholecystitis Code(s): K81.0 - Acute cholecystitis Status: Acute - Assessment and Plan Plan: Plan: 1. Keep potassium greater than 4 and magnesium greater than 2. 2. 24 hour amiodarone drip by protocol, convert to 200 mg p.o. daily. 3. Check electrolytes including mag and phosphorus again in a.m. 4. Follow hemoglobin. 5. Continue postsurgical activities as ordered by the primary team. 6. No need for full anticoagulation at this time. 7. Replace phosphate. 8. Add low-dose beta-sil. Overall impression: This woman developed new onset atrial fibrillation with a moderately elevated ventricular response. She continues with stable hemodynamics. Lungs are clear, she breathes comfortably, and her neck veins are not distended. She has a mild anemia and her potassium, magnesium, phosphate were in the low normal range. The EKG is isoelectric. There is no need for immediate rate control. We converted her pharmacologically. She will be transitioned to long-term low-dose beta-sil therapy following conversion. All in all she is doing very well.
--- NOTE | 2018-08-24 07:58 | P.PNGS ---
Subjective Interval history: Resting in bed Would like to change postions soon ---I let RN know Not happy about Wheeler catheter coming up--explained about the risk of UTIs if left in Physical Exam Vital signs: Vital Signs 08/23/18 08:00 08/23/18 12:00 08/23/18 16:00 Temperature 98 F 98.3 F 99.3 F Pulse Rate 77 88 87 Respiratory Rate 17 17 20 Blood Pressure 128/55 L 148/74 H 134/70 Pulse Oximetry 98 98 97 08/23/18 20:00 08/24/18 00:00 08/24/18 04:00 Temperature 98.4 F 98.6 F 98.6 F Pulse Rate 84 87 85 Respiratory Rate 24 23 22 Blood Pressure 128/69 129/77 120/65 Pulse Oximetry 97 95 Intake & Output 08/23/18 08/24/18 08/24/18 18:59 06:59 18:59 Intake Total 970 / 970 200 / 200 Output Total 500 / 500 860 / 860 Balance 470 / 470 -660 / -660 Weight 94.2 kg Intake: IV 910 / 910 100 / 100 Cordarone Inj 450 MG In D5W Inj 250 / 250 241 ML @ 1 MG/MIN 33.33 mls/hr IV.CONT TITRATE PRN Rx#: [id number] Magnesium Sulfate Inj 2 GM In 100 / 100 NS Inj 96 ML @ 50 mls/hr IV.SIG UNSCH PRN Rx#:[id number] Zosyn 3.375 GM Premix 50 ML @ 100 / 100 100 / 100 100 mls/hr IV.SIG Q6H [facility] Rx#: [id number] KCl 20 mEq Premix Inj 20 meq In 200 / 200 100 ml @ 50 mls/hr IV.SIG Q2H PRN Rx#:[id number] Potassium Phosphate Inj 30 MMOL 260 / 260 In NS Inj 250 ML @ 42 mls/hr IV.SIG UNSCH PRN Rx#:[id number] Oral 60 / 60 100 / 100 Output: Stool 0 / 0 Estimated Blood Loss 500 / 500 Urine Amount (Catheter) 475 / 475 250 / 250 Indwelling Urethral Catheter 475 / 475 250 / 250 Gastric Drainage 50 / 50 Right Nare Nasogastric Tube 50 / 50 Wound Drainage 25 / 25 60 / 60 # 1 Right Abdomen Aakash 25 / 25 60 / 60 Other: # Bowel Movements 0 0 Narrative: Resting in bed watching TV Abd: RUQ in place with good seal; SS drainage in SARAH; abdomen soft non distended - Routine Abdominal Exam Present: wound (clean and dry; GALDINO in place), drain (output approx 30ml; looking more bilious today) - Routine Extremities Exam Comments: some peripheral edema - Urinary Catheter Management Indwelling Urethral Catheter Cath placed during this visit: yes Reason for continuing: Hourly intake/output Insertion date: 08/20/18 Results - Labs 08/25/18 11:35 08/25/18 06:46 Laboratory Results - last 24 hr 08/23/18 08/23/18 08/23/18 11:11 15:43 18:39 WBC RBC Hgb Hct MCV MCH MCHC RDW Plt Count MPV Prelim Diff (Auto) Neut % (Auto) Lymph % (Auto) [place] % (Auto) Eos % (Auto) Baso % (Auto) Neut # (Auto) Lymph # (Auto) [place] # (Auto) Eos # (Auto) Baso # (Auto) Differential Comment POC Glucose 104 104 112 H 08/23/18 08/24/18 20:25 06:00 WBC 5.8 RBC 2.59 L Hgb 8.3 L Hct 24.2 L MCV 93.6 MCH 31.9 MCHC 34.1 RDW 21.1 H Plt Count 88 L MPV 7.3 Prelim Diff (Auto) Slide review pending Neut % (Auto) 78.3 H Lymph % (Auto) 14.4 [place] % (Auto) 6.6 Eos % (Auto) 0.4 Baso % (Auto) 0.3 Neut # (Auto) 4.5 Lymph # (Auto) 0.8 L [place] # (Auto) 0.4 Eos # (Auto) 0.0 Baso # (Auto) 0.0 Differential Comment . POC Glucose 122 H Assessment and Plan - Assessment (1) Gangrenous cholecystitis Code(s): K81.0 - Acute cholecystitis Status: Acute Plan: 72 year old female POD4 open cholecystectomy -Full liquids -DC Wheeler -HR better controlled now -Await today's labs -OOB as tolerated; PT consulted As above; D/C wheeler Will need ERCP/stent if output in SARAH does not decrease Patient aware The exam, history, and the medical decision-making described in the above note were completed with the assistance of the mid-level provider. I reviewed and agree with the findings presented. I attest that I had a [id number] encounter with the patient on the same day, and personally performed and documented my assessment and findings in the medical record.
[2018-08-24 08:02] LABS: Calcium 7.3 mg/dL (8.5-10.1); Carbon Dioxide 20.5 meq/L (21.0-32.0); Magnesium 1.8 mg/dL (1.5-2.5); Phosphorus 3.5 mg/dL (2.5-4.9); Potassium 4.1 meq/L (3.5-5.1)
[2018-08-24 08:39] LABS: Total Protein 5.4 g/dL (6.4-8.2)
[2018-08-24 09:18] LABS: Eosinophils 1 % (0-4); Lymphocytes 14 % (9-44); Metamyelocytes 4 % (0-1); Monocytes 5 % (0-8); Myelocytes 2 % (0-0)
[2018-08-24 09:19] LABS: Helmet Cells Occ; Ovalocytes 1+; Platelet Morphology Normal (Normal); Tear Drop Cells 1+; Toxic Granulation 2+
[2018-08-24] MEDS: Senna/Docusate Sodium 8.6/50 MG Tablet PO SCH ×2 (09:54→20:50)
[2018-08-24] MEDS: Metoprolol Tartrate 25 MG Tablet PO SCH ×2 (09:54→20:50)
[2018-08-24] MEDS: Amiodarone 200 MG Tablet PO SCH (09:54)
[2018-08-24] MEDS: Morphine Inj 4 MG/ML Vial IV.PUSH PRN ×2 (14:59→21:13)
[2018-08-24] MEDS: Mupirocin 2% Nasal Oint Topical Syringe EACH NARE SCH (20:50)
[2018-08-25] MEDS: Morphine Inj 4 MG/ML Vial IV.PUSH PRN ×4 (00:54→20:24)
[2018-08-25] MEDS: Piperacil/Tazo 3.375 GM Premix 50 ML IV.SIG SCH ×4 (01:18→20:24)
[2018-08-25] MEDS: Insulin NovoLIN Regular Correctional Sugar Inj SQ SCH ×5 (04:47→20:39)
[2018-08-25] MEDS: Chlorhexidine Gluconate 2% 1 Pack (2 Cloths) TOPICAL SCH (04:47)
[2018-08-25 07:27] LABS: Calcium 7.4 mg/dL (8.5-10.1); Carbon Dioxide 22.3 meq/L (21.0-32.0); Potassium 3.9 meq/L (3.5-5.1)
[2018-08-25] MEDS: Mupirocin 2% Nasal Oint Topical Syringe EACH NARE SCH ×3 (07:58→20:23)
[2018-08-25 08:04] LABS: Total Protein 5.6 g/dL (6.4-8.2)
[2018-08-25] MEDS ORDERED: Mag Sulf 1 gm/100 ml Premix 100 ML IV.SIG ONE (08:26)
--- NOTE | 2018-08-25 08:39 | P.PNCC ---
Subjective Subjective Remarks/Hospital Course: 08/22: This 72-year-old woman underwent an emergent open cholecystectomy for a gangrenous gallbladder. Laparoscopic approach was terminated when the gallbladder was found to be markedly inflamed and densely attached to the abdominal wall. She is on appropriate antibiotic coverage and is recovering well. She has no history of cardiac arrhythmias. She spontaneously developed atrial fibrillation with poorly controlled ventricular response this afternoon and I was asked to see her in consultation. I have reviewed her record and discussed her care at length with the patient and with her daughter at the bedside. Discussed with the surgical service as well. She is normotensive and has no chest pain or shortness of breath. Aside from some mild abdominal pain with coughing she is relatively comfortable. Electrolytes are normal. 08/23: Patient converted pharmacologically to normal sinus rhythm on amiodarone infusion. Presently undergoing additional replacement of potassium, phosphate, magnesium in an attempt to reduce the likelihood of recurrence. Systolic blood pressure in the 140s and well-perfused. BNP is modestly elevated, consistent with positive fluid balance, also consistent with the level of toxicity anticipated with a gangrenous gallbladder. We will replete her electrolytes, stop her maintenance IV, and add a diuretic. 08/24: Breathing comfortably. Remained back in sinus mechanism will treat with short-term amiodarone and long-term beta-sil. Will need diuretic this morning for positive fluid balance. 08/25: Has remained in sinus rhythm. Plan continue amiodarone 200 mg p.o. per day for 2 weeks. Continue beta-sil Lopressor 25 mg p.o. twice daily indefinitely. Rising BNP will require more aggressive diuretic therapy. Fortunately, heart rate well controlled and normotensive. Objective Vital Signs / I&O: Vital Signs 08/24/18 12:00 08/24/18 16:00 08/24/18 20:00 Temperature 98 F 98.2 F 98.1 F Pulse Rate 73 72 72 Respiratory Rate 18 18 Blood Pressure 114/54 L 112/54 L 128/58 L Pulse Oximetry 95 96 98 08/25/18 00:00 08/25/18 04:00 Temperature 98.0 F 98.0 F Pulse Rate 68 66 Respiratory Rate 15 12 Blood Pressure 110/52 L 111/63 Pulse Oximetry 97 98 Intake & Output 08/24/18 08/25/18 08/25/18 18:59 06:59 18:59 Intake Total 1150 / 1150 870 / 870 1000 / 1000 Output Total 1950 / 1950 Balance 1150 / 1150 -1080 / -1080 1000 / 1000 Weight 89.6 kg Intake: IV 300 / 300 150 / 150 1000 / 1000 Zosyn 3.375 GM Premix 50 ML @ 50 / 50 150 / 150 100 mls/hr IV.SIG Q6H [facility] Rx#: [id number] Oral 850 / 850 720 / 720 Output: Urine 350 / 350 Urine Amount (Catheter) 1500 / 1500 Indwelling Urethral Catheter 1500 / 1500 Wound Drainage 100 / 100 # 1 Right Abdomen Aakash 100 / 100 Other: # Voids 6 # Bowel Movements 4 Result Diagrams: 08/24/18 06:00 08/25/18 06:46 Objective Remarks: Narrative: General: Comfortable. Conversant Head: Atraumatic, normal. Neck: Supple, airway widely patent, no obstructive noises. Lungs: Clear bilaterally, no wheezes or crackles. Comfortable respiratory pattern. Heart: Regular rate and rhythm in the 60s. Normal S1, S2. Neck veins are not distended. Abdomen: Postsurgical, bowel sounds active. Nondistended. No guarding Extremities: Warm, well-perfused. No edema. Neuro: Oriented 3, alert, cooperative, conversant. Moves 4 limbs to command. Assessment and Plan - Problem List (1) Atrial fibrillation with rapid ventricular response Code(s): I48.91 - Unspecified atrial fibrillation Status: Acute (2) Acute cholecystitis Code(s): K81.0 - Acute cholecystitis Status: Acute (3) Gangrenous cholecystitis Code(s): K81.0 - Acute cholecystitis Status: Acute - Assessment and Plan Plan: Plan: 1. Keep potassium greater than 4 and magnesium greater than 2. 2. 24 hour amiodarone drip by protocol, converted now to 200 mg p.o. daily. 3. Follow electrolytes including mag and phosphorus. 4. Follow hemoglobin. 5. Continue postsurgical activities as ordered by the primary team. 6. No need for full anticoagulation at this time. 7. Replace phosphate. 8. Added low-dose beta-sil. 9. Increase diuretic therapy 10. Replace with potassium along with diuresis. Overall impression: This woman developed new onset atrial fibrillation with a moderately elevated ventricular response. She continues with stable hemodynamics. Lungs are clear, she breathes comfortably, and her neck veins are not distended. She has a mild anemia and her potassium, magnesium, phosphate were in the low normal range. Cardiac echo from 3 months ago indicates hyperdynamic left ventricle with 70% ejection fraction. Although not documented in the echo report, patient behaves like diastolic dysfunction, accumulating fluid when she was tachycardic. Good pulse rate control now and patient diuresing nicely.
--- NOTE | 2018-08-25 08:57 | P.PNSTU ---
Subjective - Remarks 72 yo female status post open cholecystectomy due to acute/gangrenous cholecystitis POD 5. Resting comfortably today and feels okay. She is hungrier today. No BMs yet but has passed gas. Currently, does not have a catheter in. Objective Vital Signs: Vital Signs 08/24/18 12:00 08/24/18 16:00 08/24/18 20:00 Temperature 98 F 98.2 F 98.1 F Pulse Rate 73 72 72 Respiratory Rate 18 18 Blood Pressure 114/54 L 112/54 L 128/58 L Pulse Oximetry 95 96 98 08/25/18 00:00 08/25/18 04:00 Temperature 98.0 F 98.0 F Pulse Rate 68 66 Respiratory Rate 15 12 Blood Pressure 110/52 L 111/63 Pulse Oximetry 97 98 Intake & Output 08/24/18 08/25/18 08/25/18 18:59 06:59 18:59 Intake Total 1150 / 1150 870 / 870 1000 / 1000 Output Total 1950 / 1950 Balance 1150 / 1150 -1080 / -1080 1000 / 1000 Weight 89.6 kg Intake: IV 300 / 300 150 / 150 1000 / 1000 Zosyn 3.375 GM Premix 50 ML @ 50 / 50 150 / 150 100 mls/hr IV.SIG Q6H [facility] Rx#: [id number] Oral 850 / 850 720 / 720 Output: Urine 350 / 350 Urine Amount (Catheter) 1500 / 1500 Indwelling Urethral Catheter 1500 / 1500 Wound Drainage 100 / 100 # 1 Right Abdomen Aakash 100 / 100 Other: # Voids 6 # Bowel Movements 4 Result Diagrams: 08/24/18 06:00 08/25/18 06:46 Medications and IVs: Active Medications Hydrocodone Bitart/Acetaminophen ([place] 5/325) 1 tab PO Q4H PRN PRN Reason: PAIN SCALE 1 TO 5 Last Admin: 08/20/18 23:42 Dose: 1 tab Al Hydroxide/Mg Hydroxide (Milk Of Magnesia Liq) 30 ml PO Q12H PRN PRN Reason: Mild Constipation Amiodarone HCl (Cordarone) 200 mg PO DAILY [facility] Stop: 08/28/18 23:59 Last Admin: 08/24/18 09:54 Dose: 200 mg Bisacodyl (Dulcolax Supp) 10 mg RECTAL DAILY PRN PRN Reason: SEVERE CONSITIPATION Chlorhexidine Gluconate (Chlorhexidine 2% Cloth) 3 pack TOPICAL DAILY@0400 [facility] Stop: 08/27/18 03:59 Last Admin: 08/25/18 04:47 Dose: Not Given Chlorhexidine Gluconate (Chlorhexidine 2% Cloth) 3 pack TOPICAL DAILY@0400 PRN PRN Reason: Extra cloth needed Stop: 08/27/18 03:59 Dextrose (D50w Vial) 50 ml IV.PUSH UNSCH PRN PRN Reason: PER HYPOGLYCEMIA PROTOCOL Furosemide (Lasix Inj) 20 mg IV.PUSH ONCE ONE Stop: 08/26/18 07:01 Glucagon (Glucagon Inj) 1 mg OTHER PRN PRN PRN Reason: for Hypoglycemia Protocol Sodium Chloride (Ns Inj) 500 mls @ 30 mls/hr IV.SIG .Q10H [facility] Last Admin: 08/20/18 22:48 Dose: Not Given Piperacillin/Tazobactam/Dextrose (Zosyn 3.375 Gm Premix) 50 mls @ 100 mls/hr IV.SIG Q6H [facility] Last Infusion: 08/25/18 04:48 Dose: Infused Sodium Chloride (Ns Inj) 500 mls @ 0 mls/hr IV.SIG BOLUS [facility] Magnesium Sulfate 2 gm/ Sodium (Chloride) 100 mls @ 50 mls/hr IV.SIG UNSCH PRN PRN Reason: For Magnesium 1.2 - 1.6 mg/dL Last Infusion: 08/23/18 10:34 Dose: Infused Potassium Chloride (Kcl 40 Meq Premix Inj) 40 meq in 100 mls @ 25 mls/hr IV.SIG Q2H PRN PRN Reason: For Potassium 2.8 - 3.2 mEq/L Potassium Chloride (Kcl 20 Meq Premix Inj) 20 meq in 100 mls @ 50 mls/hr IV.SIG Q2H PRN PRN Reason: For Potassium 3.3 - 3.5 mEq/L Last Infusion: 08/23/18 13:41 Dose: Infused Potassium Chloride (Kcl 20 Meq Premix Inj) 20 meq in 100 mls @ 50 mls/hr IV.SIG Q2H PRN PRN Reason: For Potassium 2.8 - 3.2 mEq/L Potassium Phosphate 30 mmol/ (Sodium Chloride) 260 mls @ 42 mls/hr IV.SIG UNSCH PRN PRN Reason: SEE LABEL COMMENTS Last Infusion: 08/23/18 14:45 Dose: Infused Sodium Phosphate 30 mmol/ (Sodium Chloride) 260 mls @ 42 mls/hr IV.SIG UNSCH PRN PRN Reason: For Phosphorus < 2.5 mg/dL Potassium Chloride (Kcl 40 Meq Premix Inj) 40 meq in 100 mls @ 25 mls/hr IV.SIG UNSCH PRN PRN Reason: For Potassium 3.3 - 3.5 mEq/L Magnesium Sulfate/Dextrose (Magnesium Sulfate 1 Gm/D5w 100 Ml Premix) 100 mls @ 100 mls/hr IV.SIG ONCE ONE Stop: 08/25/18 09:25 Potassium Chloride (Kcl 20 Meq Premix Inj) 20 meq in 100 mls @ 50 mls/hr IV.SIG Q12H [facility] Stop: 08/26/18 23:59 Insulin Human Regular (Novolin R Correctional Sugar Inj) 0 units SQ ACHS AND 3AM [facility]; Protocol Last Admin: 08/25/18 04:47 Dose: Not Given Lactulose (Lactulose Liq) 30 ml PO DAILY PRN PRN Reason: SEVERE CONSITIPATION Magnesium Oxide (Mag-Ox) 800 mg PO UNSCH PRN PRN Reason: For Magnesium 1.2 - 1.6 mg/dL Metoprolol Tartrate (Lopressor) 25 mg PO BID [facility] Last Admin: 08/24/18 20:50 Dose: 25 mg Morphine Sulfate (Morphine Inj) 4 mg IV.PUSH Q2H PRN PRN Reason: BREAKTHROUGH PAIN Last Admin: 08/25/18 00:54 Dose: 4 mg Mupirocin (Bactroban 2% Nasal Oint) 1 applicatio EACH NARE BID [facility] Stop: 08/25/18 21:01 Last Admin: 08/25/18 07:58 Dose: Not Given Ondansetron HCl (Zofran Odt) 4 mg PO Q6H PRN PRN Reason: NAUSEA OR VOMITING Ondansetron HCl (Zofran Inj) 4 mg IV.PUSH Q6H PRN PRN Reason: NAUSEA OR VOMITING Last Admin: 08/22/18 05:43 Dose: 4 mg Potassium Bicarb/Potassium Chloride (K-Lyte Cl Eff) 50 meq PO UNSCH PRN PRN Reason: For Potassium 3.3 - 3.5 mEq/L Potassium Phosphate (K-Phos Original) 2,000 mg PO Q4H PRN PRN Reason: Phosphorus Less Than 2.5 mg/dL Potassium Phosphate (K-Phos Original) 2,000 mg PO UNSCH PRN PRN Reason: SEE LABEL COMMENTS Promethazine HCl (Phenergan) 25 mg PO Q6H PRN PRN Reason: NAUSEA OR VOMITING Promethazine HCl (Phenergan Supp) 25 mg RECTAL Q6H PRN PRN Reason: NAUSEA OR VOMITING Senna/Docusate Sodium (Sammie-Colace) 1 tab PO BID [facility] Last Admin: 08/24/18 20:50 Dose: 1 tab Sennosides (Senokot) 17.2 mg PO Q12H PRN PRN Reason: Moderate Constipation Objective Remarks: General: appears comfortable, was sleeping in bed Cardiac: RRR Respiratory: clear to auscultation, non-labored breathing without use of accessory muscles Abd: soft and mildly tender, RUQ seal in place, drain in place Assessment and Plan Assessment and Plan: 1. Acute gangrenous cholecystitis POD 5
[2018-08-25] MEDS: Amiodarone 200 MG Tablet PO SCH (09:00)
[2018-08-25] MEDS: Senna/Docusate Sodium 8.6/50 MG Tablet PO SCH ×2 (09:00→20:23)
[2018-08-25] MEDS ORDERED: Potassium Chloride Inj 20 MEQ/10 ML Vial IV.SIG SCH (09:00)
[2018-08-25] MEDS: Metoprolol Tartrate 25 MG Tablet PO SCH ×2 (09:03→20:23)
[2018-08-25] MEDS: Potassium Chlor 20 mEq Premix 20 MEQ/100 ML PIGGYBACK IV.SIG SCH ×2 (10:46→20:23)
--- NOTE | 2018-08-25 10:48 | P.PNGS ---
Subjective Interval history: Resting in bed Feeling much better today Wants one more sugar in her grits Would like toast with strawberry jelly Physical Exam Vital signs: Vital Signs 08/24/18 12:00 08/24/18 16:00 08/24/18 20:00 Temperature 98 F 98.2 F 98.1 F Pulse Rate 73 72 72 Respiratory Rate 18 18 Blood Pressure 114/54 L 112/54 L 128/58 L Pulse Oximetry 95 96 98 08/25/18 00:00 08/25/18 04:00 08/25/18 06:00 Temperature 98.0 F 98.0 F Pulse Rate 68 66 76 Respiratory Rate 15 12 21 Blood Pressure 110/52 L 111/63 124/76 Pulse Oximetry 97 98 100 08/25/18 07:00 08/25/18 08:00 08/25/18 09:00 Temperature 98.4 F Pulse Rate 70 71 68 Respiratory Rate 12 12 13 Blood Pressure 114/64 108/58 L 108/64 Pulse Oximetry 97 99 100 Intake & Output 08/24/18 08/25/18 08/25/18 18:59 06:59 18:59 Intake Total 1150 / 1150 870 / 870 1050 / 1050 Output Total 1950 / 1950 Balance 1150 / 1150 -1080 / -1080 1050 / 1050 Weight 89.6 kg Intake: IV 300 / 300 150 / 150 1050 / 1050 Zosyn 3.375 GM Premix 50 ML @ 50 / 50 150 / 150 50 / 50 100 mls/hr IV.SIG Q6H [facility] Rx#: [id number] Oral 850 / 850 720 / 720 Output: Urine 350 / 350 Urine Amount (Catheter) 1500 / 1500 Indwelling Urethral Catheter 1500 / 1500 Wound Drainage 100 / 100 # 1 Right Abdomen Aakash 100 / 100 Other: # Voids 6 # Bowel Movements 4 Narrative: Alert and awake Cardio: RRR Abd: soft; RUQ GALDINO in place with good seal; SARAH in place with dark brown/green tint fluid; dressing changed around SARAH site RIGHT breast dressing in place - Urinary Catheter Management Indwelling Urethral Catheter Cath placed during this visit: yes, but has since been removed by the nurse Reason for continuing: Not indwelling catheter Insertion date: 08/20/18 Removal date: 08/24/18 Results - Labs 08/31/18 11:32 08/31/18 11:32 Laboratory Results - last 24 hr 08/24/18 08/25/18 08/25/18 21:06 06:46 06:46 Sodium 145 Potassium 3.9 Chloride 109 H Carbon Dioxide 22.3 Anion Gap 14 BUN 11 Creatinine 0.90 Estimated GFR 62 L POC Glucose 134 H Random Glucose 97 Calcium 7.4 L* Prot Corrected Calcium 8.2 L B-Natriuretic Peptide 1167 H Total Protein 5.6 L Assessment and Plan - Assessment (1) Gangrenous cholecystitis Code(s): K81.0 - Acute cholecystitis Status: Acute Plan: 72 year old female POD5 open cholecystectomy -Consult GI for eval of ERCP and possible stent placement due to SARAH -NPO for procedure -HR better controlled now -OOB as tolerated; PT consulted -Consult to Dr. Johnson Discussed with Dr. Jacobs; will need ERCP, as she likely has either stenosis or CBD stone due to increase in SARAH output Discussed with Dr. Johnson; she is familiar with patient and likely has persistent thrombocytopenia due to acute infection/illness and recent chemotherapy The exam, history, and the medical decision-making described in the above note were completed with the assistance of the mid-level provider. I reviewed and agree with the findings presented. I attest that I had a [id number] encounter with the patient on the same day, and personally performed and documented my assessment and findings in the medical record.
[2018-08-25 12:08] LABS: Hemoglobin 9.6 gm/dL (11.6-15.3); Mean Corpuscular HGB Conc 33.1 % (32.0-36.0); Mean Corpuscular Hemoglobin 31.4 pg (27.0-34.0); Mean Corpuscular Volume 94.9 fL (80.0-100.0); Mean Platelet Volume 7.3 fL (7.0-11.0); Platelet Count 104 th/mm3 (150-450); Red Blood Count 3.06 mil/mm3 (4.00-5.30); Red Cell Distribution Width 20.7 % (11.6-17.2); White Blood Count 6.5 th/mm3 (4.0-11.0)
[2018-08-25] MEDS ORDERED: Sincalide Inj 5 MCG Vial ONE (12:15)
[2018-08-25 12:20] LABS: INR 1.1 Ratio; Prothrombin Time 11.4 sec (9.8-11.6)
--- NOTE | 2018-08-25 14:51 | P.CONGI ---
History of Present Illness Consult date: 08/25/18 Consult reason: For ERCP and stenting Chief complaint: LAP JILL History of Present Illness: This is a 72-year-old obese female who was admitted to the hospital on 08/20/2018 , open cholecystectomy for gangrenous gallbladder. Patient has been managed in the intensive care setting which includes uncontrolled atrial fibrillation and followed per cardiology. Patient has been stabilized and is on amiodarone p.o. patient has SARAH drain , acute change in color and consistency, dark green bile was observed this early am on 08/25/2018, probable leak. gastroenterology was consulted to evaluate for ERCP and stent placement/possible leak. Patient denies any acute nausea vomiting for now but states that she has had dyspepsia with some dysphasia off and on for the past year. She states that she takes omeprazole daily which is effective most of the time but has struggled more recently when she was eating [place] food intra-abdominal rice. Patient denies any obvious rectal bleeding or hematemesis; some mild soreness abdominal pain but she is status post open cholecystectomy day 5. Patient denies family history of colon cancer. Patient herself currently has 2 different kinds of cancer and has been treated with chemotherapy and radiation this year. Currently patient has some weakness generalized but was just assisted up in the chair and seemed to tolerate fairly well. Current diet is clear liquids and she is tolerating without any nausea or vomiting. Initially lowest hemoglobin over the past few days was 7.4 now 9.6 after 2 units of packed RBCs, platelet count increased to 104, PT/INR 1.1. Patient has never seen GI in the past and has had no previous EGD or colonoscopy. <Cammy Barbosa - Last Filed: 08/25/18 16:23> Review of Systems All other systems reviewed negative except as stated in HPI <Cammy Barbosa - Last Filed: 08/25/18 16:23> PMFSH - History History Provided By: Patient, Family Member - Medical History Medical History: Medical History (Last Reviewed 08/25/18 @ 08:26 by Nate Rogers) Breast cancer Diabetes - Surgical History Surgical History: Surgical History (Last Reviewed 08/25/18 @ 08:26 by Nate Rogers) H/O tubal ligation Hx of appendectomy Hx of tonsillectomy - Tobacco History Second Hand Smoke Exposure: No Tobacco Use In Past 30 Days: No Smoking Status: Never smoker - Alcohol History How Often Do You Have a Drink Containing Alcohol: Monthly or less - Substance Use History Substance History: No History of Abuse - Travel History Recent Travel in the [place] Within the Last 8 Weeks: No Recent Travel Out of the Country Within the Last 8 Weeks: No - Immunization History Tetanus Immunization: Unsure Hx Influenza Vaccine This Season: No <Cammy Barbosa - Last Filed: 08/25/18 16:23> - Medical History Medical History: Medical History (Last Reviewed 08/25/18 @ 08:26 by Nate Rogers) Breast cancer Diabetes - Surgical History Surgical History: Surgical History (Last Reviewed 08/25/18 @ 08:26 by Nate Rogers) H/O tubal ligation Hx of appendectomy Hx of tonsillectomy <Perez Jacobs - Last Filed: 08/25/18 17:56> Medications and Allergies Active Medications: Active Medications Hydrocodone Bitart/Acetaminophen (Louisa 5/325) 1 tab PO Q4H PRN PRN Reason: PAIN SCALE 1 TO 5 Last Admin: 08/20/18 23:42 Dose: 1 tab Al Hydroxide/Mg Hydroxide (Milk Of Candido Liq) 30 ml PO Q12H PRN PRN Reason: Mild Constipation Amiodarone HCl (Cordarone) 200 mg PO DAILY [facility] Stop: 08/28/18 23:59 Last Admin: 08/25/18 09:00 Dose: 200 mg Bisacodyl (Dulcolax Supp) 10 mg RECTAL DAILY PRN PRN Reason: SEVERE CONSITIPATION Chlorhexidine Gluconate (Chlorhexidine 2% Cloth) 3 pack TOPICAL DAILY@0400 [facility] Stop: 08/27/18 03:59 Last Admin: 08/25/18 04:47 Dose: Not Given Chlorhexidine Gluconate (Chlorhexidine 2% Cloth) 3 pack TOPICAL DAILY@0400 PRN PRN Reason: Extra cloth needed Stop: 08/27/18 03:59 Dextrose (D50w Vial) 50 ml IV.PUSH UNSCH PRN PRN Reason: PER HYPOGLYCEMIA PROTOCOL Furosemide (Lasix Inj) 20 mg IV.PUSH ONCE ONE Stop: 08/26/18 07:01 Glucagon (Glucagon Inj) 1 mg OTHER PRN PRN PRN Reason: for Hypoglycemia Protocol Sodium Chloride (Ns Inj) 500 mls @ 30 mls/hr IV.SIG .Q10H [facility] Last Admin: 08/20/18 22:48 Dose: Not Given Piperacillin/Tazobactam/Dextrose (Zosyn 3.375 Gm Premix) 50 mls @ 100 mls/hr IV.SIG Q6H [facility] Last Infusion: 08/25/18 09:34 Dose: Infused Sodium Chloride (Ns Inj) 500 mls @ 0 mls/hr IV.SIG BOLUS [facility] Magnesium Sulfate 2 gm/ Sodium (Chloride) 100 mls @ 50 mls/hr IV.SIG UNSCH PRN PRN Reason: For Magnesium 1.2 - 1.6 mg/dL Last Infusion: 08/23/18 10:34 Dose: Infused Potassium Chloride (Kcl 40 Meq Premix Inj) 40 meq in 100 mls @ 25 mls/hr IV.SIG Q2H PRN PRN Reason: For Potassium 2.8 - 3.2 mEq/L Potassium Chloride (Kcl 20 Meq Premix Inj) 20 meq in 100 mls @ 50 mls/hr IV.SIG Q2H PRN PRN Reason: For Potassium 3.3 - 3.5 mEq/L Last Infusion: 08/23/18 13:41 Dose: Infused Potassium Chloride (Kcl 20 Meq Premix Inj) 20 meq in 100 mls @ 50 mls/hr IV.SIG Q2H PRN PRN Reason: For Potassium 2.8 - 3.2 mEq/L Potassium Phosphate 30 mmol/ (Sodium Chloride) 260 mls @ 42 mls/hr IV.SIG UNSCH PRN PRN Reason: SEE LABEL COMMENTS Last Infusion: 08/23/18 14:45 Dose: Infused Sodium Phosphate 30 mmol/ (Sodium Chloride) 260 mls @ 42 mls/hr IV.SIG UNSCH PRN PRN Reason: For Phosphorus < 2.5 mg/dL Potassium Chloride (Kcl 40 Meq Premix Inj) 40 meq in 100 mls @ 25 mls/hr IV.SIG UNSCH PRN PRN Reason: For Potassium 3.3 - 3.5 mEq/L Potassium Chloride (Kcl 20 Meq Premix Inj) 20 meq in 100 mls @ 50 mls/hr IV.SIG Q12H [facility] Stop: 08/26/18 23:59 Last Admin: 08/25/18 10:46 Dose: 50 mls/hr Insulin Human Regular (Novolin R Correctional Sugar Inj) 0 units SQ ACHS AND 3AM [facility]; Protocol Last Admin: 08/25/18 09:01 Dose: Not Given Lactulose (Lactulose Liq) 30 ml PO DAILY PRN PRN Reason: SEVERE CONSITIPATION Magnesium Oxide (Mag-Ox) 800 mg PO UNSCH PRN PRN Reason: For Magnesium 1.2 - 1.6 mg/dL Metoprolol Tartrate (Lopressor) 25 mg PO BID [facility] Last Admin: 08/25/18 09:03 Dose: 25 mg Morphine Sulfate (Morphine Inj) 4 mg IV.PUSH Q2H PRN PRN Reason: BREAKTHROUGH PAIN Last Admin: 08/25/18 09:06 Dose: 4 mg Mupirocin (Bactroban 2% Nasal Oint) 1 applicatio EACH NARE BID [facility] Stop: 08/25/18 21:01 Last Admin: 08/25/18 09:03 Dose: 1 applicatio Ondansetron HCl (Zofran Odt) 4 mg PO Q6H PRN PRN Reason: NAUSEA OR VOMITING Ondansetron HCl (Zofran Inj) 4 mg IV.PUSH Q6H PRN PRN Reason: NAUSEA OR VOMITING Last Admin: 08/22/18 05:43 Dose: 4 mg Potassium Bicarb/Potassium Chloride (K-Lyte Cl Eff) 50 meq PO UNSCH PRN PRN Reason: For Potassium 3.3 - 3.5 mEq/L Potassium Phosphate (K-Phos Original) 2,000 mg PO Q4H PRN PRN Reason: Phosphorus Less Than 2.5 mg/dL Potassium Phosphate (K-Phos Original) 2,000 mg PO UNSCH PRN PRN Reason: SEE LABEL COMMENTS Promethazine HCl (Phenergan) 25 mg PO Q6H PRN PRN Reason: NAUSEA OR VOMITING Promethazine HCl (Phenergan Supp) 25 mg RECTAL Q6H PRN PRN Reason: NAUSEA OR VOMITING Senna/Docusate Sodium (Sammie-Colace) 1 tab PO BID [facility] Last Admin: 08/25/18 09:00 Dose: 1 tab Sennosides (Senokot) 17.2 mg PO Q12H PRN PRN Reason: Moderate Constipation <Cammy Barbosa M - Last Filed: 08/25/18 16:23> Active Medications: Active Medications Hydrocodone Bitart/Acetaminophen (Louisa 5/325) 1 tab PO Q4H PRN PRN Reason: PAIN SCALE 1 TO 5 Last Admin: 08/20/18 23:42 Dose: 1 tab Al Hydroxide/Mg Hydroxide (Milk Of Candido Byrnes) 30 ml PO Q12H PRN PRN Reason: Mild Constipation Amiodarone HCl (Cordarone) 200 mg PO DAILY [facility] Stop: 08/28/18 23:59 Last Admin: 08/25/18 09:00 Dose: 200 mg Bisacodyl (Dulcolax Supp) 10 mg RECTAL DAILY PRN PRN Reason: SEVERE CONSITIPATION Chlorhexidine Gluconate (Chlorhexidine 2% Cloth) 3 pack TOPICAL DAILY@0400 [facility] Stop: 08/27/18 03:59 Last Admin: 08/25/18 04:47 Dose: Not Given Chlorhexidine Gluconate (Chlorhexidine 2% Cloth) 3 pack TOPICAL DAILY@0400 PRN PRN Reason: Extra cloth needed Stop: 08/27/18 03:59 Dextrose (D50w Vial) 50 ml IV.PUSH UNSCH PRN PRN Reason: PER HYPOGLYCEMIA PROTOCOL Furosemide (Lasix Inj) 20 mg IV.PUSH ONCE ONE Stop: 08/26/18 07:01 Glucagon (Glucagon Inj) 1 mg OTHER PRN PRN PRN Reason: for Hypoglycemia Protocol Sodium Chloride (Ns Inj) 500 mls @ 30 mls/hr IV.SIG .Q10H [facility] Last Admin: 08/20/18 22:48 Dose: Not Given Piperacillin/Tazobactam/Dextrose (Zosyn 3.375 Gm Premix) 50 mls @ 100 mls/hr IV.SIG Q6H [facility] Last Infusion: 08/25/18 15:48 Dose: Infused Sodium Chloride (Ns Inj) 500 mls @ 0 mls/hr IV.SIG BOLUS [facility] Magnesium Sulfate 2 gm/ Sodium (Chloride) 100 mls @ 50 mls/hr IV.SIG UNSCH PRN PRN Reason: For Magnesium 1.2 - 1.6 mg/dL Last Infusion: 08/23/18 10:34 Dose: Infused Potassium Chloride (Kcl 40 Meq Premix Inj) 40 meq in 100 mls @ 25 mls/hr IV.SIG Q2H PRN PRN Reason: For Potassium 2.8 - 3.2 mEq/L Potassium Chloride (Kcl 20 Meq Premix Inj) 20 meq in 100 mls @ 50 mls/hr IV.SIG Q2H PRN PRN Reason: For Potassium 3.3 - 3.5 mEq/L Last Infusion: 08/23/18 13:41 Dose: Infused Potassium Chloride (Kcl 20 Meq Premix Inj) 20 meq in 100 mls @ 50 mls/hr IV.SIG Q2H PRN PRN Reason: For Potassium 2.8 - 3.2 mEq/L Potassium Phosphate 30 mmol/ (Sodium Chloride) 260 mls @ 42 mls/hr IV.SIG UNSCH PRN PRN Reason: SEE LABEL COMMENTS Last Infusion: 08/23/18 14:45 Dose: Infused Sodium Phosphate 30 mmol/ (Sodium Chloride) 260 mls @ 42 mls/hr IV.SIG UNSCH PRN PRN Reason: For Phosphorus < 2.5 mg/dL Potassium Chloride (Kcl 40 Meq Premix Inj) 40 meq in 100 mls @ 25 mls/hr IV.SIG UNSCH PRN PRN Reason: For Potassium 3.3 - 3.5 mEq/L Potassium Chloride (Kcl 20 Meq Premix Inj) 20 meq in 100 mls @ 50 mls/hr IV.SIG Q12H [facility] Stop: 08/26/18 23:59 Last Infusion: 08/25/18 15:48 Dose: Infused Insulin Human Regular (Novolin R Correctional Sugar Inj) 0 units SQ ACHS AND 3AM [facility]; Protocol Last Admin: 08/25/18 15:19 Dose: Not Given Lactulose (Lactulose Liq) 30 ml PO DAILY PRN PRN Reason: SEVERE CONSITIPATION Magnesium Oxide (Mag-Ox) 800 mg PO UNSCH PRN PRN Reason: For Magnesium 1.2 - 1.6 mg/dL Metoprolol Tartrate (Lopressor) 25 mg PO BID [facility] Last Admin: 08/25/18 09:03 Dose: 25 mg Morphine Sulfate (Morphine Inj) 4 mg IV.PUSH Q2H PRN PRN Reason: BREAKTHROUGH PAIN Last Admin: 08/25/18 15:18 Dose: 4 mg Mupirocin (Bactroban 2% Nasal Oint) 1 applicatio EACH NARE BID [facility] Stop: 08/25/18 21:01 Last Admin: 08/25/18 09:03 Dose: 1 applicatio Ondansetron HCl (Zofran Odt) 4 mg PO Q6H PRN PRN Reason: NAUSEA OR VOMITING Ondansetron HCl (Zofran Inj) 4 mg IV.PUSH Q6H PRN PRN Reason: NAUSEA OR VOMITING Last Admin: 08/22/18 05:43 Dose: 4 mg Potassium Bicarb/Potassium Chloride (K-Lyte Cl Eff) 50 meq PO UNSCH PRN PRN Reason: For Potassium 3.3 - 3.5 mEq/L Potassium Phosphate (K-Phos Original) 2,000 mg PO Q4H PRN PRN Reason: Phosphorus Less Than 2.5 mg/dL Potassium Phosphate (K-Phos Original) 2,000 mg PO UNSCH PRN PRN Reason: SEE LABEL COMMENTS Promethazine HCl (Phenergan) 25 mg PO Q6H PRN PRN Reason: NAUSEA OR VOMITING Promethazine HCl (Phenergan Supp) 25 mg RECTAL Q6H PRN PRN Reason: NAUSEA OR VOMITING Senna/Docusate Sodium (Sammie-Colace) 1 tab PO BID [facility] Last Admin: 08/25/18 09:00 Dose: 1 tab Sennosides (Senokot) 17.2 mg PO Q12H PRN PRN Reason: Moderate Constipation <Perez Jacobs - Last Filed: 08/25/18 17:56> Allergies Allergy/AdvReac Type Severity Reaction Status Date / Time apple Allergy Severe Itching Verified 08/19/18 10:57 banana Allergy Severe Swelling Verified 08/19/18 10:57 Home Medications Medication Instructions Recorded Confirmed Type anastrozole 1 mg PO DAILY 08/19/18 08/20/18 History metformin 500 mg PO BID 08/19/18 08/20/18 History Exam Vital signs: Vital Signs 08/24/18 16:00 08/24/18 20:00 08/25/18 00:00 Temperature 98.2 F 98.1 F 98.0 F Pulse Rate 72 72 68 Respiratory Rate 18 18 15 Blood Pressure 112/54 L 128/58 L 110/52 L Pulse Oximetry 96 98 97 08/25/18 04:00 08/25/18 06:00 08/25/18 07:00 Temperature 98.0 F Pulse Rate 66 76 70 Respiratory Rate 12 21 12 Blood Pressure 111/63 124/76 114/64 Pulse Oximetry 98 100 97 08/25/18 08:00 08/25/18 09:00 08/25/18 12:22 Temperature 98.4 F 98.1 F Pulse Rate 71 68 74 Respiratory Rate 12 13 20 Blood Pressure 108/58 L 108/64 125/72 Pulse Oximetry 99 100 99 Intake & Output 08/24/18 08/25/18 08/25/18 18:59 06:59 18:59 Intake Total 1150 / 1150 870 / 870 1150 / 1150 Output Total 1950 / 1950 600 / 600 Balance 1150 / 1150 -1080 / -1080 550 / 550 Weight 89.6 kg Intake: IV 300 / 300 150 / 150 1150 / 1150 Magnesium Sulfate 1 gm/D5W 100 100 / 100 ml Premix 100 ML @ 100 mls/hr IV.SIG ONCE ONE Rx#:[id number] Zosyn 3.375 GM Premix 50 ML @ 50 / 50 150 / 150 50 / 50 100 mls/hr IV.SIG Q6H [facility] Rx#: [id number] Oral 850 / 850 720 / 720 Output: Urine 350 / 350 Urine Amount (Catheter) 1500 / 1500 600 / 600 Indwelling Urethral Catheter 1500 / 1500 600 / 600 Wound Drainage 100 / 100 # 1 Right Abdomen Aakash 100 / 100 Other: # Voids 6 # Bowel Movements 4 - Constitutional mild distress, obese, disheveled, cooperative - Routine HEENT Exam Head: Present: normocephalic ENT: Present: mucous membranes dry - Routine Neck Exam Present: supple - Routine Respiratory Exam Present: accessory muscle use (Mild diminished breath sounds but no obvious shortness of breath at rest) - Routine Cardiovascular Exam Present: S1, S2 (Distant) - Routine Abdominal Exam Present: normoactive bowel sounds (Minimal soft, hypoactive bowel sounds), tenderness (Generalized abdominal area postop day 5), distended - Routine Skin Exam Present: intact - Routine Neurological Exam Present: alert (Answer simple questions) <Cammy Barbosa - Last Filed: 08/25/18 16:23> Vital signs: Vital Signs 08/24/18 20:00 08/25/18 00:00 08/25/18 04:00 Temperature 98.1 F 98.0 F 98.0 F Pulse Rate 72 68 66 Respiratory Rate 18 15 12 Blood Pressure 128/58 L 110/52 L 111/63 Pulse Oximetry 98 97 98 08/25/18 06:00 08/25/18 07:00 08/25/18 08:00 Temperature 98.4 F Pulse Rate 76 70 71 Respiratory Rate 21 12 12 Blood Pressure 124/76 114/64 108/58 L Pulse Oximetry 100 97 99 08/25/18 09:00 08/25/18 12:22 08/25/18 14:00 Temperature 98.1 F Pulse Rate 68 74 Respiratory Rate 13 20 12 Blood Pressure 108/64 125/72 Pulse Oximetry 100 99 08/25/18 16:00 Temperature 98.3 F Pulse Rate 72 Respiratory Rate 14 Blood Pressure 97/54 L Pulse Oximetry 98 Intake & Output 08/24/18 08/25/18 08/25/18 18:59 06:59 18:59 Intake Total 1150 / 1150 870 / 870 1300 / 1300 Output Total 1950 / 1950 600 / 600 Balance 1150 / 1150 -1080 / -1080 700 / 700 Weight 89.6 kg Intake: IV 300 / 300 150 / 150 1300 / 1300 Magnesium Sulfate 1 gm/D5W 100 100 / 100 ml Premix 100 ML @ 100 mls/hr IV.SIG ONCE ONE Rx#:[id number] Zosyn 3.375 GM Premix 50 ML @ 50 / 50 150 / 150 100 / 100 100 mls/hr IV.SIG Q6H [facility] Rx#: [id number] KCl 20 mEq Premix Inj 20 meq In 100 / 100 100 ml @ 50 mls/hr IV.SIG Q12H [facility] Rx#:[id number] Oral 850 / 850 720 / 720 Output: Urine 350 / 350 Urine Amount (Catheter) 1500 / 1500 600 / 600 Indwelling Urethral Catheter 1500 / 1500 600 / 600 Wound Drainage 100 / 100 # 1 Right Abdomen Aakash 100 / 100 Other: # Voids 6 # Bowel Movements 4 <Perez Jacobs - Last Filed: 08/25/18 17:56> Results - Labs CBC & Chem 7: 08/25/18 11:35 08/25/18 06:46 Labs: Laboratory Results - last 24 hr 08/24/18 08/25/18 08/25/18 21:06 06:46 06:46 WBC RBC Hgb Hct MCV MCH MCHC RDW Plt Count MPV PT INR Sodium 145 Potassium 3.9 Chloride 109 H Carbon Dioxide 22.3 Anion Gap 14 BUN 11 Creatinine 0.90 Estimated GFR 62 L POC Glucose 134 H Random Glucose 97 Calcium 7.4 L* Prot Corrected Calcium 8.2 L B-Natriuretic Peptide 1167 H Total Protein 5.6 L 08/25/18 08/25/18 11:35 11:35 WBC 6.5 RBC 3.06 L Hgb 9.6 L Hct 29.0 L MCV 94.9 MCH 31.4 MCHC 33.1 RDW 20.7 H Plt Count 104 L MPV 7.3 PT 11.4 INR 1.1 Sodium Potassium Chloride Carbon Dioxide Anion Gap BUN Creatinine Estimated GFR POC Glucose Random Glucose Calcium Prot Corrected Calcium B-Natriuretic Peptide Total Protein <Cammy Barbosa - Last Filed: 08/25/18 16:23> - Labs CBC & Chem 7: 08/25/18 11:35 08/25/18 06:46 Labs: Laboratory Results - last 24 hr 08/24/18 08/25/18 08/25/18 21:06 06:46 06:46 WBC RBC Hgb Hct MCV MCH MCHC RDW Plt Count MPV PT INR Sodium 145 Potassium 3.9 Chloride 109 H Carbon Dioxide 22.3 Anion Gap 14 BUN 11 Creatinine 0.90 Estimated GFR 62 L POC Glucose 134 H Random Glucose 97 Calcium 7.4 L* Prot Corrected Calcium 8.2 L B-Natriuretic Peptide 1167 H Total Protein 5.6 L 08/25/18 08/25/18 11:35 11:35 WBC 6.5 RBC 3.06 L Hgb 9.6 L Hct 29.0 L MCV 94.9 MCH 31.4 MCHC 33.1 RDW 20.7 H Plt Count 104 L MPV 7.3 PT 11.4 INR 1.1 Sodium Potassium Chloride Carbon Dioxide Anion Gap BUN Creatinine Estimated GFR POC Glucose Random Glucose Calcium Prot Corrected Calcium B-Natriuretic Peptide Total Protein <Perez Jacobs - Last Filed: 08/25/18 17:56> Assessment and Plan - Plan 72-year-old obese female who was admitted to the hospital on 08/20/2018, open cholecystectomy for gangrenous gallbladder postop day 5. Patient has been managed in the intensive care setting which includes complications of uncontrolled atrial fibrillation and followed per cardiology. Patient has been stabilized and is on amiodarone p.o. gastroenterology was consulted to evaluate for ERCP and stent placement/possible bile leak. Patient denies any acute nausea vomiting for now but states that she has had dyspepsia with some dysphasia off and on for the past year. She states that she takes omeprazole daily which is effective most of the time but has struggled more recently when she was eating [place] food intra-abdominal rice. Patient denies any obvious rectal bleeding or hematemesis; some mild soreness abdominal pain but she is status post open cholecystectomy day 5. Patient denies family history of colon cancer. Patient herself currently has 2 different kinds of cancer and has been treated with chemotherapy and radiation this year. Currently patient has some weakness generalized but was just assisted up in the chair and seemed to tolerate fairly well. Current diet is clear liquids and she is tolerating without any nausea or vomiting. Initially lowest hemoglobin over the past few days was 7.4 now 9.6 after 2 units of packed RBCs, platelet count increased to 104, PT/INR 1.1. Patient has never seen GI in the past and has had no previous EGD or colonoscopy. Dyspepsia Dysphasia Bile leak. Plan Diet clear liquids for now, encourage hydration Consent for ERCP in a.m., evaluate for symptoms of dyspepsia and dysphasia N.p.o. at midnight tonight Encourage hydration Pain management per attending Bowel management PPI Supportive care Patient was seen per myself and Dr. Jacobs, note was written on his behalf <Cammy Barbosa - Last Filed: 08/25/18 16:23> - Plan Seen and examined with TICKETER, bile leak suspected based on Bilious drainage from SARAH drain. LFTs normal. Minimal abdominal pain. Patient ate today so ERCP/Stent planned for tomorrow. Discussed with Dr Brito. wayne The exam, history, and the medical decision-making described in the above note were completed with the assistance of the mid-level provider. I reviewed and agree with the findings presented. I attest that I had a [id number] encounter with the patient on the same day, and personally performed and documented my assessment and findings in the medical record. <Perez Jacobs - Last Filed: 08/25/18 17:56>
--- NOTE | 2018-08-25 23:05 | MB ---
cc: Britany Johnson MD,Bulmaro Rhodes MD DATE: 08/25/2018 DATE OF SERVICE: 08/25/2018 REFERRING PHYSICIAN: Bulmaro Brito MD CHIEF COMPLAINT: Dr. Brito requested consultation for Mrs. Matias regarding thrombocytopenia postop for gangrenous cholecystitis. HISTORY OF PRESENT ILLNESS: Ms. Matias is a 72-year-old woman, well known patient, diagnosed with diabetes, hypertension, constipation. She had bilateral breast masses. She was found to have an ER positive right breast cancer and an ER negative left breast cancer. She was receiving neoadjuvant chemotherapy for palliation and local control of bilateral fungating large breast masses. She was scheduled for definitive surgery and local control of advanced breast cancer bilaterally. She underwent preop laboratory evaluation on 08/18/2018. The findings on 08/13/2018 which was surprising for a WBC of 4.3, hemoglobin 9.0, platelet count of 54,000. She was seen in clinic on 08/18/2018 and a CBC was repeated. Her platelet count was low at 134, hemoglobin 9.1, and white blood cell count is elevated, predominantly monocyte. She was feeling unwell. She denies any overt fever. She was feeling very tired and short of breath, unable to take a deep breath. Her breast lesions were improving with decrease in size in the right breast mass and ulceration. The left breast ulceration had resolved. However, the mass persisted. Bilateral axillary adenopathy has resolved. Because of the acute symptoms in a shortness of breath, CT angiogram on 08/18/2018 showed no pulmonary infiltrates. There was no filling defect to suggest a pulmonary embolism. The other finding is significantly dilated gallbladder with a rim of calcified stone seen within the neck of the gallbladder. The stone measures 3.5 cm. There is mild wall thickening. Doppler ultrasound was negative for lower extremity deep vein thromboses, but there was a palpable lump in the lateral left thigh, which is a hematoma. With the above findings, her definitive surgery was canceled. She underwent urgent cholecystectomy for acute cholecystitis on 08/20/2018. She had a laparoscopic cholecystectomy converted to open cholecystectomy. The final pathology showed acute necrotizing and chronic cholecystitis. There is attached hepatic parenchyma with severe steatosis. She was admitted to the ICU afterwards and managed by Dr. Paulino. Her course was complicated by atrial fibrillation with poorly controlled ventricular response. She was converted to sinus rhythm with amiodarone. She remained in sinus rhythm. She has had GI consultation. Bile leak suspected on the bilious drain from the SARAH. Liver functions are normal. She is pending an ERCP and stent placement tomorrow. Hematology/oncology is consulted for the thrombocytopenia. Her baseline platelet count is around 200,000. Postoperatively, her platelet count dropped to 68,000. It nadired to 58,000 the day after the surgery and gradually is increasing. It is 104,000 at the time of the consultation. Her mean platelet volume increased as well, suggestive of new young robust platelets being formed. She denies any chest pain or shortness of breath. She felt good the day of the consultation. She has had no nausea or vomiting. She was able to eat grits this morning. She keeps moving her legs to prevent deep vein thromboses. She was, however, reluctant to sit up and ambulate with physical therapy yet. The rest of her review of systems is negative. PAST MEDICAL HISTORY: Diabetes, hypertension, constipation, bilateral breast cancer with locally advanced disease. PAST SURGICAL HISTORY: Infusaport placement, bilateral skin punch biopsy, appendectomy, tubal ligation, laparoscopic converted to open cholecystectomy for gangrenous cholecystitis. ALLERGIES: NO KNOWN DRUG ALLERGIES. FAMILY HISTORY: No significant family history of cancer. Both parents are . SOCIAL HISTORY: She is single. She has moved to a [facility] facility after her illness. She has 1 daughter who lives in [place]. She never smoked. She used to drink occasionally. She denies any illicit drug use. PHYSICAL EXAMINATION: VITAL SIGNS: Temperature 98.3, heart rate 72, respiratory rate 14, blood pressure 97/54, saturation 98%. GENERAL: Ms. Matias is a talkative and gregarious well-nourished woman who has lost weight in recent months. HEENT: Her pupils are round, reactive to light and accommodation. Conjunctivae are pale. Oropharynx is dry. NECK: Supple. LUNGS: Clear anteriorly. CARDIOVASCULAR: Reveals rate controlled rhythm. ABDOMEN: Large but soft. Right upper quadrant drain is in place. Her right upper quadrant scar with dry dressing in place. EXTREMITIES: Lower extremity with no edema. Good pulses. There are several hematomas on the left leg more prominent than on the right. LABORATORY DATA: As described above. Chemistry significant for a creatinine of 0.9, calcium 7.4. Beta natriuretic peptide of 1167. Initial CEA was normal. ASSESSMENT AND PLAN: Mrs. Matias is a 80-year-old woman with metastatic breast cancer. She has a locally advanced disease with ulcerated ER positive right breast cancer and an ER negative left breast cancer. She is receiving palliative chemotherapy in preparation of definitive surgery. Her surgery is deferred because of the acute cholecystitis with gangrenous gallbladder. She has tolerated her surgery well. Her definitive surgery for her breast has been deferred. I recommend continued aromatase inhibitor for ER positive disease. Suspect bone lesions from her ER positive breast cancer. She has no soft tissue metastatic disease. I recommend no specific therapy for the thrombocytopenia which appears to be resolving. She has recovered her platelet count further away from her definitive surgery. She denies any bleeding. Anticipated platelet count continued to recover. Clinically, there is no evidence of venous thromboembolic event. She will have her ERCP procedure tomorrow and anticipate starting low-molecular weight heparin DVT prophylaxis tomorrow. Her questions were answered to her satisfaction. I will see her back in followup on discharge. ADDENDUM: ALLERGIES: Apples and bananas. CURRENT MEDICATIONS: 1. Chazy. 2. Milk of magnesia. 3. Amiodarone 4. Dulcolax. 5. Chlorhexidine. 6. Lasix p.r.n. 7. Glucagon p.r.n. 8. Novolin p.r.n. 9. Lactulose. 10. Magnesium oxide. 11. Lopressor. 12. Morphine. 13. Bactroban. MD DANUTA Celestin/yuliet , 07:13 PM , 07:33 PM
[2018-08-26] MEDS: Piperacil/Tazo 3.375 GM Premix 50 ML IV.SIG SCH ×4 (01:18→20:38)
[2018-08-26] MEDS: Morphine Inj 4 MG/ML Vial IV.PUSH PRN ×3 (03:44→18:38)
[2018-08-26] MEDS: Insulin NovoLIN Regular Correctional Sugar Inj SQ SCH ×5 (04:05→21:08)
[2018-08-26] MEDS: Chlorhexidine Gluconate 2% 1 Pack (2 Cloths) TOPICAL SCH (05:20)
[2018-08-26 08:29] LABS: Calcium 7.5 mg/dL (8.5-10.1); Carbon Dioxide 26.3 meq/L (21.0-32.0); Potassium 3.2 meq/L (3.5-5.1)
[2018-08-26] MEDS ORDERED: Lidocaine PF 1% Inj 5 ML Syringe OTHER ONE (09:30)
[2018-08-26] MEDS ORDERED: Phenylephrine/NS 1000 MCG/10ML Syringe IV.PUSH ONE (09:35)
[2018-08-26] MEDS: Potassium Chlor 20 mEq Premix 20 MEQ/100 ML PIGGYBACK IV.SIG SCH ×2 (09:45→21:07)
[2018-08-26] MEDS ORDERED: Sugammadex Inj 200 MG/2 ML Vial IV.PUSH ONE (10:33)
--- NOTE | 2018-08-26 10:33 | GIPROC ---
[facility] [address] [facility]. [facility], [address] ERCP PROCEDURE REPORT EXAM DATE: 08/26/2018 PATIENT NAME: Elisha Matias MR #: [id number] BIRTHDATE: 1945 ATTENDING: Perez Jacobs MD ORDER #: [id number] STEAMFITTER: Alize Good Pena, Gabriela, and Hellen Lemon STATUS: inpatient INDICATIONS: The patient is a 72 yr old female here for an ERCP due to established bile leak PROCEDURE PERFORMED: ERCP with stent placement EGD/dilation MEDICATIONS: None and Per Anesthesia. CONSENT: The patient understands the risks and benefits of the procedure and understands that these risks include, but are not limited to: sedation, allergic reaction, infection, perforation and/or bleeding. Alternative means of evaluation and treatment include, among others: physical exam, x-rays, and/or surgical intervention. The patient elects to proceed with this endoscopic procedure. medical equipment was checked for proper function. Hand hygiene and appropriate measures for infection prevention was taken. After the risks, benefits and alternatives of the procedure were thoroughly explained, Informed was verified, confirmed and timeout was successfully executed by the treatment team. With the patient in left semi-prone position, medications were administered intravenously.The Pentax [id number] was passed from the mouth into the esophagus and further advanced from the esophagus into the stomach. From stomach scope was directed to the second portion of the duodenum. Major papilla was aligned with the duodenoscope. The scope position was confirmed fluoroscopically. Rest of the findings/therapeutics are given below. The scope was then completely withdrawn from the patient and the procedure completed. The pulse, BP, and O2 saturation were monitored and documented by the physician and the nursing staff throughout the entire procedure. The patient was cared for as planned according to standard protocol. The patient was then discharged to recovery in stable condition and with appropriate post procedure care. There was a medium sized periampullary diverticulum. FREE-TEXT There was extravastion of contrast seen from the cystic duct remnant. Tight distal esophageal stricture , dilated with savary from 15mm to 17mm. ERCP scope then able to advance into the stomach 8.5 fr x 9 cm stent placed. A single stone was seen in the distal common bile duct. ADVERSE EVENT: There were no complications. IMPRESSIONS: 1. Medium periampullary diverticulum 2. FREE-TEXT 3. Tight distal esophageal stricture , dilated with savary from 15mm to 17mm. ERCP scope then able to advance into the stomach 8.5 fr x 9 cm stent placed RECOMMENDATIONS: 1. Liver enzymes 2. Stent change REPEAT EXAM: Return 1 month ERCP Perez Jacobs MD eSigned: Perez Jacobs MD 08/26/2018 10:33 AM cc: PATIENT NAME: Elisha Matias MR#: [id number]
[2018-08-26] MEDS ORDERED: fentaNYL Citrate Inj 100 MCG/2 ML Ampul ONE (11:09)
--- NOTE | 2018-08-26 11:17 | FL ---
EXAM DATE: 08/26/2018 12:00 AM EDT AGE/SEX: 72 years / Female INDICATIONS: Obstruction with stent placement. CLINICAL DATA: This is the patient's initial encounter. Patient reports that signs and symptoms have been present for 1 day and indicates a pain score of Nonresponsive. MEDICAL/SURGICAL HISTORY: Non-responsive. Non-responsive. COMPARISON: [facility] [place], CT ABDOMEN & PELVIS W/O CONTRAST, 05/10/2018. . FINDINGS: An ERCP was performed by the ordering physician. The images demonstrate cannulation of the common bi le duct with common bile duct at the upper limits for normal in size. The images demonstrate lucencie s in the common duct which could represent a filling defect or air bubble. Cystic duct is visualized by no gallbladder is seen. The intrahepatic bile ducts do not appear significantly dilated. Pancreati c duct demonstrates no abnormality. The final image documents a stent within the common duct. CONCLUSION: Multiple lucencies within a common duct that is at the upper range for normal. These could represent air bubbles or true filling defects. Stent is placed during the examination. Please refer to endoscop ist report for description of the intraprocedural findings. Electronically signed by: Fabiano Echeverria MD 08/26/2018 11:16 AM EDT
--- NOTE | 2018-08-26 12:15 | P.PNGS ---
Physical Exam Vital signs: Vital Signs 08/25/18 12:22 08/25/18 14:00 08/25/18 16:00 Temperature 98.1 F 98.3 F Pulse Rate 74 72 Respiratory Rate 20 12 14 Blood Pressure 125/72 97/54 L Pulse Oximetry 99 98 08/25/18 20:00 08/25/18 20:25 08/26/18 00:00 Temperature 97.8 F 98.2 F Pulse Rate 75 67 Respiratory Rate 16 14 15 Blood Pressure 115/62 107/60 Pulse Oximetry 99 98 08/26/18 04:00 08/26/18 08:00 08/26/18 10:58 Temperature 98.6 F 98.2 F 97.6 F Pulse Rate 68 70 77 Respiratory Rate 24 16 22 Blood Pressure 123/64 123/58 L 149/80 H Pulse Oximetry 97 99 08/26/18 11:00 08/26/18 11:09 08/26/18 11:15 Temperature Pulse Rate 80 75 66 Respiratory Rate 22 16 20 Blood Pressure 109/58 L 110/60 Pulse Oximetry 99 98 98 08/26/18 11:30 08/26/18 11:44 Temperature 97.6 F Pulse Rate 88 62 Respiratory Rate 20 20 Blood Pressure 140/65 112/58 L Pulse Oximetry 98 98 Intake & Output 08/25/18 08/26/18 08/26/18 18:59 06:59 18:59 Intake Total 1750 / 1750 320 / 320 Output Total 2850 / 2850 1210 / 1210 225 / 225 Balance -1100 / -1100 -890 / -890 -225 / -225 Weight 89.1 kg Intake: IV 1300 / 1300 200 / 200 Magnesium Sulfate 1 gm/D5W 100 100 / 100 ml Premix 100 ML @ 100 mls/hr IV.SIG ONCE ONE Rx#:[id number] Zosyn 3.375 GM Premix 50 ML @ 100 / 100 100 / 100 100 mls/hr IV.SIG Q6H [facility] Rx#: [id number] KCl 20 mEq Premix Inj 20 meq In 100 / 100 100 / 100 100 ml @ 50 mls/hr IV.SIG Q12H [facility] Rx#:[id number] Oral 450 / 450 120 / 120 Output: Urine 1999 / 2000 1000 / 1000 225 / 225 Urine Amount (Catheter) 600 / 600 Indwelling Urethral Catheter 600 / 600 Wound Drainage 250 / 250 210 / 210 # 1 Right Abdomen Aakash 250 / 250 210 / 210 Other: # Voids 2 2 # Bowel Movements 0 - Urinary Catheter Management Indwelling Urethral Catheter Cath placed during this visit: yes, but has since been removed by the nurse Reason for continuing: Not indwelling catheter Insertion date: 08/20/18 Removal date: 08/24/18 Results - Labs 08/25/18 11:35 08/26/18 07:47 Laboratory Results - last 24 hr 08/25/18 08/25/18 08/25/18 11:35 17:40 20:29 PT 11.4 INR 1.1 Sodium Potassium Chloride Carbon Dioxide Anion Gap BUN Creatinine Estimated GFR POC Glucose 159 H 177 H Random Glucose Calcium 08/26/18 08/26/18 08/26/18 04:04 07:47 08:04 PT INR Sodium 143 Potassium 3.2 L Chloride 106 Carbon Dioxide 26.3 Anion Gap 11 BUN 9 Creatinine 0.87 Estimated GFR 64 L POC Glucose 99 85 Random Glucose 77 Calcium 7.5 L 08/26/18 11:06 PT INR Sodium Potassium Chloride Carbon Dioxide Anion Gap BUN Creatinine Estimated GFR POC Glucose 108 Random Glucose Calcium - Imaging Imaging: ITS Impressions GI Procedure 08/26/18 00:00 CONCLUSION: Multiple lucencies within a common duct that is at the upper range for normal. These could represent air bubbles or true filling defects. Stent is placed during the examination. Please refer to endoscopist report for description of the intraprocedural findings. Assessment and Plan - Assessment (1) Gangrenous cholecystitis Code(s): K81.0 - Acute cholecystitis Status: Acute Plan: 72 year old female POD5 open cholecystectomy -Consult GI for eval of ERCP and possible stent placement due to SARAH -NPO for procedure -HR better controlled now -OOB as tolerated; PT consulted -Consult to Dr. Martines
[2018-08-26] MEDS: Amiodarone 200 MG Tablet PO SCH (13:17)
[2018-08-26] MEDS: Metoprolol Tartrate 25 MG Tablet PO SCH ×3 (13:20→20:38)
[2018-08-26] MEDS: Senna/Docusate Sodium 8.6/50 MG Tablet PO SCH ×2 (13:21→20:38)
[2018-08-26] MEDS: Potassium Chlor 20 mEq Premix 20 MEQ/100 ML PIGGYBACK IV.SIG PRN ×4 (13:22→21:06)
--- NOTE | 2018-08-26 15:56 | P.PNONC ---
Subjective Interval history: Afebrile. Lying in bed, in no acute distress. Her daughter is at the bedside. Patient reports her right forearm IV is burning slightly from the potassium infusing. No other complaints at this time. She is status post cholecystectomy yesterday and ERCP with stenting today. Objective Vital Signs/Intake & Output: Vital Signs 08/25/18 16:00 08/25/18 20:00 08/25/18 20:25 Temperature 98.3 F 97.8 F Pulse Rate 72 75 Respiratory Rate 14 16 14 Blood Pressure 97/54 L 115/62 Pulse Oximetry 98 99 08/26/18 00:00 08/26/18 04:00 08/26/18 08:00 Temperature 98.2 F 98.6 F 98.2 F Pulse Rate 67 68 70 Respiratory Rate 15 24 16 Blood Pressure 107/60 123/64 123/58 L Pulse Oximetry 98 97 99 08/26/18 10:58 08/26/18 11:00 08/26/18 11:09 Temperature 97.6 F Pulse Rate 77 80 75 Respiratory Rate 22 22 16 Blood Pressure 149/80 H 109/58 L Pulse Oximetry 99 98 08/26/18 11:15 08/26/18 11:30 08/26/18 11:44 Temperature 97.6 F Pulse Rate 66 88 62 Respiratory Rate 20 20 20 Blood Pressure 110/60 140/65 112/58 L Pulse Oximetry 98 98 98 08/26/18 12:00 Temperature 97.3 F L Pulse Rate 70 Respiratory Rate 16 Blood Pressure 112/58 L Pulse Oximetry 97 Intake & Output 08/25/18 08/26/18 08/26/18 18:59 06:59 18:59 Intake Total 1750 / 1750 320 / 320 100 / 100 Output Total 2850 / 2850 1210 / 1210 225 / 225 Balance -1100 / -1100 -890 / -890 -125 / -125 Weight 89.1 kg Intake: IV 1300 / 1300 200 / 200 100 / 100 Magnesium Sulfate 1 gm/D5W 100 100 / 100 ml Premix 100 ML @ 100 mls/hr IV.SIG ONCE ONE Rx#:[id number] Zosyn 3.375 GM Premix 50 ML @ 100 / 100 100 / 100 100 / 100 100 mls/hr IV.SIG Q6H [facility] Rx#: [id number] KCl 20 mEq Premix Inj 20 meq In 100 / 100 100 / 100 100 ml @ 50 mls/hr IV.SIG Q12H [facility] Rx#:[id number] Oral 450 / 450 120 / 120 Output: Urine 2000 / 2000 1000 / 1000 225 / 225 Urine Amount (Catheter) 600 / 600 Indwelling Urethral Catheter 600 / 600 Wound Drainage 250 / 250 210 / 210 # 1 Right Abdomen Aakash 250 / 250 210 / 210 Other: # Voids 2 2 # Bowel Movements 0 Result Diagrams: 08/25/18 11:35 08/26/18 07:47 Laboratory Results: Laboratory Results - last 24 hr 08/25/18 08/25/18 08/26/18 17:40 20:29 04:04 Sodium Potassium Chloride Carbon Dioxide Anion Gap BUN Creatinine Estimated GFR POC Glucose 159 H 177 H 99 Random Glucose Calcium 08/26/18 08/26/18 08/26/18 07:47 08:04 11:06 Sodium 143 Potassium 3.2 L Chloride 106 Carbon Dioxide 26.3 Anion Gap 11 BUN 9 Creatinine 0.87 Estimated GFR 64 L POC Glucose 85 108 Random Glucose 77 Calcium 7.5 L 08/26/18 13:10 Sodium Potassium Chloride Carbon Dioxide Anion Gap BUN Creatinine Estimated GFR POC Glucose 105 Random Glucose Calcium Imaging Studies: Impressions GI Procedure 08/26/18 00:00 CONCLUSION: Multiple lucencies within a common duct that is at the upper range for normal. These could represent air bubbles or true filling defects. Stent is placed during the examination. Please refer to endoscopist report for description of the intraprocedural findings. Medications: Active Medications Generic Name Dose Route Start Last Admin Trade Name Freq PRN Reason Stop Dose Admin Hydrocodone Bitart/Acetaminophen 1 tab 08/20/18 17:06 08/20/18 23:42 Enoree 5/325 PO 1 tab Q4H PRN Administration PAIN SCALE 1 TO 5 Amiodarone HCl 200 mg 08/24/18 09:00 08/26/18 13:17 Cordarone PO 08/28/18 23:59 200 mg DAILY HAR[facility]EP Administration Chlorhexidine Gluconate 3 pack 08/22/18 04:00 08/26/18 05:20 Chlorhexidine 2% Cloth TOPICAL 08/27/18 03:59 3 pack DAILY@0400 [facility] Administration Sodium Chloride 500 mls @ 30 mls/hr 08/20/18 14:00 08/20/18 22:48 Ns Inj IV.SIG Not Given .Q10H [facility] Piperacillin/Tazobactam/Dextrose 50 mls @ 100 mls/hr 08/20/18 20:00 08/26/18 14:51 Zosyn 3.375 Gm Premix IV.SIG Infused Q6H [facility] Infusion Magnesium Sulfate 2 gm/ Sodium 100 mls @ 50 mls/hr 08/22/18 17:21 08/23/18 10 :34 Chloride IV.SIG Infused UNSCH PRN Infusion For Magnesium 1.2 - 1.6 mg/dL Potassium Chloride 20 meq in 100 mls @ 50 mls/hr 08/22/18 17:21 08/23/18 13: 41 Kcl 20 Meq Premix Inj IV.SIG Infused Q2H PRN Infusion For Potassium 3.3 - 3.5 mEq/L Potassium Chloride 20 meq in 100 mls @ 50 mls/hr 08/22/18 17:21 08/26/18 13: 22 Kcl 20 Meq Premix Inj IV.SIG 50 mls/hr Q2H PRN Administration For Potassium 2.8 - 3.2 mEq/L Potassium Phosphate 30 mmol/ 260 mls @ 42 mls/hr 08/22/18 17:21 08/23/18 14: 45 Sodium Chloride IV.SIG Infused UNSCH PRN Infusion SEE LABEL COMMENTS Potassium Chloride 20 meq in 100 mls @ 50 mls/hr 08/25/18 09:00 08/26/18 09: 45 Kcl 20 Meq Premix Inj IV.SIG 08/26/18 23:59 Not Given Q12H [facility] Insulin Human Regular 0 units 08/20/18 21:00 08/26/18 13:21 Novolin R Correctional Sugar Inj SQ Not Given ACHS AND 3AM [facility] Protocol Metoprolol Tartrate 25 mg 08/24/18 08:00 08/26/18 14:51 Lopressor PO 25 mg BID [facility] Administration Morphine Sulfate 4 mg 08/20/18 23:45 08/26/18 13:45 Morphine Inj IV.PUSH 4 mg Q2H PRN Administration BREAKTHROUGH PAIN Ondansetron HCl 4 mg 08/20/18 17:06 08/22/18 05:43 Zofran Inj IV.PUSH 4 mg Q6H PRN Administration NAUSEA OR VOMITING Senna/Docusate Sodium 1 tab 08/20/18 21:00 08/26/18 13:21 Sammie-Colace PO Not Given BID [facility] Objective Remarks: GENERAL: Chronically ill-appearing elderly female patient, in no acute distress. SKIN: Warm and dry. HEAD: Normocephalic. EYES: No scleral icterus. No injection or drainage. NECK: Supple, trachea midline. CARDIOVASCULAR: Regular rate and rhythm without murmurs. RESPIRATORY: Breath sounds distant,equal bilaterally. Non-labored at rest. GASTROINTESTINAL: Abdomen large, soft, non-tender, nondistended. RUQ drain in place. EXTREMITIES: No cyanosis, or edema. MUSCULOSKELETAL: Adequate muscle tone. NEUROLOGICAL: No obvious focal deficit. Awake, alert, and oriented x3. PSYCHIATRIC: Appropriate mood and affect; insight and judgment normal. Assessment/Plan - Plan Ms. Matias is a pleasant 80-year-old woman with metastatic breast cancer. She has a locally advanced disease with ulcerated ER positive right breast cancer and an ER negative left breast cancer. She is receiving palliative chemotherapy in preparation of definitive surgery. Her surgery was deferred because of acute cholecystitis with gangrenous gallbladder. Status post cholecystectomy. Hematology was consulted for thrombocytopenia. Plan: 1. Thrombocytopenia, resolving. Platelet count currently 104,000, would anticipate continued recovery. 2. Once cleared by surgeon recommend starting low molecular weight heparin for DVT prophylaxis. 3. Recommend continue aromatase inhibitor for ER positive breast cancer. 4. Continue supportive care. - Attending Statement Agree with above, check CBC in AM, cont AI.
--- NOTE | 2018-08-26 16:08 | P.PNCC ---
Subjective Subjective Remarks/Hospital Course: 08/22: This 72-year-old woman underwent an emergent open cholecystectomy for a gangrenous gallbladder. Laparoscopic approach was terminated when the gallbladder was found to be markedly inflamed and densely attached to the abdominal wall. She is on appropriate antibiotic coverage and is recovering well. She has no history of cardiac arrhythmias. She spontaneously developed atrial fibrillation with poorly controlled ventricular response this afternoon and I was asked to see her in consultation. I have reviewed her record and discussed her care at length with the patient and with her daughter at the bedside. Discussed with the surgical service as well. She is normotensive and has no chest pain or shortness of breath. Aside from some mild abdominal pain with coughing she is relatively comfortable. Electrolytes are normal. 08/23: Patient converted pharmacologically to normal sinus rhythm on amiodarone infusion. Presently undergoing additional replacement of potassium, phosphate, magnesium in an attempt to reduce the likelihood of recurrence. Systolic blood pressure in the 140s and well-perfused. BNP is modestly elevated, consistent with positive fluid balance, also consistent with the level of toxicity anticipated with a gangrenous gallbladder. We will replete her electrolytes, stop her maintenance IV, and add a diuretic. 08/24: Breathing comfortably. Remained back in sinus mechanism will treat with short-term amiodarone and long-term beta-sil. Will need diuretic this morning for positive fluid balance. 08/25: Has remained in sinus rhythm. Plan continue amiodarone 200 mg p.o. per day for 2 weeks. Continue beta-sil Lopressor 25 mg p.o. twice daily indefinitely. Rising BNP will require more aggressive diuretic therapy. Fortunately, heart rate well controlled and normotensive. 08/26: Is remained in sinus rhythm but having occasional premature atrial contraction. Normotensive and tolerating diuresis well. Add additional diuretic today following transfusion and continue twice daily potassium replacement. Objective Vital Signs / I&O: Vital Signs 08/25/18 20:00 08/25/18 20:25 08/26/18 00:00 Temperature 97.8 F 98.2 F Pulse Rate 75 67 Respiratory Rate 16 14 15 Blood Pressure 115/62 107/60 Pulse Oximetry 99 98 08/26/18 04:00 08/26/18 08:00 08/26/18 10:58 Temperature 98.6 F 98.2 F 97.6 F Pulse Rate 68 70 77 Respiratory Rate 24 16 22 Blood Pressure 123/64 123/58 L 149/80 H Pulse Oximetry 97 99 08/26/18 11:00 08/26/18 11:09 08/26/18 11:15 Temperature Pulse Rate 80 75 66 Respiratory Rate 22 16 20 Blood Pressure 109/58 L 110/60 Pulse Oximetry 99 98 98 08/26/18 11:30 08/26/18 11:44 08/26/18 12:00 Temperature 97.6 F 97.3 F L Pulse Rate 88 62 70 Respiratory Rate 20 20 16 Blood Pressure 140/65 112/58 L 112/58 L Pulse Oximetry 98 98 97 Intake & Output 08/25/18 08/26/18 08/26/18 18:59 06:59 18:59 Intake Total 1750 / 1750 320 / 320 200 / 200 Output Total 2850 / 2850 1210 / 1210 225 / 225 Balance -1100 / -1100 -890 / -890 -25 / -25 Weight 89.1 kg Intake: IV 1300 / 1300 200 / 200 200 / 200 Magnesium Sulfate 1 gm/D5W 100 100 / 100 ml Premix 100 ML @ 100 mls/hr IV.SIG ONCE ONE Rx#:[id number] Zosyn 3.375 GM Premix 50 ML @ 100 / 100 100 / 100 100 / 100 100 mls/hr IV.SIG Q6H HARDEEP Rx#: [id number] KCl 20 mEq Premix Inj 20 meq In 100 / 100 100 / 100 100 / 100 100 ml @ 50 mls/hr IV.SIG Q2H PRN Rx#:[id number] Oral 450 / 450 120 / 120 Output: Urine 2000 / 2000 1000 / 1000 225 / 225 Urine Amount (Catheter) 600 / 600 Indwelling Urethral Catheter 600 / 600 Wound Drainage 250 / 250 210 / 210 # 1 Right Abdomen Aakash 250 / 250 210 / 210 Other: # Voids 2 2 # Bowel Movements 0 Result Diagrams: 08/27/18 06:21 08/27/18 06:21 Objective Remarks: Narrative: General: Comfortable. Conversant Head: Atraumatic, normal. Neck: Supple, airway widely patent, no obstructive noises. Lungs: Clear bilaterally, no wheezes or crackles. Comfortable respiratory pattern. Improving cough effort. Heart: Regular rate and rhythm in the 60s. Normal S1, S2. Neck veins are not distended. Abdomen: Postsurgical, bowel sounds active. Nondistended. No guarding Extremities: Warm, well-perfused. No edema. Neuro: Oriented 3, alert, cooperative, conversant. Moves 4 limbs to command. EOMs intact Assessment and Plan - Problem List (1) Atrial fibrillation with rapid ventricular response Code(s): I48.91 - Unspecified atrial fibrillation Status: Acute (2) Acute cholecystitis Code(s): K81.0 - Acute cholecystitis Status: Acute (3) Gangrenous cholecystitis Code(s): K81.0 - Acute cholecystitis Status: Acute - Assessment and Plan Plan: Plan: 1. Keep potassium greater than 4 and magnesium greater than 2. 2. 24 hour amiodarone drip by protocol, converted now to 200 mg p.o. daily. 3. Follow electrolytes including mag and phosphorus. 4. Follow hemoglobin. 5. Continue postsurgical activities as ordered by the primary team. 6. No need for full anticoagulation at this time. 7. Replace phosphate. 8. Added low-dose beta-sil. 9. Increase diuretic therapy 10. Replace with potassium along with diuresis. Overall impression: This woman developed new onset atrial fibrillation with a moderately elevated ventricular response. Cardiac echo from 3 months ago indicates hyperdynamic left ventricle with 70% ejection fraction. Good pulse rate control now and patient diuresing nicely.
--- NOTE | 2018-08-26 16:22 | P.PNGS ---
Subjective Interval history: Resting in bed No issues Visiting with family Not too excited about getting up and OOB today Physical Exam Vital signs: Vital Signs 08/25/18 20:00 08/25/18 20:25 08/26/18 00:00 Temperature 97.8 F 98.2 F Pulse Rate 75 67 Respiratory Rate 16 14 15 Blood Pressure 115/62 107/60 Pulse Oximetry 99 98 08/26/18 04:00 08/26/18 08:00 08/26/18 10:58 Temperature 98.6 F 98.2 F 97.6 F Pulse Rate 68 70 77 Respiratory Rate 24 16 22 Blood Pressure 123/64 123/58 L 149/80 H Pulse Oximetry 97 99 08/26/18 11:00 08/26/18 11:09 08/26/18 11:15 Temperature Pulse Rate 80 75 66 Respiratory Rate 22 16 20 Blood Pressure 109/58 L 110/60 Pulse Oximetry 99 98 98 08/26/18 11:30 08/26/18 11:44 08/26/18 12:00 Temperature 97.6 F 97.3 F L Pulse Rate 88 62 70 Respiratory Rate 20 20 16 Blood Pressure 140/65 112/58 L 112/58 L Pulse Oximetry 98 98 97 Intake & Output 08/25/18 08/26/18 08/26/18 18:59 06:59 18:59 Intake Total 1750 / 1750 320 / 320 200 / 200 Output Total 2850 / 2850 1210 / 1210 225 / 225 Balance -1100 / -1100 -890 / -890 -25 / -25 Weight 89.1 kg Intake: IV 1300 / 1300 200 / 200 200 / 200 Magnesium Sulfate 1 gm/D5W 100 100 / 100 ml Premix 100 ML @ 100 mls/hr IV.SIG ONCE ONE Rx#:[id number] Zosyn 3.375 GM Premix 50 ML @ 100 / 100 100 / 100 100 / 100 100 mls/hr IV.SIG Q6H HARDEEP Rx#: [id number] KCl 20 mEq Premix Inj 20 meq In 100 / 100 100 / 100 100 / 100 100 ml @ 50 mls/hr IV.SIG Q2H PRN Rx#:[id number] Oral 450 / 450 120 / 120 Output: Urine 1999 / 2000 1000 / 1000 225 / 225 Urine Amount (Catheter) 600 / 600 Indwelling Urethral Catheter 600 / 600 Wound Drainage 250 / 250 210 / 210 # 1 Right Abdomen Aakash 250 / 250 210 / 210 Other: # Voids 2 2 # Bowel Movements 0 Narrative: Alert and awake Abd: RUQ GALDINO in place; SARAH with bilious drainage - Urinary Catheter Management Indwelling Urethral Catheter Cath placed during this visit: yes, but has since been removed by the nurse Reason for continuing: Not indwelling catheter Insertion date: 08/20/18 Removal date: 08/24/18 Results - Labs 08/31/18 11:32 08/31/18 11:32 Laboratory Results - last 24 hr 08/25/18 08/25/18 08/26/18 17:40 20:29 04:04 Sodium Potassium Chloride Carbon Dioxide Anion Gap BUN Creatinine Estimated GFR POC Glucose 159 H 177 H 99 Random Glucose Calcium 08/26/18 08/26/18 08/26/18 07:47 08:04 11:06 Sodium 143 Potassium 3.2 L Chloride 106 Carbon Dioxide 26.3 Anion Gap 11 BUN 9 Creatinine 0.87 Estimated GFR 64 L POC Glucose 85 108 Random Glucose 77 Calcium 7.5 L 08/26/18 08/26/18 13:10 15:54 Sodium Potassium Chloride Carbon Dioxide Anion Gap BUN Creatinine Estimated GFR POC Glucose 105 96 Random Glucose Calcium - Imaging Imaging: ITS Impressions GI Procedure 08/26/18 00:00 CONCLUSION: Multiple lucencies within a common duct that is at the upper range for normal. These could represent air bubbles or true filling defects. Stent is placed during the examination. Please refer to endoscopist report for description of the intraprocedural findings. Assessment and Plan - Assessment (1) Gangrenous cholecystitis Code(s): K81.0 - Acute cholecystitis Status: Acute Plan: 72 year old female POD5 open cholecystectomy -s/p ERCP today ---- Common duct stone and small leak at the cystic duct remnant -Cardiac diet -HR better controlled now -OOB as tolerated; PT consulted -Consult to Dr. Martines ---recommend low dose heparin---will start Lovenox this evening -Monitor CBC/CMP -Transfer to the floor; 7N only Still slightly groggy but stable; patient difficult to mobilize Expect SARAH output to fall in next few days; appreciate GI expertise The exam, history, and the medical decision-making described in the above note were completed with the assistance of the mid-level provider. I reviewed and agree with the findings presented. I attest that I had a [id number] encounter with the patient on the same day, and personally performed and documented my assessment and findings in the medical record.
[2018-08-26] MEDS: Enoxaparin Inj 40 MG/0.4 ML Syringe SQ SCH (18:14)
[2018-08-27] MEDS: Piperacil/Tazo 3.375 GM Premix 50 ML IV.SIG SCH ×4 (01:45→21:34)
[2018-08-27] MEDS: Insulin NovoLIN Regular Correctional Sugar Inj SQ SCH ×5 (02:16→21:39)
[2018-08-27] MEDS: Morphine Inj 4 MG/ML Vial IV.PUSH PRN ×3 (05:39→15:11)
[2018-08-27 06:54] LABS: Baso % (Auto) 0.2 % (0.0-2.0); Eos % (Auto) 0.3 % (0.0-4.0); Hematocrit 26.7 % (35.0-46.0); Lymph # (Auto) 1.1 th/mm3 (1.0-4.8); Lymph % (Auto) 12.5 % (9.0-44.0); Mean Corpuscular HGB Conc 33.8 % (32.0-36.0); Mean Corpuscular Volume 94.6 fL (80.0-100.0); Mean Platelet Volume 7.7 fL (7.0-11.0); Mono # (Auto) 0.7 th/mm3 (0.0-0.9); Mono % (Auto) 7.2 % (0.0-8.0); Neut # (Auto) 7.2 th/mm3 (1.8-7.7); Neut % (Auto) 79.8 % (16.0-70.0); Platelet Count 117 th/mm3 (150-450); Red Blood Count 2.83 mil/mm3 (4.00-5.30); Red Cell Distribution Width 20.2 % (11.6-17.2)
[2018-08-27 07:06] LABS: Calcium 7.7 mg/dL (8.5-10.1); Carbon Dioxide 25.9 meq/L (21.0-32.0); Potassium 3.8 meq/L (3.5-5.1)
[2018-08-27] MEDS: Amiodarone 200 MG Tablet PO SCH (08:15)
[2018-08-27] MEDS: Senna/Docusate Sodium 8.6/50 MG Tablet PO SCH ×2 (08:15→21:06)
[2018-08-27] MEDS: Metoprolol Tartrate 25 MG Tablet PO SCH ×2 (08:15→21:06)
[2018-08-27] MEDS: Enoxaparin Inj 40 MG/0.4 ML Syringe SQ SCH (08:15)
[2018-08-27 08:17] LABS: Lymphocytes 8 % (9-44); Metamyelocytes 1 % (0-1); Monocytes 8 % (0-8); Myelocytes 3 % (0-0); Platelet Morphology Normal (Normal); Tallied Nucleated RBC 2 (0-0)
[2018-08-27] MEDS: Potassium Chlor 20 mEq Premix 20 MEQ/100 ML PIGGYBACK IV.SIG SCH ×2 (08:50→21:35)
--- NOTE | 2018-08-27 11:10 | P.PNGI ---
Subjective Interval history: Pt resting in bed, complaining of some abdominal soreness. Denies nausea and vomiting. Poor PO intake. Does report having a BM yesterday also has been passing flatus. <Sara Antoine - Last Filed: 08/27/18 11:06> Physical Exam Vital signs: Vital Signs 08/26/18 11:09 08/26/18 11:15 08/26/18 11:30 Temperature Pulse Rate 75 66 88 Respiratory Rate 16 20 20 Blood Pressure 110/60 140/65 Pulse Oximetry 98 98 98 08/26/18 11:44 08/26/18 12:00 08/26/18 16:00 Temperature 97.6 F 97.3 F L 98.5 F Pulse Rate 62 70 69 Respiratory Rate 20 16 15 Blood Pressure 112/58 L 112/58 L 122/61 Pulse Oximetry 98 97 97 08/26/18 20:00 08/27/18 00:00 08/27/18 04:00 Temperature 98.5 F 98.6 F 98.8 F Pulse Rate 66 64 62 Respiratory Rate 16 16 16 Blood Pressure 127/60 129/61 158/72 H Pulse Oximetry 100 100 100 08/27/18 08:00 Temperature 98.8 F Pulse Rate 68 Respiratory Rate 16 Blood Pressure 146/76 H Pulse Oximetry 99 Intake & Output 08/26/18 08/27/18 08/27/18 18:59 06:59 18:59 Intake Total 350 / 350 780 / 780 50 / 50 Output Total 1250 / 1250 1205 / 1205 Balance -900 / -900 -425 / -425 50 / 50 Weight 89.6 kg Intake: IV 300 / 300 300 / 300 50 / 50 Zosyn 3.375 GM Premix 50 ML @ 100 / 100 100 / 100 50 / 50 100 mls/hr IV.SIG Q6H HARDEEP Rx#: [id number] KCl 20 mEq Premix Inj 20 meq In 200 / 200 200 / 200 100 ml @ 50 mls/hr IV.SIG Q2H PRN Rx#:[id number] Oral 50 / 50 480 / 480 Output: Urine 1200 / 1200 1200 / 1200 Stool 0 / 0 Wound Drainage 50 / 50 5 / 5 # 1 Right Abdomen Aakash 50 / 50 5 / 5 Other: # Voids 3 Date of Last Bowel Movement 08/26/18 08/26/18 # Bowel Movements 1 - Constitutional no acute distress - Routine HEENT Exam Head: Present: normocephalic, atraumatic - Routine Respiratory Exam Absent: accessory muscle use - Routine Abdominal Exam Present: soft, normoactive bowel sounds. Absent: distended Comments: GALDINO dressing to abdomen and SARAH drain with small amount of bile colored drainage - Routine Skin Exam Present: dry, warm - Urinary Catheter Management Indwelling Urethral Catheter Cath placed during this visit: yes, but has since been removed by the nurse Reason for continuing: Not indwelling catheter Insertion date: 08/20/18 Removal date: 08/24/18 <Sara Antoine - Last Filed: 08/27/18 11:06> Vital signs: Vital Signs 08/26/18 16:00 08/26/18 20:00 08/27/18 00:00 Temperature 98.5 F 98.5 F 98.6 F Pulse Rate 69 66 64 Respiratory Rate 15 16 16 Blood Pressure 122/61 127/60 129/61 Pulse Oximetry 97 100 100 08/27/18 04:00 08/27/18 08:00 Temperature 98.8 F 98.8 F Pulse Rate 62 68 Respiratory Rate 16 16 Blood Pressure 158/72 H 146/76 H Pulse Oximetry 100 99 Intake & Output 08/26/18 08/27/18 08/27/18 18:59 06:59 18:59 Intake Total 350 / 350 780 / 780 150 / 150 Output Total 1250 / 1250 1205 / 1205 Balance -900 / -900 -425 / -425 150 / 150 Weight 89.6 kg Intake: IV 300 / 300 300 / 300 150 / 150 Zosyn 3.375 GM Premix 50 ML @ 100 / 100 100 / 100 50 / 50 100 mls/hr IV.SIG Q6H HARDEEP Rx#: [id number] KCl 20 mEq Premix Inj 20 meq In 200 / 200 200 / 200 100 / 100 100 ml @ 50 mls/hr IV.SIG Q12H HARDEEP Rx#:[id number] Oral 50 / 50 480 / 480 Output: Urine 1200 / 1200 1200 / 1200 Stool 0 / 0 Wound Drainage 50 / 50 5 / 5 # 1 Right Abdomen Aakash 50 / 50 5 / 5 Other: # Voids 3 Date of Last Bowel Movement 08/26/18 08/26/18 # Bowel Movements 1 - Urinary Catheter Management Indwelling Urethral Catheter Cath placed during this visit: no <Perez Jacobs - Last Filed: 08/27/18 15:22> Results - Labs CBC & Chem 7: 08/27/18 06:21 08/27/18 06:21 Laboratory Results - last 24 hr 08/26/18 08/26/18 08/26/18 11:06 13:10 15:54 WBC RBC Hgb Hct MCV MCH MCHC RDW Plt Count MPV Prelim Diff (Auto) Neut % (Auto) Lymph % (Auto) [place] % (Auto) Eos % (Auto) Baso % (Auto) Neut # (Auto) Lymph # (Auto) [place] # (Auto) Eos # (Auto) Baso # (Auto) WBC Differential Seg Neuts % (Manual) Band Neuts % (Manual) Lymphocytes % (Manual) Monocytes % (Manual) Metamyelocytes % (Man) Myelocytes % (Man) Abs Neuts (Manual) Nucleated RBCs/100 WBC Differential Comment Platelet Estimate Platelet Morphology Sodium Potassium Chloride Carbon Dioxide Anion Gap BUN Creatinine Estimated GFR POC Glucose 108 105 96 Random Glucose Calcium 08/26/18 08/27/18 08/27/18 20:20 02:01 05:28 WBC RBC Hgb Hct MCV MCH MCHC RDW Plt Count MPV Prelim Diff (Auto) Neut % (Auto) Lymph % (Auto) [place] % (Auto) Eos % (Auto) Baso % (Auto) Neut # (Auto) Lymph # (Auto) [place] # (Auto) Eos # (Auto) Baso # (Auto) WBC Differential Seg Neuts % (Manual) Band Neuts % (Manual) Lymphocytes % (Manual) Monocytes % (Manual) Metamyelocytes % (Man) Myelocytes % (Man) Abs Neuts (Manual) Nucleated RBCs/100 WBC Differential Comment Platelet Estimate Platelet Morphology Sodium Potassium Chloride Carbon Dioxide Anion Gap BUN Creatinine Estimated GFR POC Glucose 106 175 H 152 H Random Glucose Calcium 08/27/18 08/27/18 06:21 06:21 WBC 9.0 RBC 2.83 L Hgb 9.0 L Hct 26.7 L MCV 94.6 MCH 32.0 MCHC 33.8 RDW 20.2 H Plt Count 117 L MPV 7.7 Prelim Diff (Auto) Slide review pending Neut % (Auto) 79.8 H Lymph % (Auto) 12.5 [place] % (Auto) 7.2 Eos % (Auto) 0.3 Baso % (Auto) 0.2 Neut # (Auto) 7.2 Lymph # (Auto) 1.1 [place] # (Auto) 0.7 Eos # (Auto) 0.0 Baso # (Auto) 0.0 WBC Differential Manual diff final Seg Neuts % (Manual) 75 H Band Neuts % (Manual) 5 Lymphocytes % (Manual) 8 L Monocytes % (Manual) 8 Metamyelocytes % (Man) 1 Myelocytes % (Man) 3 H Abs Neuts (Manual) 7.6 Nucleated RBCs/100 WBC 2 H Differential Comment . Platelet Estimate Low L Platelet Morphology Normal Sodium 140 Potassium 3.8 Chloride 104 Carbon Dioxide 25.9 Anion Gap 10 BUN 11 Creatinine 0.99 Estimated GFR 55 L POC Glucose Random Glucose 138 H Calcium 7.7 L - Imaging Impressions GI Procedure 08/26/18 00:00 CONCLUSION: Multiple lucencies within a common duct that is at the upper range for normal. These could represent air bubbles or true filling defects. Stent is placed during the examination. Please refer to endoscopist report for description of the intraprocedural findings. <Sara Antoine - Last Filed: 08/27/18 11:06> - Labs CBC & Chem 7: 08/27/18 06:21 08/27/18 06:21 Laboratory Results - last 24 hr 08/26/18 08/26/18 08/27/18 15:54 20:20 02:01 WBC RBC Hgb Hct MCV MCH MCHC RDW Plt Count MPV Prelim Diff (Auto) Neut % (Auto) Lymph % (Auto) [place] % (Auto) Eos % (Auto) Baso % (Auto) Neut # (Auto) Lymph # (Auto) [place] # (Auto) Eos # (Auto) Baso # (Auto) WBC Differential Seg Neuts % (Manual) Band Neuts % (Manual) Lymphocytes % (Manual) Monocytes % (Manual) Metamyelocytes % (Man) Myelocytes % (Man) Abs Neuts (Manual) Nucleated RBCs/100 WBC Differential Comment Platelet Estimate Platelet Morphology Sodium Potassium Chloride Carbon Dioxide Anion Gap BUN Creatinine Estimated GFR POC Glucose 96 106 175 H Random Glucose Calcium Total Bilirubin Direct Bilirubin Indirect Bilirubin AST ALT Alkaline Phosphatase Total Protein Albumin 08/27/18 08/27/18 08/27/18 05:28 06:21 06:21 WBC 9.0 RBC 2.83 L Hgb 9.0 L Hct 26.7 L MCV 94.6 MCH 32.0 MCHC 33.8 RDW 20.2 H Plt Count 117 L MPV 7.7 Prelim Diff (Auto) Slide review pending Neut % (Auto) 79.8 H Lymph % (Auto) 12.5 [place] % (Auto) 7.2 Eos % (Auto) 0.3 Baso % (Auto) 0.2 Neut # (Auto) 7.2 Lymph # (Auto) 1.1 [place] # (Auto) 0.7 Eos # (Auto) 0.0 Baso # (Auto) 0.0 WBC Differential Manual diff final Seg Neuts % (Manual) 75 H Band Neuts % (Manual) 5 Lymphocytes % (Manual) 8 L Monocytes % (Manual) 8 Metamyelocytes % (Man) 1 Myelocytes % (Man) 3 H Abs Neuts (Manual) 7.6 Nucleated RBCs/100 WBC 2 H Differential Comment . Platelet Estimate Low L Platelet Morphology Normal Sodium 140 Potassium 3.8 Chloride 104 Carbon Dioxide 25.9 Anion Gap 10 BUN 11 Creatinine 0.99 Estimated GFR 55 L POC Glucose 152 H Random Glucose 138 H Calcium 7.7 L Total Bilirubin Direct Bilirubin Indirect Bilirubin AST ALT Alkaline Phosphatase Total Protein Albumin 08/27/18 08/27/18 11:55 12:36 WBC RBC Hgb Hct MCV MCH MCHC RDW Plt Count MPV Prelim Diff (Auto) Neut % (Auto) Lymph % (Auto) [place] % (Auto) Eos % (Auto) Baso % (Auto) Neut # (Auto) Lymph # (Auto) [place] # (Auto) Eos # (Auto) Baso # (Auto) WBC Differential Seg Neuts % (Manual) Band Neuts % (Manual) Lymphocytes % (Manual) Monocytes % (Manual) Metamyelocytes % (Man) Myelocytes % (Man) Abs Neuts (Manual) Nucleated RBCs/100 WBC Differential Comment Platelet Estimate Platelet Morphology Sodium Potassium Chloride Carbon Dioxide Anion Gap BUN Creatinine Estimated GFR POC Glucose 119 H Random Glucose Calcium Total Bilirubin 0.5 Direct Bilirubin 0.3 H Indirect Bilirubin 0.2 AST 16 ALT 8 L Alkaline Phosphatase 226 H Total Protein 5.9 L Albumin 1.6 L <Perez Jacobs - Last Filed: 08/27/18 15:22> Assessment and Plan - Plan Assessment: - Suspected bile leak after open cholecystectomy done on 08/20 for gangrenous cholecystitis S/P ERCP with stent placement yesterday --> medium periampullary diverticulum , tight distal esophageal stricture, dilated from 15mm to 17mm. 8.5 fr x 9 cm stent placed. Plan: Monitor LFTs ERCP in stent exchange in one month Zosyn Diet per GS Our service will sign off, please reconsult as needed Have pt follow up with GI after DC Pt has been seen and examined by myself and Dr. [email or web address] and this note is written on his behalf <Sara Antoine - Last Filed: 08/27/18 11:06> - Plan Seen and examined with QUALITY IMPROVEMENT SPECIALIST, states doing better. S/P ercp stent. SARAH removal per surgery. GI fu upon dc for fu ercp. Will sign off, thank you The exam, history, and the medical decision-making described in the above note were completed with the assistance of the mid-level provider. I reviewed and agree with the findings presented. I attest that I had a [id number] encounter with the patient on the same day, and personally performed and documented my assessment and findings in the medical record. <Perez Jacobs - Last Filed: 08/27/18 15:22>
[2018-08-27] MEDS: Anastrozole 1 MG Tablet PO SCH (12:09)
--- NOTE | 2018-08-27 12:22 | P.PNCC ---
Subjective Subjective Remarks/Hospital Course: 08/22: This 72-year-old woman underwent an emergent open cholecystectomy for a gangrenous gallbladder. Laparoscopic approach was terminated when the gallbladder was found to be markedly inflamed and densely attached to the abdominal wall. She is on appropriate antibiotic coverage and is recovering well. She has no history of cardiac arrhythmias. She spontaneously developed atrial fibrillation with poorly controlled ventricular response this afternoon and I was asked to see her in consultation. I have reviewed her record and discussed her care at length with the patient and with her daughter at the bedside. Discussed with the surgical service as well. She is normotensive and has no chest pain or shortness of breath. Aside from some mild abdominal pain with coughing she is relatively comfortable. Electrolytes are normal. 08/23: Patient converted pharmacologically to normal sinus rhythm on amiodarone infusion. Presently undergoing additional replacement of potassium, phosphate, magnesium in an attempt to reduce the likelihood of recurrence. Systolic blood pressure in the 140s and well-perfused. BNP is modestly elevated, consistent with positive fluid balance, also consistent with the level of toxicity anticipated with a gangrenous gallbladder. We will replete her electrolytes, stop her maintenance IV, and add a diuretic. 08/24: Breathing comfortably. Remained back in sinus mechanism will treat with short-term amiodarone and long-term beta-sil. Will need diuretic this morning for positive fluid balance. 08/25: Has remained in sinus rhythm. Plan continue amiodarone 200 mg p.o. per day for 2 weeks. Continue beta-sil Lopressor 25 mg p.o. twice daily indefinitely. Rising BNP will require more aggressive diuretic therapy. Fortunately, heart rate well controlled and normotensive. 08/26: Is remained in sinus rhythm but having occasional premature atrial contraction. Normotensive and tolerating diuresis well. Add additional diuretic today following transfusion and continue twice daily potassium replacement. 08/27: Remains in sinus rhythm on amiodarone oral and twice daily Lopressor. Normotensive, fluid balance seems about right. Minor hemoglobin drop over 24 hours will follow. Objective Vital Signs / I&O: Vital Signs 08/26/18 16:00 08/26/18 20:00 08/27/18 00:00 Temperature 98.5 F 98.5 F 98.6 F Pulse Rate 69 66 64 Respiratory Rate 15 16 16 Blood Pressure 122/61 127/60 129/61 Pulse Oximetry 97 100 100 08/27/18 04:00 08/27/18 08:00 Temperature 98.8 F 98.8 F Pulse Rate 62 68 Respiratory Rate 16 16 Blood Pressure 158/72 H 146/76 H Pulse Oximetry 100 99 Intake & Output 08/26/18 08/27/18 08/27/18 18:59 06:59 18:59 Intake Total 350 / 350 780 / 780 50 / 50 Output Total 1250 / 1250 1205 / 1205 Balance -900 / -900 -425 / -425 50 / 50 Weight 89.6 kg Intake: IV 300 / 300 300 / 300 50 / 50 Zosyn 3.375 GM Premix 50 ML @ 100 / 100 100 / 100 50 / 50 100 mls/hr IV.SIG Q6H HARDEEP Rx#: [id number] KCl 20 mEq Premix Inj 20 meq In 200 / 200 200 / 200 100 ml @ 50 mls/hr IV.SIG Q2H PRN Rx#:[id number] Oral 50 / 50 480 / 480 Output: Urine 1200 / 1200 1200 / 1200 Stool 0 / 0 Wound Drainage 50 / 50 5 / 5 # 1 Right Abdomen Aakash 50 / 50 5 / 5 Other: # Voids 3 Date of Last Bowel Movement 08/26/18 08/26/18 # Bowel Movements 1 Result Diagrams: 08/27/18 06:21 08/27/18 06:21 Objective Remarks: Narrative: General: Comfortable. Conversant Head: Atraumatic, normal. Neck: Supple, airway widely patent, no obstructive noises. Lungs: Clear bilaterally, no wheezes or crackles. Comfortable respiratory pattern. Improving cough effort. Heart: Regular rate and rhythm in the 60s. Normal S1, S2. No JVD Abdomen: Postsurgical, bowel sounds active. Nondistended. No guarding Extremities: Warm, well-perfused. No edema. Neuro: Oriented 3, alert, cooperative, conversant. Moves 4 limbs to command. Assessment and Plan - Problem List (1) Atrial fibrillation with rapid ventricular response Code(s): I48.91 - Unspecified atrial fibrillation Status: Acute (2) Acute cholecystitis Code(s): K81.0 - Acute cholecystitis Status: Acute (3) Gangrenous cholecystitis Code(s): K81.0 - Acute cholecystitis Status: Acute - Assessment and Plan Plan: Plan: 1. Continue beta-sil indefinitely, continue amiodarone for 2 weeks. 2. Transfer fine with me if okay with surgical service. 3. Follow electrolytes including mag and phosphorus. 4. Follow hemoglobin. 5. Continue postsurgical activities as ordered by the primary team. 6. No need for full anticoagulation at this time. 7. Switch to oral potassium replacement for 48 hours. 8. In view of elevated BNP during hospitalization she should probably go home on a daily diuretic and potassium. Overall impression: This woman developed new onset atrial fibrillation with a moderately elevated ventricular response. Cardiac echo from 3 months ago indicates hyperdynamic left ventricle with 70% ejection fraction. Good pulse rate control now and patient diuresing nicely. Fluid balance appears about right.
[2018-08-27] MEDS: Potassium Chloride 25 MEQ Effervescent Tablet PO SCH ×2 (14:15→21:03)
[2018-08-27 14:17] LABS: Albumin 1.6 g/dL (3.4-5.0)
--- NOTE | 2018-08-27 14:21 | P.PNGS ---
Subjective Interval history: Resting in bed "I don't feel very well today. Maybe I'd like to try some toast later." Physical Exam Vital signs: Vital Signs 08/26/18 16:00 08/26/18 20:00 08/27/18 00:00 Temperature 98.5 F 98.5 F 98.6 F Pulse Rate 69 66 64 Respiratory Rate 15 16 16 Blood Pressure 122/61 127/60 129/61 Pulse Oximetry 97 100 100 08/27/18 04:00 08/27/18 08:00 Temperature 98.8 F 98.8 F Pulse Rate 62 68 Respiratory Rate 16 16 Blood Pressure 158/72 H 146/76 H Pulse Oximetry 100 99 Intake & Output 08/26/18 08/27/18 08/27/18 18:59 06:59 18:59 Intake Total 350 / 350 780 / 780 150 / 150 Output Total 1250 / 1250 1205 / 1205 Balance -900 / -900 -425 / -425 150 / 150 Weight 89.6 kg Intake: IV 300 / 300 300 / 300 150 / 150 Zosyn 3.375 GM Premix 50 ML @ 100 / 100 100 / 100 50 / 50 100 mls/hr IV.SIG Q6H HARDEEP Rx#: [id number] KCl 20 mEq Premix Inj 20 meq In 200 / 200 200 / 200 100 / 100 100 ml @ 50 mls/hr IV.SIG Q12H HARDEEP Rx#:[id number] Oral 50 / 50 480 / 480 Output: Urine 1200 / 1200 1200 / 1200 Stool 0 / 0 Wound Drainage 50 / 50 5 / 5 # 1 Right Abdomen Aakash 50 / 50 5 / 5 Other: # Voids 3 Date of Last Bowel Movement 08/26/18 08/26/18 # Bowel Movements 1 Narrative: Alert and awake Abd: soft; Removed GALDINO--- incision with seven---c/d/i; SARAH with minimal bilious drainage RIGHT breast---dressing changed - Urinary Catheter Management Indwelling Urethral Catheter Cath placed during this visit: yes, but has since been removed by the nurse Reason for continuing: Not indwelling catheter Insertion date: 08/20/18 Removal date: 08/24/18 Results - Labs 08/31/18 11:32 08/31/18 11:32 Laboratory Results - last 24 hr 08/26/18 08/26/18 08/27/18 15:54 20:20 02:01 WBC RBC Hgb Hct MCV MCH MCHC RDW Plt Count MPV Prelim Diff (Auto) Neut % (Auto) Lymph % (Auto) [place] % (Auto) Eos % (Auto) Baso % (Auto) Neut # (Auto) Lymph # (Auto) [place] # (Auto) Eos # (Auto) Baso # (Auto) WBC Differential Seg Neuts % (Manual) Band Neuts % (Manual) Lymphocytes % (Manual) Monocytes % (Manual) Metamyelocytes % (Man) Myelocytes % (Man) Abs Neuts (Manual) Nucleated RBCs/100 WBC Differential Comment Platelet Estimate Platelet Morphology Sodium Potassium Chloride Carbon Dioxide Anion Gap BUN Creatinine Estimated GFR POC Glucose 96 106 175 H Random Glucose Calcium 08/27/18 08/27/18 08/27/18 05:28 06:21 06:21 WBC 9.0 RBC 2.83 L Hgb 9.0 L Hct 26.7 L MCV 94.6 MCH 32.0 MCHC 33.8 RDW 20.2 H Plt Count 117 L MPV 7.7 Prelim Diff (Auto) Slide review pending Neut % (Auto) 79.8 H Lymph % (Auto) 12.5 [place] % (Auto) 7.2 Eos % (Auto) 0.3 Baso % (Auto) 0.2 Neut # (Auto) 7.2 Lymph # (Auto) 1.1 [place] # (Auto) 0.7 Eos # (Auto) 0.0 Baso # (Auto) 0.0 WBC Differential Manual diff final Seg Neuts % (Manual) 75 H Band Neuts % (Manual) 5 Lymphocytes % (Manual) 8 L Monocytes % (Manual) 8 Metamyelocytes % (Man) 1 Myelocytes % (Man) 3 H Abs Neuts (Manual) 7.6 Nucleated RBCs/100 WBC 2 H Differential Comment . Platelet Estimate Low L Platelet Morphology Normal Sodium 140 Potassium 3.8 Chloride 104 Carbon Dioxide 25.9 Anion Gap 10 BUN 11 Creatinine 0.99 Estimated GFR 55 L POC Glucose 152 H Random Glucose 138 H Calcium 7.7 L 08/27/18 11:55 WBC RBC Hgb Hct MCV MCH MCHC RDW Plt Count MPV Prelim Diff (Auto) Neut % (Auto) Lymph % (Auto) [place] % (Auto) Eos % (Auto) Baso % (Auto) Neut # (Auto) Lymph # (Auto) [place] # (Auto) Eos # (Auto) Baso # (Auto) WBC Differential Seg Neuts % (Manual) Band Neuts % (Manual) Lymphocytes % (Manual) Monocytes % (Manual) Metamyelocytes % (Man) Myelocytes % (Man) Abs Neuts (Manual) Nucleated RBCs/100 WBC Differential Comment Platelet Estimate Platelet Morphology Sodium Potassium Chloride Carbon Dioxide Anion Gap BUN Creatinine Estimated GFR POC Glucose 119 H Random Glucose Calcium - Imaging Imaging: ITS Impressions GI Procedure 08/26/18 00:00 CONCLUSION: Multiple lucencies within a common duct that is at the upper range for normal. These could represent air bubbles or true filling defects. Stent is placed during the examination. Please refer to endoscopist report for description of the intraprocedural findings. Assessment and Plan - Assessment (1) Gangrenous cholecystitis Code(s): K81.0 - Acute cholecystitis Status: Acute Plan: 72 year old female POD6 open cholecystectomy -s/p ERCP ---- Common duct stone and small leak at the cystic duct remnant -Cardiac diet -HR better controlled now -OOB as tolerated; PT consulted -Consult to Dr. Martines ---recommend low dose heparin---Continue Lovenox -Monitor CBC/CMP -Transfer to the floor; 7N only SARAH output decreased Wound clean and dry Need to mobilize patient now The exam, history, and the medical decision-making described in the above note were completed with the assistance of the mid-level provider. I reviewed and agree with the findings presented. I attest that I had a [id number] encounter with the patient on the same day, and personally performed and documented my assessment and findings in the medical record.
[2018-08-27 14:23] LABS: Total Protein 5.9 g/dL (6.4-8.2)
--- NOTE | 2018-08-27 15:30 | P.PNONC ---
Subjective Interval history: Afebrile. Patient sleeping on approach, awakens easily to voice. She has no complaints at this time. She states she is going to try to eat dinner. Discussed with RN, she states patient has not eaten breakfast or lunch today. Objective Vital Signs/Intake & Output: Vital Signs 08/26/18 16:00 08/26/18 20:00 08/27/18 00:00 Temperature 98.5 F 98.5 F 98.6 F Pulse Rate 69 66 64 Respiratory Rate 15 16 16 Blood Pressure 122/61 127/60 129/61 Pulse Oximetry 97 100 100 08/27/18 04:00 08/27/18 08:00 Temperature 98.8 F 98.8 F Pulse Rate 62 68 Respiratory Rate 16 16 Blood Pressure 158/72 H 146/76 H Pulse Oximetry 100 99 Intake & Output 08/26/18 08/27/18 08/27/18 18:59 06:59 18:59 Intake Total 350 / 350 780 / 780 150 / 150 Output Total 1250 / 1250 1205 / 1205 Balance -900 / -900 -425 / -425 150 / 150 Weight 89.6 kg Intake: IV 300 / 300 300 / 300 150 / 150 Zosyn 3.375 GM Premix 50 ML @ 100 / 100 100 / 100 50 / 50 100 mls/hr IV.SIG Q6H HARDEEP Rx#: [id number] KCl 20 mEq Premix Inj 20 meq In 200 / 200 200 / 200 100 / 100 100 ml @ 50 mls/hr IV.SIG Q12H HARDEEP Rx#:[id number] Oral 50 / 50 480 / 480 Output: Urine 1200 / 1200 1200 / 1200 Stool 0 / 0 Wound Drainage 50 / 50 5 / 5 # 1 Right Abdomen Aakash 50 / 50 5 / 5 Other: # Voids 3 Date of Last Bowel Movement 08/26/18 08/26/18 # Bowel Movements 1 Result Diagrams: 08/27/18 06:21 08/27/18 06:21 Laboratory Results: Laboratory Results - last 24 hr 08/26/18 08/26/18 08/27/18 15:54 20:20 02:01 WBC RBC Hgb Hct MCV MCH MCHC RDW Plt Count MPV Prelim Diff (Auto) Neut % (Auto) Lymph % (Auto) [place] % (Auto) Eos % (Auto) Baso % (Auto) Neut # (Auto) Lymph # (Auto) [place] # (Auto) Eos # (Auto) Baso # (Auto) WBC Differential Seg Neuts % (Manual) Band Neuts % (Manual) Lymphocytes % (Manual) Monocytes % (Manual) Metamyelocytes % (Man) Myelocytes % (Man) Abs Neuts (Manual) Nucleated RBCs/100 WBC Differential Comment Platelet Estimate Platelet Morphology Sodium Potassium Chloride Carbon Dioxide Anion Gap BUN Creatinine Estimated GFR POC Glucose 96 106 175 H Random Glucose Calcium Total Bilirubin Direct Bilirubin Indirect Bilirubin AST ALT Alkaline Phosphatase Total Protein Albumin 08/27/18 08/27/18 08/27/18 05:28 06:21 06:21 WBC 9.0 RBC 2.83 L Hgb 9.0 L Hct 26.7 L MCV 94.6 MCH 32.0 MCHC 33.8 RDW 20.2 H Plt Count 117 L MPV 7.7 Prelim Diff (Auto) Slide review pending Neut % (Auto) 79.8 H Lymph % (Auto) 12.5 [place] % (Auto) 7.2 Eos % (Auto) 0.3 Baso % (Auto) 0.2 Neut # (Auto) 7.2 Lymph # (Auto) 1.1 [place] # (Auto) 0.7 Eos # (Auto) 0.0 Baso # (Auto) 0.0 WBC Differential Manual diff final Seg Neuts % (Manual) 75 H Band Neuts % (Manual) 5 Lymphocytes % (Manual) 8 L Monocytes % (Manual) 8 Metamyelocytes % (Man) 1 Myelocytes % (Man) 3 H Abs Neuts (Manual) 7.6 Nucleated RBCs/100 WBC 2 H Differential Comment . Platelet Estimate Low L Platelet Morphology Normal Sodium 140 Potassium 3.8 Chloride 104 Carbon Dioxide 25.9 Anion Gap 10 BUN 11 Creatinine 0.99 Estimated GFR 55 L POC Glucose 152 H Random Glucose 138 H Calcium 7.7 L Total Bilirubin Direct Bilirubin Indirect Bilirubin AST ALT Alkaline Phosphatase Total Protein Albumin 08/27/18 08/27/18 11:55 12:36 WBC RBC Hgb Hct MCV MCH MCHC RDW Plt Count MPV Prelim Diff (Auto) Neut % (Auto) Lymph % (Auto) [place] % (Auto) Eos % (Auto) Baso % (Auto) Neut # (Auto) Lymph # (Auto) [place] # (Auto) Eos # (Auto) Baso # (Auto) WBC Differential Seg Neuts % (Manual) Band Neuts % (Manual) Lymphocytes % (Manual) Monocytes % (Manual) Metamyelocytes % (Man) Myelocytes % (Man) Abs Neuts (Manual) Nucleated RBCs/100 WBC Differential Comment Platelet Estimate Platelet Morphology Sodium Potassium Chloride Carbon Dioxide Anion Gap BUN Creatinine Estimated GFR POC Glucose 119 H Random Glucose Calcium Total Bilirubin 0.5 Direct Bilirubin 0.3 H Indirect Bilirubin 0.2 AST 16 ALT 8 L Alkaline Phosphatase 226 H Total Protein 5.9 L Albumin 1.6 L Medications: Active Medications Generic Name Dose Route Start Last Admin Trade Name Freq PRN Reason Stop Dose Admin Hydrocodone Bitart/Acetaminophen 1 tab 08/20/18 17:06 08/20/18 23:42 [place] 5/325 PO 1 tab Q4H PRN Administration PAIN SCALE 1 TO 5 Amiodarone HCl 200 mg 08/24/18 09:00 08/27/18 08:15 Cordarone PO 08/28/18 23:59 200 mg DAILY HADREEP Administration Anastrozole 1 mg 08/27/18 09:00 08/27/18 12:09 Arimidex PO 1 mg DAILY HARDEEP Administration Enoxaparin Sodium 40 mg 08/26/18 18:00 08/27/18 08:15 Lovenox Inj SQ 40 mg DAILY HARDEEP Administration Sodium Chloride 500 mls @ 30 mls/hr 08/20/18 14:00 08/20/18 22:48 Ns Inj IV.SIG Not Given .Q10H HARDEEP Piperacillin/Tazobactam/Dextrose 50 mls @ 100 mls/hr 08/20/18 20:00 08/27/18 14:23 Zosyn 3.375 Gm Premix IV.SIG 50 mls/hr Q6H HARDEEP Administration Magnesium Sulfate 2 gm/ Sodium 100 mls @ 50 mls/hr 08/22/18 17:21 08/23/18 10 :34 Chloride IV.SIG Infused UNSCH PRN Infusion For Magnesium 1.2 - 1.6 mg/dL Potassium Chloride 20 meq in 100 mls @ 50 mls/hr 08/22/18 17:21 08/23/18 13: 41 Kcl 20 Meq Premix Inj IV.SIG Infused Q2H PRN Infusion For Potassium 3.3 - 3.5 mEq/L Potassium Chloride 20 meq in 100 mls @ 50 mls/hr 08/22/18 17:21 08/26/18 23: 58 Kcl 20 Meq Premix Inj IV.SIG Infused Q2H PRN Infusion For Potassium 2.8 - 3.2 mEq/L Potassium Phosphate 30 mmol/ 260 mls @ 42 mls/hr 08/22/18 17:21 08/23/18 14: 45 Sodium Chloride IV.SIG Infused UNSCH PRN Infusion SEE LABEL COMMENTS Potassium Chloride 20 meq in 100 mls @ 50 mls/hr 08/25/18 09:00 08/27/18 12: 55 Kcl 20 Meq Premix Inj IV.SIG 08/27/18 23:59 Infused Q12H HARDEEP Infusion Insulin Human Regular 0 units 08/20/18 21:00 08/27/18 12:03 Novolin R Correctional Sugar Inj SQ Not Given ACHS AND 3AM HARDEEP Protocol Metoprolol Tartrate 25 mg 08/24/18 08:00 08/27/18 08:15 Lopressor PO 25 mg BID HARDEEP Administration Morphine Sulfate 4 mg 08/20/18 23:45 08/27/18 15:11 Morphine Inj IV.PUSH 4 mg Q2H PRN Administration BREAKTHROUGH PAIN Ondansetron HCl 4 mg 08/20/18 17:06 08/27/18 15:06 Zofran Inj IV.PUSH 4 mg Q6H PRN Administration NAUSEA OR VOMITING Potassium Bicarb/Potassium Chloride 25 meq 08/27/18 12:00 08/27/18 14:15 K-Lyte Cl Eff PO 08/29/18 18:00 Not Given BID HARDEEP Senna/Docusate Sodium 1 tab 08/20/18 21:00 08/27/18 08:15 Sammie-Colace PO 1 tab BID HARDEEP Administration Objective Remarks: GENERAL: Chronically ill-appearing elderly female patient, in no acute distress. SKIN: Pale, warm and dry. HEAD: Normocephalic. EYES: No scleral icterus. No injection or drainage. NECK: Supple, trachea midline. CARDIOVASCULAR: Regular rate and rhythm without murmurs. RESPIRATORY: Breath sounds distant,equal bilaterally. Non-labored at rest. GASTROINTESTINAL: Abdomen large, soft, non-tender, nondistended. RUQ drain in place. Drsgs to abdomen dry/intact. EXTREMITIES: No cyanosis, or edema. MUSCULOSKELETAL: Adequate muscle tone. NEUROLOGICAL: No obvious focal deficit. Sleeping on approach, awakens easily to voice. Assessment/Plan - Plan Ms. Matias is a pleasant 80-year-old woman with metastatic breast cancer. She has a locally advanced disease with ulcerated ER positive right breast cancer and an ER negative left breast cancer. She is receiving palliative chemotherapy in preparation of definitive surgery. Her surgery was deferred because of acute cholecystitis with gangrenous gallbladder. Status post cholecystectomy. Hematology was consulted for thrombocytopenia. Plan: 1. Thrombocytopenia, resolving. Platelet count currently 117,000, would anticipate continued recovery. 2. Continue low molecular weight heparin for DVT prophylaxis. 3. Continue aromatase inhibitor for ER positive breast cancer. 4. Continue supportive care. - Attending Statement The exam, history, and the medical decision-making described in the above note were completed with the assistance of the mid-level provider. I reviewed and agree with the findings presented. I attest that I had a [id number] encounter with the patient on the same day, and personally performed and documented my assessment and findings in the medical record. Patient transferred to regular floor. Appetite is still poor. She denies any pain. She is looking forward to going back to her rehab. We discussed continuing DVT prophylaxis. We will monitor for bleeding. Her potassium is replete. Her renal function is normal. Dressing over the right breast wound is dry. Continue the aromatase inhibitor. I plan to see her back in clinic on follow-up.
[2018-08-27] MEDS: Sod Chloride 0.9% Inj 1,000 ML IV.CONT SCH (21:06)
[2018-08-28] MEDS: Piperacil/Tazo 3.375 GM Premix 50 ML IV.SIG SCH ×4 (02:00→20:00)
[2018-08-28] MEDS: Insulin NovoLIN Regular Correctional Sugar Inj SQ SCH ×5 (04:05→22:30)
[2018-08-28] MEDS: Dextrose 50% in Water 50 ML Vial IV.PUSH PRN (04:09)
[2018-08-28] MEDS: Sod Chloride 0.9% Inj 1,000 ML IV.CONT SCH ×2 (05:03→13:15)
[2018-08-28 07:06] LABS: Hematocrit 24.4 % (35.0-46.0); Hemoglobin 8.2 gm/dL (11.6-15.3); Mean Corpuscular HGB Conc 33.6 % (32.0-36.0); Mean Corpuscular Hemoglobin 31.8 pg (27.0-34.0); Mean Corpuscular Volume 94.8 fL (80.0-100.0); Mean Platelet Volume 7.5 fL (7.0-11.0); Platelet Count 98 th/mm3 (150-450); Red Blood Count 2.57 mil/mm3 (4.00-5.30); Red Cell Distribution Width 20.3 % (11.6-17.2); White Blood Count 9.1 th/mm3 (4.0-11.0)
[2018-08-28 08:39] LABS: Albumin 1.4 g/dL (3.4-5.0); Calcium 7.4 mg/dL (8.5-10.1); Carbon Dioxide 22.6 meq/L (21.0-32.0); Potassium 3.5 meq/L (3.5-5.1); Total Protein 5.6 g/dL (6.4-8.2)
[2018-08-28] MEDS: Enoxaparin Inj 40 MG/0.4 ML Syringe SQ SCH (09:07)
[2018-08-28] MEDS: Potassium Chloride 25 MEQ Effervescent Tablet PO SCH (09:08)
[2018-08-28] MEDS: Metoprolol Tartrate 25 MG Tablet PO SCH ×2 (09:08→22:22)
[2018-08-28] MEDS: Amiodarone 200 MG Tablet PO SCH (09:09)
[2018-08-28] MEDS: Senna/Docusate Sodium 8.6/50 MG Tablet PO SCH ×2 (09:09→22:22)
[2018-08-28] MEDS: Anastrozole 1 MG Tablet PO SCH (09:09)
--- NOTE | 2018-08-28 11:56 | P.PNGS ---
Subjective Interval history: Continues to have low appetite Resting in bed Overall feeling much better today compared to yesterday Physical Exam Vital signs: Vital Signs 08/27/18 12:00 08/27/18 16:00 08/27/18 20:00 Temperature 98 F 97.8 F 97.2 F L Pulse Rate 73 72 75 Respiratory Rate 15 12 17 Blood Pressure 162/70 H 135/70 134/69 Pulse Oximetry 99 97 97 08/27/18 23:20 08/28/18 00:00 08/28/18 03:46 Temperature 97.8 F Pulse Rate 68 68 70 Respiratory Rate 17 Blood Pressure 119/59 L Pulse Oximetry 96 08/28/18 03:54 08/28/18 04:00 08/28/18 08:00 Temperature 98.1 F 99.7 F H Pulse Rate 69 66 71 Respiratory Rate 17 18 Blood Pressure 129/65 117/68 Pulse Oximetry 95 98 Intake & Output 08/27/18 08/28/18 08/28/18 18:59 06:59 18:59 Intake Total 200 / 200 680 / 680 1050 / 1050 Output Total 650 / 650 850 / 850 Balance 200 / 200 30 / 30 200 / 200 Weight 89.6 kg Intake: IV 200 / 200 200 / 200 1050 / 1050 NS Inj 1,000 ML @ 84 mls/hr IV. 1000 / 1000 CONT .[id number] HARDEEP Rx#:[id number] Zosyn 3.375 GM Premix 50 ML @ 100 / 100 100 / 100 50 / 50 100 mls/hr IV.SIG Q6H HARDEEP Rx#: [id number] KCl 20 mEq Premix Inj 20 meq In 100 / 100 100 / 100 100 ml @ 50 mls/hr IV.SIG Q12H HARDEEP Rx#:[id number] Oral 480 / 480 Output: Urine 650 / 650 850 / 850 Wound Drainage 0 / 0 # 1 Right Abdomen Aakash 0 / 0 Narrative: Alert and awake RUQ dressing in place ---c/d/i; SRAAH with dark bilious drainage--minimal RIGHT breast---dressing in place - Urinary Catheter Management Indwelling Urethral Catheter Cath placed during this visit: yes, but has since been removed by the nurse Reason for continuing: Not indwelling catheter Insertion date: 08/20/18 Removal date: 08/24/18 Results - Labs 08/31/18 11:32 08/31/18 11:32 Laboratory Results - last 24 hr 08/27/18 08/27/18 08/27/18 11:55 12:36 16:45 WBC RBC Hgb Hct MCV MCH MCHC RDW Plt Count MPV Sodium Potassium Chloride Carbon Dioxide Anion Gap BUN Creatinine Estimated GFR POC Glucose 119 H 101 Random Glucose Calcium Prot Corrected Calcium Total Bilirubin 0.5 Direct Bilirubin 0.3 H Indirect Bilirubin 0.2 AST 16 ALT 8 L Alkaline Phosphatase 226 H Total Protein 5.9 L Albumin 1.6 L 08/27/18 08/28/18 08/28/18 21:09 04:03 05:41 WBC RBC Hgb Hct MCV MCH MCHC RDW Plt Count MPV Sodium 138 Potassium 3.5 Chloride 104 Carbon Dioxide 22.6 Anion Gap 11 BUN 8 Creatinine 0.94 Estimated GFR 59 L POC Glucose 84 65 L Random Glucose 140 H Calcium 7.4 L* Prot Corrected Calcium 8.2 L Total Bilirubin 0.4 Direct Bilirubin 0.2 Indirect Bilirubin 0.2 AST 18 ALT 8 L Alkaline Phosphatase 209 H Total Protein 5.6 L Albumin 1.4 L 08/28/18 08/28/18 05:41 07:50 WBC 9.1 RBC 2.57 L Hgb 8.2 L Hct 24.4 L MCV 94.8 MCH 31.8 MCHC 33.6 RDW 20.3 H Plt Count 98 L MPV 7.5 Sodium Potassium Chloride Carbon Dioxide Anion Gap BUN Creatinine Estimated GFR POC Glucose 118 H Random Glucose Calcium Prot Corrected Calcium Total Bilirubin Direct Bilirubin Indirect Bilirubin AST ALT Alkaline Phosphatase Total Protein Albumin - Imaging Imaging: ITS Impressions GI Procedure 08/26/18 00:00 CONCLUSION: Multiple lucencies within a common duct that is at the upper range for normal. These could represent air bubbles or true filling defects. Stent is placed during the examination. Please refer to endoscopist report for description of the intraprocedural findings. Assessment and Plan - Assessment (1) Gangrenous cholecystitis Code(s): K81.0 - Acute cholecystitis Status: Acute Plan: 72 year old female POD7 open cholecystectomy -s/p ERCP ---- Common duct stone and small leak at the cystic duct remnant -Cardiac diet -HR stable -OOB as tolerated; PT following -Consult to Dr. Johnson ---recommend low dose heparin---Continue Lovenox; will need to watch ptl---today 98k -Monitor CBC/CMP -Hopefully rehab placement sometime early next week SARAH output decreasing; issue with bile duct resolving Incision clean and dry The exam, history, and the medical decision-making described in the above note were completed with the assistance of the mid-level provider. I reviewed and agree with the findings presented. I attest that I had a [id number] encounter with the patient on the same day, and personally performed and documented my assessment and findings in the medical record.
[2018-08-28] MEDS: Potassium Chlor 10 mEq Premix 10 MEQ/100 ML PIGGYBACK IV.SIG SCH ×3 (18:21→20:22)
--- NOTE | 2018-08-28 18:33 | P.PNONC ---
Subjective Interval history: "They do not let you sleep in the hospital" Complained of sleepiness. She felt lightheaded with physical therapy today. She attributes it to the lack of continuous sleep during the routine of hospital stay. She denies any chest pain or shortness of breath. Right upper quadrant abdominal pain is decreasing. She is able to lay on her right side better. She had no bowel movement today. She is passing gas. She denies any bleeding. Objective Vital Signs/Intake & Output: Vital Signs 08/27/18 20:00 08/27/18 23:20 08/28/18 00:00 Temperature 97.2 F L 97.8 F Pulse Rate 75 68 68 Respiratory Rate 17 17 Blood Pressure 134/69 119/59 L Pulse Oximetry 97 96 08/28/18 03:46 08/28/18 03:54 08/28/18 04:00 Temperature 98.1 F Pulse Rate 70 69 66 Respiratory Rate 17 Blood Pressure 129/65 Pulse Oximetry 95 08/28/18 08:00 08/28/18 12:00 08/28/18 15:34 Temperature 99.7 F H 98.8 F Pulse Rate 71 70 66 Respiratory Rate 18 18 Blood Pressure 117/68 122/69 Pulse Oximetry 98 97 08/28/18 16:00 Temperature 97.7 F Pulse Rate 65 Respiratory Rate 18 Blood Pressure 125/60 Pulse Oximetry 97 Intake & Output 08/27/18 08/28/18 08/28/18 18:59 06:59 18:59 Intake Total 200 / 200 680 / 680 1050 / 1050 Output Total 650 / 650 850 / 850 Balance 200 / 200 30 / 30 200 / 200 Weight 89.6 kg Intake: IV 200 / 200 200 / 200 1050 / 1050 NS Inj 1,000 ML @ 84 mls/hr IV. 1000 / 1000 CONT .[id number] [facility] Rx#:[id number] Zosyn 3.375 GM Premix 50 ML @ 100 / 100 100 / 100 50 / 50 100 mls/hr IV.SIG Q6H [facility] Rx#: [id number] KCl 20 mEq Premix Inj 20 meq In 100 / 100 100 / 100 100 ml @ 50 mls/hr IV.SIG Q12H [facility] Rx#:[id number] Oral 480 / 480 Output: Urine 650 / 650 850 / 850 Wound Drainage 0 / 0 # 1 Right Abdomen Aakash 0 / 0 Result Diagrams: 08/28/18 05:41 08/28/18 05:41 Laboratory Results: Laboratory Results - last 24 hr 08/27/18 08/28/18 08/28/18 21:09 04:03 05:41 WBC RBC Hgb Hct MCV MCH MCHC RDW Plt Count MPV Sodium 138 Potassium 3.5 Chloride 104 Carbon Dioxide 22.6 Anion Gap 11 BUN 8 Creatinine 0.94 Estimated GFR 59 L POC Glucose 84 65 L Random Glucose 140 H Calcium 7.4 L* Prot Corrected Calcium 8.2 L Total Bilirubin 0.4 Direct Bilirubin 0.2 Indirect Bilirubin 0.2 AST 18 ALT 8 L Alkaline Phosphatase 209 H Total Protein 5.6 L Albumin 1.4 L 08/28/18 08/28/18 08/28/18 05:41 07:50 12:44 WBC 9.1 RBC 2.57 L Hgb 8.2 L Hct 24.4 L MCV 94.8 MCH 31.8 MCHC 33.6 RDW 20.3 H Plt Count 98 L MPV 7.5 Sodium Potassium Chloride Carbon Dioxide Anion Gap BUN Creatinine Estimated GFR POC Glucose 118 H 91 Random Glucose Calcium Prot Corrected Calcium Total Bilirubin Direct Bilirubin Indirect Bilirubin AST ALT Alkaline Phosphatase Total Protein Albumin 08/28/18 16:25 WBC RBC Hgb Hct MCV MCH MCHC RDW Plt Count MPV Sodium Potassium Chloride Carbon Dioxide Anion Gap BUN Creatinine Estimated GFR POC Glucose 105 Random Glucose Calcium Prot Corrected Calcium Total Bilirubin Direct Bilirubin Indirect Bilirubin AST ALT Alkaline Phosphatase Total Protein Albumin Medications: Active Medications Generic Name Dose Route Start Last Admin Trade Name Freq PRN Reason Stop Dose Admin Hydrocodone Bitart/Acetaminophen 1 tab 08/20/18 17:06 08/20/18 23:42 [place] 5/325 PO 1 tab Q4H PRN Administration PAIN SCALE 1 TO 5 Amiodarone HCl 200 mg 08/24/18 09:00 08/28/18 09:09 Cordarone PO 08/28/18 23:59 200 mg DAILY [facility] Administration Anastrozole 1 mg 08/27/18 09:00 08/28/18 09:09 Arimidex PO 1 mg DAILY [facility] Administration Dextrose 50 ml 08/20/18 17:13 08/28/18 04:09 D50w Vial IV.PUSH 50 ml UNSCH PRN Administration PER HYPOGLYCEMIA PROTOCOL Enoxaparin Sodium 40 mg 08/26/18 18:00 08/28/18 09:07 Lovenox Inj SQ 40 mg DAILY [facility] Administration Sodium Chloride 500 mls @ 30 mls/hr 08/20/18 14:00 08/20/18 22:48 Ns Inj IV.SIG Not Given .Q10H [facility] Piperacillin/Tazobactam/Dextrose 50 mls @ 100 mls/hr 08/20/18 20:00 08/28/18 15:47 Zosyn 3.375 Gm Premix IV.SIG 100 mls/hr Q6H [facility] Administration Sodium Chloride 1,000 mls @ 84 mls/hr 08/27/18 17:08 08/28/18 13:15 Ns Inj IV.CONT 84 mls/hr .[id number] [facility] Administration Potassium Chloride 10 meq in 100 mls @ 100 mls/hr 08/28/18 17:00 08/28/18 18: 21 Kcl 10 Meq Premix Inj IV.SIG 08/28/18 20:59 100 mls/hr Q1H [facility] Administration Insulin Human Regular 0 units 08/20/18 21:00 08/28/18 18:22 Novolin R Correctional Sugar Inj SQ Not Given ACHS AND 3AM [facility] Protocol Metoprolol Tartrate 25 mg 08/24/18 08:00 08/28/18 09:08 Lopressor PO 25 mg BID [facility] Administration Morphine Sulfate 4 mg 08/20/18 23:45 08/27/18 15:11 Morphine Inj IV.PUSH 4 mg Q2H PRN Administration BREAKTHROUGH PAIN Ondansetron HCl 4 mg 08/20/18 17:06 08/27/18 15:06 Zofran Inj IV.PUSH 4 mg Q6H PRN Administration NAUSEA OR VOMITING Senna/Docusate Sodium 1 tab 08/20/18 21:00 08/28/18 09:09 Sammie-Colace PO 1 tab BID [facility] Administration Objective Remarks: GENERAL: Pale appearing, thinner than previous exam. Sleepy but arousable. SKIN: Warm and dry. Right breast dressing dry and intact. HEAD: Normocephalic. EYES: No scleral icterus. No injection or drainage. Ecchymotic area left lower eyelid NECK: Supple, trachea midline. No JVD or lymphadenopathy. LYMPHATIC: No adenopathy. CARDIOVASCULAR: Regular rate and rhythm without murmurs. RESPIRATORY: Breath sounds equal bilaterally. No accessory muscle use. GASTROINTESTINAL: Abdomen soft, mildly distended. Right upper quadrant scar, dry dressing intact. EXTREMITIES: No cyanosis, or edema. MUSCULOSKELETAL: Adequate muscle tone. NEUROLOGICAL: No obvious focal deficit. Awake, alert, and oriented x3. PSYCHIATRIC: Appropriate mood and affect; insight and judgment normal. Assessment/Plan (1) Metastatic breast cancer Code(s): C50.919 - Malignant neoplasm of unspecified site of unspecified female breast Status: Chronic - Plan Ms. Matias is a pleasant 80-year-old woman with metastatic breast cancer. She has a locally advanced disease with ulcerated ER positive right breast cancer and an ER negative left breast cancer. She is receiving palliative chemotherapy in preparation of definitive surgery. Her surgery was deferred because of acute cholecystitis with gangrenous gallbladder. Status post cholecystectomy. Hemoglobin is noted to decrease. Her hemoglobin is 8.2 today. There is no obvious source of bleeding. She was started on low molecular weight heparin. There is no evidence for deep vein thromboses. Plan: 1. Thrombocytopenia, persistent. Platelet count decreased to 98,000. 2. Hold low molecular weight heparin. 3. Continue aromatase inhibitor for ER positive breast cancer. 4. Check CBC tomorrow. Hemoglobin trended down from hemoglobin 9.8, to 9.0, up to 8.2 today. No obvious source of bleeding. Transfuse for hemoglobin less than 8.0 for support. Patient is symptomatic with lightheadedness, fatigue and increased sleepiness. 5. Discussed with nursing dressing change to right breast.
[2018-08-29] MEDS: Piperacil/Tazo 3.375 GM Premix 50 ML IV.SIG SCH ×5 (02:00→20:02)
[2018-08-29] MEDS: Insulin NovoLIN Regular Correctional Sugar Inj SQ SCH ×5 (05:07→20:01)
[2018-08-29] MEDS: Dextrose 50% in Water 50 ML Vial IV.PUSH PRN (05:11)
[2018-08-29] MEDS ORDERED: Acetaminophen 325 MG Tablet PO ONE (06:00)
[2018-08-29 06:13] LABS: Baso % (Auto) 0.2 % (0.0-2.0); Eos % (Auto) 0.2 % (0.0-4.0); Hematocrit 25.5 % (35.0-46.0); Hemoglobin 8.6 gm/dL (11.6-15.3); Lymph # (Auto) 0.8 th/mm3 (1.0-4.8); Lymph % (Auto) 7.4 % (9.0-44.0); Mean Corpuscular HGB Conc 33.7 % (32.0-36.0); Mean Corpuscular Hemoglobin 31.9 pg (27.0-34.0); Mean Corpuscular Volume 94.7 fL (80.0-100.0); Mean Platelet Volume 7.5 fL (7.0-11.0); Mono # (Auto) 0.5 th/mm3 (0.0-0.9); Mono % (Auto) 4.6 % (0.0-8.0); Neut # (Auto) 9.5 th/mm3 (1.8-7.7); Neut % (Auto) 87.6 % (16.0-70.0); Platelet Count 87 th/mm3 (150-450); Red Blood Count 2.69 mil/mm3 (4.00-5.30); Red Cell Distribution Width 19.8 % (11.6-17.2); White Blood Count 10.9 th/mm3 (4.0-11.0)
[2018-08-29 06:32] LABS: Albumin 1.4 g/dL (3.4-5.0); Calcium 6.9 mg/dL (8.5-10.1); Carbon Dioxide 20.9 meq/L (21.0-32.0); Potassium 3.4 meq/L (3.5-5.1)
[2018-08-29 06:38] LABS: Total Protein 5.5 g/dL (6.4-8.2)
[2018-08-29 08:22] LABS: Eosinophils 2 % (0-4); Lymphocytes 4 % (9-44); Metamyelocytes 2 % (0-1); Monocytes 2 % (0-8)
[2018-08-29 08:23] LABS: Platelet Morphology Normal (Normal); Tear Drop Cells 1+
[2018-08-29] MEDS: Potassium Chlor 10 mEq Premix 10 MEQ/100 ML PIGGYBACK IV.SIG SCH (09:40)
[2018-08-29] MEDS: Metoprolol Tartrate 25 MG Tablet PO SCH ×2 (09:40→20:02)
[2018-08-29] MEDS: Anastrozole 1 MG Tablet PO SCH (09:40)
[2018-08-29] MEDS: Sod Chloride 0.9% Inj 1,000 ML IV.CONT SCH ×3 (09:41→18:33)
[2018-08-29] MEDS: Senna/Docusate Sodium 8.6/50 MG Tablet PO SCH ×2 (09:42→20:02)
--- NOTE | 2018-08-29 10:46 | P.PNGS ---
Subjective Patient reports: no new complaints, flatus, bowel movement (no acute issue) Physical Exam Vital signs: Vital Signs 08/28/18 12:00 08/28/18 15:34 08/28/18 16:00 Temperature 98.8 F 97.7 F Pulse Rate 70 66 65 Respiratory Rate 18 18 Blood Pressure 122/69 125/60 Pulse Oximetry 97 97 08/28/18 20:00 08/29/18 00:00 08/29/18 00:06 Temperature 98.2 F 97.8 F Pulse Rate 68 84 61 Respiratory Rate 16 17 Blood Pressure 133/82 143/68 H Pulse Oximetry 97 97 08/29/18 04:00 08/29/18 08:00 Temperature 98.8 F Pulse Rate 63 67 Respiratory Rate 17 Blood Pressure 151/73 H Pulse Oximetry 98 Intake & Output 08/28/18 08/29/18 08/29/18 18:59 06:59 18:59 Intake Total 1100 / 1100 1600 / 1600 Output Total 850 / 850 950 / 950 Balance 250 / 250 650 / 650 Weight 89.6 kg Intake: IV 1100 / 1100 1400 / 1400 NS Inj 1,000 ML @ 84 mls/hr IV. 1000 / 1000 1000 / 1000 CONT .[id number] [facility] Rx#:[id number] Zosyn 3.375 GM Premix 50 ML @ 100 / 100 100 / 100 100 mls/hr IV.SIG Q6H [facility] Rx#: [id number] KCl 10 mEq Premix Inj 10 meq In 300 / 300 100 ml @ 100 mls/hr IV.SIG Q1H [facility] Rx#:[id number] Oral 0 / 0 200 / 200 Output: Urine 850 / 850 900 / 900 Wound Drainage 50 / 50 # 1 Right Abdomen Aakash 50 / 50 Other: # Voids 2 Date of Last Bowel Movement 08/28/18 # Bowel Movements 2 - Routine Abdominal Exam Present: soft (incision c/d/i with seven, malcolm serous) - Urinary Catheter Management Indwelling Urethral Catheter Cath placed during this visit: yes, but has since been removed by the nurse Reason for continuing: Not indwelling catheter Insertion date: 08/20/18 Removal date: 08/24/18 Results - Labs 08/29/18 05:02 08/29/18 05:02 Laboratory Results - last 24 hr 08/28/18 08/28/18 08/28/18 12:44 16:25 22:24 WBC RBC Hgb Hct MCV MCH MCHC RDW Plt Count MPV Prelim Diff (Auto) Neut % (Auto) Lymph % (Auto) [place] % (Auto) Eos % (Auto) Baso % (Auto) Neut # (Auto) Lymph # (Auto) [place] # (Auto) Eos # (Auto) Baso # (Auto) WBC Differential Seg Neuts % (Manual) Band Neuts % (Manual) Lymphocytes % (Manual) Monocytes % (Manual) Eosinophils % (Manual) Basophils % (Manual) Metamyelocytes % (Man) Abs Neuts (Manual) Differential Comment Platelet Estimate Platelet Morphology Tear Drop Cells Sodium Potassium Chloride Carbon Dioxide Anion Gap BUN Creatinine Estimated GFR POC Glucose 91 105 79 Random Glucose Calcium Prot Corrected Calcium Total Bilirubin Direct Bilirubin Indirect Bilirubin AST ALT Alkaline Phosphatase Total Protein Albumin Blood Type Antibody Screen Direct Antiglob Test MTS Gel Crossmatch 08/29/18 08/29/18 08/29/18 05:02 05:02 05:02 WBC 10.9 RBC 2.69 L Hgb 8.6 L Hct 25.5 L MCV 94.7 MCH 31.9 MCHC 33.7 RDW 19.8 H Plt Count 87 L MPV 7.5 Prelim Diff (Auto) Slide review pending Neut % (Auto) 87.6 H Lymph % (Auto) 7.4 L [place] % (Auto) 4.6 Eos % (Auto) 0.2 Baso % (Auto) 0.2 Neut # (Auto) 9.5 H Lymph # (Auto) 0.8 L [place] # (Auto) 0.5 Eos # (Auto) 0.0 Baso # (Auto) 0.0 WBC Differential Manual diff final Seg Neuts % (Manual) 84 H Band Neuts % (Manual) 5 Lymphocytes % (Manual) 4 L Monocytes % (Manual) 2 Eosinophils % (Manual) 2 Basophils % (Manual) 1 Metamyelocytes % (Man) 2 H Abs Neuts (Manual) 9.9 H Differential Comment . Platelet Estimate Low L Platelet Morphology Normal Tear Drop Cells 1+ H Sodium 141 Potassium 3.4 L Chloride 107 Carbon Dioxide 20.9 L Anion Gap 13 BUN 6 L Creatinine 0.68 Estimated GFR 86 L POC Glucose Random Glucose 59 L Calcium 6.9 L* Prot Corrected Calcium 7.7 L Total Bilirubin 0.6 Direct Bilirubin 0.2 Indirect Bilirubin 0.4 AST 15 ALT 6 L Alkaline Phosphatase 198 H Total Protein 5.5 L Albumin 1.4 L Blood Type B Positive Antibody Screen Negative Direct Antiglob Test Cancelled MTS Gel Crossmatch See Detail 08/29/18 08/29/18 05:06 07:38 WBC RBC Hgb Hct MCV MCH MCHC RDW Plt Count MPV Prelim Diff (Auto) Neut % (Auto) Lymph % (Auto) [place] % (Auto) Eos % (Auto) Baso % (Auto) Neut # (Auto) Lymph # (Auto) [place] # (Auto) Eos # (Auto) Baso # (Auto) WBC Differential Seg Neuts % (Manual) Band Neuts % (Manual) Lymphocytes % (Manual) Monocytes % (Manual) Eosinophils % (Manual) Basophils % (Manual) Metamyelocytes % (Man) Abs Neuts (Manual) Differential Comment Platelet Estimate Platelet Morphology Tear Drop Cells Sodium Potassium Chloride Carbon Dioxide Anion Gap BUN Creatinine Estimated GFR POC Glucose 69 133 H Random Glucose Calcium Prot Corrected Calcium Total Bilirubin Direct Bilirubin Indirect Bilirubin AST ALT Alkaline Phosphatase Total Protein Albumin Blood Type Antibody Screen Direct Antiglob Test MTS Gel Crossmatch - Imaging Imaging: ITS Impressions GI Procedure 08/26/18 00:00 CONCLUSION: Multiple lucencies within a common duct that is at the upper range for normal. These could represent air bubbles or true filling defects. Stent is placed during the examination. Please refer to endoscopist report for description of the intraprocedural findings. Assessment and Plan - Assessment (1) Gangrenous cholecystitis Code(s): K81.0 - Acute cholecystitis Status: Acute Plan: 72 year old female POD8 open cholecystectomy -s/p ERCP ---- Common duct stone and small leak at the cystic duct remnant -Cardiac diet -HR stable 8.6 -OOB as tolerated; PT following -Consult to Dr. Martines ---recommend low dose heparin---Continue Lovenox; will need to watch ptl---today 98k slow trend down -Monitor CBC/CMP -Hopefully rehab placement sometime early next week
--- NOTE | 2018-08-29 12:06 | P.PNONC ---
Subjective Interval history: Patient sleeping on approach, awakens easily to voice. Reports not getting sleep last night. Denies any bleeding. Objective Vital Signs/Intake & Output: Vital Signs 08/28/18 15:34 08/28/18 16:00 08/28/18 20:00 Temperature 97.7 F 98.2 F Pulse Rate 66 65 68 Respiratory Rate 18 16 Blood Pressure 125/60 133/82 Pulse Oximetry 97 97 08/29/18 00:00 08/29/18 00:06 08/29/18 04:00 Temperature 97.8 F Pulse Rate 84 61 63 Respiratory Rate 17 Blood Pressure 143/68 H Pulse Oximetry 97 08/29/18 08:00 Temperature 98.8 F Pulse Rate 67 Respiratory Rate 17 Blood Pressure 151/73 H Pulse Oximetry 98 Intake & Output 08/28/18 08/29/18 08/29/18 18:59 06:59 18:59 Intake Total 1100 / 1100 1600 / 1600 Output Total 850 / 850 950 / 950 Balance 250 / 250 650 / 650 Weight 89.6 kg Intake: IV 1100 / 1100 1400 / 1400 NS Inj 1,000 ML @ 84 mls/hr IV. 1000 / 1000 1000 / 1000 CONT .[id number] [facility] Rx#:[id number] Zosyn 3.375 GM Premix 50 ML @ 100 / 100 100 / 100 100 mls/hr IV.SIG Q6H [facility] Rx#: [id number] KCl 10 mEq Premix Inj 10 meq In 300 / 300 100 ml @ 100 mls/hr IV.SIG Q1H [facility] Rx#:[id number] Oral 0 / 0 200 / 200 Output: Urine 850 / 850 900 / 900 Wound Drainage 50 / 50 # 1 Right Abdomen Aakash 50 / 50 Other: # Voids 2 Date of Last Bowel Movement 08/28/18 # Bowel Movements 2 Result Diagrams: 08/29/18 05:02 08/29/18 05:02 Laboratory Results: Laboratory Results - last 24 hr 08/28/18 08/28/18 08/28/18 12:44 16:25 22:24 WBC RBC Hgb Hct MCV MCH MCHC RDW Plt Count MPV Prelim Diff (Auto) Neut % (Auto) Lymph % (Auto) [place] % (Auto) Eos % (Auto) Baso % (Auto) Neut # (Auto) Lymph # (Auto) [place] # (Auto) Eos # (Auto) Baso # (Auto) WBC Differential Seg Neuts % (Manual) Band Neuts % (Manual) Lymphocytes % (Manual) Monocytes % (Manual) Eosinophils % (Manual) Basophils % (Manual) Metamyelocytes % (Man) Abs Neuts (Manual) Differential Comment Platelet Estimate Platelet Morphology Tear Drop Cells Sodium Potassium Chloride Carbon Dioxide Anion Gap BUN Creatinine Estimated GFR POC Glucose 91 105 79 Random Glucose Calcium Prot Corrected Calcium Total Bilirubin Direct Bilirubin Indirect Bilirubin AST ALT Alkaline Phosphatase Total Protein Albumin Blood Type Antibody Screen Direct Antiglob Test MTS Gel Crossmatch 08/29/18 08/29/18 08/29/18 05:02 05:02 05:02 WBC 10.9 RBC 2.69 L Hgb 8.6 L Hct 25.5 L MCV 94.7 MCH 31.9 MCHC 33.7 RDW 19.8 H Plt Count 87 L MPV 7.5 Prelim Diff (Auto) Slide review pending Neut % (Auto) 87.6 H Lymph % (Auto) 7.4 L [place] % (Auto) 4.6 Eos % (Auto) 0.2 Baso % (Auto) 0.2 Neut # (Auto) 9.5 H Lymph # (Auto) 0.8 L [place] # (Auto) 0.5 Eos # (Auto) 0.0 Baso # (Auto) 0.0 WBC Differential Manual diff final Seg Neuts % (Manual) 84 H Band Neuts % (Manual) 5 Lymphocytes % (Manual) 4 L Monocytes % (Manual) 2 Eosinophils % (Manual) 2 Basophils % (Manual) 1 Metamyelocytes % (Man) 2 H Abs Neuts (Manual) 9.9 H Differential Comment . Platelet Estimate Low L Platelet Morphology Normal Tear Drop Cells 1+ H Sodium 141 Potassium 3.4 L Chloride 107 Carbon Dioxide 20.9 L Anion Gap 13 BUN 6 L Creatinine 0.68 Estimated GFR 86 L POC Glucose Random Glucose 59 L Calcium 6.9 L* Prot Corrected Calcium 7.7 L Total Bilirubin 0.6 Direct Bilirubin 0.2 Indirect Bilirubin 0.4 AST 15 ALT 6 L Alkaline Phosphatase 198 H Total Protein 5.5 L Albumin 1.4 L Blood Type B Positive Antibody Screen Negative Direct Antiglob Test Cancelled MTS Gel Crossmatch See Detail 08/29/18 08/29/18 05:06 07:38 WBC RBC Hgb Hct MCV MCH MCHC RDW Plt Count MPV Prelim Diff (Auto) Neut % (Auto) Lymph % (Auto) [place] % (Auto) Eos % (Auto) Baso % (Auto) Neut # (Auto) Lymph # (Auto) [place] # (Auto) Eos # (Auto) Baso # (Auto) WBC Differential Seg Neuts % (Manual) Band Neuts % (Manual) Lymphocytes % (Manual) Monocytes % (Manual) Eosinophils % (Manual) Basophils % (Manual) Metamyelocytes % (Man) Abs Neuts (Manual) Differential Comment Platelet Estimate Platelet Morphology Tear Drop Cells Sodium Potassium Chloride Carbon Dioxide Anion Gap BUN Creatinine Estimated GFR POC Glucose 69 133 H Random Glucose Calcium Prot Corrected Calcium Total Bilirubin Direct Bilirubin Indirect Bilirubin AST ALT Alkaline Phosphatase Total Protein Albumin Blood Type Antibody Screen Direct Antiglob Test MTS Gel Crossmatch Medications: Active Medications Generic Name Dose Route Start Last Admin Trade Name Freq PRN Reason Stop Dose Admin Hydrocodone Bitart/Acetaminophen 1 tab 08/20/18 17:06 08/20/18 23:42 [place] 5/325 PO 1 tab Q4H PRN Administration PAIN SCALE 1 TO 5 Anastrozole 1 mg 08/27/18 09:00 08/29/18 09:40 Arimidex PO 1 mg DAILY [facility] Administration Dextrose 50 ml 08/20/18 17:13 08/29/18 05:11 D50w Vial IV.PUSH 50 ml UNSCH PRN Administration PER HYPOGLYCEMIA PROTOCOL Enoxaparin Sodium 40 mg 08/26/18 18:00 08/28/18 09:07 Lovenox Inj SQ 40 mg DAILY [facility] Administration Sodium Chloride 500 mls @ 30 mls/hr 08/20/18 14:00 08/20/18 22:48 Ns Inj IV.SIG Not Given .Q10H [facility] Piperacillin/Tazobactam/Dextrose 50 mls @ 100 mls/hr 08/20/18 20:00 08/29/18 09:39 Zosyn 3.375 Gm Premix IV.SIG 100 mls/hr Q6H [facility] Administration Sodium Chloride 1,000 mls @ 84 mls/hr 08/27/18 17:08 08/29/18 09:41 Ns Inj IV.CONT Not Given .[id number] [facility] Insulin Human Regular 0 units 08/20/18 21:00 08/29/18 09:41 Novolin R Correctional Sugar Inj SQ Not Given ACHS AND 3AM [facility] Protocol Metoprolol Tartrate 25 mg 08/24/18 08:00 08/29/18 09:40 Lopressor PO 25 mg BID REPLACED BY [facility] Administration Morphine Sulfate 4 mg 08/20/18 23:45 08/27/18 15:11 Morphine Inj IV.PUSH 4 mg Q2H PRN Administration BREAKTHROUGH PAIN Ondansetron HCl 4 mg 08/20/18 17:06 08/27/18 15:06 Zofran Inj IV.PUSH 4 mg Q6H PRN Administration NAUSEA OR VOMITING Senna/Docusate Sodium 1 tab 08/20/18 21:00 08/29/18 09:42 Sammie-Colace PO Not Given BID REPLACED BY [facility] Objective Remarks: GENERAL: Chronically ill-appearing elderly female patient, in no acute distress. SKIN: Pale, warm and dry. Bandage to right breast, clean/dry. HEAD: Normocephalic. EYES: No scleral icterus. No injection or drainage. NECK: Supple, trachea midline. CARDIOVASCULAR: Regular rate and rhythm without murmurs. RESPIRATORY: Breath sounds distant,equal bilaterally. Non-labored at rest. GASTROINTESTINAL: Abdomen large, soft, non-tender, nondistended. RUQ drain in place. Drsg dry/intact, minimal fluid in drain. EXTREMITIES: No cyanosis, or edema. MUSCULOSKELETAL: Adequate muscle tone. NEUROLOGICAL: No obvious focal deficit. Sleeping on approach, awakens easily to voice. Assessment/Plan (1) Metastatic breast cancer Code(s): C50.919 - Malignant neoplasm of unspecified site of unspecified female breast Status: Chronic - Plan Ms. Matias is a pleasant 80-year-old woman with metastatic breast cancer. She has a locally advanced disease with ulcerated ER positive right breast cancer and an ER negative left breast cancer. She is receiving palliative chemotherapy in preparation of definitive surgery. Her surgery was deferred because of acute cholecystitis with gangrenous gallbladder. Status post cholecystectomy. Plan: 1. Thrombocytopenia, persistent. Platelet count decreased to 87,000. 2. Hold low molecular weight heparin. 3. Continue aromatase inhibitor for ER positive breast cancer. 4. Hemoglobin improved to 8.6 today. No obvious source of bleeding. Will repeat CBC tommorrow. Plan to transfuse for hemoglobin <8. 5. Continue wound care to right breast. 6. Continue supportive care. - Attending Statement The exam, history, and the medical decision-making described in the above note were completed with the assistance of the mid-level provider. I reviewed and agree with the findings presented. I attest that I had a [id number] encounter with the patient on the same day, and personally performed and documented my assessment and findings in the medical record. She remains afebrile. Examination of the abdomen is benign. The hemoglobin has increased. The platelets have fallen slightly. Will do a screen for DIC. At the moment there is nothing to do with thrombocytopenia.
[2018-08-30] MEDS: Piperacil/Tazo 3.375 GM Premix 50 ML IV.SIG SCH ×4 (02:35→20:45)
[2018-08-30] MEDS: Insulin NovoLIN Regular Correctional Sugar Inj SQ SCH ×5 (02:37→20:45)
[2018-08-30] MEDS: Sod Chloride 0.9% Inj 1,000 ML IV.CONT SCH (05:14)
[2018-08-30 06:15] LABS: Baso % (Auto) 0.3 % (0.0-2.0); Eos % (Auto) 0.1 % (0.0-4.0); Hematocrit 23.8 % (35.0-46.0); Lymph % (Auto) 7.9 % (9.0-44.0); Mean Corpuscular HGB Conc 33.7 % (32.0-36.0); Mean Corpuscular Hemoglobin 31.8 pg (27.0-34.0); Mean Corpuscular Volume 94.4 fL (80.0-100.0); Mean Platelet Volume 7.5 fL (7.0-11.0); Mono # (Auto) 0.6 th/mm3 (0.0-0.9); Mono % (Auto) 4.8 % (0.0-8.0); Neut # (Auto) 10.8 th/mm3 (1.8-7.7); Neut % (Auto) 86.9 % (16.0-70.0); Platelet Count 90 th/mm3 (150-450); Red Blood Count 2.52 mil/mm3 (4.00-5.30); Red Cell Distribution Width 20.5 % (11.6-17.2); White Blood Count 12.4 th/mm3 (4.0-11.0)
[2018-08-30 07:13] LABS: Activated Partial Thrombo Time 24.9 sec (24.3-30.1); INR 1.1 Ratio; Prothrombin Time 11.2 sec (9.8-11.6)
[2018-08-30 08:08] LABS: Blast Cells 1 % (0-0); Lymphocytes 2 % (9-44); Metamyelocytes 1 % (0-1); Monocytes 4 % (0-8); Myelocytes 2 % (0-0); Platelet Morphology Normal (Normal)
[2018-08-30 08:09] LABS: Tear Drop Cells 1+
[2018-08-30] MEDS: Anastrozole 1 MG Tablet PO SCH (08:21)
[2018-08-30] MEDS: Metoprolol Tartrate 25 MG Tablet PO SCH ×2 (08:21→20:45)
[2018-08-30] MEDS: Senna/Docusate Sodium 8.6/50 MG Tablet PO SCH ×2 (08:22→20:45)
--- NOTE | 2018-08-30 12:13 | P.PNGS ---
Subjective Patient reports: feels better, tolerating liquids well, afebrile Physical Exam Vital signs: Vital Signs 08/29/18 16:00 08/29/18 19:40 08/29/18 20:00 Temperature 98.2 F 97.8 F Pulse Rate 75 60 71 Respiratory Rate 17 16 Blood Pressure 136/65 140/65 Pulse Oximetry 98 96 08/30/18 00:00 08/30/18 04:00 08/30/18 08:00 Temperature 98 F 98 F 98.8 F Pulse Rate 67 70 74 Respiratory Rate 17 17 17 Blood Pressure 138/64 134/62 159/83 H Pulse Oximetry 95 96 97 Intake & Output 08/29/18 08/30/18 08/30/18 18:59 06:59 18:59 Intake Total 1822 / 1822 1100 / 1100 Output Total 1100 / 1100 1140 / 1140 Balance 722 / 722 -40 / -40 Weight 89.5 kg Intake: IV 1250 / 1250 1100 / 1100 NS Inj 1,000 ML @ 84 mls/hr IV. 1000 / 1000 1000 / 1000 CONT .[id number] HARDEEP Rx#:[id number] Zosyn 3.375 GM Premix 50 ML @ 150 / 150 100 / 100 100 mls/hr IV.SIG Q6H HARDEEP Rx#: [id number] Oral 572 / 572 Output: Urine 1100 / 1100 1100 / 1100 Wound Drainage 40 / 40 # 1 Right Abdomen Aakash 40 / 40 Other: Date of Last Bowel Movement 08/30/18 # Bowel Movements 1 - Routine Abdominal Exam Present: soft, normoactive bowel sounds, wound, drain Comments: drain with minimal serous output, no bile. wound seven intact, - Urinary Catheter Management Indwelling Urethral Catheter Cath placed during this visit: yes, but has since been removed by the nurse Reason for continuing: Not indwelling catheter Insertion date: 08/20/18 Removal date: 08/24/18 Results - Labs 08/30/18 04:55 08/29/18 05:02 Laboratory Results - last 24 hr 08/29/18 08/29/18 08/29/18 12:12 16:58 20:01 WBC RBC Hgb Hct MCV MCH MCHC RDW Plt Count MPV Prelim Diff (Auto) Neut % (Auto) Lymph % (Auto) [place] % (Auto) Eos % (Auto) Baso % (Auto) Neut # (Auto) Lymph # (Auto) [place] # (Auto) Eos # (Auto) Baso # (Auto) WBC Differential Seg Neuts % (Manual) Band Neuts % (Manual) Lymphocytes % (Manual) Monocytes % (Manual) Metamyelocytes % (Man) Myelocytes % (Man) Blast Cells % (Manual) Abs Neuts (Manual) Differential Comment Platelet Estimate Platelet Morphology Tear Drop Cells Keratocytes PT INR APTT Fibrinogen POC Glucose 105 87 95 08/30/18 08/30/18 08/30/18 02:36 04:55 04:55 WBC 12.4 H RBC 2.52 L Hgb 8.0 L Hct 23.8 L MCV 94.4 MCH 31.8 MCHC 33.7 RDW 20.5 H Plt Count 90 L MPV 7.5 Prelim Diff (Auto) Slide review pending Neut % (Auto) 86.9 H Lymph % (Auto) 7.9 L [place] % (Auto) 4.8 Eos % (Auto) 0.1 Baso % (Auto) 0.3 Neut # (Auto) 10.8 H Lymph # (Auto) 1.0 [place] # (Auto) 0.6 Eos # (Auto) 0.0 Baso # (Auto) 0.0 WBC Differential Manual diff final Seg Neuts % (Manual) 85 H Band Neuts % (Manual) 5 Lymphocytes % (Manual) 2 L Monocytes % (Manual) 4 Metamyelocytes % (Man) 1 Myelocytes % (Man) 2 H Blast Cells % (Manual) 1 H Abs Neuts (Manual) 11.5 H Differential Comment . Platelet Estimate Low L Platelet Morphology Normal Tear Drop Cells 1+ H Keratocytes Occ H PT 11.2 INR 1.1 APTT 24.9 Fibrinogen 546 H POC Glucose 91 08/30/18 07:37 WBC RBC Hgb Hct MCV MCH MCHC RDW Plt Count MPV Prelim Diff (Auto) Neut % (Auto) Lymph % (Auto) [place] % (Auto) Eos % (Auto) Baso % (Auto) Neut # (Auto) Lymph # (Auto) [place] # (Auto) Eos # (Auto) Baso # (Auto) WBC Differential Seg Neuts % (Manual) Band Neuts % (Manual) Lymphocytes % (Manual) Monocytes % (Manual) Metamyelocytes % (Man) Myelocytes % (Man) Blast Cells % (Manual) Abs Neuts (Manual) Differential Comment Platelet Estimate Platelet Morphology Tear Drop Cells Keratocytes PT INR APTT Fibrinogen POC Glucose 85 - Imaging Imaging: ITS Impressions GI Procedure 08/26/18 00:00 CONCLUSION: Multiple lucencies within a common duct that is at the upper range for normal. These could represent air bubbles or true filling defects. Stent is placed during the examination. Please refer to endoscopist report for description of the intraprocedural findings. Assessment and Plan - Assessment (1) Gangrenous cholecystitis Code(s): K81.0 - Acute cholecystitis Status: Acute Plan: 72 year old female POD8 open cholecystectomy -s/p ERCP ---- Common duct stone and small leak at the cystic duct remnant -Cardiac diet -HR stable 8.6 -OOB as tolerated; PT following -Consult to Dr. Martines ---recommend low dose heparin---Continue Lovenox; will need to watch ptl---today 98k slow trend down -Monitor CBC/CMP -Hopefully rehab placement sometime early next week - Plan add boost or ensure HL IV rehab soon, FU CBC in am
[2018-08-31] MEDS: Piperacil/Tazo 3.375 GM Premix 50 ML IV.SIG SCH ×4 (02:26→20:13)
[2018-08-31] MEDS: Insulin NovoLIN Regular Correctional Sugar Inj SQ SCH ×5 (03:24→20:14)
[2018-08-31] MEDS: Senna/Docusate Sodium 8.6/50 MG Tablet PO SCH ×2 (09:06→20:15)
[2018-08-31] MEDS: Metoprolol Tartrate 25 MG Tablet PO SCH ×2 (09:06→20:13)
[2018-08-31] MEDS: Anastrozole 1 MG Tablet PO SCH (09:06)
--- NOTE | 2018-08-31 09:25 | P.PNGS ---
Subjective Interval history: Resting in bed Reports yesterday she ate much better Knows she needs to go to rehab Physical Exam Vital signs: Vital Signs 08/30/18 12:00 08/30/18 16:00 08/30/18 20:00 Temperature 98.4 F 98.7 F 98.2 F Pulse Rate 70 73 78 Respiratory Rate 17 17 18 Blood Pressure 154/66 H 134/72 125/61 Pulse Oximetry 100 98 98 08/31/18 00:00 08/31/18 04:00 08/31/18 08:00 Temperature 98.4 F 98.8 F 98.4 F Pulse Rate 70 68 68 Respiratory Rate 18 17 17 Blood Pressure 147/67 H 152/64 H 133/62 Pulse Oximetry 98 99 98 Intake & Output 08/30/18 08/31/18 08/31/18 18:59 06:59 18:59 Intake Total 1022 / 1022 740 / 740 Output Total 1200 / 1200 1120 / 1120 Balance -178 / -178 -380 / -380 Weight 89.5 kg Intake: IV 800 / 800 100 / 100 NS Inj 1,000 ML @ 84 mls/hr IV. 700 / 700 CONT .[id number] [facility] Rx#:[id number] Zosyn 3.375 GM Premix 50 ML @ 100 / 100 100 / 100 100 mls/hr IV.SIG Q6H [facility] Rx#: [id number] Oral 222 / 222 640 / 640 Output: Urine 1200 / 1200 1100 / 1100 Wound Drainage 20 / 20 # 1 Right Abdomen Aakash 20 / 20 Other: Date of Last Bowel Movement 08/30/18 # Bowel Movements 1 1 Narrative: Alert and awake Abd: Dry dressing to RUQ; SARAH with minimal drainage RIGHT breast dressing in place - Urinary Catheter Management Indwelling Urethral Catheter Cath placed during this visit: yes, but has since been removed by the nurse Reason for continuing: Not indwelling catheter Insertion date: 08/20/18 Removal date: 08/24/18 Results - Labs 08/31/18 11:32 08/31/18 11:32 Laboratory Results - last 24 hr 08/30/18 08/30/18 08/30/18 12:51 17:18 20:44 POC Glucose 91 106 95 08/31/18 08/31/18 02:26 08:09 POC Glucose 103 91 - Imaging Imaging: ITS Impressions GI Procedure 08/26/18 00:00 CONCLUSION: Multiple lucencies within a common duct that is at the upper range for normal. These could represent air bubbles or true filling defects. Stent is placed during the examination. Please refer to endoscopist report for description of the intraprocedural findings. Assessment and Plan - Assessment (1) Gangrenous cholecystitis Code(s): K81.0 - Acute cholecystitis Status: Acute Plan: 72 year old female s/p open cholecystectomy -s/p ERCP ---- Common duct stone and small leak at the cystic duct remnant -Cardiac diet -HR stable -OOB as tolerated; PT following -Consult to Dr. Martines ---recommend low dose heparin---Continue Lovenox; will need to watch ptl -Monitor CBC/CMP -Likely DC to rehab tomorrow -Consult CM Wound is clean and dry; steri-strips intact SARAH output has dropped off significantly; will likely remove drain prior to discharge The exam, history, and the medical decision-making described in the above note were completed with the assistance of the mid-level provider. I reviewed and agree with the findings presented. I attest that I had a [id number] encounter with the patient on the same day, and personally performed and documented my assessment and findings in the medical record.
--- NOTE | 2018-08-31 11:43 | P.PNONC ---
Subjective Interval history: Afebrile. Patient lying in bed. She states she cannot get any rest here because they are constantly people in and out. During my examination lab is at the bedside to draw a.m. labs. Patient states she thinks she is going back to the rehab where she came from tomorrow. She is happy about this stating that she gets out of bed and does more for herself there. We have discussed possible supportive blood transfusion. She would like to wait till her labs results today and is agreeable to a transfusion of PRBCs if her hemoglobin is less than 8. There are no signs of bleeding, this is supportive in nature. Objective Vital Signs/Intake & Output: Vital Signs 08/30/18 12:00 08/30/18 16:00 08/30/18 20:00 Temperature 98.4 F 98.7 F 98.2 F Pulse Rate 70 73 78 Respiratory Rate 17 17 18 Blood Pressure 154/66 H 134/72 125/61 Pulse Oximetry 100 98 98 08/31/18 00:00 08/31/18 04:00 08/31/18 08:00 Temperature 98.4 F 98.8 F 98.4 F Pulse Rate 70 68 68 Respiratory Rate 18 17 17 Blood Pressure 147/67 H 152/64 H 133/62 Pulse Oximetry 98 99 98 Intake & Output 08/30/18 08/31/18 08/31/18 18:59 06:59 18:59 Intake Total 1022 / 1022 740 / 740 Output Total 1200 / 1200 1120 / 1120 Balance -178 / -178 -380 / -380 Weight 89.5 kg Intake: IV 800 / 800 100 / 100 NS Inj 1,000 ML @ 84 mls/hr IV. 700 / 700 CONT .[id number] [facility] Rx#:[id number] Zosyn 3.375 GM Premix 50 ML @ 100 / 100 100 / 100 100 mls/hr IV.SIG Q6H [facility]EP Rx#: [id number] Oral 222 / 222 640 / 640 Output: Urine 1200 / 1200 1100 / 1100 Wound Drainage # 1 Right Abdomen Aakash Other: Date of Last Bowel Movement 08/30/18 # Bowel Movements 1 1 Result Diagrams: 08/31/18 11:32 08/31/18 11:32 Laboratory Results: Laboratory Results - last 24 hr 08/30/18 08/30/1818 12:51 17:18 20:44 POC Glucose 91 106 95 08/31/18 08/31/18 02:26 08:09 POC Glucose 103 91 Medications: Active Medications Generic Name Dose Route Start Last Admin Trade Name Freq PRN Reason Stop Dose Admin Hydrocodone Bitart/Acetaminophen 1 tab 08/20/18 17:06 08/20/18 23:42 [place] 5/325 PO 1 tab Q4H PRN Administration PAIN SCALE 1 TO 5 Anastrozole 1 mg 08/27/18 09:00 08/31/18 09:06 Arimidex PO 1 mg DAILY HARDEEP Administration Dextrose 50 ml 08/20/18 17:13 08/29/18 05:11 D50w Vial IV.PUSH 50 ml UNSCH PRN Administration PER HYPOGLYCEMIA PROTOCOL Enoxaparin Sodium 40 mg 08/26/18 18:00 08/28/18 09:07 Lovenox Inj SQ 40 mg DAILY HARDEEP Administration Sodium Chloride 500 mls @ 30 mls/hr 08/20/18 14:00 08/20/18 22:48 Ns Inj IV.SIG Not Given .Q10H HARDEEP Piperacillin/Tazobactam/Dextrose 50 mls @ 100 mls/hr 08/29/18 14:00 08/31/18 09:06 Zosyn 3.375 Gm Premix IV.SIG 100 mls/hr Q6H HARDEEP Administration Insulin Human Regular 0 units 08/20/18 21:00 08/31/18 09:06 Novolin R Correctional Sugar Inj SQ Not Given ACHS AND 3AM HARDEEP Protocol Metoprolol Tartrate 25 mg 08/24/18 08:00 08/31/18 09:06 Lopressor PO 25 mg BID HARDEEP Administration Morphine Sulfate 4 mg 08/20/18 23:45 08/27/18 15:11 Morphine Inj IV.PUSH 4 mg Q2H PRN Administration BREAKTHROUGH PAIN Ondansetron HCl 4 mg 08/20/18 17:06 08/27/18 15:06 Zofran Inj IV.PUSH 4 mg Q6H PRN Administration NAUSEA OR VOMITING Senna/Docusate Sodium 1 tab 08/20/18 21:00 08/31/18 09:06 Sammie-Colace PO Not Given BID HARDEEP Objective Remarks: GENERAL: Chronically ill-appearing elderly female patient, in no acute distress. SKIN: Pale, warm and dry. HEAD: Normocephalic. EYES: No scleral icterus. No injection or drainage. NECK: Supple, trachea midline. CARDIOVASCULAR: Regular rate and rhythm without murmurs. RESPIRATORY: Breath sounds distant,equal bilaterally. Non-labored at rest. GASTROINTESTINAL: Abdomen large, soft, non-tender, nondistended. RUQ drain in place. Drsg dry/intact, minimal fluid in drain. EXTREMITIES: No cyanosis, or edema. MUSCULOSKELETAL: Adequate muscle tone. NEUROLOGICAL: No obvious focal deficit. Alert and oriented x3. Assessment/Plan (1) Metastatic breast cancer Code(s): C50.919 - Malignant neoplasm of unspecified site of unspecified female breast Status: Chronic - Plan Ms. Matias is a pleasant 80-year-old woman with metastatic breast cancer. She has a locally advanced disease with ulcerated ER positive right breast cancer and an ER negative left breast cancer. She is receiving palliative chemotherapy in preparation of definitive surgery. Her surgery was deferred because of acute cholecystitis with gangrenous gallbladder. Status post cholecystectomy. Plan: 1. Thrombocytopenia, platelet count yesterday was 90,000. Awaiting CBC today. 2. Low molecular weight heparin currently on hold due to decreasing platelets and hemoglobin. We will await today's results and resume once platelets and hemoglobin have increased. 3. Continue aromatase inhibitor for ER positive breast cancer. 4. CBC pending today. Discussed possible blood transfusion with the patient, she prefers to hold off unless hemoglobin is less than 8. We will await results of CBC today and plan to transfuse for hemoglobin <8. 5. Continue wound care to right breast. 6. Continue supportive care. Late entry at 1319: CBC resulted, hgb improved to 8.7, platelets improved to 113 ,000. No transfusions warranted at this time. Resumed lovenox for DVT prophalaxis. - Attending Statement The exam, history, and the medical decision-making described in the above note were completed with the assistance of the mid-level provider. I reviewed and agree with the findings presented. I attest that I had a [id number] encounter with the patient on the same day, and personally performed and documented my assessment and findings in the medical record. Right breast dressing change. Right breast ulceration continue to improve. It is more shallow and decrease in size. Continue AI. Left breast mass is unchanged. Noted hemoglobin increase with a repeat CBC. Recommend continue DVT prophylaxis with Lovenox. Case management consulted as patient has questions regarding the placement. She has specific requests for [facility] and a second facility as her ideal choice.
[2018-08-31 12:32] LABS: Alanine Aminotransferase 7 U/L (10-53); Albumin 1.7 g/dL (3.4-5.0); Anion Gap 14 meq/L (5-15); Aspartate Aminotransferase 13 U/L (15-37); Blood Urea Nitrogen 4 mg/dL (7-18); Calcium 7.5 mg/dL (8.5-10.1); Carbon Dioxide 22.1 meq/L (21.0-32.0); Chloride 106 meq/L (98-107); Glomerular Filtration Rate Greater Than 89 mL/min (>89); Glucose,Random 80 mg/dL (74-106); Sodium 142 meq/L (136-145)
[2018-08-31 12:33] LABS: Alkaline Phosphatase 191 U/L (45-117); Total Protein 6.1 g/dL (6.4-8.2)
[2018-08-31 12:55] LABS: Baso % (Auto) 0.2 % (0.0-2.0); Eos % (Auto) 0.3 % (0.0-4.0); Hematocrit 25.9 % (35.0-46.0); Hemoglobin 8.7 gm/dL (11.6-15.3); Lymph # (Auto) 0.8 th/mm3 (1.0-4.8); Lymph % (Auto) 7.9 % (9.0-44.0); Mean Corpuscular HGB Conc 33.5 % (32.0-36.0); Mean Corpuscular Hemoglobin 31.9 pg (27.0-34.0); Mean Corpuscular Volume 95.2 fL (80.0-100.0); Mean Platelet Volume 7.2 fL (7.0-11.0); Mono # (Auto) 0.6 th/mm3 (0.0-0.9); Mono % (Auto) 5.6 % (0.0-8.0); Neut # (Auto) 8.8 th/mm3 (1.8-7.7); Platelet Count 113 th/mm3 (150-450); Red Blood Count 2.72 mil/mm3 (4.00-5.30); Red Cell Distribution Width 20.1 % (11.6-17.2); White Blood Count 10.3 th/mm3 (4.0-11.0)
[2018-08-31 14:20] LABS: Platelet Morphology Normal (Normal); Toxic Granulation 1+
[2018-09-01] MEDS: Piperacil/Tazo 3.375 GM Premix 50 ML IV.SIG SCH ×3 (01:55→14:26)
[2018-09-01] MEDS: Insulin NovoLIN Regular Correctional Sugar Inj SQ SCH ×5 (04:12→21:08)
[2018-09-01] MEDS: Senna/Docusate Sodium 8.6/50 MG Tablet PO SCH ×3 (09:21→21:03)
[2018-09-01] MEDS: Anastrozole 1 MG Tablet PO SCH (09:21)
[2018-09-01] MEDS: Enoxaparin Inj 40 MG/0.4 ML Syringe SQ SCH (09:21)
[2018-09-01] MEDS: Metoprolol Tartrate 25 MG Tablet PO SCH ×2 (09:21→21:03)
--- NOTE | 2018-09-01 17:35 | P.PNGS ---
Subjective Interval history: No issues overnight Daughter Lori at bedside Physical Exam Vital signs: Vital Signs 08/31/18 20:00 08/31/18 23:15 09/01/18 00:00 Temperature 98.0 F 98.2 F Pulse Rate 74 68 61 Respiratory Rate 18 18 Blood Pressure 160/95 H 128/64 Pulse Oximetry 99 98 09/01/18 04:13 09/01/18 08:00 09/01/18 12:00 Temperature 98.3 F 98.1 F 98.2 F Pulse Rate 65 75 81 Respiratory Rate 18 18 18 Blood Pressure 157/70 H 141/70 H 122/59 L Pulse Oximetry 98 99 95 09/01/18 16:00 Temperature 97.9 F Pulse Rate 70 Respiratory Rate 18 Blood Pressure 152/69 H Pulse Oximetry 98 Intake & Output 08/31/18 09/01/18 09/01/18 18:59 06:59 18:59 Intake Total 820 / 820 100 / 100 50 / 50 Output Total 800 / 800 600 / 600 Balance -500 / -500 50 / 50 Weight 87.6 kg Intake: IV 100 / 100 100 / 100 50 / 50 Zosyn 3.375 GM Premix 50 ML @ 100 / 100 100 / 100 50 / 50 100 mls/hr IV.SIG Q6H HARDEEP Rx#: [id number] Oral 720 / 720 Output: Urine 800 / 800 600 / 600 Other: Date of Last Bowel Movement 08/31/18 Narrative: Alert and awake Abd: SARAH drain removed--- RUQ dressing changed RIGHT breast dressing in place - Urinary Catheter Management Indwelling Urethral Catheter Cath placed during this visit: yes, but has since been removed by the nurse Reason for continuing: Not indwelling catheter Insertion date: 08/20/18 Removal date: 08/24/18 Results - Labs 08/31/18 11:32 08/31/18 11:32 Laboratory Results - last 24 hr 08/29/18 08/31/18 09/01/18 05:02 20:09 04:03 POC Glucose 123 H 95 Direct Antiglob Test Cancelled MTS Gel Crossmatch See Detail 09/01/18 09/01/18 09/01/18 07:30 12:07 16:47 POC Glucose 89 106 99 Direct Antiglob Test MTS Gel Crossmatch - Imaging Imaging: ITS Impressions GI Procedure 08/26/18 00:00 CONCLUSION: Multiple lucencies within a common duct that is at the upper range for normal. These could represent air bubbles or true filling defects. Stent is placed during the examination. Please refer to endoscopist report for description of the intraprocedural findings. Assessment and Plan - Assessment (1) Gangrenous cholecystitis Code(s): K81.0 - Acute cholecystitis Status: Acute Plan: 72 year old female s/p open cholecystectomy -s/p ERCP ---- Common duct stone and small leak at the cystic duct remnant -Cardiac diet -HR stable --continue metoprolol -OOB as tolerated; PT following -Consult to Dr. Martines ---recommend low dose heparin---Continue Lovenox; will need to watch ptl -DC to rehab when arrangements are made -Rx and 3008 on chart SARAH removed Wound clean Will need bilateral mastectomies in a few weeks after she recuperates from GB surgery. F/U my office two weeks The exam, history, and the medical decision-making described in the above note were completed with the assistance of the mid-level provider. I reviewed and agree with the findings presented. I attest that I had a [id number] encounter with the patient on the same day, and personally performed and documented my assessment and findings in the medical record.
[2018-09-02] MEDS: Insulin NovoLIN Regular Correctional Sugar Inj SQ SCH ×4 (04:34→17:07)
[2018-09-02 08:30] VITALS: RESP 17
[2018-09-02] MEDS: Senna/Docusate Sodium 8.6/50 MG Tablet PO SCH (08:30)
[2018-09-02] MEDS: Enoxaparin Inj 40 MG/0.4 ML Syringe SQ SCH (08:33)
[2018-09-02] MEDS: Metoprolol Tartrate 25 MG Tablet PO SCH (08:33)
[2018-09-02] MEDS: Anastrozole 1 MG Tablet PO SCH (08:33)
[2018-09-02 13:08] VITALS: BP 135/73; PULSE 98; TEMP 97.1; O2SAT 99
--- NOTE | 2018-09-02 14:01 | P.DS ---
Date of admission: 08/20/18 17:57 Primary care physician: UNKNOWN Attending physician on discharge: Bulmaro Brito Anticipated date of discharge: 09/02/18 Brief History from admission: 73 year old female with breast cancer and cholecystitis DS: Diagnosis - Discharge Diagnosis (1) Gangrenous cholecystitis Status: Acute DS: Medications - Discharge Medications Prescriptions: hydrocodone-acetaminophen 1 tab PO Q4H PRN #18 tab PRN Reason: acute post op pain exception metoprolol tartrate 25 mg PO BID 14 Days #28 tab DS: Summary Hospital Course: This is a 73 year old female with breast cancer s/p open cholecystectomy for gangrenous cholecystitis. The patient did have a post operative ERCP which showed a common duct stone and small leak at the cystic duct remnant. Her diet was advanced as tolerated. She will continue physical therapy at rehab. She will follow up September 15 for staple removal. - Time Spent with Patient Total time spent providing and/or coordinating discharge services: Less than 30 minutes - Quality: VTE Deep Vein Thrombosis/Pulmonary Embolism Present on Admission: No Exam Vital signs: Vital Signs 09/01/18 16:00 09/01/18 20:00 09/02/18 00:00 Temperature 97.9 F 99.5 F 98.3 F Pulse Rate 70 66 82 Respiratory Rate 18 18 18 Blood Pressure 152/69 H 152/74 H 136/69 Pulse Oximetry 98 98 99 09/02/18 04:00 09/02/18 08:00 09/02/18 12:00 Temperature 98.6 F 98.7 F 97.1 F L Pulse Rate 79 77 98 H Respiratory Rate 18 17 17 Blood Pressure 139/65 120/72 135/73 Pulse Oximetry 98 100 99 Intake & Output 09/01/18 09/02/18 09/02/18 18:59 06:59 18:59 Intake Total 770 / 770 480 / 480 Output Total 1300 / 1300 550 / 550 Balance -530 / -530 -70 / -70 Weight 87.6 kg Intake: IV 50 / 50 Zosyn 3.375 GM Premix 50 ML @ 50 / 50 100 mls/hr IV.SIG Q6H HARDEEP Rx#: [id number] Oral 720 / 720 480 / 480 Output: Urine 1300 / 1300 550 / 550 Other: Date of Last Bowel Movement 09/01/18 09/01/18 # Bowel Movements 3 Narrative: Alert and awake Abd: RUQ dressing in place; SARAH removed RIGHT breast dressing in place Results Procedures completed during hospitalization: Open cholecystectomy ERCP Completed studies during hospitalization: Pending at discharge 08/20/18 07:36 Surgical [PTH] Routine Labs on day of discharge: Labs from last 24 hours 09/02/18 09/02/18 09/02/18 12:03 07:25 04:33 POC Glucose 151 H 124 H 117 H 09/01/18 09/01/18 21:08 16:47 POC Glucose 110 99 - Impressions ITS Impressions GI Procedure 08/26/18 00:00 CONCLUSION: Multiple lucencies within a common duct that is at the upper range for normal. These could represent air bubbles or true filling defects. Stent is placed during the examination. Please refer to endoscopist report for description of the intraprocedural findings. Discharge Plan - Discharge Disposition Patient Disposition: Discharge to SNF - Discharge Condition Condition: Good - Discharge Order Discharge Orders: Discharge Order (Routine); Ordered 09/02/18 Ordered By: Bernadette Terrell - Discharge Details Anticipated Discharge Date: 09/01/18 Discharge Comment: rx and 3008 on chart - Physicians Team Primary Care Provider: UNKNOWN, Attending Provider: Bulmaro Brito Other Providers: Ximena Bueno ; Merlin Gautam MD ; [facility] [place] ; Perez Jacobs MD ; Britany Johnson MD ; [facility] - Rxs /Orders / Referrals /Forms Prescriptions: New hydrocodone-acetaminophen 5-325 mg Tablet 1 tab PO Q4H PRN (Reason: acute post op pain exception ) Qty: 18 RF: 0 metoprolol tartrate 25 mg Tablet 25 mg PO BID 14 Days Qty: 28 RF: 0 Continue anastrozole 1 mg Tablet 1 mg PO DAILY metformin 500 mg Tablet 500 mg PO BID Referrals: Bulmaro Brito MD [GENERAL SURGERY] - See Instructions (Appt set for FridaySeptember 15 at 1:50PM) UNKNOWN, [Primary Care Provider] - See Instructions - Discharge Instructions Patient Printed Instructions: Metoprolol (By mouth), Hydrocodone/Acetaminophen (By mouth), Open Cholecystectomy (DC), ERCP (Endoscopic Retrograde Cholangiopancreatography) (DC), Anemia (DC), Thrombocytopenia (DC)
--- NOTE | 2018-09-02 15:04 | P.PNONC ---
Subjective Interval history: Patient sleeping on approach, awakens easily to voice. She states she is waiting for approval to go to rehab. She has no new complaints at this time. Objective Vital Signs/Intake & Output: Vital Signs 09/01/18 16:00 09/01/18 20:00 09/02/18 00:00 Temperature 97.9 F 99.5 F 98.3 F Pulse Rate 70 66 82 Respiratory Rate 18 18 18 Blood Pressure 152/69 H 152/74 H 136/69 Pulse Oximetry 98 98 99 09/02/18 04:00 09/02/18 08:00 09/02/18 12:00 Temperature 98.6 F 98.7 F 97.1 F L Pulse Rate 79 77 98 H Respiratory Rate 18 17 17 Blood Pressure 139/65 120/72 135/73 Pulse Oximetry 98 100 99 Intake & Output 09/01/18 09/02/18 09/02/18 18:59 06:59 18:59 Intake Total 770 / 770 480 / 480 Output Total 1300 / 1300 550 / 550 Balance -530 / -530 -70 / -70 Weight 87.6 kg Intake: IV 50 / 50 Zosyn 3.375 GM Premix 50 ML @ 50 / 50 100 mls/hr IV.SIG Q6H HARDEEP Rx#: [id number] Oral 720 / 720 480 / 480 Output: Urine 1300 / 1300 550 / 550 Other: Date of Last Bowel Movement 09/01/18 09/01/18 # Bowel Movements 3 Result Diagrams: 08/31/18 11:32 08/31/18 11:32 Laboratory Results: Laboratory Results - last 24 hr 09/01/18 09/01/18 09/02/18 16:47 21:08 04:33 POC Glucose 99 110 117 H 09/02/18 09/02/18 07:25 12:03 POC Glucose 124 H 151 H Medications: Active Medications Generic Name Dose Route Start Last Admin Trade Name Freq PRN Reason Stop Dose Admin Hydrocodone Bitart/Acetaminophen 1 tab 08/20/18 17:06 08/20/18 23:42 [place] 5/325 PO 1 tab Q4H PRN Administration PAIN SCALE 1 TO 5 Anastrozole 1 mg 08/27/18 09:00 09/02/18 08:33 Arimidex PO 1 mg DAILY HARDEEP Administration Dextrose 50 ml 08/20/18 17:13 08/29/18 05:11 D50w Vial IV.PUSH 50 ml UNSCH PRN Administration PER HYPOGLYCEMIA PROTOCOL Enoxaparin Sodium 40 mg 08/26/18 18:00 09/02/18 08:33 Lovenox Inj SQ 40 mg DAILY HARDEEP Administration Sodium Chloride 500 mls @ 30 mls/hr 08/20/18 14:00 08/20/18 22:48 Ns Inj IV.SIG Not Given .Q10H HARDEEP Insulin Human Regular 0 units 08/20/18 21:00 09/02/18 12:08 Novolin R Correctional Sugar Inj SQ Not Given ACHS AND 3AM HARDEEP Protocol Metoprolol Tartrate 25 mg 08/24/18 08:00 09/02/18 08:33 Lopressor PO 25 mg BID HARDEEP Administration Morphine Sulfate 4 mg 08/20/18 23:45 08/27/18 15:11 Morphine Inj IV.PUSH 4 mg Q2H PRN Administration BREAKTHROUGH PAIN Ondansetron HCl 4 mg 08/20/18 17:06 08/27/18 15:06 Zofran Inj IV.PUSH 4 mg Q6H PRN Administration NAUSEA OR VOMITING Senna/Docusate Sodium 1 tab 08/20/18 21:00 09/02/18 08:30 Sammie-Colace PO Not Given BID COUNT INCLUDES THE [facility] Objective Remarks: GENERAL: Chronically ill-appearing elderly female patient, in no acute distress. SKIN: Pale, warm and dry. Dressing to right breast, clean/dry. HEAD: Normocephalic. EYES: No scleral icterus. No injection or drainage. NECK: Supple, trachea midline. CARDIOVASCULAR: Regular rate and rhythm without murmurs. RESPIRATORY: Breath sounds distant,equal bilaterally. Non-labored at rest. GASTROINTESTINAL: Abdomen large, soft, non-tender, nondistended. [place] to right upper quadrant, dressing with minimal drainage. EXTREMITIES: No cyanosis, or edema. MUSCULOSKELETAL: Adequate muscle tone. NEUROLOGICAL: No obvious focal deficit. Awakens easily to voice, alert and oriented x3. Assessment/Plan (1) Metastatic breast cancer Code(s): C50.919 - Malignant neoplasm of unspecified site of unspecified female breast Status: Chronic - Plan Ms. Matias is a pleasant 80-year-old woman with metastatic breast cancer. She has a locally advanced disease with ulcerated ER positive right breast cancer and an ER negative left breast cancer. She is receiving palliative chemotherapy in preparation of definitive surgery. Her surgery was deferred because of acute cholecystitis with gangrenous gallbladder. Status post cholecystectomy. Plan: 1. Thrombocytopenia, platelet count on 08/31/2018 was 113,000. 2. Continue DVT prophylaxis with low molecular weight heparin. 3. Continue aromatase inhibitor for ER positive breast cancer. 4. Patient awaiting transfer to rehab. She will follow-up with Dr. Johnson in the outpatient clinic in 1-2 weeks. - Attending Statement The exam, history, and the medical decision-making described in the above note were completed with the assistance of the mid-level provider. I reviewed and agree with the findings presented. I attest that I had a [id number] encounter with the patient on the same day, and personally performed and documented my assessment and findings in the medical record. Patient seen and examined. She is arousable. She is sleeping in mid afternoon. Case was discussed with Dr. Brito. We anticipate discharge to rehab where she would be able to exercise and do more for herself. We discussed the importance of continuing the aromatase inhibitor as treatment for breast cancer. She is continuing to respond with the right breast lesion improving. Her questions were answered to her satisfaction. We will coordinate follow-up when she is discharged. Bilateral mastectomies will be deferred until her performance status improves to possibly in 2-3 weeks time.
== END 2018-09-02 18:19 ==
LOC: HOR 11:31 → HSDI 17:57 → N03 20:37 → N07 08-27 17:12
PROVIDERS: ADMIT Surgery Trauma Surgery; ATTEND Surgery Trauma Surgery

== ENCOUNTER 2018-09-15 17:02 | Inpatient (IN) ==
[2018-09-15] MEDS ORDERED: Sod Chloride 0.9% Inj 1,000 ML IV.SIG ONE (17:24)
--- NOTE | 2018-09-15 17:46 | XR ---
EXAM DATE: 09/15/2018 5:24 PM EDT AGE/SEX: 73 years / Female INDICATIONS: Short of breath. CLINICAL DATA: This is the patient's initial encounter. Patient reports that signs and symptoms have been present for 1 day and indicates a pain score of 0/10. MEDICAL/SURGICAL HISTORY: Non-responsive. Non-responsive. COMPARISON: No prior exams available for comparison. FINDINGS: A single AP view of the chest demonstrates the lungs to be symmetrically aerated without evidence of mass, infiltrate or effusion. The cardiomediastinal contours are unremarkable. Osseous structures a re intact. Right-sided [id number] catheter is tip overlying the SVC CONCLUSION: Right-sided Qlxlqi-c-[id number] catheter. Lungs are clear. Electronically signed by: Berhane Alston MD 09/15/2018 5:45 PM EDT
[2018-09-15 18:09] LABS: Baso # (Auto) 0.1 th/mm3 (0.0-0.2); Baso % (Auto) 0.5 % (0.0-2.0); Eos % (Auto) 0.1 % (0.0-4.0); Hematocrit 27.9 % (35.0-46.0); Lymph # (Auto) 0.9 th/mm3 (1.0-4.8); Lymph % (Auto) 7.2 % (9.0-44.0); Mean Corpuscular HGB Conc 32.1 % (32.0-36.0); Mean Corpuscular Volume 96.6 fL (80.0-100.0); Mean Platelet Volume 6.3 fL (7.0-11.0); Mono # (Auto) 0.8 th/mm3 (0.0-0.9); Mono % (Auto) 6.2 % (0.0-8.0); Platelet Count 175 th/mm3 (150-450); Red Blood Count 2.88 mil/mm3 (4.00-5.30); Red Cell Distribution Width 19.8 % (11.6-17.2); White Blood Count 12.8 th/mm3 (4.0-11.0)
[2018-09-15 18:17] LABS: INR 1.1 Ratio; Prothrombin Time 11.3 sec (9.8-11.6)
[2018-09-15 18:22] LABS: Bilirubin,Urine Negative (Negative); Color,Urine Yellow (Yellw/Straw); Glucose,Urine (UA) 150 mg/dL (Negative); Hyaline Casts,Urine 12 /lpf (0-3); Leukocyte Esterase,Urine Negative (Negative); Mucus,Urine Many /lpf (Occasional); Nitrite,Urine Negative (Negative); Specific Gravity,Urine 1.019 (1.002-1.035)
[2018-09-15 18:25] LABS: Clarity,Urine Clear (Clear)
--- NOTE | 2018-09-15 18:34 | ED ---
HPI General Chief complaint: Weakness Stated complaint: Weakness Time Seen by Provider: 09/15/18 17:22 Source: patient and EMS Mode of arrival: EMS Limitations: no limitations History of Present Illness HPI Narrative: Patient is a 73-year-old female presenting to the emergency department via EMS for evaluation of generalized weakness. Patient reported that she was seen by Dr. Daryl manriquez and was sent to the emergency department for evaluation. She states that she had a cholecystectomy 3 weeks ago and has been weak since that time. She reports decreased appetite and a 50 pound weight loss since May. When patient does eat she states she reports early satiety. She denies any nausea, vomiting, fever, chills, abdominal pain, chest pain, shortness of breath. Patient reports that she was supposed to have a bilateral mastectomy due to bilateral breast cancer, but that was deferred due to the cholecystectomy. Past medical history significant for type 2 diabetes, atrial fibrillation, hypertension, breast cancer with metastatic disease to the bone. MD Complaint: Reports generalized weakness Onset (ago): week(s) Duration: constant Location: Reports generalized Context: Reports recent surgery Associated symptoms: Reports loss of appetite Related Data Home Medications Medication Instructions Recorded Confirmed anastrozole 1 mg PO DAILY 08/19/18 09/15/18 metformin 500 mg PO BID 08/19/18 09/15/18 Previous Rx's Medication Instructions Recorded hydrocodone-acetaminophen 1 tab PO Q4H PRN #18 tab 09/01/18 Allergies Allergy/AdvReac Type Severity Reaction Status Date / Time apple Allergy Severe Itching Verified 09/15/18 17:52 banana Allergy Severe Swelling Verified 09/15/18 17:52 Review of Systems ROS: all other systems reviewed are negative [facility] Medical History Medical History Atrial fibrillation (Acute) History of chemotherapy (Acute) History of radiation therapy (Acute) Breast cancer (Acute) Diabetes (Acute) Surgical History Surgical History History of cholecystectomy (Acute) H/O tubal ligation (Acute) Hx of appendectomy (Acute) Hx of tonsillectomy (Acute) Social History Social History Substance History: No History of Abuse Second Hand Smoke Exposure: No Smoking Status: Never smoker How Often Do You Have a Drink Containing Alcohol: 2 to 4 times a month Recent Travel in [facility] within the Last 8 Weeks: No Recent Out of Country Travel within the Last 8 Weeks: No Immunization History Tetanus Immunization: >5 Years Exam Narrative Exam Narrative: GENERAL: Overweight, well-developed, alert female. Presenting in no acute distress. SKIN: Focused skin assessment warm/dry. Pale. Healing incision to the right upper quadrant, no erythema or induration. No exudates noted. HEAD: Atraumatic. Normocephalic. EYES: Pupils equal and round. No scleral icterus. No injection or drainage. ENT: No nasal bleeding or discharge. Mucous membranes pink and moist. NECK: Trachea midline. No JVD. CARDIOVASCULAR: Regular rate and rhythm. No murmur appreciated. RESPIRATORY: No accessory muscle use. Clear to auscultation. Breath sounds equal bilaterally. GASTROINTESTINAL: Abdomen soft, non-tender, nondistended. Hepatic and splenic margins not palpable. No rebound, no guarding, positive bowel sounds. MUSCULOSKELETAL: No obvious deformities. No clubbing. No cyanosis. No edema. NEUROLOGICAL: Awake and alert. No obvious cranial nerve deficits. Motor grossly within normal limits. Normal speech. PSYCHIATRIC: Appropriate mood and affect; insight and judgment normal. Course Initial Documented Vital Signs Temperature 97.9 F 09/15/18 17:23 Pulse Rate 81 09/15/18 17:23 Respiratory Rate 19 09/15/18 17:23 Blood Pressure 149/79 H 09/15/18 17:23 Pulse Oximetry 98 09/15/18 17:23 Last Documented Vital Signs Temperature 97.9 F 09/15/18 17:23 Pulse Rate 81 09/15/18 17:23 Respiratory Rate 19 09/15/18 17:23 Blood Pressure 149/79 H 09/15/18 17:23 Pulse Oximetry 98 09/15/18 17:52 Medical Decision Making MANDEEP Attestation MANDEEP supervised visit: Yes Attestation: I, Dr. Andrews, have reviewed the advance practice practitioner's documentation and am in agreement, met with the patient face to face, made the diagnosis, and the medical decision making was done by me. *My assessment and Findings: Patient with failure to thrive with generalized weakness with gait instability. She was sent to the ER by Dr. Brito for admission to the hospital. Attempt was made to call Dr. Brito to review case but it is now 7:05 PM in the call center will not page Dr. Brito as he is not animal nutrition consultant. Patient at this time is cachectic appearing, she is too weak to be discharged to home. She will require hospitalization. Patient currently with no other complaints at this time and does deny abdominal pain. [facility] Narrative Medical decision making narrative: Patient is a 73-year-old female presenting on the advice of her surgeon for evaluation of generalized weakness. Patient's vital signs are stable, she is afebrile. Labs and imaging ordered and pending. Patient is resting comfortably. IV access was established, patient was placed on telemetry monitoring continuous pulse oximetry. Labs reviewed, CBC shows a white blood cell count that is improved when compared to prior. Slight elevation in creatinine 1.18 when compared to prior. Stable anemia noted. Urinalysis unremarkable, chest x-ray shows no acute disease. Patient is awake, she can barely roll over in bed. She cannot ambulate. Patient will be admitted for generalized weakness with gait impairment. Medical Screen Exam Complete: Yes Emergency Medical Condition: Yes Differential Diagnosis Differential Diagnosis: Deconditioning versus metabolic abnormality versus UTI versus infection Medical Records Medical records reviewed: Yes I reviewed the patient's medical records. Lab Data Lab results reviewed: Yes I reviewed the patient's lab results. Result diagrams: 09/15/18 17:57 09/15/18 17:57 Lab Results 09/15/18 09/15/18 09/15/18 Range/Units 17:43 17:57 17:57 WBC 12.8 H (4.0-11.0) th/mm3 RBC 2.88 L (4.00-5.30) mil/mm3 Hgb 9.0 L (11.6-15.3) gm/dL Hct 27.9 L (35.0-46.0) % MCV 96.6 (80.0-100.0) fL MCH 31.0 (27.0-34.0) pg MCHC 32.1 (32.0-36.0) % RDW 19.8 H (11.6-17.2) % Plt Count 175 D (150-450) th/mm3 MPV 6.3 L (7.0-11.0) fL Prelim Diff (Auto) Slide review pending Neut % (Auto) 86.0 H (16.0-70.0) % Lymph % (Auto) 7.2 L (9.0-44.0) % [place] % (Auto) 6.2 (0.0-8.0) % Eos % (Auto) 0.1 (0.0-4.0) % Baso % (Auto) 0.5 (0.0-2.0) % Neut # (Auto) 11.0 H (1.8-7.7) th/mm3 Lymph # (Auto) 0.9 L (1.0-4.8) th/mm3 [place] # (Auto) 0.8 (0.0-0.9) th/mm3 Eos # (Auto) 0.0 (0.0-0.4) th/mm3 Baso # (Auto) 0.1 (0.0-0.2) th/mm3 WBC Differential Manual diff final Seg Neuts % (Manual) 92 H (16-70) % Band Neuts % (Manual) 1 (0-6) % Lymphocytes % (Manual) 2 L (9-44) % Monocytes % (Manual) 3 (0-8) % Basophils % (Manual) 1 (0-2) % Promyelocytes % (Man) 1 H (0-0) % Abs Neuts (Manual) 12.0 H (1.8-7.7) th/mm3 Differential Comment . Platelet Estimate Normal (Normal) Platelet Morphology Normal (Normal) Ovalocytes 1+ H (None) Keratocytes Occ H (None) PT 11.3 (9.8-11.6) sec INR 1.1 Ratio Sodium (136-145) meq/L Potassium (3.5-5.1) meq/L Chloride (98-107) meq/L Carbon Dioxide (21.0-32.0) meq/L Anion Gap (5-15) meq/L BUN (7-18) mg/dL Creatinine (0.50-1.00) mg/dL Estimated GFR (>89) mL/min Random Glucose (74-106) mg/dL Calcium (8.5-10.1) mg/dL Magnesium (1.5-2.5) mg/dL Total Bilirubin (0.2-1.0) mg/dL AST (15-37) U/L ALT (10-53) U/L Alkaline Phosphatase (45-117) U/L Total Creatine Kinase (26-192) U/L Troponin I (0.02-0.05) ng/mL Total Protein (6.4-8.2) g/dL Albumin (3.4-5.0) g/dL TSH (0.358-3.740) uIU/mL Urine Color Yellow (Yellw/Straw) Urine Clarity Clear (Clear) Urine pH 5.0 (5.0-8.5) Ur Specific [place] 1.019 (1.002-1.035) Urine Protein Negative (Neg-Trace) mg/dL Urine Glucose (UA) 150 H (Negative) mg/dL Urine Ketones Trace H (Negative) mg/dL Urine Occult Blood Small H (Negative) Urine Nitrate Negative (Negative) Urine Bilirubin Negative (Negative) Urine Urobilinogen Less than 2 (Less than 2) mg/dL Ur Leukocyte Esterase Negative (Negative) Urine WBC 2 (0-5) /hpf Hyaline Casts 12 (0-3) /lpf Granular Casts 11 (None) /lpf Urine Mucus Many H (Occasional) /lpf Micro UA Comment Cath-culture not ind Ur Microscopic Review Not Reportable Urine Culture Comments Cath-cult not ind 09/15/18 Range/Units 17:57 WBC (4.0-11.0) th/mm3 RBC (4.00-5.30) mil/mm3 Hgb (11.6-15.3) gm/dL Hct (35.0-46.0) % MCV (80.0-100.0) fL MCH (27.0-34.0) pg MCHC (32.0-36.0) % RDW (11.6-17.2) % Plt Count (150-450) th/mm3 MPV (7.0-11.0) fL Prelim Diff (Auto) Neut % (Auto) (16.0-70.0) % Lymph % (Auto) (9.0-44.0) % [place] % (Auto) (0.0-8.0) % Eos % (Auto) (0.0-4.0) % Baso % (Auto) (0.0-2.0) % Neut # (Auto) (1.8-7.7) th/mm3 Lymph # (Auto) (1.0-4.8) th/mm3 [place] # (Auto) (0.0-0.9) th/mm3 Eos # (Auto) (0.0-0.4) th/mm3 Baso # (Auto) (0.0-0.2) th/mm3 WBC Differential Seg Neuts % (Manual) (16-70) % Band Neuts % (Manual) (0-6) % Lymphocytes % (Manual) (9-44) % Monocytes % (Manual) (0-8) % Basophils % (Manual) (0-2) % Promyelocytes % (Man) (0-0) % Abs Neuts (Manual) (1.8-7.7) th/mm3 Differential Comment Platelet Estimate (Normal) Platelet Morphology (Normal) Ovalocytes (None) Keratocytes (None) PT (9.8-11.6) sec INR Ratio Sodium 135 L (136-145) meq/L Potassium 3.6 (3.5-5.1) meq/L Chloride 105 (98-107) meq/L Carbon Dioxide 15.8 L (21.0-32.0) meq/L Anion Gap 14 (5-15) meq/L BUN 12 (7-18) mg/dL Creatinine 1.18 H (0.50-1.00) mg/dL Estimated GFR 45 L (>89) mL/min Random Glucose 284 H D (74-106) mg/dL Calcium 8.2 L D (8.5-10.1) mg/dL Magnesium 1.6 (1.5-2.5) mg/dL Total Bilirubin 0.4 (0.2-1.0) mg/dL AST 15 (15-37) U/L ALT 13 (10-53) U/L Alkaline Phosphatase 218 H (45-117) U/L Total Creatine Kinase 18 L (26-192) U/L Troponin I Less than 0.02 L (0.02-0.05) ng/mL Total Protein 6.7 D (6.4-8.2) g/dL Albumin 2.1 L (3.4-5.0) g/dL TSH 1.600 (0.358-3.740) uIU/mL Urine Color (Yellw/Straw) Urine Clarity (Clear) Urine pH (5.0-8.5) Ur Specific [place] (1.002-1.035) Urine Protein (Neg-Trace) mg/dL Urine Glucose (UA) (Negative) mg/dL Urine Ketones (Negative) mg/dL Urine Occult Blood (Negative) Urine Nitrate (Negative) Urine Bilirubin (Negative) Urine Urobilinogen (Less than 2) mg/dL Ur Leukocyte Esterase (Negative) Urine WBC (0-5) /hpf Hyaline Casts (0-3) /lpf Granular Casts (None) /lpf Urine Mucus (Occasional) /lpf Micro UA Comment Ur Microscopic Review Urine Culture Comments Imaging Data Radiologist's impression: Chest X-Ray 09/15/18 17:24 CONCLUSION: Right-sided [id number] catheter. Lungs are clear. Discharge Plan Discharge Disposition Patient Disposition: 30 Still Patient Discharge Condition Condition: Stable Discharge Details Diagnosis: Metastatic breast cancer, Generalized weakness, Gait disturbance Physicians Team ED Provider: Lucie Andrews ED Midlevel Provider: Lindsey Umana Rxs /Orders / Referrals /Forms Prescriptions: No Action metformin 500 mg Tablet 500 mg PO BID RF: 0 anastrozole 1 mg Tablet 1 mg PO DAILY RF: 0 hydrocodone-acetaminophen 5-325 mg Tablet 1 tab PO Q4H PRN (Reason: acute post op pain exception ) Qty: 18 RF: 0 Status ED Status: Admitted Observation Patient
[2018-09-15 18:37] LABS: Albumin 2.1 g/dL (3.4-5.0); Anion Gap 14 meq/L (5-15); Blood Urea Nitrogen 12 mg/dL (7-18); Calcium 8.2 mg/dL (8.5-10.1); Carbon Dioxide 15.8 meq/L (21.0-32.0); Chloride 105 meq/L (98-107); Glomerular Filtration Rate 45 mL/min (>89); Glucose,Random 284 mg/dL (74-106); Magnesium 1.6 mg/dL (1.5-2.5); Potassium 3.6 meq/L (3.5-5.1); Sodium 135 meq/L (136-145)
[2018-09-15 18:38] LABS: Aspartate Aminotransferase 15 U/L (15-37); Lymphocytes 2 % (9-44); Monocytes 3 % (0-8); Promyelocyte 1 % (0-0)
[2018-09-15 18:40] LABS: Ovalocytes 1+; Platelet Estimate Normal (Normal); Platelet Morphology Normal (Normal)
[2018-09-15] MEDS ORDERED: Mag Sulf 1 gm/100 ml Premix 100 ML IV.SIG ONE (18:40)
[2018-09-15 18:48] LABS: Alanine Aminotransferase 13 U/L (10-53); Alkaline Phosphatase 218 U/L (45-117); Total Protein 6.7 g/dL (6.4-8.2)
[2018-09-15 18:49] LABS: Creatine Kinase 18 U/L (26-192)
[2018-09-15] MEDS ORDERED: Zolpidem Tartrate 5 MG Tablet PO PRN (20:38)
[2018-09-15] MEDS ORDERED: Acetaminophen 325 MG Tablet PO PRN (20:38)
[2018-09-15] MEDS ORDERED: Bisacodyl 10 MG Supp RECTAL PRN (20:38)
[2018-09-15] MEDS ORDERED: Dextrose 50% in Water 50 ML Vial IV.PUSH PRN (20:42)
--- NOTE | 2018-09-15 20:49 | P.HP ---
History of Present Illness Service: [facility] Primary Care Physician: Chelsey Barragan History of Present Illness: 73-year-old female with past medical history significant for bilateral metastatic breast cancer and atrial fibrillation presents to the emergency department for evaluation of weakness. The patient was slated for a bilateral vasectomy however secondary to gangrenous cholecystitis had to have a cholecystectomy 2 weeks ago. She reports that for the past 4 weeks she has been becoming progressively weak. She endorses an associated anorexia and early satiety. No nausea or vomiting. The patient is 6 weeks status post completion of chemotherapy in 8 weeks status post completion of radiation therapy. Her oncologist is Dr. Johnson. The patient was seen by her oncologist earlier this morning and was given IV fluids without relief of her symptoms. She then went to her follow-up for her cholecystectomy with Dr. Brito who sent her to the emergency department secondary to her debilitated condition. The patient is currently a resident of [facility] however has not been participating in her therapies as she is unable to stand. She denies chest pain or shortness of breath. No abdominal pain. No lateralizing signs/symptoms. No fever/chills. 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 - Medical History Medical History: Medical History (Last Reviewed 09/15/18 @ 20:42 by Lucie Ortiz MD) Atrial fibrillation History of chemotherapy History of radiation therapy Breast cancer Diabetes - Surgical History Surgical History: Surgical History (Last Reviewed 09/15/18 @ 20:42 by Lucie Ortiz MD) History of cholecystectomy H/O tubal ligation Hx of appendectomy Hx of tonsillectomy - Family History Family History: Family History (Last Updated 09/15/18 @ 20:42 by Lucie Ortiz MD) Other Family history normal - Tobacco History Second Hand Smoke Exposure: No Smoking Status: Never smoker - Alcohol History How Often Do You Have a Drink Containing Alcohol: 2 to 4 times a month - Substance Use History Substance History: No History of Abuse - Travel History Recent Travel in the [facility] Within the Last 8 Weeks: No Recent Travel Out of the Country Within the Last 8 Weeks: No - Immunization History Tetanus Immunization: >5 Years Medications and Allergies Active Medications: Active Medications Sodium Chloride (Ns Flush) 2 ml IV.FLUSH PRN PRN PRN Reason: FLUSH AFTER USING IV ACCESS Last Admin: 09/15/18 17:57 Dose: 2 ml Allergies Allergy/AdvReac Type Severity Reaction Status Date / Time apple Allergy Severe Itching Verified 09/15/18 17:52 banana Allergy Severe Swelling Verified 09/15/18 17:52 Home Medications Medication Instructions Recorded Confirmed Type anastrozole 1 mg PO DAILY 08/19/18 09/15/18 History metformin 500 mg PO BID 08/19/18 09/15/18 History Exam Vital signs: Vital Signs 09/15/18 17:23 09/15/18 17:52 Temperature 97.9 F Pulse Rate 81 Respiratory Rate 19 Blood Pressure 149/79 H Pulse Oximetry 98 98 Intake & Output 09/15/18 09/15/18 09/16/18 06:59 18:59 06:59 Intake Total 1000 / 1000 Balance 1000 / 1000 Weight 74.389 kg Intake: IV 1000 / 1000 NS Inj 1,000 ML @ Wide Open IV. 1000 / 1000 SIG BOLUS ONE Rx#:[id number] Narrative: Gen.: No acute distress Head: Normocephalic. Atraumatic. EENT: Pupils equal round and reactive to light. Nose without drainage. Airway intact. Throat without injection. Cardiovascular: Regular rate and rhythm. No murmurs, rubs or gallops. Respiratory: Lungs clear to auscultation bilaterally. No wheezes or rhonchi. Abdomen: Soft, nontender, nondistended. No peritoneal signs. Musculoskeletal: No gross deformities. No edema. Skin: No obvious rashes or erythema. Neuro: Sensory and motor grossly intact. Cranial nerves II through XII grossly intact. Results - Labs CBC & Chem 7: 09/15/18 17:57 09/15/18 17:57 Labs: Laboratory Results - last 24 hr 09/15/18 09/15/18 09/15/18 17:43 17:57 17:57 WBC 12.8 H RBC 2.88 L Hgb 9.0 L Hct 27.9 L MCV 96.6 MCH 31.0 MCHC 32.1 RDW 19.8 H Plt Count 175 D MPV 6.3 L Prelim Diff (Auto) Slide review pending Neut % (Auto) 86.0 H Lymph % (Auto) 7.2 L [place] % (Auto) 6.2 Eos % (Auto) 0.1 Baso % (Auto) 0.5 Neut # (Auto) 11.0 H Lymph # (Auto) 0.9 L [place] # (Auto) 0.8 Eos # (Auto) 0.0 Baso # (Auto) 0.1 WBC Differential Manual diff final Seg Neuts % (Manual) 92 H Band Neuts % (Manual) 1 Lymphocytes % (Manual) 2 L Monocytes % (Manual) 3 Basophils % (Manual) 1 Promyelocytes % (Man) 1 H Abs Neuts (Manual) 12.0 H Differential Comment . Platelet Estimate Normal Platelet Morphology Normal Ovalocytes 1+ H Keratocytes Occ H PT 11.3 INR 1.1 Sodium Potassium Chloride Carbon Dioxide Anion Gap BUN Creatinine Estimated GFR Random Glucose Calcium Magnesium Total Bilirubin AST ALT Alkaline Phosphatase Total Creatine Kinase Troponin I Total Protein Albumin TSH Urine Color Yellow Urine Clarity Clear Urine pH 5.0 Ur Specific [place] 1.019 Urine Protein Negative Urine Glucose (UA) 150 H Urine Ketones Trace H Urine Occult Blood Small H Urine Nitrate Negative Urine Bilirubin Negative Urine Urobilinogen Less than 2 Ur Leukocyte Esterase Negative Urine WBC 2 Hyaline Casts 12 Granular Casts 11 Urine Mucus Many H Micro UA Comment Cath-culture not ind Ur Microscopic Review Not Reportable Urine Culture Comments Cath-cult not ind 09/15/18 17:57 WBC RBC Hgb Hct MCV MCH MCHC RDW Plt Count MPV Prelim Diff (Auto) Neut % (Auto) Lymph % (Auto) [place] % (Auto) Eos % (Auto) Baso % (Auto) Neut # (Auto) Lymph # (Auto) [place] # (Auto) Eos # (Auto) Baso # (Auto) WBC Differential Seg Neuts % (Manual) Band Neuts % (Manual) Lymphocytes % (Manual) Monocytes % (Manual) Basophils % (Manual) Promyelocytes % (Man) Abs Neuts (Manual) Differential Comment Platelet Estimate Platelet Morphology Ovalocytes Keratocytes PT INR Sodium 135 L Potassium 3.6 Chloride 105 Carbon Dioxide 15.8 L Anion Gap 14 BUN 12 Creatinine 1.18 H Estimated GFR 45 L Random Glucose 284 H D Calcium 8.2 L D Magnesium 1.6 Total Bilirubin 0.4 AST 15 ALT 13 Alkaline Phosphatase 218 H Total Creatine Kinase 18 L Troponin I Less than 0.02 L Total Protein 6.7 D Albumin 2.1 L TSH 1.600 Urine Color Urine Clarity Urine pH Ur Specific [place] Urine Protein Urine Glucose (UA) Urine Ketones Urine Occult Blood Urine Nitrate Urine Bilirubin Urine Urobilinogen Ur Leukocyte Esterase Urine WBC Hyaline Casts Granular Casts Urine Mucus Micro UA Comment Ur Microscopic Review Urine Culture Comments - Imaging Impressions Chest X-Ray 09/15/18 17:24 CONCLUSION: Right-sided Gaecag-b-Hfmf catheter. Lungs are clear. Caprini VTE Risk Assessment Caprini VTE Risk Assessment: Moderate/High Risk (score >= 2) Caprini Risk Assessment Model: Point Value = 1 Point Value = 2 Point Value = 3 Point Value = 5 Age 41-60 Minor surgery BMI > 25 kg/m2 Swollen legs Varicose veins or History of unexplained or recurrent spontaneous Oral contraceptives or hormone replacement Sepsis (< 1 month) Serious lung disease, including pneumonia (< 1 month) Abnormal pulmonary function Acute myocardial infarction Congestive heart failure (< 1 month) History of inflammatory bowel disease Medical patient at bed rest Age 61-74 Arthroscopic surgery Major open surgery (> 45 min) Laparoscopic surgery (> 45 min) Malignancy Confined to bed (> 72 hours) Immobilizing plaster cast Central venous access Age >= 75 History of VTE Family history of VTE Factor V Leiden Prothrombin [id number] Lupus anticoagulant Anticardiolipin antibodies Elevated serum homocysteine Heparin-induced thrombocytopenia Other congenital or acquired thrombophilia Stroke (< 1 month) Elective arthroplasty Hip, pelvis, or leg fracture Acute spinal cord injury (< 1 month) Prophylaxis Regimen: Total Risk Factor Score Risk Level Prophylaxis Regimen 0-1 Low Early ambulation 2 Moderate Order ONE of the following: *Sequential Compression Device (SCD) *Heparin 5000 units SQ BID 3-4 Higher Order ONE of the following medications: *Heparin 5000 units SQ TID *Enoxaparin/Lovenox 40 mg SQ daily (WT < 150 kg, CrCl > 30 mL/min) *Enoxaparin/Lovenox 30 mg SQ daily (WT < 150 kg, CrCl > 10-29 mL/min) *Enoxaparin/Lovenox 30 mg SQ BID (WT < 150 kg, CrCl > 30 mL/min) AND/OR *Sequential Compression Device (SCD) 5 or more Highest Order ONE of the following medications: *Heparin 5000 units SQ TID (Preferred with Epidurals) *Enoxaparin/Lovenox 40 mg SQ daily (WT < 150 kg, CrCl > 30 mL/min) *Enoxaparin/Lovenox 30 mg SQ daily (WT < 150 kg, CrCl > 10-29 mL/min) *Enoxaparin/Lovenox 30 mg SQ BID (WT < 150 kg, CrCl > 30 mL/min) AND *Sequential Compression Device (SCD) Assessment and Plan - Plan Assessment/plan: 1. Generalized weakness/failure to thrive IV fluid hydration Nutrition consult PT/OT Anticipate discharge to [facility] once patient able to stand and participate in therapy 2. Breast cancer Patient's oncologist is Dr. Johnson, consulted, appreciate assistance Continue anastrozole 3. Atrial fibrillation Patient not on any home medications Monitor Rate controlled at this time 4. Diabetes mellitus Holding home metformin Sliding-scale insulin FEN Regular diet Electrolytes: Monitor and replete as needed NS at 100 cc/hour Lovenox
[2018-09-15] MEDS: Sod Chloride 0.9% Inj 1,000 ML IV.CONT SCH (20:52)
[2018-09-15] MEDS: Insulin NovoLOG Aspart Correctional Sugar Inj SQ SCH (23:18)
[2018-09-16] MEDS: Sod Chloride 0.9% Inj 1,000 ML IV.CONT SCH ×2 (06:38→17:10)
[2018-09-16 06:41] LABS: Baso % (Auto) 0.4 % (0.0-2.0); Eos # (Auto) 0.1 th/mm3 (0.0-0.4); Hematocrit 23.3 % (35.0-46.0); Hemoglobin 7.7 gm/dL (11.6-15.3); Lymph # (Auto) 1.2 th/mm3 (1.0-4.8); Lymph % (Auto) 11.1 % (9.0-44.0); Mean Corpuscular HGB Conc 33.3 % (32.0-36.0); Mean Corpuscular Hemoglobin 31.4 pg (27.0-34.0); Mean Corpuscular Volume 94.4 fL (80.0-100.0); Mean Platelet Volume 6.7 fL (7.0-11.0); Mono % (Auto) 8.9 % (0.0-8.0); Neut # (Auto) 8.4 th/mm3 (1.8-7.7); Neut % (Auto) 78.6 % (16.0-70.0); Platelet Count 139 th/mm3 (150-450); Red Blood Count 2.46 mil/mm3 (4.00-5.30); Red Cell Distribution Width 19.2 % (11.6-17.2); White Blood Count 10.7 th/mm3 (4.0-11.0)
[2018-09-16 07:04] LABS: Carbon Dioxide 19.2 meq/L (21.0-32.0); Potassium 3.1 meq/L (3.5-5.1)
[2018-09-16 08:10] LABS: Lymphocytes 9 % (9-44); Metamyelocytes 3 % (0-1); Monocytes 2 % (0-8); Myelocytes 1 % (0-0)
[2018-09-16 08:11] LABS: Platelet Morphology Normal (Normal); Toxic Granulation 1+
[2018-09-16 08:12] LABS: Tear Drop Cells 1+
[2018-09-16] MEDS: Insulin NovoLOG Aspart Correctional Sugar Inj SQ SCH ×3 (08:25→17:14)
[2018-09-16] MEDS: Enoxaparin Inj 40 MG/0.4 ML Syringe SQ SCH (10:06)
[2018-09-16] MEDS: Anastrozole 1 MG Tablet PO SCH (10:07)
--- NOTE | 2018-09-16 11:10 | P.PN ---
Subjective Interval history: Follow-up for weakness, metastatic breast cancer. Patient reports feeling slightly better today however still feels weak. She states she has been dealing with an upset stomach over the past few days. She reports intermittent bouts of nausea, but no vomiting. She states she is a picky eater and does not eat much at baseline. She declines trial of megace for appetite stimulation. She also reports she has been having diarrhea and loose stools while at rehab. She states she took Imodium a few days ago with some relief. Denies noticing any blood in the stool. Denies any other medical complaints at this time. Physical Exam Vital signs: Vital Signs 09/15/18 17:23 09/15/18 17:52 09/15/18 22:24 Temperature 97.9 F 98.4 F Pulse Rate 81 83 Respiratory Rate 19 17 Blood Pressure 149/79 H 105/58 L Pulse Oximetry 98 98 98 09/16/18 03:48 09/16/18 04:00 09/16/18 08:00 Temperature 98.3 F Pulse Rate 85 77 103 H Respiratory Rate 16 Blood Pressure 114/57 L Pulse Oximetry 99 09/16/18 08:03 09/16/18 08:14 09/16/18 08:15 Temperature 98.2 F Pulse Rate 89 Respiratory Rate 15 18 Blood Pressure 94/52 L Pulse Oximetry 99 99 09/16/18 09:00 Temperature Pulse Rate 95 H Respiratory Rate Blood Pressure Pulse Oximetry Intake & Output 09/15/18 09/16/18 09/16/18 18:59 06:59 18:59 Intake Total 2099 Balance 2099 Weight 74.389 kg Intake: IV 2099 NS Inj 1,000 ML @ 100 mls/hr IV 1000 / 1000 .CONT .Q10H [facility] Rx#:[id number] Magnesium Sulfate 1 gm/D5W 100 100 / 100 ml Premix 100 ML @ 100 mls/hr IV.SIG ONCE ONE Rx#:[id number] NS Inj 1,000 ML @ Wide Open IV. 1000 / 1000 SIG BOLUS ONE Rx#:[id number] Narrative: GENERAL: Well-nourished, well-developed elderly female patient in [facility]. SKIN: Warm and dry. No rash. HEENT: Normocephalic. Atraumatic. Pupils equal and round. Mucous membranes pink and moist. NECK: Supple. Trachea midline. CARDIOVASCULAR: Regular rate and rhythm. No murmur appreciated. RESPIRATORY: No accessory muscle use. Clear to auscultation. Breath sounds equal bilaterally. GASTROINTESTINAL: Abdomen soft, non-tender, nondistended. Normoactive bowel sounds x4. MUSCULOSKELETAL: No obvious deformities. Extremities without clubbing, cyanosis , or edema. NEUROLOGICAL: Awake and alert. No obvious cranial nerve deficits. Motor grossly within normal limits. Moving all extremities spontaneously although with generalized weakness. Normal speech. PSYCHIATRIC: Appropriate mood and affect; insight and judgment normal. Results - Labs CBC & Chem 7: 09/16/18 04:45 09/16/18 04:45 Laboratory Results - last 24 hr 09/15/18 09/15/18 09/15/18 17:43 17:57 17:57 WBC 12.8 H RBC 2.88 L Hgb 9.0 L Hct 27.9 L MCV 96.6 MCH 31.0 MCHC 32.1 RDW 19.8 H Plt Count 175 D MPV 6.3 L Prelim Diff (Auto) Slide review pending Neut % (Auto) 86.0 H Lymph % (Auto) 7.2 L Dare % (Auto) 6.2 Eos % (Auto) 0.1 Baso % (Auto) 0.5 Neut # (Auto) 11.0 H Lymph # (Auto) 0.9 L Dare # (Auto) 0.8 Eos # (Auto) 0.0 Baso # (Auto) 0.1 WBC Differential Manual diff final Seg Neuts % (Manual) 92 H Band Neuts % (Manual) 1 Lymphocytes % (Manual) 2 L Monocytes % (Manual) 3 Basophils % (Manual) 1 Metamyelocytes % (Man) Myelocytes % (Man) Promyelocytes % (Man) 1 H Abs Neuts (Manual) 12.0 H Differential Comment . Toxic Granulation Platelet Estimate Normal Platelet Morphology Normal Tear Drop Cells Ovalocytes 1+ H Keratocytes Occ H PT 11.3 INR 1.1 Sodium Potassium Chloride Carbon Dioxide Anion Gap BUN Creatinine Estimated GFR POC Glucose Random Glucose Calcium Magnesium Total Bilirubin AST ALT Alkaline Phosphatase Total Creatine Kinase Troponin I Total Protein Albumin TSH Urine Color Yellow Urine Clarity Clear Urine pH 5.0 Ur Specific [place] 1.019 Urine Protein Negative Urine Glucose (UA) 150 H Urine Ketones Trace H Urine Occult Blood Small H Urine Nitrate Negative Urine Bilirubin Negative Urine Urobilinogen Less than 2 Ur Leukocyte Esterase Negative Urine WBC 2 Hyaline Casts 12 Granular Casts 11 Urine Mucus Many H Micro UA Comment Cath-culture not ind Ur Microscopic Review Not Reportable Urine Culture Comments Cath-cult not ind 09/15/18 09/15/18 09/16/18 17:57 23:12 04:45 WBC 10.7 RBC 2.46 L Hgb 7.7 L Hct 23.3 L MCV 94.4 MCH 31.4 MCHC 33.3 RDW 19.2 H Plt Count 139 L MPV 6.7 L Prelim Diff (Auto) Slide review pending Neut % (Auto) 78.6 H Lymph % (Auto) 11.1 Dare % (Auto) 8.9 H Eos % (Auto) 1.0 Baso % (Auto) 0.4 Neut # (Auto) 8.4 H Lymph # (Auto) 1.2 Dare # (Auto) 1.0 H Eos # (Auto) 0.1 Baso # (Auto) 0.0 WBC Differential Manual diff final Seg Neuts % (Manual) 80 H Band Neuts % (Manual) 5 Lymphocytes % (Manual) 9 Monocytes % (Manual) 2 Basophils % (Manual) Metamyelocytes % (Man) 3 H Myelocytes % (Man) 1 H Promyelocytes % (Man) Abs Neuts (Manual) 9.5 H Differential Comment . Toxic Granulation 1+ H Platelet Estimate Low L Platelet Morphology Normal Tear Drop Cells 1+ H Ovalocytes Keratocytes PT INR Sodium 135 L Potassium 3.6 Chloride 105 Carbon Dioxide 15.8 L Anion Gap 14 BUN 12 Creatinine 1.18 H Estimated GFR 45 L POC Glucose 181 H Random Glucose 284 H D Calcium 8.2 L D Magnesium 1.6 Total Bilirubin 0.4 AST 15 ALT 13 Alkaline Phosphatase 218 H Total Creatine Kinase 18 L Troponin I Less than 0.02 L Total Protein 6.7 D Albumin 2.1 L TSH 1.600 Urine Color Urine Clarity Urine pH Ur Specific [place] Urine Protein Urine Glucose (UA) Urine Ketones Urine Occult Blood Urine Nitrate Urine Bilirubin Urine Urobilinogen Ur Leukocyte Esterase Urine WBC Hyaline Casts Granular Casts Urine Mucus Micro UA Comment Ur Microscopic Review Urine Culture Comments 09/16/18 09/16/18 04:45 08:25 WBC RBC Hgb Hct MCV MCH MCHC RDW Plt Count MPV Prelim Diff (Auto) Neut % (Auto) Lymph % (Auto) Dare % (Auto) Eos % (Auto) Baso % (Auto) Neut # (Auto) Lymph # (Auto) Dare # (Auto) Eos # (Auto) Baso # (Auto) WBC Differential Seg Neuts % (Manual) Band Neuts % (Manual) Lymphocytes % (Manual) Monocytes % (Manual) Basophils % (Manual) Metamyelocytes % (Man) Myelocytes % (Man) Promyelocytes % (Man) Abs Neuts (Manual) Differential Comment Toxic Granulation Platelet Estimate Platelet Morphology Tear Drop Cells Ovalocytes Keratocytes PT INR Sodium 142 Potassium 3.1 L Chloride 112 H Carbon Dioxide 19.2 L Anion Gap 11 BUN 10 Creatinine 0.88 Estimated GFR 63 L POC Glucose 82 Random Glucose 77 D Calcium 8.0 L Magnesium Total Bilirubin AST ALT Alkaline Phosphatase Total Creatine Kinase Troponin I Total Protein Albumin TSH Urine Color Urine Clarity Urine pH Ur Specific [place] Urine Protein Urine Glucose (UA) Urine Ketones Urine Occult Blood Urine Nitrate Urine Bilirubin Urine Urobilinogen Ur Leukocyte Esterase Urine WBC Hyaline Casts Granular Casts Urine Mucus Micro UA Comment Ur Microscopic Review Urine Culture Comments - Imaging Impressions Chest X-Ray 09/15/18 17:24 CONCLUSION: Right-sided Iavjfg-d-Moqa catheter. Lungs are clear. Assessment and Plan - Plan 73-year-old female with past medical history significant for bilateral metastatic breast cancer and atrial fibrillation presents to the emergency department for evaluation of weakness. Generalized weakness/failure to thrive: suspect multifactorial secondary to cancer, dehydration, diarrhea, decreased oral intake. -Continue IV fluid hydration -Start on Ensure shakes tid -Nutrition consult -Consult PT/OT, Anticipate discharge to [place] rehab once patient able to stand and participate in therapy Abdominal Discomfort/Nausea/Diarrhea: possible gastroenteritis -check stool studies -check urinalysis -give IVF hydration -replace electrolytes -diet as tolerated RYAN: suspect secondary to dehydration, diarrhea, poor oral intake -giving IVF hydration -avoid nephrotoxins -monitor BMP Normocytic Anemia: Hgb dropped to 7.7 today, slight worse than baseline around 8 -9 -check iron panel, B12, folate -possibly contributing to generalized weakness, will defer blood transfusion to oncologist Dr. Johnson Metastatic Breast cancer: ongoing -Patient's oncologist is Dr. Johnson, consulted, appreciate assistance -Continue anastrozole Atrial fibrillation: chronic -Patient not on any home medications -Monitor -Rate controlled at this time Diabetes mellitus: chronic -Holding home metformin -Monitor Accu-checks and cover with Sliding-scale insulin Hypokalemia/Hypomagnesemia: K 3.1. -give po KCl replacement -monitor BMP DVT Prophylaxis: Lovenox sq Discharge Planning: Discharge pending further clinical improvement, stool studies, and oncology consultation. Possible discharge back to [facility] 09/17 if improved.
--- NOTE | 2018-09-16 12:35 | MB ---
cc: Britany Johnson MD,Lucie Del Cid MD DATE: 09/16/2018 REFERRING PHYSICIAN: Lucie Ortiz MD CHIEF COMPLAINT: Dr. Ortiz requests consultation for Mrs. Matias regarding metastatic breast cancer. HISTORY OF PRESENT ILLNESS: Mrs. Matias is a 73-year-old woman, well-known patient, with a presentation of metastatic breast cancer. She came in with a bleeding right breast mass and bleeding ulcerated left breast mass in early July 2018. She had neglected breast cancer. She is diagnosed with an ER positive right breast cancer and an ER negative left breast cancer. She has evidence of bony metastatic disease. There was no soft tissue metastatic disease present. She received neoadjuvant chemotherapy in order to induce a response to allow for definitive surgery of bilateral mastectomy for palliation of these large breast masses and ulceration. She responded quite well. Her course was complicated by acute cholecystitis requiring urgent cholecystectomy in place of bilateral mastectomy. She had a prolonged course after her cholecystectomy. She had biliary leak and required a stent. She was ultimately discharged to a rehab facility. She was seen in [facility]. In clinic, she complained of nausea. She was unable to tolerate sitting in a wheelchair. She had normal blood pressure. She was given IV fluid hydration and antiemetic therapy. She was given anxiolytic. Eventually, she felt better. She was discharged home. She followed up with Dr. Brito's clinic in the afternoon. She had same symptoms of nausea and did not feel well. On further questioning, she describes that she is picky in eating. She only wants to eat food that she likes. Unfortunately, it may be less than the calories that is necessary during the day. She denies any vomiting. She describes the nausea was ongoing even prior to her cholecystectomy. She had some intermittent abdominal pain. She denies any headaches. Her performance status is poor. She gets nauseous and dizzy standing up. She is at rehab trying to improve her performance status and her physical activities. She denies any fevers. She had her polly removed at Dr. Brito's office. PAST MEDICAL HISTORY: Diabetes type 2, gastroesophageal reflux, hypertension, inflammatory right breast cancer, triple negative left breast cancer, metastatic breast cancer to bone. PAST SURGICAL HISTORY: Infusaport placement, cholecystectomy, biliary drain placement, bilateral breast skin biopsy, appendectomy, tubal ligation. ALLERGIES: NO KNOWN DRUG ALLERGIES. FAMILY HISTORY: No significant family history of cancers. SOCIAL HISTORY: She lives at a rehab facility. She was independent prior to her admission to the hospital in July. She never smoked. She drinks occasionally. She denies any illicit drug use. She has 1 daughter and lives in [place]. MEDICATIONS: 1. Tylenol. 2. Gobler. 3. Arimidex. 4. Dulcolax. 5. Dextrose. 6. Lovenox. 7. Glucagon. 8. NovoLog. 9. Lactulose. 10. Zofran. 11. Senokot. 12. Zolpidem. PHYSICAL EXAMINATION: VITAL SIGNS: Temperature 98.2, heart rate 95, respiratory rate 18, blood pressure 94/52, saturation 99%. HEENT: Pupils are round, reactive to light and accommodation. She has a bruise underneath the left eye. She has mild alopecia. Generalized pallor. Oropharynx is dry. NECK: Supple. LUNGS: Clear. CARDIOVASCULAR: Reveals a normal rate and rhythm. ABDOMEN: Large but benign. The right upper quadrant scar has Steri-Strips in place. Polly have been removed. EXTREMITIES: Lower extremities have no edema. Occasional bruising. Bilateral axillae for masses. BREASTS: The right breast wound with a dry dressing. The left breast mass is unchanged. The dried crust is what is left of the ulceration. ASSESSMENT AND PLAN: Ms. Matias is a 73-year-old woman with metastatic ER positive and ER negative breast cancer. She has synchronous breast cancer, one in the right breast and the other in the left breast. She is responding to an aromatase inhibitor. She was pending definitive surgery of bilateral mastectomy for ulcerated masses of both breasts. Both have responded since her initial presentation. Her bilateral mastectomy was delayed due to a more urgent and pressing issue of the acute cholecystitis. She appears to have recovered from the surgery. She is, however, failing to thrive. She has progressive weight loss. Her performance status has not improved despite the rehabilitation. She has intermittent nausea and symptoms of dizziness. We discussed ruling out central nervous system metastatic disease. Initial evaluation showed that central nervous system was negative for metastases. We will coordinate MRI of the brain. She considered that her nausea may be induced by anxiety. Lorazepam is offered on a p.r.n. basis. We also considered possible adrenal insufficiency since she gets dizzy and lightheaded on standing up. She is hypokalemic. Her renal function has improved from yesterday. Her liver function is normal. I will check a cortisol level. Her CA 15-3 was normal on presentation and therefore is not a good marker for disease response in terms of her breast. Clinically, her breast exam is showing improvement. MD DANUTA Celestin/riddhi , 12:03 PM , 12:18 PM
[2018-09-16 12:57] LABS: % Iron Saturation 22.9 % (20-50); Folate 2.1 ng/mL (3.1-17.5)
[2018-09-16] MEDS ORDERED: Gadobutrol PF 7.5 MMOL/7.5 ML Vial (for RAD) IV.SIG ONE (18:21)
--- NOTE | 2018-09-16 18:31 | MR ---
EXAM DATE: 09/16/2018 5:20 PM EDT AGE/SEX: 73 years / Female INDICATIONS: . Generalized weakness with gait disturbance. CLINICAL DATA: This is the patient's subsequent encounter. Patient reports that signs and symptoms h ave been present for 2 days and indicates a pain score of 0/10. MEDICAL/SURGICAL HISTORY: Carcinoma, breast. Atrial Fibrillation Cholecystectomy. Tubal ligat ion. Appendectomy, Tonsillectomy COMPARISON: [facility] [place], MRI BRAIN W/O CONTRAST, 05/10/2018. . TECHNIQUE: Multiplanar, multisequence examination of the brain was performed without and with 7.5 ml Omniscan (gadodiamide) contrast as a single exam dose. FINDINGS: There is no intracranial mass or midline shift. No hydrocephalus. No abnormal extra-axial fluid colle ctions. No recent infarct on the diffusion-weighted images. Mild chronic white matter ischemic changes simila r to 2018. No sellar mass. Visualized paranasal sinuses are clear. CONCLUSION: 1. No acute findings. No recent infarct. Mild white matter ischemic changes, stable. Electronically signed by: Matthew Dunlap MD 09/16/2018 6:29 PM EDT
--- NOTE | 2018-09-16 21:09 | ECG ---
Date Performed: 09/15/2018 Time Performed: 18:31:16 PTAGE: 73 years EKG: SINUS TACHYCARDIA WITH FREQUENT VENTRICULAR PREMATURE COMPLEXES LOW QRS VOLTAGE PROBABLE IN FERIOR MYOCARDIAL INFARCTION When compared to previous tracing,sinus tachycardia with Premature ventr icular contractions has replaced atrial fibrillation. ABNORMAL ECG PREVIOUS TRACING : 08/22/2018 14.46 DOCTOR: Edgard Isaacs Interpretating Date/Time 09/16/2018 21:08:43
[2018-09-17] MEDS: Insulin NovoLOG Aspart Correctional Sugar Inj SQ SCH ×5 (00:59→20:59)
[2018-09-17] MEDS: Sod Chloride 0.9% Inj 1,000 ML IV.CONT SCH ×2 (04:24→14:26)
[2018-09-17] MEDS: Enoxaparin Inj 40 MG/0.4 ML Syringe SQ SCH (09:02)
[2018-09-17] MEDS: Anastrozole 1 MG Tablet PO SCH (09:02)
--- NOTE | 2018-09-17 09:43 | P.PN ---
Subjective Interval history: Follow-up for weakness, metastatic breast cancer. The patient reports continued weakness and just wants to rest this morning. She does not want any of her breakfast tray, requesting tuna sandwich. Denies any specific medical complaints including no headache, lightheadedness, dizziness, chest pain, nausea , abdominal pain, or urinary complaints. She has not had any more diarrhea since her arrival. She has no other medical complaints at this time. Physical Exam Vital signs: Vital Signs 09/16/18 12:40 09/16/18 16:09 09/16/18 20:00 Temperature 98.6 F 97.9 F 97.8 F Pulse Rate 85 95 H 97 H Respiratory Rate 18 20 15 Blood Pressure 108/62 105/57 L 107/54 L Pulse Oximetry 100 96 97 09/17/18 00:00 09/17/18 04:00 09/17/18 07:40 Temperature 98.2 F 98.2 F Pulse Rate 90 98 H 81 Respiratory Rate 16 15 18 Blood Pressure 119/58 L 153/68 H 119/63 Pulse Oximetry 99 100 98 09/17/18 08:00 Temperature Pulse Rate 89 Respiratory Rate Blood Pressure Pulse Oximetry Intake & Output 09/16/18 09/17/18 09/17/18 18:59 06:59 18:59 Intake Total 1000 / 1000 1000 / 1000 Balance 1000 / 1000 1000 / 1000 Weight 80.2 kg Intake: IV 1000 / 1000 1000 / 1000 NS Inj 1,000 ML @ 100 mls/hr IV 1000 / 1000 1000 / 1000 .CONT .Q10H [facility] Rx#:[id number] Other: # Urine Diapers 1 Narrative: GENERAL: Well-nourished, well-developed elderly female patient in [facility]. SKIN: Warm and dry. No rash. HEENT: Normocephalic. Atraumatic. Pupils equal and round. Mucous membranes pink and moist. CARDIOVASCULAR: Regular rate and rhythm. No murmur appreciated. RESPIRATORY: No accessory muscle use. Clear to auscultation. Breath sounds equal bilaterally. GASTROINTESTINAL: Abdomen soft, non-tender, nondistended. Normoactive bowel sounds x4. MUSCULOSKELETAL: No obvious deformities. Extremities without clubbing, cyanosis , or edema. NEUROLOGICAL: Awake and alert. No obvious cranial nerve deficits. Motor grossly within normal limits. Moving all extremities spontaneously although with generalized weakness. Normal speech. PSYCHIATRIC: Appropriate mood and affect; insight and judgment normal. Results - Labs CBC & Chem 7: 09/17/18 16:10 09/17/18 14:45 Laboratory Results - last 24 hr 09/16/18 09/16/18 09/16/18 04:45 12:35 17:14 POC Glucose 80 101 Iron 41 L TIBC 179 L % Saturation 22.9 Ferritin 414 H Vitamin B12 517 Folate 2.1 L 09/17/18 09/17/18 09/17/18 00:05 00:50 04:27 POC Glucose 69 74 105 Iron TIBC % Saturation Ferritin Vitamin B12 Folate 09/17/18 08:20 POC Glucose 96 Iron TIBC % Saturation Ferritin Vitamin B12 Folate - Imaging Impressions Head MRI 09/16/18 00:00 CONCLUSION: 1. No acute findings. No recent infarct. Mild white matter ischemic changes, stable. Assessment and Plan - Plan 73-year-old female with past medical history significant for bilateral metastatic breast cancer and atrial fibrillation presents to the emergency department for evaluation of weakness. Generalized weakness/failure to thrive: suspect multifactorial secondary to cancer, dehydration, diarrhea, decreased oral intake. -Continue IV fluid hydration -Start on Ensure shakes tid -Nutrition consult, appreciate recommendations -Consult PT/OT, Anticipate discharge to [facility] once patient able to stand and participate in therapy Abdominal Discomfort/Nausea/Diarrhea: possible gastroenteritis -check stool studies, however no further diarrhea -Urinalysis unremarkable -give IVF hydration -replace electrolytes -diet as tolerated RYAN: suspect secondary to dehydration, diarrhea, poor oral intake. Creatinine 1.18 upon arrival. -giving IVF hydration -avoid nephrotoxins -monitor BMP, much improved, creatinine 0.61 today Normocytic Anemia: Hgb dropped to 7.4 today, slight worse than baseline around 8 -9 -Iron panel consistent with anemia of chronic disease -possibly contributing to generalized weakness, will defer blood transfusion to oncologist Dr. Johnson Metastatic Breast cancer: ongoing -Patient's oncologist is Dr. Johnson, consulted, appreciate assistance -Continue anastrozole -Brain MRI negative for metastasis. Atrial fibrillation: chronic -Patient not on any home medications -Monitor -Rate controlled at this time Diabetes mellitus: chronic -Holding home metformin -Monitor Accu-checks and cover with Sliding-scale insulin Hypokalemia/Hypomagnesemia: K 3.1. -give po KCl replacement -monitor BMP and replace electrolytes as needed DVT Prophylaxis: Lovenox sq Discharge Planning: Discharge pending further clinical improvement and oncology clearance. Possible discharge back to [facility] 09/18 if improved.
--- NOTE | 2018-09-17 14:28 | P.DIET ---
Nutritional Evaluation Type of nutrition evaluation: initial Nutrition screening: [facility] Screening comments: 09/15/18 [facility] Malnutrition Subjective Subjective Comments: Pt visited at bedside. Pt provided her food preferences. Pt reports she has not drank an Ensure yet and prefers chocolate. Pt says she can only tolerate small amounts of food at one time. Objective - Diagnosis Generalized weakness w/gait disturbances - Objective [place] body weight: 56.8 kg % IBW: 131 Body Weight Used for Calculations: IBW Energy Needs - Lower Range (kCal/kg): 28 Energy Needs - Upper Range (kCal/kg): 33 Lower Limit kCal/kg (kCals): 1,590 Upper Limit kCal/kg (kCals): 1,874 Lower Limit Protein Factor (Grams per Kg): 1.3 Upper Limit Protein Factor (Grams per Kg): 1.5 Lower Protein Needs (Protein): 74 Upper Protein Needs (Protein): 85 Dietitian Reviewed in Medical Record: Current diet, Curent medications, Intake & Output, Labs, Medical history Diet Order: Regular Oral Diet Intake Amount: Poor <50% Objective Comments: PMH includes: AFib, DM, Bilateral Metastatic Breast Cancer s/p chemotherapy and radiation,GERD, HTN POC Glucose 80, Albumin 2.1 Meds Include: Novolog SSI Feeding - Current PO Supplement Current Supplement: Ensure Original Current Frequency of Supplement: Three times a day Current kCals Provided by Supplement: 250 Current Protein Provided by Supplement: 10 Assessment Assessment: Pt is at nutritional risk r/t reported progressive wt loss and failure to thrive. [place] pt's food preferences to assist w/improved po intake. order for Ensure TID(= 250 kcal and 9g protein per serving). Pt has not drank an Ensure at time of this entry and pt has a history of DM. Rec replacing Ensure w/ Glucerna Shake TID if a CHO-controlled nutritional supplement is needed(= 220 kcal and 10g protein per serving). Pt is receiving a regular diet currently. Monitor glucose. Noted concern for low albumin; however, albumin is not longer an indicator of nutritional status and is a negative acute phase reactant relative to the presence of inflammation in the body. Additional Recs to follow r/t clinical course. Recommendations: 1. [place] pt's food preferences to assist w/improved po intake 2. Rec replacing Ensure w/Glucerna Shake TID if a CHO-controlled nutritional supplement is needed 3. Additional Recs to follow r/t clinical course Dietitian to Monitor: Lab values, Glucose level, Supplement acceptance, Intake & Output, Weight change, PO Intake, Medical course
--- NOTE | 2018-09-17 15:05 | P.PNONC ---
Subjective Interval history: Patient lying in bed, no acute distress. She denies any further nausea. She is awaiting her lunch tray. She states that she spoke to the supervisor acoustical tile carpenters and they are going to bring her something that she will prefer to eat. Awaiting CBC today. Objective Vital Signs/Intake & Output: Vital Signs 09/16/18 16:09 09/16/18 20:00 09/17/18 00:00 Temperature 97.9 F 97.8 F Pulse Rate 95 H 97 H 90 Respiratory Rate 20 15 16 Blood Pressure 105/57 L 107/54 L 119/58 L Pulse Oximetry 96 97 99 09/17/18 04:00 09/17/18 07:40 09/17/18 08:00 Temperature 98.2 F 98.2 F Pulse Rate 98 H 81 89 Respiratory Rate 15 18 Blood Pressure 153/68 H 119/63 Pulse Oximetry 100 98 09/17/18 12:29 Temperature 98.4 F Pulse Rate 88 Respiratory Rate 16 Blood Pressure 122/55 L Pulse Oximetry 100 Intake & Output 09/16/18 09/17/18 09/17/18 18:59 06:59 18:59 Intake Total 1000 / 1000 1000 / 1000 1000 / 1000 Balance 1000 / 1000 1000 / 1000 1000 / 1000 Weight 80.2 kg Intake: IV 1000 / 1000 1000 / 1000 1000 / 1000 NS Inj 1,000 ML @ 100 mls/hr IV 1000 / 1000 1000 / 1000 1000 / 1000 .CONT .Q10H [facility] Rx#:[id number] Other: # Urine Diapers 1 Result Diagrams: 09/16/18 04:45 09/16/18 04:45 Laboratory Results: Laboratory Results - last 24 hr 09/16/18 09/17/18 09/17/18 17:14 00:05 00:50 POC Glucose 101 69 74 Cortisol 09/17/18 09/17/18 09/17/18 04:27 08:20 08:21 POC Glucose 105 96 Cortisol 22.2 09/17/18 13:10 POC Glucose 85 Cortisol Imaging Studies: Impressions Head MRI 09/16/18 00:00 CONCLUSION: 1. No acute findings. No recent infarct. Mild white matter ischemic changes, stable. Medications: Active Medications Generic Name Dose Route Start Last Admin Trade Name Freq PRN Reason Stop Dose Admin Anastrozole 1 mg 09/16/18 09:00 09/17/18 09:02 Arimidex PO 1 mg DAILY [facility] Administration Enoxaparin Sodium 40 mg 09/16/18 09:00 09/17/18 09:02 Lovenox Inj SQ 40 mg DAILY [facility] Administration Sodium Chloride 1,000 mls @ 100 mls/hr 09/15/18 20:45 09/17/18 14:26 Ns Inj IV.CONT 100 mls/hr .Q10H [facility] Administration Insulin Aspart 0 unit 09/15/18 21:00 09/17/18 13:11 Novolog Insulin Correctional Sugar Inj SQ Not Given ACHS [facility] Protocol Sodium Chloride 2 ml 09/15/18 17:24 09/15/18 17:57 Ns Flush IV.FLUSH 2 ml PRN PRN Administration FLUSH AFTER USING IV ACCESS Objective Remarks: GENERAL: Chronically ill-appearing elderly female patient, no acute distress. SKIN: Pale, warm and dry. HEAD: Normocephalic. EYES: No scleral icterus. No injection or drainage. NECK: Supple, trachea midline. CARDIOVASCULAR: Regular rate and rhythm without murmurs. RESPIRATORY: Posterior breath sounds clear, equal bilaterally. No accessory muscle use. GASTROINTESTINAL: Abdomen soft, non-tender, nondistended. EXTREMITIES: No cyanosis, or edema. MUSCULOSKELETAL: Decreased muscle tone. NEUROLOGICAL: No obvious focal deficit. Awake, alert, and oriented x3. PSYCHIATRIC: Appropriate mood and affect; insight and judgment normal. Assessment/Plan - Plan Ms. Matias is a 73-year-old woman with metastatic ER positive and ER negative breast cancer. She is currently being treated with an aromatase inhibitor, awaiting definitive surgery of bilateral mastectomy for ulcerated masses to both breasts. Her mastectomy was delayed due to acute cholecystitis. She was discharged to rehab. She returned to the hospital with intermittent nausea and symptoms of dizziness. Plan: 1. Breast cancer, awaiting definitive bilateral mastectomy. Continues on aromatase inhibitor. Continue daily dressing changes to right breast. Next 2. Nausea, resolved. 3. Failure to thrive. Patient reports she is a very picky eater and she is spoken to dietary and believe she will do much better when she receives food that she likes. Continue to monitor. 4. Anemia, patient had a drop in her hemoglobin yesterday from 9.0-7.7. Awaiting CBC today. We will transfuse 1 unit of PRBCs if hemoglobin less than 7 or patient symptomatic. 5. Continue supportive care.
[2018-09-17 15:07] LABS: Baso % (Auto) 0.4 % (0.0-2.0); Eos # (Auto) 0.1 th/mm3 (0.0-0.4); Eos % (Auto) 1.4 % (0.0-4.0); Hematocrit 22.9 % (35.0-46.0); Hemoglobin 7.6 gm/dL (11.6-15.3); Lymph # (Auto) 0.8 th/mm3 (1.0-4.8); Lymph % (Auto) 9.6 % (9.0-44.0); Mean Corpuscular HGB Conc 33.3 % (32.0-36.0); Mean Corpuscular Hemoglobin 31.7 pg (27.0-34.0); Mean Platelet Volume 6.3 fL (7.0-11.0); Mono # (Auto) 0.6 th/mm3 (0.0-0.9); Mono % (Auto) 7.3 % (0.0-8.0); Neut # (Auto) 6.5 th/mm3 (1.8-7.7); Neut % (Auto) 81.3 % (16.0-70.0); Platelet Count 126 th/mm3 (150-450); Red Blood Count 2.41 mil/mm3 (4.00-5.30); Red Cell Distribution Width 19.6 % (11.6-17.2)
[2018-09-17 15:45] LABS: Ovalocytes 1+; Platelet Morphology Normal (Normal)
[2018-09-17 16:10] LABS: Anion Gap 9 meq/L (5-15); Blood Urea Nitrogen 5 mg/dL (7-18); Calcium 7.4 mg/dL (8.5-10.1); Carbon Dioxide 22.2 meq/L (21.0-32.0); Chloride 112 meq/L (98-107); Glomerular Filtration Rate Greater Than 89 mL/min (>89); Glucose,Random 80 mg/dL (74-106); Potassium 3.3 meq/L (3.5-5.1); Sodium 143 meq/L (136-145)
[2018-09-17 16:26] LABS: Total Protein 5.5 g/dL (6.4-8.2)
[2018-09-17 16:50] LABS: Hematocrit 21.8 % (35.0-46.0); Hemoglobin 7.4 gm/dL (11.6-15.3); Mean Corpuscular HGB Conc 33.8 % (32.0-36.0); Mean Corpuscular Hemoglobin 32.2 pg (27.0-34.0); Mean Corpuscular Volume 95.2 fL (80.0-100.0); Mean Platelet Volume 6.3 fL (7.0-11.0); Platelet Count 120 th/mm3 (150-450); Red Blood Count 2.29 mil/mm3 (4.00-5.30); Red Cell Distribution Width 19.8 % (11.6-17.2); White Blood Count 8.6 th/mm3 (4.0-11.0)
[2018-09-18] MEDS: Sod Chloride 0.9% Inj 1,000 ML IV.CONT SCH ×4 (00:32→22:53)
[2018-09-18] MEDS ORDERED: Acetaminophen 325 MG Tablet PO PRN (08:41)
[2018-09-18] MEDS ORDERED: Sodium Chlor 0.9% Inj 250 ML IV.SIG SCH (09:00)
[2018-09-18] MEDS: Anastrozole 1 MG Tablet PO SCH (09:29)
[2018-09-18] MEDS: Enoxaparin Inj 40 MG/0.4 ML Syringe SQ SCH (09:29)
[2018-09-18] MEDS: Insulin NovoLOG Aspart Correctional Sugar Inj SQ SCH ×4 (09:35→22:00)
[2018-09-18 09:59] LABS: Hematocrit 23.1 % (35.0-46.0); Hemoglobin 7.6 gm/dL (11.6-15.3); Mean Corpuscular Hemoglobin 31.7 pg (27.0-34.0); Mean Corpuscular Volume 95.8 fL (80.0-100.0); Mean Platelet Volume 6.2 fL (7.0-11.0); Platelet Count 121 th/mm3 (150-450); Red Blood Count 2.41 mil/mm3 (4.00-5.30); Red Cell Distribution Width 19.4 % (11.6-17.2); White Blood Count 8.3 th/mm3 (4.0-11.0)
--- NOTE | 2018-09-18 14:48 | P.PN ---
Subjective Interval history: Follow-up for weakness, failure to thrive, metastatic breast cancer. Patient reports feeling dizzy and lightheaded this morning. She reports continued generalized weakness and fatigue. Denies any chest pain or shortness of breath. No more episodes of diarrhea. She states she is increasing her oral intake because she is getting foods that she likes. Discussed her anemia, possible etiology of her fatigue/weakness, patient agrees to blood transfusion. Physical Exam Vital signs: Vital Signs 09/17/18 16:24 09/17/18 20:00 09/17/18 20:31 Temperature 98.3 F 98.6 F Pulse Rate 89 88 85 Respiratory Rate 16 16 Blood Pressure 140/64 136/69 Pulse Oximetry 99 100 09/18/18 00:00 09/18/18 00:15 09/18/18 04:00 Temperature 99.0 F 98.9 F Pulse Rate 88 90 94 H Respiratory Rate 16 16 Blood Pressure 146/65 H 136/63 Pulse Oximetry 99 99 09/18/18 07:00 09/18/18 08:18 09/18/18 11:47 Temperature 98.5 F 98.7 F Pulse Rate 87 85 85 Respiratory Rate 20 18 Blood Pressure 131/60 145/71 H Pulse Oximetry 100 100 09/18/18 12:12 09/18/18 12:33 Temperature 97.8 F 98.6 F Pulse Rate 93 H 84 Respiratory Rate 18 18 Blood Pressure 159/76 H 138/62 Pulse Oximetry 100 100 Intake & Output 09/17/18 09/18/18 09/18/18 18:59 06:59 18:59 Intake Total 1000 / 1000 1000 / 1000 1000 / 1000 Output Total 800 / 800 Balance 1000 / 1000 1000 / 1000 200 / 200 Weight 80.2 kg Intake: IV 1000 / 1000 1000 / 1000 1000 / 1000 NS Inj 1,000 ML @ 100 mls/hr IV 1000 / 1000 1000 / 1000 1000 / 1000 .CONT .Q10H [facility] Rx#:[id number] Intake (Blood Product) Amt 0 / 0 Rbc As-3 Leukoreduced Unit 0 / 0 [id number] Output: Urine 800 / 800 Other: # Voids 1 0 Narrative: GENERAL: Well-nourished, well-developed elderly female patient in [facility]. SKIN: Warm and dry. No rash. HEENT: Normocephalic. Atraumatic. Pupils equal and round. Subconjunctival pallor. Mucous membranes pink and moist. CARDIOVASCULAR: Regular rate and rhythm. No murmur appreciated. RESPIRATORY: No accessory muscle use. Clear to auscultation. Breath sounds equal bilaterally. GASTROINTESTINAL: Abdomen soft, non-tender, nondistended. Normoactive bowel sounds x4. MUSCULOSKELETAL: No obvious deformities. Extremities without clubbing, cyanosis , or edema. NEUROLOGICAL: Awake and alert. No obvious cranial nerve deficits. Motor grossly within normal limits. Moving all extremities spontaneously although with generalized weakness. Normal speech. PSYCHIATRIC: Appropriate mood and affect; insight and judgment normal. Results - Labs CBC & Chem 7: 09/18/18 09:19 09/17/18 14:45 Laboratory Results - last 24 hr 09/17/18 09/17/18 09/17/18 14:45 14:45 16:10 WBC 8.0 8.6 RBC 2.41 L 2.29 L Hgb 7.6 L 7.4 L Hct 22.9 L 21.8 L MCV 95.0 95.2 MCH 31.7 32.2 MCHC 33.3 33.8 RDW 19.6 H 19.8 H Plt Count 126 L 120 L MPV 6.3 L 6.3 L Prelim Diff (Auto) Slide review pending Neut % (Auto) 81.3 H Lymph % (Auto) 9.6 Leon % (Auto) 7.3 Eos % (Auto) 1.4 Baso % (Auto) 0.4 Neut # (Auto) 6.5 Lymph # (Auto) 0.8 L Leon # (Auto) 0.6 Eos # (Auto) 0.1 Baso # (Auto) 0.0 WBC Differential . Diff Scan Auto diff confirmed Differential Comment . Platelet Estimate Low L Platelet Morphology Normal Ovalocytes 1+ H Sodium 143 Potassium 3.3 L Chloride 112 H Carbon Dioxide 22.2 Anion Gap 9 BUN 5 L Creatinine 0.61 Estimated GFR Greater than 89 POC Glucose Random Glucose 80 Calcium 7.4 L* Prot Corrected Calcium 8.3 L Total Protein 5.5 L D Blood Type Antibody Screen MTS Gel Crossmatch 09/17/18 09/17/18 09/18/18 18:31 20:54 09:19 WBC RBC Hgb Hct MCV MCH MCHC RDW Plt Count MPV Prelim Diff (Auto) Neut % (Auto) Lymph % (Auto) Leon % (Auto) Eos % (Auto) Baso % (Auto) Neut # (Auto) Lymph # (Auto) Leon # (Auto) Eos # (Auto) Baso # (Auto) WBC Differential Diff Scan Differential Comment Platelet Estimate Platelet Morphology Ovalocytes Sodium Potassium Chloride Carbon Dioxide Anion Gap BUN Creatinine Estimated GFR POC Glucose 91 100 Random Glucose Calcium Prot Corrected Calcium Total Protein Blood Type B Positive Antibody Screen Negative MTS Gel Crossmatch See Detail 09/18/18 09/18/18 09:19 09:34 WBC 8.3 RBC 2.41 L Hgb 7.6 L Hct 23.1 L MCV 95.8 MCH 31.7 MCHC 33.0 RDW 19.4 H Plt Count 121 L MPV 6.2 L Prelim Diff (Auto) Neut % (Auto) Lymph % (Auto) Leon % (Auto) Eos % (Auto) Baso % (Auto) Neut # (Auto) Lymph # (Auto) Leon # (Auto) Eos # (Auto) Baso # (Auto) WBC Differential Diff Scan Differential Comment Platelet Estimate Platelet Morphology Ovalocytes Sodium Potassium Chloride Carbon Dioxide Anion Gap BUN Creatinine Estimated GFR POC Glucose 93 Random Glucose Calcium Prot Corrected Calcium Total Protein Blood Type Antibody Screen MTS Gel Crossmatch - Imaging Chest X-Ray 09/15/18 17:24 CONCLUSION: Right-sided [id number] catheter. Lungs are clear. Head MRI 09/16/18 00:00 CONCLUSION: 1. No acute findings. No recent infarct. Mild white matter ischemic changes, stable. Assessment and Plan - Plan 73-year-old female with past medical history significant for bilateral metastatic breast cancer and atrial fibrillation presents to the emergency department for evaluation of weakness. Generalized weakness/failure to thrive: suspect multifactorial secondary to cancer, dehydration, diarrhea, decreased oral intake. -Continue IV fluid hydration -Start on Ensure shakes tid -Nutrition consult, appreciate recommendations -Consult PT/OT, Anticipate discharge to [place] once patient able to stand and participate in therapy Abdominal Discomfort/Nausea/Diarrhea: possible gastroenteritis -check stool studies, however no further diarrhea -Urinalysis unremarkable -give IVF hydration -replace electrolytes -diet as tolerated RYAN: suspect secondary to dehydration, diarrhea, poor oral intake. Creatinine 1.18 upon arrival. -giving IVF hydration -avoid nephrotoxins -monitor BMP, much improved, creatinine 0.61 Symptomatic Normocytic Anemia: Hgb dropped to 7.4, worse than baseline around 8- 9. Patient symptomatic with fatigue/weakness. -Iron panel consistent with anemia of chronic disease -transfuse 1u pRBC today 09/18 -repeat CBC in am Metastatic Breast cancer: ongoing -Patient's oncologist is Dr. Johnson, consulted, appreciate assistance -Continue anastrozole -Brain MRI negative for metastasis. Atrial fibrillation: chronic -Patient not on any home medications -Monitor -Rate controlled at this time Diabetes mellitus: chronic -Holding home metformin -Monitor Accu-checks and cover with Sliding-scale insulin -BG well controlled Hypokalemia/Hypomagnesemia: K 3.1. -give po KCl replacement -monitor BMP and replace electrolytes as needed DVT Prophylaxis: Lovenox sq Discharge Planning: Receiving blood transfusion today. Discharge pending further clinical improvement and oncology clearance. Possible discharge back to [facility] 09/19 if improved.
--- NOTE | 2018-09-18 16:44 | P.PNONC ---
Subjective Interval history: Afebrile overnight Pt adamantly requesting to not be transferred. Feels a little better after getting PRBC transfusion earlier today. States she would only like to be moved if she has to have chemotherapy Denies any acute pain No bleeding Objective Vital Signs/Intake & Output: Vital Signs 09/17/18 20:00 09/17/18 20:31 09/18/18 00:00 Temperature 98.6 F 99.0 F Pulse Rate 88 85 88 Respiratory Rate 16 16 Blood Pressure 136/69 146/65 H Pulse Oximetry 100 99 09/18/18 00:15 09/18/18 04:00 09/18/18 07:00 Temperature 98.9 F Pulse Rate 90 94 H 87 Respiratory Rate 16 Blood Pressure 136/63 Pulse Oximetry 99 09/18/18 08:18 09/18/18 11:47 09/18/18 12:12 Temperature 98.5 F 98.7 F 97.8 F Pulse Rate 85 85 93 H Respiratory Rate 20 18 18 Blood Pressure 131/60 145/71 H 159/76 H Pulse Oximetry 100 100 100 09/18/18 12:33 09/18/18 15:07 Temperature 98.6 F 98.6 F Pulse Rate 84 89 Respiratory Rate 18 18 Blood Pressure 138/62 142/96 H Pulse Oximetry 100 99 Intake & Output 09/17/18 09/18/18 09/18/18 18:59 06:59 18:59 Intake Total 1000 / 1000 1000 / 1000 1400 / 1400 Output Total 800 / 800 Balance 1000 / 1000 1000 / 1000 600 / 600 Weight 176 lb 12.972 oz Intake: IV 1000 / 1000 1000 / 1000 1000 / 1000 NS Inj 1,000 ML @ 100 mls/hr IV 1000 / 1000 1000 / 1000 1000 / 1000 .CONT .Q10H [facility] Rx#:[id number] Intake (Blood Product) Amt 400 / 400 Rbc As-3 Leukoreduced Unit 400 / 400 [id number] Output: Urine 800 / 800 Other: # Voids 1 0 Result Diagrams: 09/18/18 09:19 09/17/18 14:45 Laboratory Results: Laboratory Results - last 24 hr 09/17/18 09/17/18 09/17/18 16:10 18:31 20:54 WBC 8.6 RBC 2.29 L Hgb 7.4 L Hct 21.8 L MCV 95.2 MCH 32.2 MCHC 33.8 RDW 19.8 H Plt Count 120 L MPV 6.3 L POC Glucose 91 100 Blood Type Antibody Screen MTS Gel Crossmatch 09/18/18 09/18/18 09/18/18 09:19 09:19 09:34 WBC 8.3 RBC 2.41 L Hgb 7.6 L Hct 23.1 L MCV 95.8 MCH 31.7 MCHC 33.0 RDW 19.4 H Plt Count 121 L MPV 6.2 L POC Glucose 93 Blood Type B Positive Antibody Screen Negative MTS Gel Crossmatch See Detail Medications: Active Medications Generic Name Dose Route Start Last Admin Trade Name Freq PRN Reason Stop Dose Admin Acetaminophen 650 mg 09/18/18 08:41 09/18/18 11:37 Tylenol PO 650 mg Q4H PRN Administration SEE LABEL COMMENTS Anastrozole 1 mg 09/16/18 09:00 09/18/18 09:29 Arimidex PO 1 mg DAILY [facility] Administration Diphenhydramine HCl 25 mg 09/18/18 08:41 09/18/18 11:37 Benadryl PO 25 mg Q4H PRN Administration SEE LABEL COMMENTS Enoxaparin Sodium 40 mg 09/16/18 09:00 09/18/18 09:29 Lovenox Inj SQ 40 mg DAILY [facility] Administration Sodium Chloride 1,000 mls @ 100 mls/hr 09/15/18 20:45 09/18/18 09:31 Ns Inj IV.CONT 100 mls/hr .Q10H [facility] Administration Sodium Chloride 250 mls @ 15 mls/hr 09/18/18 09:00 09/18/18 11:57 Ns Inj IV.SIG 09/19/18 01:39 15 mls/hr ONCE [facility] Administration Insulin Aspart 0 unit 09/15/18 21:00 09/18/18 14:48 Novolog Insulin Correctional Sugar Inj SQ Not Given ACHS [facility] Protocol Sodium Chloride 2 ml 09/15/18 17:24 09/15/18 17:57 Ns Flush IV.FLUSH 2 ml PRN PRN Administration FLUSH AFTER USING IV ACCESS Objective Remarks: GENERAL: Chronically ill-appearing, older female patient resting in bed in no obvious distress SKIN: Pale, warm and dry. HEAD: Normocephalic. + Alopecia EYES: No scleral icterus. No injection or drainage. NECK: Supple, trachea midline. CARDIOVASCULAR: Regular rate and rhythm without murmurs. RESPIRATORY: Posterior breath sounds clear, equal bilaterally. No accessory muscle use. GASTROINTESTINAL: Abdomen soft, non-tender, nondistended. EXTREMITIES: No cyanosis. Left lower extremity appears somewhat more edematous than right. MUSCULOSKELETAL: Generalized weakness NEUROLOGICAL: No obvious focal deficit. Awake, alert, and oriented x3. Assessment/Plan - Plan Ms. Matias is a 73-year-old woman with metastatic ER positive and ER negative breast cancer. She is currently being treated with an aromatase inhibitor, awaiting definitive surgery of bilateral mastectomy for ulcerated masses to both breasts. Her mastectomy was delayed due to acute cholecystitis. She was discharged to rehab. She returned to the hospital with intermittent nausea and symptoms of dizziness. Plan: 1. Patient received 1 unit packed red blood cells today for persistently decreasing hemoglobin. Her appetite is mildly improved. 2. We will obtain an ultrasound of her left lower extremity as this appears to be somewhat more edematous than the right. Her platelet count has trended down somewhat since admission. She continues on DVT prophylactic Lovenox dosing. She is at an increased risk for thrombus due to immobility and metastatic breast cancer. 3. Monitor for bleeding. Monitor CBC. 4. Continue Arimidex. 5. I have canceled her transfer to the oncology floor for now as the patient is adamantly requesting that she stay on this floor. She is happy with the care here and does not want to leave. No chemotherapy planned at present.
--- NOTE | 2018-09-18 18:23 | US ---
EXAM DATE: 09/18/2018 12:00 AM EDT AGE/SEX: 73 years / Female INDICATIONS: Left leg edema. CLINICAL DATA: This is the patient's initial encounter. Patient reports that signs and symptoms have been present for 1 day and indicates a pain score of 0/10. MEDICAL/SURGICAL HISTORY: Carcinoma, breast. Diabetes. Atrial fibrillation. Chemotherapy. Tub al ligation. Cholecystectomy. Appendectomy. Tonsillectomy. COMPARISON: POI, US LEG VENOUS DOPPLER, BILATERAL, 08/18/2018. . TECHNIQUE: Venous ultrasound of both lower extremities was performed from the inguinal ligament to t he proximal calf. Real-time, color Doppler and spectral tracing, compression and augmentation techni ques were used. FINDINGS: Normal compression of the deep venous system from the inguinal region to the proximal calf . No echogenic clot is seen. Normal response of the venous system to augmentation and respiration. CONCLUSION: 1. The study is negative for lower extremity deep venous thrombosis. Electronically signed by: Matthew Dunlap MD 09/18/2018 6:22 PM EDT
[2018-09-19] MEDS: Sod Chloride 0.9% Inj 1,000 ML IV.CONT SCH ×2 (05:32→15:18)
[2018-09-19] MEDS: Insulin NovoLOG Aspart Correctional Sugar Inj SQ SCH ×4 (08:09→21:20)
[2018-09-19 08:50] LABS: Baso # (Auto) 0.1 th/mm3 (0.0-0.2); Baso % (Auto) 0.7 % (0.0-2.0); Eos # (Auto) 0.1 th/mm3 (0.0-0.4); Eos % (Auto) 1.3 % (0.0-4.0); Hematocrit 27.1 % (35.0-46.0); Hemoglobin 9.4 gm/dL (11.6-15.3); Lymph # (Auto) 0.9 th/mm3 (1.0-4.8); Lymph % (Auto) 9.4 % (9.0-44.0); Mean Corpuscular HGB Conc 34.8 % (32.0-36.0); Mean Corpuscular Volume 88.9 fL (80.0-100.0); Mean Platelet Volume 6.4 fL (7.0-11.0); Mono # (Auto) 0.8 th/mm3 (0.0-0.9); Mono % (Auto) 8.3 % (0.0-8.0); Neut # (Auto) 7.9 th/mm3 (1.8-7.7); Neut % (Auto) 80.3 % (16.0-70.0); Platelet Count 121 th/mm3 (150-450); Red Blood Count 3.04 mil/mm3 (4.00-5.30); Red Cell Distribution Width 21.2 % (11.6-17.2); White Blood Count 9.8 th/mm3 (4.0-11.0)
[2018-09-19 09:09] LABS: Anion Gap 10 meq/L (5-15); Blood Urea Nitrogen 4 mg/dL (7-18); Calcium 7.4 mg/dL (8.5-10.1); Carbon Dioxide 21.7 meq/L (21.0-32.0); Chloride 111 meq/L (98-107); Glomerular Filtration Rate Greater Than 89 mL/min (>89); Glucose,Random 80 mg/dL (74-106); Sodium 143 meq/L (136-145)
[2018-09-19 09:31] LABS: Lymphocytes 2 % (9-44); Metamyelocytes 2 % (0-1); Monocytes 3 % (0-8); Toxic Granulation 1+
[2018-09-19 09:32] LABS: Ovalocytes 1+; Platelet Morphology Normal (Normal); Total Protein 5.6 g/dL (6.4-8.2)
[2018-09-19 09:36] LABS: Potassium 2.9 meq/L (3.5-5.1)
[2018-09-19] MEDS: Enoxaparin Inj 40 MG/0.4 ML Syringe SQ SCH (10:35)
[2018-09-19] MEDS: Anastrozole 1 MG Tablet PO SCH (10:35)
[2018-09-19] MEDS ORDERED: Mag Sulf 1 gm/100 ml Premix 100 ML IV.SIG ONE ×2 (11:23→15:30)
--- NOTE | 2018-09-19 13:13 | P.PNONC ---
Subjective Interval history: Afebrile. Patient states "I am feeling okay", she is currently receiving her p.o. potassium replacement. Patient declines transfer to the oncology unit, stating "I kindof know everyone here now and I just do not want to have to move again" She reports she has not been out of the bed, since her arrival to this facility. Encouraged to work with physical therapy. Objective Vital Signs/Intake & Output: Vital Signs 09/18/18 15:07 09/18/18 20:00 09/18/18 23:53 Temperature 98.6 F 98.7 F 98.0 F Pulse Rate 89 80 83 Respiratory Rate 18 16 16 Blood Pressure 142/96 H 140/71 136/73 Pulse Oximetry 99 98 98 09/19/18 04:00 09/19/18 08:00 Temperature 98.0 F 97.5 F L Pulse Rate 90 76 Respiratory Rate 15 16 Blood Pressure 142/70 H 120/79 Pulse Oximetry 97 98 Intake & Output 09/18/18 09/19/18 09/19/18 18:59 06:59 18:59 Intake Total 1400 / 1400 1250 / 1250 Output Total 800 / 800 Balance 600 / 600 1250 / 1250 Weight 79.6 kg Intake: IV 1000 / 1000 1250 / 1250 NS Inj 1,000 ML @ 100 mls/hr IV 1000 / 1000 1000 / 1000 .CONT .Q10H [facility] Rx#:[id number] NS Inj 250 ML @ 15 mls/hr IV. 250 / 250 SIG ONCE [facility] Rx#:[id number] Intake (Blood Product) Amt 400 / 400 Rbc As-3 Leukoreduced Unit 400 / 400 [id number] Output: Urine 800 / 800 Other: # Voids 0 1 0 Result Diagrams: 09/19/18 07:15 09/19/18 07:15 Laboratory Results: Laboratory Results - last 24 hr 09/18/18 09/18/18 09/18/18 09:19 17:59 21:43 WBC RBC Hgb Hct MCV MCH MCHC RDW Plt Count MPV Prelim Diff (Auto) Neut % (Auto) Lymph % (Auto) [place] % (Auto) Eos % (Auto) Baso % (Auto) Neut # (Auto) Lymph # (Auto) [place] # (Auto) Eos # (Auto) Baso # (Auto) WBC Differential Seg Neuts % (Manual) Band Neuts % (Manual) Lymphocytes % (Manual) Monocytes % (Manual) Metamyelocytes % (Man) Abs Neuts (Manual) Differential Comment Toxic Granulation Platelet Estimate Platelet Morphology Ovalocytes Sodium Potassium Chloride Carbon Dioxide Anion Gap BUN Creatinine Estimated GFR POC Glucose 90 112 H Random Glucose Calcium Prot Corrected Calcium Magnesium Total Protein MTS Gel Crossmatch See Detail 09/19/18 09/19/18 09/19/18 07:15 07:15 07:15 WBC 9.8 RBC 3.04 L Hgb 9.4 L Hct 27.1 L MCV 88.9 D MCH 31.0 MCHC 34.8 RDW 21.2 H Plt Count 121 L MPV 6.4 L Prelim Diff (Auto) Slide review pending Neut % (Auto) 80.3 H Lymph % (Auto) 9.4 [place] % (Auto) 8.3 H Eos % (Auto) 1.3 Baso % (Auto) 0.7 Neut # (Auto) 7.9 H Lymph # (Auto) 0.9 L [place] # (Auto) 0.8 Eos # (Auto) 0.1 Baso # (Auto) 0.1 WBC Differential Manual diff final Seg Neuts % (Manual) 87 H Band Neuts % (Manual) 6 Lymphocytes % (Manual) 2 L Monocytes % (Manual) 3 Metamyelocytes % (Man) 2 H Abs Neuts (Manual) 9.3 H Differential Comment . Toxic Granulation 1+ H Platelet Estimate Low L Platelet Morphology Normal Ovalocytes 1+ H Sodium 143 Potassium 2.9 L* Chloride 111 H Carbon Dioxide 21.7 Anion Gap 10 BUN 4 L Creatinine 0.46 L Estimated GFR Greater than 89 POC Glucose Random Glucose 80 Calcium 7.4 L* Prot Corrected Calcium 8.2 L Magnesium 1.4 L Total Protein 5.6 L MTS Gel Crossmatch 09/19/18 09/19/18 07:36 12:46 WBC RBC Hgb Hct MCV MCH MCHC RDW Plt Count MPV Prelim Diff (Auto) Neut % (Auto) Lymph % (Auto) [place] % (Auto) Eos % (Auto) Baso % (Auto) Neut # (Auto) Lymph # (Auto) [place] # (Auto) Eos # (Auto) Baso # (Auto) WBC Differential Seg Neuts % (Manual) Band Neuts % (Manual) Lymphocytes % (Manual) Monocytes % (Manual) Metamyelocytes % (Man) Abs Neuts (Manual) Differential Comment Toxic Granulation Platelet Estimate Platelet Morphology Ovalocytes Sodium Potassium Chloride Carbon Dioxide Anion Gap BUN Creatinine Estimated GFR POC Glucose 86 88 Random Glucose Calcium Prot Corrected Calcium Magnesium Total Protein MTS Gel Crossmatch Imaging Studies: Impressions Venous Doppler Study 09/18/18 00:00 CONCLUSION: 1. The study is negative for lower extremity deep venous thrombosis. Medications: Active Medications Generic Name Dose Route Start Last Admin Trade Name Freq PRN Reason Stop Dose Admin Acetaminophen 650 mg 09/18/18 08:41 09/18/18 11:37 Tylenol PO 650 mg Q4H PRN Administration SEE LABEL COMMENTS Anastrozole 1 mg 09/16/18 09:00 09/19/18 10:35 Arimidex PO 1 mg DAILY [facility] Administration Calcium Carbonate 500 mg 09/19/18 11:30 09/19/18 12:35 Tums Chew CHEW 500 mg BID [facility] Administration Diphenhydramine HCl 25 mg 09/18/18 08:41 09/18/18 11:37 Benadryl PO 25 mg Q4H PRN Administration SEE LABEL COMMENTS Enoxaparin Sodium 40 mg 09/16/18 09:00 09/19/18 10:35 Lovenox Inj SQ 40 mg DAILY [facility] Administration Sodium Chloride 1,000 mls @ 100 mls/hr 09/15/18 20:45 09/19/18 05:32 Ns Inj IV.CONT 100 mls/hr .Q10H [facility] Administration Insulin Aspart 0 unit 09/15/18 21:00 09/19/18 13:00 Novolog Insulin Correctional Sugar Inj SQ Not Given ACHS [facility] Protocol Sodium Chloride 2 ml 09/15/18 17:24 09/15/18 17:57 Ns Flush IV.FLUSH 2 ml PRN PRN Administration FLUSH AFTER USING IV ACCESS Objective Remarks: GENERAL: Chronically ill-appearing elderly female patient, no acute distress. SKIN: Pale, warm and dry. Dark mole to lower left eye lid. Bandage to right breast, dry/intact. HEAD: Normocephalic. EYES: No scleral icterus. No injection or drainage. NECK: Supple, trachea midline. CARDIOVASCULAR: Regular rate and rhythm without murmurs. RESPIRATORY: Posterior breath sounds clear, equal bilaterally. No accessory muscle use. GASTROINTESTINAL: Abdomen soft, non-tender, nondistended. EXTREMITIES: No cyanosis, or edema. MUSCULOSKELETAL: Decreased muscle tone. NEUROLOGICAL: No obvious focal deficit. Awake, alert, and oriented x3. PSYCHIATRIC: Appropriate mood and affect; insight and judgment normal. Assessment/Plan - Plan Ms. Matias is a 73-year-old woman with metastatic ER positive and ER negative breast cancer. She is currently being treated with an aromatase inhibitor, awaiting definitive surgery of bilateral mastectomy for ulcerated masses to both breasts. Her mastectomy was delayed due to acute cholecystitis. She was discharged to rehab. She returned to the hospital with intermittent nausea and symptoms of dizziness. Plan: 1. Status post 1 unit of PRBCs yesterday for hemoglobin of 7.6. 2. Left lower extremity ultrasound was negative for DVT. She continues on DVT prophylactic Lovenox dosing. She is at an increased risk for thrombus due to immobility and metastatic breast cancer. 3. Monitor for bleeding. Monitor CBC. 4. Continue Arimidex. 5. Encourage patient to get up out of bed assistance. Physical therapy is following, however I am not sure that the patient has participated. She may need additional encouragement.
[2018-09-19] MEDS: Potassium Chlor 20 mEq Premix 20 MEQ/100 ML PIGGYBACK IV.SIG SCH ×2 (13:59→16:15)
--- NOTE | 2018-09-19 16:36 | P.PN ---
Subjective Interval history: Follow up for weakness, failure to thrive, metastatic breast cancer, anemia, hypokalemia/hypocalcemia/hypomagnesemia. The patient reports feeling better after her transfusion yesterday. She does complain of not feeling rested which she attributes to multiple interruptions when sleeping overnight. Denies any other specific medical complaints. Physical Exam Vital signs: Vital Signs 09/18/18 20:00 09/18/18 23:53 09/19/18 04:00 Temperature 98.7 F 98.0 F 98.0 F Pulse Rate 80 83 90 Respiratory Rate 16 16 15 Blood Pressure 140/71 136/73 142/70 H Pulse Oximetry 98 98 97 09/19/18 08:00 09/19/18 12:00 09/19/18 15:14 Temperature 97.5 F L 98.7 F 98.4 F Pulse Rate 76 112 H 93 H Respiratory Rate 16 16 16 Blood Pressure 120/79 181/89 H 145/69 H Pulse Oximetry 98 97 98 Intake & Output 09/18/18 09/19/18 09/19/18 18:59 06:59 18:59 Intake Total 1400 / 1400 1250 / 1250 1200 / 1200 Output Total 800 / 800 Balance 600 / 600 1250 / 1250 1200 / 1200 Weight 79.6 kg Intake: IV 1000 / 1000 1250 / 1250 1200 / 1200 NS Inj 1,000 ML @ 100 mls/hr IV 1000 / 1000 1000 / 1000 1000 / 1000 .CONT .Q10H [facility] Rx#:[id number] Magnesium Sulfate 1 gm/D5W 100 100 / 100 ml Premix 100 ML @ 100 mls/hr IV.SIG ONCE ONE Rx#:[id number] KCl 20 mEq Premix Inj 20 meq In 100 / 100 100 ml @ 50 mls/hr IV.SIG Q2H [facility] Rx#:[id number] NS Inj 250 ML @ 15 mls/hr IV. 250 / 250 SIG ONCE [facility] Rx#:[id number] Intake (Blood Product) Amt 400 / 400 Rbc As-3 Leukoreduced Unit 400 / 400 [id number] Output: Urine 800 / 800 Other: # Voids 0 1 0 Narrative: GENERAL: Well-nourished, well-developed elderly female patient in [facility]. SKIN: Warm and dry. No rash. HEENT: Normocephalic. Atraumatic. Pupils equal and round. Mucous membranes pink and moist. CARDIOVASCULAR: Regular rate and rhythm. No murmur appreciated. RESPIRATORY: No accessory muscle use. Clear to auscultation. Breath sounds equal bilaterally. GASTROINTESTINAL: Abdomen soft, non-tender, nondistended. Normoactive bowel sounds x4. MUSCULOSKELETAL: No obvious deformities. Extremities without clubbing, cyanosis , or edema. NEUROLOGICAL: Awake and alert. No obvious cranial nerve deficits. Motor grossly within normal limits. Moving all extremities spontaneously although with generalized weakness. Normal speech. PSYCHIATRIC: Appropriate mood and affect; insight and judgment normal. Results - Labs CBC & Chem 7: 09/19/18 07:15 09/19/18 07:15 Laboratory Results - last 24 hr 09/18/18 09/18/18 09/19/18 17:59 21:43 07:15 WBC 9.8 RBC 3.04 L Hgb 9.4 L Hct 27.1 L MCV 88.9 D MCH 31.0 MCHC 34.8 RDW 21.2 H Plt Count 121 L MPV 6.4 L Prelim Diff (Auto) Slide review pending Neut % (Auto) 80.3 H Lymph % (Auto) 9.4 [place] % (Auto) 8.3 H Eos % (Auto) 1.3 Baso % (Auto) 0.7 Neut # (Auto) 7.9 H Lymph # (Auto) 0.9 L [place] # (Auto) 0.8 Eos # (Auto) 0.1 Baso # (Auto) 0.1 WBC Differential Manual diff final Seg Neuts % (Manual) 87 H Band Neuts % (Manual) 6 Lymphocytes % (Manual) 2 L Monocytes % (Manual) 3 Metamyelocytes % (Man) 2 H Abs Neuts (Manual) 9.3 H Differential Comment . Toxic Granulation 1+ H Platelet Estimate Low L Platelet Morphology Normal Ovalocytes 1+ H Sodium Potassium Chloride Carbon Dioxide Anion Gap BUN Creatinine Estimated GFR POC Glucose 90 112 H Random Glucose Calcium Prot Corrected Calcium Magnesium Total Protein 09/19/18 09/19/18 09/19/18 07:15 07:15 07:36 WBC RBC Hgb Hct MCV MCH MCHC RDW Plt Count MPV Prelim Diff (Auto) Neut % (Auto) Lymph % (Auto) [place] % (Auto) Eos % (Auto) Baso % (Auto) Neut # (Auto) Lymph # (Auto) [place] # (Auto) Eos # (Auto) Baso # (Auto) WBC Differential Seg Neuts % (Manual) Band Neuts % (Manual) Lymphocytes % (Manual) Monocytes % (Manual) Metamyelocytes % (Man) Abs Neuts (Manual) Differential Comment Toxic Granulation Platelet Estimate Platelet Morphology Ovalocytes Sodium 143 Potassium 2.9 L* Chloride 111 H Carbon Dioxide 21.7 Anion Gap 10 BUN 4 L Creatinine 0.46 L Estimated GFR Greater than 89 POC Glucose 86 Random Glucose 80 Calcium 7.4 L* Prot Corrected Calcium 8.2 L Magnesium 1.4 L Total Protein 5.6 L 09/19/18 12:46 WBC RBC Hgb Hct MCV MCH MCHC RDW Plt Count MPV Prelim Diff (Auto) Neut % (Auto) Lymph % (Auto) [place] % (Auto) Eos % (Auto) Baso % (Auto) Neut # (Auto) Lymph # (Auto) [place] # (Auto) Eos # (Auto) Baso # (Auto) WBC Differential Seg Neuts % (Manual) Band Neuts % (Manual) Lymphocytes % (Manual) Monocytes % (Manual) Metamyelocytes % (Man) Abs Neuts (Manual) Differential Comment Toxic Granulation Platelet Estimate Platelet Morphology Ovalocytes Sodium Potassium Chloride Carbon Dioxide Anion Gap BUN Creatinine Estimated GFR POC Glucose 88 Random Glucose Calcium Prot Corrected Calcium Magnesium Total Protein - Imaging Impressions Venous Doppler Study 09/18/18 00:00 CONCLUSION: 1. The study is negative for lower extremity deep venous thrombosis. Assessment and Plan - Plan 73-year-old female with past medical history significant for bilateral metastatic breast cancer and atrial fibrillation presents to the emergency department for evaluation of weakness. Generalized weakness/failure to thrive: suspect multifactorial secondary to cancer, dehydration, diarrhea, decreased oral intake. -Continue IV fluid hydration -Start on Ensure shakes tid -Nutrition consult, appreciate recommendations -Consult PT/OT, Anticipate discharge to [facility] once patient able to stand and participate in therapy Abdominal Discomfort/Nausea/Diarrhea: possible gastroenteritis -check stool studies, however no further diarrhea -Urinalysis unremarkable -give IVF hydration -replace electrolytes -diet as tolerated, patient is picky eater, but tolerating oral intake Hypokalemia/Hypomagnesemia/Hypocalcemia: K 2.9, Mag 1.4. Suspect secondary to poor oral intake -Give IV/po KCl replacement x80meq total, IV mag sulfate x2g, and calcium carbonate 500mg bid -Repeat labs in am RYAN: suspect secondary to dehydration, diarrhea, poor oral intake. Creatinine 1.18 upon arrival. -giving IVF hydration -avoid nephrotoxins -monitor BMP, much improved, creatinine 0.61 Symptomatic Normocytic Anemia: Hgb dropped to 7.4, worse than baseline around 8- 9. Patient symptomatic with fatigue/weakness. -Iron panel consistent with anemia of chronic disease -transfuse 1u pRBC 09/18 -repeat CBC much improved with Hgb 9.4. Metastatic Breast cancer: ongoing -Patient's oncologist is Dr. Johnson, consulted, appreciate assistance -Continue anastrozole -Brain MRI negative for metastasis. Atrial fibrillation: chronic -Patient not on any home medications -Monitor -Rate controlled at this time Diabetes mellitus: chronic -Holding home metformin -Monitor Accu-checks and cover with Sliding-scale insulin -BG well controlled Hypokalemia/Hypomagnesemia: K 3.1. -give po KCl replacement -monitor BMP and replace electrolytes as needed DVT Prophylaxis: Lovenox sq Discharge Planning: Possible discharge back to [facility] 09/20 if improved.
[2018-09-20] MEDS: Sod Chloride 0.9% Inj 1,000 ML IV.CONT SCH ×3 (01:57→22:04)
[2018-09-20] MEDS: Enoxaparin Inj 40 MG/0.4 ML Syringe SQ SCH (09:41)
[2018-09-20] MEDS: Insulin NovoLOG Aspart Correctional Sugar Inj SQ SCH ×4 (09:41→22:06)
[2018-09-20] MEDS: Anastrozole 1 MG Tablet PO SCH (09:41)
[2018-09-20 10:05] LABS: Baso % (Auto) 0.6 % (0.0-2.0); Eos # (Auto) 0.2 th/mm3 (0.0-0.4); Hematocrit 28.7 % (35.0-46.0); Hemoglobin 9.5 gm/dL (11.6-15.3); Lymph # (Auto) 0.8 th/mm3 (1.0-4.8); Lymph % (Auto) 9.7 % (9.0-44.0); Mean Corpuscular HGB Conc 33.3 % (32.0-36.0); Mean Corpuscular Hemoglobin 30.4 pg (27.0-34.0); Mean Corpuscular Volume 91.3 fL (80.0-100.0); Mean Platelet Volume 7.4 fL (7.0-11.0); Mono # (Auto) 0.7 th/mm3 (0.0-0.9); Mono % (Auto) 9.3 % (0.0-8.0); Neut # (Auto) 6.2 th/mm3 (1.8-7.7); Neut % (Auto) 77.4 % (16.0-70.0); Platelet Count 137 th/mm3 (150-450); Red Blood Count 3.14 mil/mm3 (4.00-5.30); Red Cell Distribution Width 21.9 % (11.6-17.2)
[2018-09-20 10:24] LABS: Alanine Aminotransferase 12 U/L (10-53); Albumin 1.8 g/dL (3.4-5.0); Alkaline Phosphatase 185 U/L (45-117); Anion Gap 10 meq/L (5-15); Aspartate Aminotransferase 16 U/L (15-37); Blood Urea Nitrogen 4 mg/dL (7-18); Calcium 7.4 mg/dL (8.5-10.1); Carbon Dioxide 19.6 meq/L (21.0-32.0); Chloride 112 meq/L (98-107); Glomerular Filtration Rate Greater Than 89 mL/min (>89); Glucose,Random 82 mg/dL (74-106); Potassium 3.7 meq/L (3.5-5.1); Sodium 142 meq/L (136-145); Total Protein 5.8 g/dL (6.4-8.2)
[2018-09-20 10:46] LABS: Eosinophils 1 % (0-4); Lymphocytes 8 % (9-44); Monocytes 2 % (0-8); Myelocytes 2 % (0-0); Tallied Nucleated RBC 1 (0-0)
[2018-09-20 10:47] LABS: Platelet Morphology Normal (Normal); Toxic Granulation 1+
[2018-09-20 10:48] LABS: Ovalocytes 1+
--- NOTE | 2018-09-20 11:35 | P.PNONC ---
Subjective Interval history: Afebrile. Patient sleeping on approach, awakens easily to voice. She reports a "stomach ache, it is hard to describe" denies nausea or vomiting. She is associating this stomachache with the amount of pills she is having to take. She has not gotten up out of bed. Discussed with nurse, she reports the patient is not eating much at all and does not get up out of bed. Objective Vital Signs/Intake & Output: Vital Signs 09/19/18 12:00 09/19/18 15:14 09/19/18 20:00 Temperature 98.7 F 98.4 F 98.0 F Pulse Rate 112 H 93 H 100 H Respiratory Rate 16 16 17 Blood Pressure 181/89 H 145/69 H 155/75 H Pulse Oximetry 97 98 97 09/20/18 08:00 Temperature 98.7 F Pulse Rate 95 H Respiratory Rate 16 Blood Pressure 169/78 H Pulse Oximetry 99 Intake & Output 09/19/18 09/20/18 09/20/18 18:59 06:59 18:59 Intake Total 1300 / 1300 1100 / 1100 Balance 1300 / 1300 1100 / 1100 Weight 79.6 kg Intake: IV 1300 / 1300 1100 / 1100 NS Inj 1,000 ML @ 100 mls/hr IV 1000 / 1000 1000 / 1000 .CONT .Q10H HARDEEP Rx#:[id number] Magnesium Sulfate 1 gm/D5W 100 100 / 100 100 / 100 ml Premix 100 ML @ 100 mls/hr IV.SIG ONCE ONE Rx#:[id number] KCl 20 mEq Premix Inj 20 meq In 200 / 200 100 ml @ 50 mls/hr IV.SIG Q2H HARDEEP Rx#:[id number] Other: # Voids 0 1 Result Diagrams: 09/20/18 09:40 09/20/18 09:40 Laboratory Results: Laboratory Results - last 24 hr 09/19/18 09/19/18 09/19/18 07:15 12:46 18:58 WBC RBC Hgb Hct MCV MCH MCHC RDW Plt Count MPV Prelim Diff (Auto) Neut % (Auto) Lymph % (Auto) [place] % (Auto) Eos % (Auto) Baso % (Auto) Neut # (Auto) Lymph # (Auto) [place] # (Auto) Eos # (Auto) Baso # (Auto) WBC Differential Seg Neuts % (Manual) Band Neuts % (Manual) Lymphocytes % (Manual) Monocytes % (Manual) Eosinophils % (Manual) Myelocytes % (Man) Abs Neuts (Manual) Nucleated RBCs/100 WBC Differential Comment Toxic Granulation Platelet Estimate Platelet Morphology Ovalocytes Sodium Potassium Chloride Carbon Dioxide Anion Gap BUN Creatinine Estimated GFR POC Glucose 88 93 Random Glucose Calcium Prot Corrected Calcium Magnesium 1.4 L Total Bilirubin AST ALT Alkaline Phosphatase Total Protein Albumin 09/19/18 09/20/18 09/20/18 21:19 08:41 09:40 WBC 8.0 RBC 3.14 L Hgb 9.5 L Hct 28.7 L MCV 91.3 MCH 30.4 MCHC 33.3 RDW 21.9 H Plt Count 137 L MPV 7.4 Prelim Diff (Auto) Slide review pending Neut % (Auto) 77.4 H Lymph % (Auto) 9.7 [place] % (Auto) 9.3 H Eos % (Auto) 3.0 Baso % (Auto) 0.6 Neut # (Auto) 6.2 Lymph # (Auto) 0.8 L [place] # (Auto) 0.7 Eos # (Auto) 0.2 Baso # (Auto) 0.0 WBC Differential Manual diff final Seg Neuts % (Manual) 83 H Band Neuts % (Manual) 4 Lymphocytes % (Manual) 8 L Monocytes % (Manual) 2 Eosinophils % (Manual) 1 Myelocytes % (Man) 2 H Abs Neuts (Manual) 7.1 Nucleated RBCs/100 WBC 1 H Differential Comment . Toxic Granulation 1+ H Platelet Estimate Low L Platelet Morphology Normal Ovalocytes 1+ H Sodium Potassium Chloride Carbon Dioxide Anion Gap BUN Creatinine Estimated GFR POC Glucose 117 H 85 Random Glucose Calcium Prot Corrected Calcium Magnesium Total Bilirubin AST ALT Alkaline Phosphatase Total Protein Albumin 09/20/18 09:40 WBC RBC Hgb Hct MCV MCH MCHC RDW Plt Count MPV Prelim Diff (Auto) Neut % (Auto) Lymph % (Auto) [place] % (Auto) Eos % (Auto) Baso % (Auto) Neut # (Auto) Lymph # (Auto) [place] # (Auto) Eos # (Auto) Baso # (Auto) WBC Differential Seg Neuts % (Manual) Band Neuts % (Manual) Lymphocytes % (Manual) Monocytes % (Manual) Eosinophils % (Manual) Myelocytes % (Man) Abs Neuts (Manual) Nucleated RBCs/100 WBC Differential Comment Toxic Granulation Platelet Estimate Platelet Morphology Ovalocytes Sodium 142 Potassium 3.7 D Chloride 112 H Carbon Dioxide 19.6 L Anion Gap 10 BUN 4 L Creatinine 0.44 L Estimated GFR Greater than 89 POC Glucose Random Glucose 82 Calcium 7.4 L* Prot Corrected Calcium 8.1 L Magnesium Total Bilirubin 0.5 AST 16 ALT 12 Alkaline Phosphatase 185 H Total Protein 5.8 L Albumin 1.8 L Medications: Active Medications Generic Name Dose Route Start Last Admin Trade Name Freq PRN Reason Stop Dose Admin Acetaminophen 650 mg 09/18/18 08:41 09/18/18 11:37 Tylenol PO 650 mg Q4H PRN Administration SEE LABEL COMMENTS Anastrozole 1 mg 09/16/18 09:00 09/20/18 09:41 Arimidex PO 1 mg DAILY HARDEEP Administration Calcium Carbonate 500 mg 09/19/18 11:30 09/20/18 09:41 Tums Chew CHEW 500 mg BID HARDEEP Administration Diphenhydramine HCl 25 mg 09/18/18 08:41 09/18/18 11:37 Benadryl PO 25 mg Q4H PRN Administration SEE LABEL COMMENTS Enoxaparin Sodium 40 mg 09/16/18 09:00 09/20/18 09:41 Lovenox Inj SQ 40 mg DAILY HARDEEP Administration Sodium Chloride 1,000 mls @ 100 mls/hr 09/15/18 20:45 09/20/18 01:57 Ns Inj IV.CONT 100 mls/hr .Q10H HARDEEP Administration Insulin Aspart 0 unit 09/15/18 21:00 09/20/18 09:41 Novolog Insulin Correctional Sugar Inj SQ Not Given ACHS [facility] Protocol Sodium Chloride 2 ml 09/15/18 17:24 09/15/18 17:57 Ns Flush IV.FLUSH 2 ml PRN PRN Administration FLUSH AFTER USING IV ACCESS Objective Remarks: GENERAL: Chronically ill-appearing elderly female patient, no acute distress. SKIN: Pale, warm and dry. Dark mole to lower left eye lid. Bandage to right breast, dry/intact. HEAD: Normocephalic. EYES: No scleral icterus. No injection or drainage. NECK: Supple, trachea midline. CARDIOVASCULAR: Regular rate and rhythm without murmurs. RESPIRATORY: Posterior breath sounds clear, equal bilaterally. No accessory muscle use. GASTROINTESTINAL: Abdomen soft, non-tender, nondistended. EXTREMITIES: No cyanosis, or edema. MUSCULOSKELETAL: Decreased muscle tone. NEUROLOGICAL: No obvious focal deficit. Awake, alert, and oriented x3. PSYCHIATRIC: Appropriate mood and affect; insight and judgment normal. Assessment/Plan - Plan Ms. Matias is a 73-year-old woman with metastatic ER positive and ER negative breast cancer. She is currently being treated with an aromatase inhibitor, awaiting definitive surgery of bilateral mastectomy for ulcerated masses to both breasts. Her mastectomy was delayed due to acute cholecystitis. She was discharged to rehab. She returned to the hospital with intermittent nausea and symptoms of dizziness. Plan: 1. Anemia, stabilized. Hemoglobin 9.5 today. 2. Left lower extremity ultrasound was negative for DVT. She continues on DVT prophylactic Lovenox dosing. She is at an increased risk for thrombus due to immobility and metastatic breast cancer. I have encouraged the patient to get up out of bed and work with physical therapy. 3. Continue Arimidex. 4. I will reorder physical therapy. She was evaluated however I do not believe they have been treating her. 5. Continue supportive care.
[2018-09-20] MEDS ORDERED: Calcium Gluconate Inj 1 GM in Dextrose 5% in Water Inj 100 ML IV.SIG ONE ×2 (13:00)
--- NOTE | 2018-09-20 16:48 | P.PN ---
Subjective Interval history: Follow up for weakness, failure to thrive, metastatic breast cancer, anemia, hypokalemia/hypocalcemia/hypomagnesemia. Patient reports feeling sick to her stomach today. She denies any abdominal pain, but reports occasional nausea, no vomiting. Denies any diarrhea. Denies any fevers or chills. She states it is hard to describe her upset stomach, but she believes that it is due to all of the pills she has been taking, especially the potassium. She states she would rather have the medications through her IV. She states she is eating, just does not eat very much for breakfast. She does not feel ready for discharge and wants to wait until tomorrow. She has no other medical complaints at this time. Physical Exam Vital signs: Vital Signs 09/19/18 20:00 09/20/18 08:00 09/20/18 12:00 Temperature 98.0 F 98.7 F 98.6 F Pulse Rate 100 H 87 88 Respiratory Rate 17 16 16 Blood Pressure 155/75 H 169/78 H 155/79 H Pulse Oximetry 97 99 99 09/20/18 15:40 Temperature 98.6 F Pulse Rate 87 Respiratory Rate 16 Blood Pressure 144/74 H Pulse Oximetry 98 Intake & Output 09/19/18 09/20/18 09/20/18 18:59 06:59 18:59 Intake Total 1300 / 1300 1100 / 1100 1000 / 1000 Balance 1300 / 1300 1100 / 1100 1000 / 1000 Weight 79.6 kg Intake: IV 1300 / 1300 1100 / 1100 1000 / 1000 NS Inj 1,000 ML @ 100 mls/hr IV 1000 / 1000 1000 / 1000 1000 / 1000 .CONT .Q10H HARDEEP Rx#:[id number] Magnesium Sulfate 1 gm/D5W 100 100 / 100 100 / 100 ml Premix 100 ML @ 100 mls/hr IV.SIG ONCE ONE Rx#:[id number] KCl 20 mEq Premix Inj 20 meq In 200 / 200 100 ml @ 50 mls/hr IV.SIG Q2H HARDEEP Rx#:[id number] Other: # Voids 0 1 Narrative: GENERAL: Well-nourished, well-developed chronically ill-appearing elderly female patient in [facility]. SKIN: Warm and dry. No rash. HEENT: Normocephalic. Atraumatic. Pupils equal and round. Mucous membranes pink and moist. CARDIOVASCULAR: Regular rate and rhythm. No murmur appreciated. RESPIRATORY: No accessory muscle use. Clear to auscultation. Breath sounds equal bilaterally. GASTROINTESTINAL: Abdomen soft, non-tender, nondistended. Normoactive bowel sounds x4. MUSCULOSKELETAL: No obvious deformities. Extremities without clubbing, cyanosis , or edema. NEUROLOGICAL: Awake and alert. No obvious cranial nerve deficits. Motor grossly within normal limits. Moving all extremities spontaneously although with generalized weakness. Normal speech. PSYCHIATRIC: Appropriate mood and affect; insight and judgment normal. Results - Labs CBC & Chem 7: 09/20/18 09:40 09/20/18 09:40 Laboratory Results - last 24 hr 09/19/18 09/19/18 09/20/18 18:58 21:19 08:41 WBC RBC Hgb Hct MCV MCH MCHC RDW Plt Count MPV Prelim Diff (Auto) Neut % (Auto) Lymph % (Auto) [place] % (Auto) Eos % (Auto) Baso % (Auto) Neut # (Auto) Lymph # (Auto) [place] # (Auto) Eos # (Auto) Baso # (Auto) WBC Differential Seg Neuts % (Manual) Band Neuts % (Manual) Lymphocytes % (Manual) Monocytes % (Manual) Eosinophils % (Manual) Myelocytes % (Man) Abs Neuts (Manual) Nucleated RBCs/100 WBC Differential Comment Toxic Granulation Platelet Estimate Platelet Morphology Ovalocytes Sodium Potassium Chloride Carbon Dioxide Anion Gap BUN Creatinine Estimated GFR POC Glucose 93 117 H 85 Random Glucose Calcium Prot Corrected Calcium Total Bilirubin AST ALT Alkaline Phosphatase Total Protein Albumin 09/20/18 09/20/18 09/20/18 09:40 09:40 13:15 WBC 8.0 RBC 3.14 L Hgb 9.5 L Hct 28.7 L MCV 91.3 MCH 30.4 MCHC 33.3 RDW 21.9 H Plt Count 137 L MPV 7.4 Prelim Diff (Auto) Slide review pending Neut % (Auto) 77.4 H Lymph % (Auto) 9.7 [place] % (Auto) 9.3 H Eos % (Auto) 3.0 Baso % (Auto) 0.6 Neut # (Auto) 6.2 Lymph # (Auto) 0.8 L [place] # (Auto) 0.7 Eos # (Auto) 0.2 Baso # (Auto) 0.0 WBC Differential Manual diff final Seg Neuts % (Manual) 83 H Band Neuts % (Manual) 4 Lymphocytes % (Manual) 8 L Monocytes % (Manual) 2 Eosinophils % (Manual) 1 Myelocytes % (Man) 2 H Abs Neuts (Manual) 7.1 Nucleated RBCs/100 WBC 1 H Differential Comment . Toxic Granulation 1+ H Platelet Estimate Low L Platelet Morphology Normal Ovalocytes 1+ H Sodium 142 Potassium 3.7 D Chloride 112 H Carbon Dioxide 19.6 L Anion Gap 10 BUN 4 L Creatinine 0.44 L Estimated GFR Greater than 89 POC Glucose 95 Random Glucose 82 Calcium 7.4 L* Prot Corrected Calcium 8.1 L Total Bilirubin 0.5 AST 16 ALT 12 Alkaline Phosphatase 185 H Total Protein 5.8 L Albumin 1.8 L - Imaging Chest X-Ray 09/15/18 17:24 CONCLUSION: Right-sided Kwonkk-a-Betu catheter. Lungs are clear. Head MRI 09/16/18 00:00 CONCLUSION: 1. No acute findings. No recent infarct. Mild white matter ischemic changes, stable. Venous Doppler Study 09/18/18 00:00 CONCLUSION: 1. The study is negative for lower extremity deep venous thrombosis. Assessment and Plan - Plan 73-year-old female with past medical history significant for bilateral metastatic breast cancer and atrial fibrillation presents to the emergency department for evaluation of weakness. Generalized weakness/failure to thrive: suspect multifactorial secondary to cancer, dehydration, diarrhea, decreased oral intake. -Continue IV fluid hydration -Start on Ensure shakes tid -Nutrition consult, appreciate recommendations -Consult PT/OT, Anticipate discharge to [facility] rehab once patient able to stand and participate in therapy Abdominal Discomfort/Nausea/Diarrhea: possible gastroenteritis -check stool studies, however no further diarrhea -Urinalysis unremarkable -give IVF hydration -replace electrolytes -diet as tolerated, patient is picky eater, but tolerating oral intake Hypokalemia/Hypomagnesemia/Hypocalcemia: K 2.9, Mag 1.4. Suspect secondary to poor oral intake -Give IV/po KCl replacement x80meq total, IV mag sulfate x2g, and calcium carbonate 500mg bid -Repeat labs today show improvement, continue to monitor RYAN: suspect secondary to dehydration, diarrhea, poor oral intake. Creatinine 1.18 upon arrival. -giving IVF hydration -avoid nephrotoxins -monitor BMP, much improved, creatinine 0.61 Symptomatic Normocytic Anemia: Hgb dropped to 7.4, worse than baseline around 8- 9. Patient symptomatic with fatigue/weakness. -Iron panel consistent with anemia of chronic disease -transfuse 1u pRBC 09/18 -repeat CBC much improved with Hgb 9.5. Metastatic Breast cancer: ongoing -Patient's oncologist is Dr. Johnson, consulted, appreciate assistance -Continue anastrozole -Brain MRI negative for metastasis. Atrial fibrillation: chronic -Patient not on any home medications -Monitor -Rate controlled at this time Diabetes mellitus: chronic -Holding home metformin -Monitor Accu-checks and cover with Sliding-scale insulin -BG well controlled DVT Prophylaxis: Lovenox sq Discharge Planning: Hopefully discharge back to [facility] 09/21 if improved and cleared by oncology.
[2018-09-21] MEDS: Sod Chloride 0.9% Inj 1,000 ML IV.CONT SCH ×4 (08:00→21:38)
[2018-09-21] MEDS: Anastrozole 1 MG Tablet PO SCH (08:57)
[2018-09-21] MEDS: Insulin NovoLOG Aspart Correctional Sugar Inj SQ SCH ×4 (08:57→21:35)
[2018-09-21] MEDS: Enoxaparin Inj 40 MG/0.4 ML Syringe SQ SCH (08:58)
--- NOTE | 2018-09-21 10:30 | P.DS ---
Date of admission: 09/18/18 14:23 Primary care physician: Chelsey Barragan Brief History from admission: 73-year-old female with past medical history significant for bilateral metastatic breast cancer and atrial fibrillation presents to the emergency department for evaluation of weakness. The patient was slated for a bilateral vasectomy however secondary to gangrenous cholecystitis had to have a cholecystectomy 2 weeks ago. She reports that for the past 4 weeks she has been becoming progressively weak. She endorses an associated anorexia and early satiety. No nausea or vomiting. The patient is 6 weeks status post completion of chemotherapy in 8 weeks status post completion of radiation therapy. Her oncologist is Dr. Johnson. The patient was seen by her oncologist earlier this morning and was given IV fluids without relief of her symptoms. She then went to her follow-up for her cholecystectomy with Dr. Brito who sent her to the emergency department secondary to her debilitated condition. The patient is currently a resident of [facility] however has not been participating in her therapies as she is unable to stand. She denies chest pain or shortness of breath. No abdominal pain. No lateralizing signs/symptoms. No fever/chills. Patient update on day of discharge: Patient reports feeling better today. She states her stomach ache has improved. She is tolerating oral intake. She feels ready to go back to rehab today. Denies any lightheadedness or dizziness. Denies any other medical complaints at this time. DS: Diagnosis - Discharge Diagnosis (1) Generalized weakness Status: Acute (2) Metastatic breast cancer Status: Chronic DS: Medications - Discharge Medications Prescriptions: hydrocodone-acetaminophen 1 tab PO Q4H PRN #12 tab PRN Reason: Pain DS: Summary Hospital Course: 73-year-old female with past medical history significant for bilateral metastatic breast cancer and atrial fibrillation presents to the emergency department for evaluation of weakness. Generalized weakness/failure to thrive: suspect multifactorial secondary to cancer, dehydration, diarrhea, decreased oral intake. Given IV fluid hydration. Started on Ensure shakes tid. Nutrition consult, recommended: 1. [place] pt's food preferences to assist w/improved po intake 2. Rec replacing Ensure w/ Glucerna Shake TID if a CHO-controlled nutritional supplement is needed. PT consulted, recommended rehab, discharged back to [facility]. Abdominal Discomfort/Nausea/Diarrhea: possible gastroenteritis. Ordered stool studies, however no further diarrhea. Urinalysis unremarkable. Given IVF hydration. Replaced electrolytes. Diet as tolerated, patient is picky eater, but tolerating oral intake. Symptoms improved. Hypokalemia/Hypomagnesemia/Hypocalcemia: K 2.9, Mag 1.4. Suspect secondary to poor oral intake/dehydration. Given IV/po KCl replacement x80meq total, IV mag sulfate x2g, and calcium carbonate 500mg bid and IV Calcium Gluconate x1. Repeat labs show improvement, stable. RYAN: suspect secondary to dehydration, diarrhea, poor oral intake. Creatinine 1.18 upon arrival. S/p IVF hydration. BMP much improved, creatinine 0.61. Resolved. Symptomatic Normocytic Anemia: Hgb dropped to 7.4, worse than baseline around 8- 9. Patient symptomatic with fatigue/weakness. Iron panel consistent with anemia of chronic disease. Transfused 1u pRBC 09/18. Repeat CBC much improved with Hgb 9.5, stable. Metastatic Breast cancer: ongoing. Patient's oncologist is Dr. Johnson, consulted. Continue Arimidex. Brain MRI negative for metastasis. Patient cleared from an oncology standpoint for discharge back to [facility] rehab. Follow-up with Dr. Johnson after discharge. Pt reports that her daughter will make appointment. - Time Spent with Patient Total time spent providing and/or coordinating discharge services: Greater than 30 minutes - Quality: VTE Deep Vein Thrombosis/Pulmonary Embolism Present on Admission: No Exam Vital signs: Vital Signs 09/20/18 12:00 09/20/18 15:40 09/20/18 19:45 Temperature 98.6 F 98.6 F 98.1 F Pulse Rate 88 87 88 Respiratory Rate 16 16 16 Blood Pressure 155/79 H 144/74 H 150/78 H Pulse Oximetry 99 98 97 09/21/18 08:00 Temperature 98.5 F Pulse Rate 95 H Respiratory Rate 16 Blood Pressure 160/86 H Pulse Oximetry 98 Intake & Output 09/20/18 09/21/18 09/21/18 18:59 06:59 18:59 Intake Total 1110 / 1110 1000 / 1000 Balance 1110 / 1110 1000 / 1000 Weight 79.6 kg Intake: IV 1110 / 1110 1000 / 1000 NS Inj 1,000 ML @ 100 mls/hr IV 1000 / 1000 1000 / 1000 .CONT .Q10H HARDEEP Rx#:[id number] Calcium Gluconate Inj 1 GM In 110 / 110 D5W Inj 100 ML @ 110 mls/hr IV. SIG ONCE ONE Rx#:[id number] Other: # Urine Diapers 1 Date of Last Bowel Movement 09/20/18 # Bowel Movements 1 Narrative: GENERAL: Well-nourished, well-developed chronically ill-appearing elderly female patient in [facility]. SKIN: Warm and dry. No rash. HEENT: Normocephalic. Atraumatic. Pupils equal and round. Mucous membranes pink and moist. CARDIOVASCULAR: Regular rate and rhythm. No murmur appreciated. RESPIRATORY: No accessory muscle use. Clear to auscultation. Breath sounds equal bilaterally. GASTROINTESTINAL: Abdomen soft, non-tender, nondistended. Normoactive bowel sounds x4. MUSCULOSKELETAL: No obvious deformities. Extremities without clubbing, cyanosis , or edema. NEUROLOGICAL: Awake and alert. No obvious cranial nerve deficits. Motor grossly within normal limits. Moving all extremities spontaneously. Normal speech. PSYCHIATRIC: Appropriate mood and affect; insight and judgment normal. Results Procedures completed during hospitalization: None. Labs on day of discharge: Labs from last 24 hours 09/21/18 09/20/18 09/20/18 08:55 21:51 17:18 WBC Differential Seg Neuts % (Manual) Band Neuts % (Manual) Lymphocytes % (Manual) Monocytes % (Manual) Eosinophils % (Manual) Myelocytes % (Man) Abs Neuts (Manual) Nucleated RBCs/100 WBC Toxic Granulation Platelet Estimate Platelet Morphology Ovalocytes POC Glucose 77 88 109 09/20/18 09/20/18 13:15 09:40 WBC Differential Manual diff final Seg Neuts % (Manual) 83 H Band Neuts % (Manual) 4 Lymphocytes % (Manual) 8 L Monocytes % (Manual) 2 Eosinophils % (Manual) 1 Myelocytes % (Man) 2 H Abs Neuts (Manual) 7.1 Nucleated RBCs/100 WBC 1 H Toxic Granulation 1+ H Platelet Estimate Low L Platelet Morphology Normal Ovalocytes 1+ H POC Glucose 95 - Impressions ITS Impressions Chest X-Ray 09/15/18 17:24 CONCLUSION: Right-sided Cajbop-l-Scqy catheter. Lungs are clear. Head MRI 09/16/18 00:00 CONCLUSION: 1. No acute findings. No recent infarct. Mild white matter ischemic changes, stable. Venous Doppler Study 09/18/18 00:00 CONCLUSION: 1. The study is negative for lower extremity deep venous thrombosis. Discharge Plan - Discharge Disposition Patient Disposition: Discharge to SNF - Discharge Condition Condition: Stable - Discharge Order Discharge Orders: Discharge Order (Routine); Ordered 09/21/18 Ordered By: Ibeth Joseph - Discharge Details Anticipated Discharge Date: 09/21/18 Discharge Comment: D/c if patient tolerates breakfast and cleared by oncology. - Physicians Team Attending Provider: Lucia Pedro Other Providers: Ximena Bueno ; Britany Johnson MD ; [facility],[place]
--- NOTE | 2018-09-21 11:43 | P.PNONC ---
Subjective Interval history: Patient lying in bed, no acute distress. She states she is feeling pretty good. She reports she is getting discharged to [facility] today. Objective Vital Signs/Intake & Output: Vital Signs 09/20/18 12:00 09/20/18 15:40 09/20/18 19:45 Temperature 98.6 F 98.6 F 98.1 F Pulse Rate 88 87 88 Respiratory Rate 16 16 16 Blood Pressure 155/79 H 144/74 H 150/78 H Pulse Oximetry 99 98 97 09/21/18 08:00 09/21/18 11:26 Temperature 98.5 F 98.4 F Pulse Rate 95 H 81 Respiratory Rate 16 16 Blood Pressure 160/86 H 149/75 H Pulse Oximetry 98 98 Intake & Output 09/20/18 09/21/18 09/21/18 18:59 06:59 18:59 Intake Total 1110 / 1110 1000 / 1000 Balance 1110 / 1110 1000 / 1000 Weight 79.6 kg Intake: IV 1110 / 1110 1000 / 1000 NS Inj 1,000 ML @ 100 mls/hr IV 1000 / 1000 1000 / 1000 .CONT .Q10H HARDEEP Rx#:[id number] Calcium Gluconate Inj 1 GM In 110 / 110 D5W Inj 100 ML @ 110 mls/hr IV. SIG ONCE ONE Rx#:[id number] Other: # Urine Diapers 1 Date of Last Bowel Movement 09/20/18 # Bowel Movements 1 Result Diagrams: 09/20/18 09:40 09/20/18 09:40 Laboratory Results: Laboratory Results - last 24 hr 09/20/18 09/20/18 09/20/18 13:15 17:18 21:51 POC Glucose 95 109 88 09/21/18 08:55 POC Glucose 77 Medications: Active Medications Generic Name Dose Route Start Last Admin Trade Name Freq PRN Reason Stop Dose Admin Acetaminophen 650 mg 09/18/18 08:41 09/18/18 11:37 Tylenol PO 650 mg Q4H PRN Administration SEE LABEL COMMENTS Anastrozole 1 mg 09/16/18 09:00 09/21/18 08:57 Arimidex PO 1 mg DAILY HARDEEP Administration Diphenhydramine HCl 25 mg 09/18/18 08:41 09/18/18 11:37 Benadryl PO 25 mg Q4H PRN Administration SEE LABEL COMMENTS Enoxaparin Sodium 40 mg 09/16/18 09:00 09/21/18 08:58 Lovenox Inj SQ 40 mg DAILY HARDEEP Administration Sodium Chloride 1,000 mls @ 100 mls/hr 09/15/18 20:45 09/21/18 08:00 Ns Inj IV.CONT Not Given .Q10H HARDEEP Insulin Aspart 0 unit 09/15/18 21:00 09/21/18 08:57 Novolog Insulin Correctional Sugar Inj SQ Not Given ACHS [facility] Protocol Ondansetron HCl 4 mg 09/15/18 20:38 09/20/18 14:19 Zofran Inj IV.PUSH 4 mg Q6H PRN Administration NAUSEA OR VOMITING Sennosides 17.2 mg 09/15/18 20:38 09/20/18 14:18 Senokot PO 8.6 mg Q12H PRN Administration Moderate Constipation Sodium Chloride 2 ml 09/15/18 17:24 09/15/18 17:57 Ns Flush IV.FLUSH 2 ml PRN PRN Administration FLUSH AFTER USING IV ACCESS Objective Remarks: GENERAL: Chronically ill-appearing elderly female patient, no acute distress. SKIN: Pale, warm and dry. Dark mole to lower left eye lid. Bandage to right breast, dry/intact. HEAD: Normocephalic. EYES: No scleral icterus. No injection or drainage. NECK: Supple, trachea midline. CARDIOVASCULAR: Regular rate and rhythm without murmurs. RESPIRATORY: Posterior breath sounds clear, equal bilaterally. Nonlabored at rest. GASTROINTESTINAL: Abdomen soft, non-tender, nondistended. EXTREMITIES: No cyanosis, or edema. MUSCULOSKELETAL: Decreased muscle tone. NEUROLOGICAL: No obvious focal deficit. Awake, alert, and oriented x3. PSYCHIATRIC: Appropriate mood and affect; insight and judgment normal. Assessment/Plan - Plan Ms. Matias is a 73-year-old woman with metastatic ER positive and ER negative breast cancer. She is currently being treated with an aromatase inhibitor, awaiting definitive surgery of bilateral mastectomy for ulcerated masses to both breasts. Her mastectomy was delayed due to acute cholecystitis. She was discharged to rehab. She returned to the hospital with intermittent nausea and symptoms of dizziness. Plan: 1. Anemia, stabilized. Hemoglobin 9.5 yesterday. 2. Continue Arimidex. 3. Continue rehab. 4. Patient cleared from an oncology standpoint for discharge back to [facility]. Follow-up with Dr. Johnson after discharge. Pt reports that her daughter will make appointment. - Attending Statement The exam, history, and the medical decision-making described in the above note were completed with the assistance of the mid-level provider. I reviewed and agree with the findings presented. I attest that I had a [id number] encounter with the patient on the same day, and personally performed and documented my assessment and findings in the medical record. Patient was seen and examined. Her right breast dressing was changed in the presence of his nurse in the night nurse. The wound looks clean however the ulceration appears to be deeper. More nodularity surrounding the initial area. The left breast mass is unchanged. There is a small area of scab. Bilateral axilla still negative for adenopathy. She still complains of some spasm and abdominal pain when she eats up. She likes her tunafish. Her glucose is being monitored. We discussed concerned about improving her performance status at that she may have her definitive surgery and take care of the breast masses. I are concerned about progression. We had planned all along to start her on aromatase inhibitor and CDK 4 inhibitor. However CDK 4 inhibitor has been placed on hold because of her healing from various surgery. Her most recent surgery was the urgent cholecystectomy. No contraindication from oncology standpoint for discharge. Okay for discharge to residential facility/rehab. I plan to see her back in clinic in a week' s time. We will coordinate the visit at [facility] on September 29.
[2018-09-22] MEDS: Sod Chloride 0.9% Inj 1,000 ML IV.CONT SCH ×3 (03:00→14:01)
[2018-09-22] MEDS: Enoxaparin Inj 40 MG/0.4 ML Syringe SQ SCH (09:43)
[2018-09-22] MEDS: Anastrozole 1 MG Tablet PO SCH (09:43)
[2018-09-22] MEDS: Insulin NovoLOG Aspart Correctional Sugar Inj SQ SCH ×4 (10:05→21:23)
--- NOTE | 2018-09-22 15:27 | P.PN ---
Subjective Interval history: Problem patient with weakness, failure to thrive, metastatic breast cancer, anemia, electrolyte disturbance. Patient seen and examined. Patient denies any complaints. She denies any fever or chills. She denies any nausea vomiting or abdominal pain. She denies any chest pain or shortness of breath. Physical Exam Vital signs: Vital Signs 09/21/18 20:00 09/22/18 08:00 09/22/18 12:00 Temperature 99.3 F 98.8 F Pulse Rate 79 115 H 84 Respiratory Rate 16 16 Blood Pressure 156/83 H 144/77 H Pulse Oximetry 99 99 Intake & Output 09/21/18 09/22/18 09/22/18 18:59 06:59 18:59 Intake Total 1000 / 1000 1000 / 1000 2500 / 2500 Output Total 900 / 900 Balance 100 / 100 1000 / 1000 2500 / 2500 Weight 79.379 kg Intake: IV 1000 / 1000 1000 / 1000 1999 / 1999 NS Inj 1,000 ML @ 100 mls/hr IV 1000 / 1000 1000 / 1000 1999 / 1999 .CONT .Q10H HARDEEP Rx#:[id number] Oral 500 / 500 Output: Urine 900 / 900 Narrative: GENERAL: Well-nourished, well-developed chronically ill-appearing elderly female patient in [facility]. Awake and alert. SKIN: Warm and dry. No rash. HEENT: Normocephalic. Atraumatic. Pupils equal and round. Mucous membranes pink and moist. CARDIOVASCULAR: Regular rate and rhythm. No murmur appreciated. RESPIRATORY: No accessory muscle use. Clear to auscultation. Breath sounds equal bilaterally. GASTROINTESTINAL: Abdomen soft, non-tender, nondistended. Normoactive bowel sounds x4. MUSCULOSKELETAL: No obvious deformities. Extremities without clubbing, cyanosis , or edema. NEUROLOGICAL: Awake and alert. No obvious cranial nerve deficits. Motor grossly within normal limits. Able to move all extremities spontaneously. Normal speech. PSYCHIATRIC: Appropriate mood and affect; insight and judgment normal. Results - Labs CBC & Chem 7: 09/20/18 09:40 09/20/18 09:40 Laboratory Results - last 24 hr 09/21/18 09/21/18 09/22/18 18:37 21:32 09:46 POC Glucose 90 85 74 09/22/18 13:04 POC Glucose 100 - Procedures None. Assessment and Plan - Assessment (1) Generalized weakness Code(s): R53.1 - Weakness Status: Acute (2) Metastatic breast cancer Code(s): C50.919 - Malignant neoplasm of unspecified site of unspecified female breast Status: Chronic - Plan 73-year-old female with past medical history significant for bilateral metastatic breast cancer and atrial fibrillation presents to the emergency department for evaluation of weakness. Generalized weakness/failure to thrive: suspect multifactorial secondary to cancer, dehydration, diarrhea, decreased oral intake. -treated with IV fluid hydration. Discontinue IVF. Encourage po fluid intake. -continue on Ensure shakes tid -Nutrition consult, appreciate recommendations -Consult PT/OT, Anticipate discharge to [facility] once patient able to stand and participate in therapy 09/22 Ximena has refused authorization for [facility]. PTs note today states patient needs PT at rehab, only ambulated 2 feet, high risk for falls Abdominal Discomfort/Nausea/Diarrhea: possible gastroenteritis -check stool studies, however no further diarrhea -Urinalysis unremarkable -given IVF hydration -replaced electrolytes -diet as tolerated, patient is picky eater, but tolerating oral intake Hypokalemia/Hypomagnesemia/Hypocalcemia: K 2.9, Mag 1.4. Suspect secondary to poor oral intake -Given IV/po KCl replacement x80meq total, IV mag sulfate x2g, and calcium carbonate 500mg bid -Repeat labs show improvement, continue to monitor RYAN: suspect secondary to dehydration, diarrhea, poor oral intake. Creatinine 1.18 upon arrival. -s/p IVF hydration -avoid nephrotoxins -monitor BMP, much improved, creatinine 0.44 Symptomatic Normocytic Anemia: Hgb dropped to 7.4, worse than baseline around 8- 9. Patient symptomatic with fatigue/weakness. -Iron panel consistent with anemia of chronic disease -transfused 1u pRBC 09/18 -repeat CBC much improved with Hgb 9.5. Metastatic Breast cancer: ongoing -Patient's oncologist is Dr. Johnson, consulted, appreciate assistance -Continue anastrozole -Brain MRI negative for metastasis. Atrial fibrillation: chronic -Patient not on any home medications -Monitor -Rate controlled at this time Diabetes mellitus: chronic -Holding home metformin -Monitor Accu-checks and cover with Sliding-scale insulin -BG well controlled DVT Prophylaxis: Lovenox sq Discussed Condition With: patient, nursing staff, Dr. Reyes
--- NOTE | 2018-09-23 07:16 | P.PN ---
Subjective Interval history: Follow up on patient with weakness, failure to thrive, metastatic breast cancer , anemia, electrolyte disturbance. Patient seen and examined. Patient complains of being cold. Otherwise she has no acute medical complaints. She denies any nausea or vomiting. She denies any complaints of abdominal pain. She denies any chest pain or shortness of breath. Discussed with nursing staff , no adverse events noted overnight. Physical Exam Vital signs: Vital Signs 09/22/18 08:00 09/22/18 12:00 09/22/18 17:58 Temperature 98.8 F 98.7 F Pulse Rate 115 H 84 95 H Respiratory Rate 16 16 Blood Pressure 144/77 H 162/78 H Pulse Oximetry 99 99 09/22/18 20:00 09/22/18 21:31 Temperature 98.3 F Pulse Rate 78 Respiratory Rate 17 Blood Pressure 192/87 H 160/72 H Pulse Oximetry 98 Intake & Output 09/22/18 09/23/18 09/23/18 18:59 06:59 18:59 Intake Total 3500 / 3500 240 / 240 Balance 3500 / 3500 240 / 240 Weight 79 kg Intake: IV 3000 / 3000 NS Inj 1,000 ML @ 100 mls/hr IV 3000 / 3000 .CONT .Q10H HARDEEP Rx#:[id number] Oral 500 / 500 240 / 240 Narrative: GENERAL: Well-nourished, well-developed chronically ill-appearing elderly female patient in [facility]. Awake and alert. Appears comfortable. SKIN: Warm and dry. No rash. HEENT: Normocephalic. Atraumatic. Pupils equal and round. Mucous membranes pink and moist. CARDIOVASCULAR: Regular rate and rhythm. No murmur appreciated. RESPIRATORY: No accessory muscle use. Clear to auscultation. Breath sounds equal bilaterally. GASTROINTESTINAL: Abdomen soft, non-tender, nondistended. Normoactive bowel sounds x4. MUSCULOSKELETAL: No obvious deformities. Extremities without clubbing, cyanosis , or edema. NEUROLOGICAL: Awake and alert. No obvious cranial nerve deficits. Motor grossly within normal limits. Able to move all extremities spontaneously. Normal speech. PSYCHIATRIC: Appropriate mood and affect; insight and judgment normal. Results - Labs CBC & Chem 7: 09/20/18 09:40 09/20/18 09:40 Laboratory Results - last 24 hr 09/22/18 09/22/18 09/22/18 09:46 13:04 16:30 POC Glucose 74 100 86 09/22/18 20:51 POC Glucose 83 - Procedures None. Assessment and Plan - Assessment (1) Generalized weakness Code(s): R53.1 - Weakness Status: Acute (2) Metastatic breast cancer Code(s): C50.919 - Malignant neoplasm of unspecified site of unspecified female breast Status: Chronic - Plan 73-year-old female with past medical history significant for bilateral metastatic breast cancer and atrial fibrillation presents to the emergency department for evaluation of weakness. Generalized weakness/failure to thrive: suspect multifactorial secondary to cancer, dehydration, diarrhea, decreased oral intake. -treated with IV fluid hydration. Discontinue IVF. Encourage po fluid intake. -continue on Ensure shakes tid -Nutrition consult, appreciate recommendations -Consult PT/OT, Anticipate discharge to [facility] once patient able to stand and participate in therapy 09/22 Ximena has refused authorization for [facility]. PTs note today states patient needs PT at rehab, only ambulated 2 feet, high risk for falls 09/23 peer to peer completed by Dr. Reyes. Ximena approved auth for rehab. Patient to be transferred back [facility] later today. Abdominal Discomfort/Nausea/Diarrhea: possible gastroenteritis -check stool studies, however no further diarrhea -Urinalysis unremarkable -given IVF hydration -replaced electrolytes -diet as tolerated, patient is picky eater, but tolerating oral intake Hypokalemia/Hypomagnesemia/Hypocalcemia: K 2.9, Mag 1.4. Suspect secondary to poor oral intake -Given IV/po KCl replacement x80meq total, IV mag sulfate x2g, and calcium carbonate 500mg bid -Repeat labs show improvement, continue to monitor RYAN: suspect secondary to dehydration, diarrhea, poor oral intake. Creatinine 1.18 upon arrival. -s/p IVF hydration -avoid nephrotoxins -monitor BMP, much improved, creatinine 0.44 Symptomatic Normocytic Anemia: Hgb dropped to 7.4, worse than baseline around 8- 9. Patient symptomatic with fatigue/weakness. -Iron panel consistent with anemia of chronic disease -transfused 1u pRBC 09/18 -repeat CBC much improved with Hgb 9.5. Metastatic Breast cancer: ongoing -Patient's oncologist is Dr. Johnson, consulted, appreciate assistance -Continue anastrozole -Brain MRI negative for metastasis. Atrial fibrillation: chronic -Patient not on any home medications -Monitor -Rate controlled at this time Diabetes mellitus: chronic -Holding home metformin -Monitor Accu-checks and cover with Sliding-scale insulin -BG well controlled DVT Prophylaxis: Lovenox sq Discussed Condition With: patient, nursing staff, Dr. Reyes
[2018-09-23] MEDS: Insulin NovoLOG Aspart Correctional Sugar Inj SQ SCH ×3 (08:57→18:12)
[2018-09-23] MEDS: Enoxaparin Inj 40 MG/0.4 ML Syringe SQ SCH (10:53)
[2018-09-23] MEDS: Anastrozole 1 MG Tablet PO SCH (10:54)
[2018-09-23 16:22] VITALS: BP 138/64; PULSE 90; RESP 18; TEMP 98; O2SAT 99
== END 2018-09-23 18:43 ==
LOC: NEPC 17:02 → NEDA 17:02 → NEPHCDU 20:58
PROVIDERS: ADMIT Hospitalist; ATTEND Hospitalist